=== PATIENT | male | born 1995 | race Caucasian/White ===

== ENCOUNTER 2022-05-05 17:47 | Observation (INO) ==
[2022-05-05] MEDS ORDERED: SODIUM CHLORIDE 0.9% 1000ML 1,000 ML IV ONE (18:04)
[2022-05-05] MEDS ORDERED: ONDANSETRON INJ 2 MG/ML 2 ML VIAL IV STA (18:18)
[2022-05-05 18:51] LABS: Basophils # (auto) 0.03 K/uL (0-0.2); Basophils % (auto) 0.3 %; Eosinophils # (auto) 0.29 K/uL (0-0.5); Eosinophils % (auto) 3.1 %; Hematocrit (blood only) 41.5 % (42-52); Hemoglobin 14.6 g/dL (14.0-18.0); Immature Granulocytes # (auto) 0.01 K/uL (0.00-0.02); Immature Granulocytes % (auto) 0.1 %; Lymphocytes # (auto) 2.54 K/uL (1.2-3.4); Lymphocytes % (auto) 26.8 %; Mean Corpuscular Hemoglobin 31.5 pg (25-34); Mean Corpuscular Hgb Conc 35.2 g/dL (32-36); Mean Corpuscular Volume 89.6 fL (80-100); Mean Platelet Volume 10.2 fL (7.4-10.4); Monocytes # (auto) 1.22 K/uL (0.11-0.59); Monocytes % (auto) 12.9 %; Neutrophils # (auto) 5.37 K/uL (1.4-6.5); Neutrophils % (auto) 56.8 %; Platelet Count 192 K/uL (130-400); RDW Coefficient of Variation 13.1 % (11.5-14.5); Red Blood Count 4.63 M/uL (4.7-6.1); White Blood Count 9.46 K/uL (4.8-10.8)
[2022-05-05 19:15] LABS: Albumin Level 4.1 gm/dl (3.4-5.0); BUN Creatinine Ratio 11.8 (10-20); Bilirubin Direct 0.1 mg/dl (0-0.2); Bilirubin,Total 0.6 mg/dl (0.2-1.0); Calcium 9.2 mg/dl (8.5-10.1); Creatinine Clr Calc Pharmacy 205.6 ml/min; Est GFR (African American) 139.4 ml/min; Est GFR (Non-African American) 120.3 ml/min; Potassium 3.7 mmol/L (3.5-5.1); Total Protein 7.6 gm/dl (6.0-8.3)
--- NOTE | 2022-05-05 19:51 | CT Scan Report ---
CT SCAN OF THE ABDOMEN AND PELVIS WITHOUT IV CONTRAST CLINICAL HISTORY: Right flank pain. COMPARISON STUDY: No priors. TECHNIQUE: CT scan of the abdomen and pelvis is performed from the lung bases to the proximal femora. Images are reviewed in the axial, sagittal, and coronal planes. IV contrast was not administered for this examination. A dose lowering technique was utilized adhering to the principles of ALARA. CT DOSE: 2221.29 mGy.cm FINDINGS: Lung bases: The heart is normal in size and without pericardial effusion. The lung bases are clear. Liver: The unenhanced liver is normal in size, contour, and attenuation. There is no intrahepatic tanika iary ductal dilatation. Gallbladder: Unremarkable. Spleen: Normal in size and attenuation. Pancreas: There is age advanced atrophy of the pancreas. There is inflammatory stranding and fluid id entified around the distal pancreatic body and tail consistent with acute pancreatitis. No organized peripancreatic fluid collection is identified. The splenic vein is patent. The pancreatic duct is nor mal in caliber. There is no clear evidence of pancreatic necrosis. Adrenal glands: Unremarkable. Kidneys: The left kidney is not identified. The unenhanced right kidney is normal in size and without hydronephrosis. There are no right renal calculi identified. There is no evidence of contour deformi ng renal mass lesion. Abdominal vasculature: The abdominal aorta is normal in course and caliber. Bowel: There is moderate colonic fecal retention. No bowel obstruction is seen. The appendix is well -visualized and normal. Peritoneum: There is no intraperitoneal free air or abdominal ascites. There is a small fat-containin g umbilical hernia. Lymphadenopathy: None. Pelvic viscera: The bladder is decompressed and appears circumferentially thick walled. The prostate gland is diminutive. The seminal vesicles are normal as visualized. There is a small fat-containing l eft inguinal hernia. Skeletal structures: No lytic or blastic lesions are seen. IMPRESSION: 1. Age advanced atrophy of the pancreas with evidence of acute pancreatitis. 2. No organized peripancreatic fluid collection is identified and there is no CT evidence of necrosis . 3. Solitary right kidney. 4. The bladder is decompressed and appears thick walled. Correlate with clinical findings and urinaly sis. ACT 112: Negative or not required by law. Electronically signed by: Tony Ramos M.D. 05/05/2022 7:49 PM
[2022-05-05] MEDS ORDERED: LACTATED RINGER'S 1,000 ML IV ONE (20:17)
[2022-05-05 20:36] LABS: Appearance Urine Clear (Clear); Bacteria Urine Automated Negative (Negative); Bilirubin Urine Negative (Negative); Blood Urine 1+ (Negative); Cast Urine Automated 0 /lpf (0-5); Color Urine Yellow; Epithelial Cell Urine Auto 20-30 /lpf (0-5); Glucose Urine UA Negative (Negative); Ketones Urine Negative (Negative); Leukocyte Esterase Urine Negative (Negative); Nitrite Urine Negative (Negative); Protein Urine Trace (Negative); Specific Gravity Urine 1.018 (1.000-1.030); Urobilinogen Urine Negative (Negative)
--- NOTE | 2022-05-05 21:30 | History & Physical Report ---
Date of Service May 05, 2022 Assessment & Plan (1) Abdominal pain: Plan: Multifactorial : Acute pancreatitis, unclear etiology for now Acute cystitis, no sepsis for now seizure disorder, well controlled hx spina bifida/ autism/ solitary kidney GMF Bowel rest, IVF, analgesia GI consult Re: Pancreatitis Urine CS, ceftriaxone DVT prophylaxis with Lovenox subcu Full code Patient mother requesting updates from providers. Ms. Pratima Swan, contact #[phone]. Text document was generated using Pansieve voice recognition software. It may contain grammatical or spelling errors. Kindly contact undersigned for clarification of any documentation item in question. History of Present Illness Chief Complaint: Abdominal pain/flank pain Primary Care Provider: Najma Solis MD History obtained from patient, family, and records. Medical history significant for seizure disorder, spina bifida, autism, solitary kidney. 3 months ago, patient experienced achy epigastric pain going to the back. Some nausea symptoms. Chronic constipation symptoms. Patient seen at PCPs office February 2022. PPI trial recommended. Ultrasound of the abdomen was unremarkable. 3 days ago, patient had recurrence of achy epigastric pain radiating to the chest and back. Some nausea. No emesis. No fever, no chills. Tea colored urine with dysuria symptoms. Appetite not too good. No EtOH intake. Patient seen at PCPs office today and directed to the ER. Medical History as above Surgical History : Dental surgery, eardrum surgery Family History : SLE, DM, autism Personal/Social history : Non-smoker, no EtOH intake, high school graduate Allergies Allergy/AdvReac Type Severity Reaction Status Date / Time Macrolide Antibiotics Allergy Mild Unknown Verified 05/05/22 21:01 Penicillins Allergy Mild Unknown Verified 05/05/22 21:01 Sulfa (Sulfonamide Allergy Mild Unknown Verified 05/05/22 21:01 Antibiotics) Home Medications Medication Instructions Recorded Confirmed Type T-Relief Cbd+13 1 tab SUBLINGUAL DIRECTED 05/05/22 05/05/22 History carbamazepine 200 mg tablet 200 mg PO TID 05/05/22 05/05/22 History (Epitol) diphenhydramine HCl 25 mg tablet 25 mg PO Q6 PRN 05/05/22 05/05/22 History (Benadryl Allergy) docusate sodium 100 mg tablet 200 mg PO HS 05/05/22 05/05/22 History gabapentin 600 mg tablet 600 mg PO BID 05/05/22 05/05/22 History lamotrigine 200 mg tablet 200 mg PO BID 05/05/22 05/05/22 History lorazepam 2 mg/mL injection 0 mg BUCCAL DIRECTED PRN 05/05/22 05/05/22 Hi story solution melatonin 10 mg tablet 20 mg PO HS 05/05/22 05/05/22 History mirtazapine 15 mg tablet 15 mg PO HS 05/05/22 05/05/22 History omeprazole 20 mg capsule,delayed 20 mg PO DAILY PRN 05/05/22 05/05/22 History release sennosides 8.6 mg tablet (senna) 8.6 mg PO BID 05/05/22 05/05/22 History Past Med/Surg History Medical History Absent kidney, congenital Autism No pertinent family history Post-streptococcal glomerulonephritis Seizure disorder Surgical History H/O circumcision Social History Smoking Status: Never smoker Feels Safe at Home: Yes Review of Systems Review of Systems: As per HPI, all other systems reviewed and negative Physical Exam Physical Exam: GENERAL: Comfortable, obese, pleasant, no respiratory distress SKIN: Normal color, warm HEENT: [place] palpebral conjunctivae, no ptosis, dry buccal mucosa NECK : Supple, short neck, no tenderness CHEST : CTA, no tenderness HEART : RRR, no obvious murmurs ABDOMEN: Some distention, epigastric tenderness EXTREMITIES : No LE swelling/tenderness, no other conspicuous deformities noted NEUROLOGIC : Coherent, no facial asymmetry, no other gross focality Results & Data Results & Data ([facility]) Vital Signs (Past 12 Hours) Vital Signs Temp Pulse Resp BP Pulse Ox 05/05/22 18:05 95 05/05/22 17:51 36.6 C 98 H 18 131/83 99 Laboratory Results Laboratory Results WBC 9.46 K/uL (4.8-10.8) 05/05/22 18:25 RBC 4.63 M/uL (4.7-6.1) L 05/05/22 18:25 Hgb 14.6 g/dL (14.0-18.0) 05/05/22 18:25 Hct 41.5 % (42-52) L 05/05/22 18:25 MCV 89.6 fL (80-100) 05/05/22 18:25 MCH 31.5 pg (25-34) 05/05/22 18:25 MCHC 35.2 g/dL (32-36) 05/05/22 18:25 RDW Std Deviation 43.0 fL (36.4-46.3) 05/05/22 18: RDW Coeff of Aman 13.1 % (11.5-14.5) 05/05/22 18: Plt Count 192 K/uL (130-400) 05/05/22 18: MPV 10.2 fL (7.4-10.4) 05/05/22 18:25 Immature Gran % (Auto) 0.1 % 05/05/22 18:25 Neut % (Auto) 56.8 % 05/05/22 18:25 Lymph % (Auto) 26.8 % 05/05/22 18:25 [place] % (Auto) 12.9 % 05/05/22 18:25 Eos % (Auto) 3.1 % 05/05/22 18:25 Baso % (Auto) 0.3 % 05/05/22 18:25 Neut # (Auto) 5.37 K/uL (1.4-6.5) 05/05/22 18:25 Lymph # (Auto) 2.54 K/uL (1.2-3.4) 05/05/22 18:25 [place] # (Auto) 1.22 K/uL (0.11-0.59) H 05/05/22 18:25 Eos # (Auto) 0.29 K/uL (0-0.5) 05/05/22 18:25 Baso # (Auto) 0.03 K/uL (0-0.2) 05/05/22 18: Immature Gran # (Auto) 0.01 K/uL (0.00-0.02) 05/05/22 18:25 Sodium 134 mmol/L (136-145) L 05/05/22 18:25 Potassium 3.7 mmol/L (3.5-5.1) 05/05/22 18:25 Chloride 99 mmol/L (98-107) 05/05/22 18:25 Carbon Dioxide 28 mmol/L (21-32) 05/05/22 18:25 Anion Gap 7 (3-11) 05/05/22 18:25 BUN 10 mg/dl (6-23) 05/05/22 18:25 Creatinine 0.85 mg/dl (0.6-1.4) 05/05/22 18:25 Est Cr Clr Drug Dosing 205.6 ml/min 05/05/22 18:25 Est GFR ( Amer) 139.4 ml/min 05/05/22 18:25 Est GFR (Non-Af Amer) 120.3 ml/min 05/05/22 18:25 BUN/Creatinine Ratio 11.8 (10-20) 05/05/22 18:25 Glucose 93 mg/dl (70-99(Fasting)) 05/05/22 18:25 Calcium 9.2 mg/dl (8.5-10.1) 05/05/22 18:25 Total Bilirubin 0.6 mg/dl (0.2-1.0) 05/05/22 18:25 Direct Bilirubin 0.1 mg/dl (0-0.2) 05/05/22 18:25 AST 19 U/L (13-39) 05/05/22 18:25 ALT 19 U/L (7-52) 05/05/22 18:25 Alkaline Phosphatase 111 U/L (34-104) H 05/05/22 18:25 Total Protein 7.6 gm/dl (6.0-8.3) 05/05/22 18:25 Albumin 4.1 gm/dl (3.4-5.0) 05/05/22 18:25 Lipase 28 U/L (11-82) 05/05/22 18:25 Urine Color Yellow 05/05/22 19:46 Urine Appearance Clear (Clear) 05/05/22 19:46 Urine pH 7.0 (4.5-7.5) 05/05/22 19:46 Ur Specific [place] 1.018 (1.000-1.030) 05/05/22 19:46 Urine Protein Trace (Negative) H 05/05/22 19:46 Urine Glucose (UA) Negative (Negative) 05/05/22 19:46 Urine Ketones Negative (Negative) 05/05/22 19:46 Urine Blood 1+ (Negative) H 05/05/22 19:46 Urine Nitrite Negative (Negative) 05/05/22 19:46 Urine Bilirubin Negative (Negative) 05/05/22 19:46 Urine Urobilinogen Negative (Negative) 05/05/22 19:46 Ur Leukocyte Esterase Negative (Negative) 05/05/22 19:46 Urine WBC (Auto) 1-5 /hpf (0-5) 05/05/22 19:46 Urine RBC (Auto) 10-30 /hpf (0-4) H 05/05/22 19:46 U Hyaline Cast (Auto) 0 /lpf (0-5) 05/05/22 19:46 U Epithel Cells (Auto) 20-30 /lpf (0-5) H 05/05/22 19:46 Urine Bacteria (Auto) Negative (Negative) 05/05/22 19:46 Impressions Abdomen/Pelvis CT 05/05/22 18:18 CT SCAN OF THE ABDOMEN AND PELVIS WITHOUT IV CONTRAST CLINICAL HISTORY: Right flank pain. COMPARISON STUDY: No priors. TECHNIQUE: CT scan of the abdomen and pelvis is performed from the lung bases to the proximal femora. Images are reviewed in the axial, sagittal, and coronal planes. IV contrast was not administered for this examination. A dose lowering technique was utilized adhering to the principles of ALARA. CT DOSE: 2221.29 mGy.cm FINDINGS: Lung bases: The heart is normal in size and without pericardial effusion. The lung bases are clear. Liver: The unenhanced liver is normal in size, contour, and attenuation. There is no intrahepatic biliary ductal dilatation. Gallbladder: Unremarkable. Spleen: Normal in size and attenuation. Pancreas: There is age advanced atrophy of the pancreas. There is inflammatory stranding and fluid identified around the distal pancreatic body and tail consistent with acute pancreatitis. No organized peripancreatic fluid collection is identified. The splenic vein is patent. The pancreatic duct is normal in [place]. There is no clear evidence of pancreatic necrosis. Adrenal glands: Unremarkable. Kidneys: The left kidney is not identified. The unenhanced right kidney is normal in size and without hydronephrosis. There are no right renal calculi identified. There is no evidence of contour deforming renal mass lesion. Abdominal vasculature: The abdominal aorta is normal in course and caliber. Bowel: There is moderate colonic fecal retention. No bowel obstruction is seen. The appendix is well-visualized and normal. Peritoneum: There is no intraperitoneal free air or abdominal ascites. There is a small fat-containing umbilical hernia. Lymphadenopathy: None. Pelvic viscera: The bladder is decompressed and appears circumferentially thick walled. The prostate gland is diminutive. The seminal vesicles are normal as visualized. There is a small fat-containing left inguinal hernia. Skeletal structures: No lytic or blastic lesions are seen. IMPRESSION: 1. Age advanced atrophy of the pancreas with evidence of acute pancreatitis. 2. No organized peripancreatic fluid collection is identified and there is no CT evidence of necrosis. 3. Solitary right kidney. 4. The bladder is decompressed and appears thick walled. Correlate with clinical findings and urinalysis. ACT 112: Negative or not required by law. Electronically signed by: Tony Ramos M.D. 05/05/2022 7:49 PM
[2022-05-05] MEDS ORDERED: cefTRIAXone SODIUM 2,000 MG/70 ML BAG IV STA ×2 (21:35→21:40)
--- NOTE | 2022-05-05 21:49 | Emergency Department Note ---
History of Present Illness General Chief Complaint: Urinary Symptoms Stated Complaint: KIDNEY ISSUES, PAIN WHEN URINATING Time Seen by Provider: 05/05/22 18:04 History of Present Illness Provider Complaint: flank pain (R) Onset (ago): 2 day(s) Pain Consistency: intermittent Location: R flank Radiation: RLQ Severity: severe Maximum Pain Intensity: 9 Current Pain Intensity: 9 Quality: + stabbing and + sharp Relieved By: + nothing Exacerbated By: + nothing Context: no foreign travel, no possible food poisoning, no sick contacts, no re cent antibiotic use, no recent surgery/procedure or no recent injury Associated Symptoms: + nausea, + vomiting, + dysuria and + hematuria; no diarrhea, no fever, no constipation, no hematemesis, no hematochezia, no melena, no anorexia, no syncope, no headache, no neck pain, no chest pain, no breathing difficulty and no numbness Home Medications Medication Instructions Recorded Confirmed Type T-Relief Cbd+13 1 tab SUBLINGUAL DIRECTED 05/05/22 05/05/22 History carbamazepine 200 mg tablet 200 mg PO TID 05/05/22 05/05/22 History (Epitol) diphenhydramine HCl 25 mg tablet 25 mg PO Q6 PRN 05/05/22 05/05/22 History (Benadryl Allergy) docusate sodium 100 mg tablet 200 mg PO HS 05/05/22 05/05/22 History gabapentin 600 mg tablet 600 mg PO BID 05/05/22 05/05/22 History lamotrigine 200 mg tablet 200 mg PO BID 05/05/22 05/05/22 History lorazepam 2 mg/mL injection 0 mg BUCCAL DIRECTED PRN 05/05/22 05/05/22 History solution melatonin 10 mg tablet 20 mg PO HS 05/05/22 05/05/22 History mirtazapine 15 mg tablet 15 mg PO HS 05/05/22 05/05/22 History omeprazole 20 mg capsule,delayed 20 mg PO DAILY PRN 05/05/22 05/05/22 History release sennosides 8.6 mg tablet (senna) 8.6 mg PO BID 05/05/22 05/05/22 History Allergies Allergy/AdvReac Type Severity Reaction Status Date / Time Macrolide Antibiotics Allergy Mild Unknown Verified 05/05/22 21:01 Penicillins Allergy Mild Unknown Verified 05/05/22 21:01 Sulfa (Sulfonamide Allergy Mild Unknown Verified 05/05/22 21:01 Antibiotics) Past Med/Surg History Medical History Absent kidney, congenital Autism No pertinent family history Post-streptococcal glomerulonephritis Seizure disorder Surgical History H/O circumcision Social History Smoking Status: Never smoker Feels Safe at Home: Yes Review of Systems A total of 10 systems reviewed and were otherwise negative Physical Exam Vital Signs: Vital Signs - 24 hr 05/05/22 17:51 05/05/22 18:05 Temperature 36.6 C Temperature Source Temporal Artery Sc an Pulse Rate 98 H Respiratory Rate 18 Respiratory Effort / Characteristics Non-Labored Respiratory Depth Normal Respiratory Patter n Regular Blood Pressure 131/83 Blood Pressure [place] n 99 Blood Pressure Pos ition Sitting Pulse Oximetry 99 95 Oxygen Delivery Me thod Room Air Sepsis Recent Feve r Within 48 Hours No Sepsis New/Unexpla ined Change in Men zina Status No Sepsis Action Take n by Nursing No Action Required Physical Exam: Physical Exam GENERAL: He is oriented to person, place, and time. He appears well-developed and well-nourished. He does not appear distressed. HENT: Exam performed. - Head: Normocephalic and atraumatic. - Right Ear: External ear normal. No mastoid tenderness. - Left Ear: External ear normal. No mastoid tenderness. - Mouth/Throat: The oropharynx is clear and moist. No trismus in the jaw. No dental abscesses or uvula swelling. No oropharyngeal exudate or tonsillar abscesses. EYES: Conjunctivae and EOM are normal. Pupils are equal, round, and reactive to light. Right eye exhibits no discharge. Left eye exhibits no discharge. No scleral icterus. NECK: Normal range of motion. Neck supple. No JVD present. No spinous process tenderness present. No carotid bruit present. No rigidity. No tracheal deviation and normal range of motion present. No Brudzinski's sign and no Kernig's sign noted. CV: Normal rate, regular rhythm, normal heart sounds and intact distal pulses. There is no peripheral edema. Palpable radial pulses bue. PULM/CHEST: Effort normal and breath sounds normal. No respiratory distress. No stridor. He has no wheezes. He has no rales. - Chest Wall: He exhibits no tenderness. ABD: The abdomen is soft. Bowel sounds are normal. He has no distension. No mass is present. There is no tenderness. There is no rebound, no guarding, no Romero's sign and no tenderness at McBurney's point. Rovsig negative. R CVA tenderness. MUSC/SKEL: Normal range of motion. There is no peripheral edema, tenderness or deformity. LYMPH: No cervical adenopathy. NEURO: He is alert and oriented to person, place, and time. He has normal strength. No cranial nerve deficit or sensory deficit. Coordination and gait normal. GCS eye subscore is 4. GCS verbal subscore is 5. GCS motor subscore is 6. Cerebellar tests wnl. SKIN: Skin is warm and dry. He is not diaphoretic. PSYCH: He has a normal mood and affect. Behavior is normal. Judgment and thought content normal. Course Course 180: The patient was evaluated in room C4. A complete history and physical exam was performed Cardiac monitoring: An order was placed for continuous cardiac monitoring. The monitor shows a rate of 90 with sinus rhythm 2045: Vital signs stable. Labs within normal limits with exception of urinalysis which does show some hematuria and red blood cells. CT of the abdomen shows no kidney stones but does show pancreatitis. Lipase within normal limits. [facility] [place] [facility] by GI and urology. Discussed case with Dr. Arias who agrees with the plan. Administered Medications Lactated Ringer's (Lr) 1,000 mls @ 200 mls/hr IV .Q5H ONE Stop: 05/06/22 01:16 Last Admin: 05/05/22 20:29 Dose: 200 mls/hr Documented by: [id number] Discontinued Medications Sodium Chloride (Nss 1000ml) 1,000 mls @ 999 mls/hr IV .Q1H1M ONE Stop: 05/05/22 19:04 Last Infusion: 05/05/22 19:56 Dose: 0 mls/hr Documented by: [id number] Admin: 05/05/22 18:28 Dose: 999 mls/hr Documented by: [id number] Ondansetron HCl (Ondansetron Inj 2 Mg/Ml 2 Ml Vial) 4 mg IV NOW STA Stop: 05/05/22 18:19 Last Admin: 05/05/22 20:06 Dose: Not Given Documented by: [id number] Medical Decision Making Laboratory Data Result diagrams: 05/05/22 18:25 05/05/22 18:25 Lab Results 05/05/22 05/05/22 05/05/22 Range/Units 18:25 18:25 19:46 WBC 9.46 (4.8-10.8) K/uL RBC 4.63 L (4.7-6.1) M/uL Hgb 14.6 (14.0-18.0) g/dL Hct 41.5 L (42-52) % MCV 89.6 (80-100) fL MCH 31.5 (25-34) pg MCHC 35.2 (32-36) g/dL RDW Std Deviation 43.0 (36.4-46.3) fL RDW Coeff of Aman 13.1 (11.5-14.5) % Plt Count 192 (130-400) K/uL MPV 10.2 (7.4-10.4) fL Immature Gran % (Auto) 0.1 % Neut % (Auto) 56.8 % Lymph % (Auto) 26.8 % [place] % (Auto) 12.9 % Eos % (Auto) 3.1 % Baso % (Auto) 0.3 % Neut # (Auto) 5.37 (1.4-6.5) K/uL Lymph # (Auto) 2.54 (1.2-3.4) K/uL [place] # (Auto) 1.22 H (0.11-0.59) K/uL Eos # (Auto) 0.29 (0-0.5) K/uL Baso # (Auto) 0.03 (0-0.2) K/uL Immature Gran # (Auto) 0.01 (0.00-0.02) K/uL Sodium 134 L (136-145) mmol/L Potassium 3.7 (3.5-5.1) mmol/L Chloride 99 (98-107) mmol/L Carbon Dioxide 28 (21-32) mmol/L Anion Gap 7 (3-11) BUN 10 (6-23) mg/dl Creatinine 0.85 (0.6-1.4) mg/dl Est Cr Clr Drug Dosing 205.6 ml/min Est GFR ( Amer) 139.4 ml/min Est GFR (Non-Af Amer) 120.3 ml/min BUN/Creatinine Ratio 11.8 (10-20) Glucose 93 (70-99(Fasting)) mg/dl Calcium 9.2 (8.5-10.1) mg/dl Total Bilirubin 0.6 (0.2-1.0) mg/dl Direct Bilirubin 0.1 (0-0.2) mg/dl AST 19 (13-39) U/L ALT 19 (7-52) U/L Alkaline Phosphatase 111 H (34-104) U/L Total Protein 7.6 (6.0-8.3) gm/dl Albumin 4.1 (3.4-5.0) gm/dl Lipase 28 (11-82) U/L Urine Color Yellow Urine Appearance Clear (Clear) Urine pH 7.0 (4.5-7.5) Ur Specific [place] 1.018 (1.000-1.030) Urine Protein Trace H (Negative) Urine Glucose (UA) Negative (Negative) Urine Ketones Negative (Negative) Urine Blood 1+ H (Negative) Urine Nitrite Negative (Negative) Urine Bilirubin Negative (Negative) Urine Urobilinogen Negative (Negative) Ur Leukocyte Esterase Negative (Negative) Urine WBC (Auto) 1-5 (0-5) /hpf Urine RBC (Auto) 10-30 H (0-4) /hpf U Hyaline Cast (Auto) 0 (0-5) /lpf U Epithel Cells (Auto) 20-30 H (0-5) /lpf Urine Bacteria (Auto) Negative (Negative) Carbamazepine (4-12) mcg/ml SARS-CoV-2, RNA, NAAT (NEGATIVE) 05/05/22 05/05/22 Range/Units 20:30 21:05 WBC (4.8-10.8) K/uL RBC (4.7-6.1) M/uL Hgb (14.0-18.0) g/dL Hct (42-52) % MCV (80-100) fL MCH (25-34) pg MCHC (32-36) g/dL RDW Std Deviation (36.4-46.3) fL RDW Coeff of [place]man (11.5-14.5) % Plt Count (130-400) K/uL MPV (7.4-10.4) fL Immature Gran % (Auto) % Neut % (Auto) % Lymph % (Auto) % [place] % (Auto) % Eos % (Auto) % Baso % (Auto) % Neut # (Auto) (1.4-6.5) K/uL Lymph # (Auto) (1.2-3.4) K/uL [place] # (Auto) (0.11-0.59) K/uL Eos # (Auto) (0-0.5) K/uL Baso # (Auto) (0-0.2) K/uL Immature Gran # (Auto) (0.00-0.02) K/uL Sodium (136-145) mmol/L Potassium (3.5-5.1) mmol/L Chloride (98-107) mmol/L Carbon Dioxide (21-32) mmol/L Anion Gap (3-11) BUN (6-23) mg/dl Creatinine (0.6-1.4) mg/dl Est Cr Clr Drug Dosing ml/min Est GFR ( Amer) ml/min Est GFR (Non-Af Amer) ml/min BUN/Creatinine Ratio (10-20) Glucose (70-99(Fasting)) mg/dl Calcium (8.5-10.1) mg/dl Total Bilirubin (0.2-1.0) mg/dl Direct Bilirubin (0-0.2) mg/dl AST (13-39) U/L ALT (7-52) U/L Alkaline Phosphatase (34-104) U/L Total Protein (6.0-8.3) gm/dl Albumin (3.4-5.0) gm/dl Lipase (11-82) U/L Urine Color Urine Appearance (Clear) Urine pH (4.5-7.5) Ur Specific [place] (1.000-1.030) Urine Protein (Negative) Urine Glucose (UA) (Negative) Urine Ketones (Negative) Urine Blood (Negative) Urine Nitrite (Negative) Urine Bilirubin (Negative) Urine Urobilinogen (Negative) Ur Leukocyte Esterase (Negative) Urine WBC (Auto) (0-5) /hpf Urine RBC (Auto) (0-4) /hpf U Hyaline Cast (Auto) (0-5) /lpf U Epithel Cells (Auto) (0-5) /lpf Urine Bacteria (Auto) (Negative) Carbamazepine 9.7 (4-12) mcg/ml SARS-CoV-2, RNA, NAAT NEGATIVE (NEGATIVE) Imaging Data Radiologist's Impression: Abdomen/Pelvis CT 05/05/22 18:18 CT SCAN OF THE ABDOMEN AND PELVIS WITHOUT IV CONTRAST CLINICAL HISTORY: Right flank pain. COMPARISON STUDY: No priors. TECHNIQUE: CT scan of the abdomen and pelvis is performed from the lung bases to the proximal femora. Images are reviewed in the axial, sagittal, and coronal planes. IV contrast was not administered for this examination. A dose lowering technique was utilized adhering to the principles of ALARA. CT DOSE: 2221.29 mGy.cm FINDINGS: Lung bases: The heart is normal in size and without pericardial effusion. The lung bases are clear. Liver: The unenhanced liver is normal in size, contour, and attenuation. There is no intrahepatic biliary ductal dilatation. Gallbladder: Unremarkable. Spleen: Normal in size and attenuation. Pancreas: There is age advanced atrophy of the pancreas. There is inflammatory stranding and fluid identified around the distal pancreatic body and tail consistent with acute pancreatitis. No organized peripancreatic fluid collection is identified. The splenic vein is patent. The pancreatic duct is normal in caliber. There is no clear evidence of pancreatic necrosis. Adrenal glands: Unremarkable. Kidneys: The left kidney is not identified. The unenhanced right kidney is normal in size and without hydronephrosis. There are no right renal calculi identified. There is no evidence of contour deforming renal mass lesion. Abdominal vasculature: The abdominal aorta is normal in course and caliber. Bowel: There is moderate colonic fecal retention. No bowel obstruction is seen. The appendix is well-visualized and normal. Peritoneum: There is no intraperitoneal free air or abdominal ascites. There is a small fat-containing umbilical hernia. Lymphadenopathy: None. Pelvic viscera: The bladder is decompressed and appears circumferentially thick walled. The prostate gland is diminutive. The seminal vesicles are normal as visualized. There is a small fat-containing left inguinal hernia. Skeletal structures: No lytic or blastic lesions are seen. IMPRESSION: 1. Age advanced atrophy of the pancreas with evidence of acute pancreatitis. 2. No organized peripancreatic fluid collection is identified and there is no CT evidence of necrosis. 3. Solitary right kidney. 4. The bladder is decompressed and appears thick walled. Correlate with clinical findings and urinalysis. ACT 112: Negative or not required by law. Electronically signed by: Tony Ramos M.D. 05/05/2022 7:49 PM MDM Narrative Vital signs stable. Labs within normal limits with exception of urinalysis which does show some hematuria and red blood cells. CT of the abdomen shows no kidney stones but does show pancreatitis. Lipase within normal limits. Patient be admitted to the [facility] hospitalist team for evaluation by GI and urology. Discussed case with Dr. Arias who agrees with the plan. Impression & Plan Pancreatitis Discharge Plan Visit Data Chief Complaint: Urinary Symptoms Stated Complaint: KIDNEY ISSUES, PAIN WHEN URINATING Discharge Problem: Pancreatitis Patient Disposition: Being Evaluated by Hospitalist Forms Stand Alone Forms: [facility] Prescriptions Prescriptions: No Action sennosides [senna] 8.6 mg tablet 8.6 mg PO BID RF: 0 gabapentin 600 mg tablet 600 mg PO BID RF: 0 lamotrigine 200 mg tablet 200 mg PO BID RF: 0 lorazepam 2 mg/mL Solution 0 mg BUCCAL DIRECTED PRN (Reason: Seizure Activity) RF: 0 carbamazepine [Epitol] 200 mg tablet 200 mg PO TID RF: 0 diphenhydramine HCl [Benadryl Allergy] 25 mg Tablet 25 mg PO Q6 PRN (Reason: Itching) RF: 0 omeprazole 20 mg capsule,delayed release(DR/EC) 20 mg PO DAILY PRN (Reason: .HEARTBURN) RF: 0 mirtazapine 15 mg tablet 15 mg PO HS RF: 0 docusate sodium 100 mg Tablet 200 mg PO HS RF: 0 melatonin 10 mg Tablet 20 mg PO HS RF: 0 T-Relief Cbd+13 1 tab sublingual DIRECTED RF: 0 Referrals Referrals: Najma Solis MD [Primary Care Provider] -
[2022-05-05] MEDS ORDERED: MoRPHine SULFATE 4 MG/ML 1 ML CARP\\VIAL IV PRN (22:47)
[2022-05-05] MEDS ORDERED: ACETAMINOPHEN 325 MG TAB PO PRN (22:47)
[2022-05-05] MEDS ORDERED: oxyCODONE HCL IR 5 MG TAB (IMMEDIATE RELEASE) PO PRN (22:47)
[2022-05-05] MEDS ORDERED: PROMETHAZINE HCL 12.5 MG in SODIUM CHLORIDE 0.9% 50 ML IV PRN (22:47)
[2022-05-05] MEDS ORDERED: MELATONIN 3 MG TAB PO PRN (22:51)
[2022-05-05] MEDS ORDERED: PANTOprazole 40 MG TAB PO PRN (22:52)
[2022-05-06] MEDS: LACTATED RINGER'S 1,000 ML IV SCH ×3 (02:08→11:54)
[2022-05-06] MEDS: carBAMazepine 200 MG TABLET PO SCH ×3 (05:01→20:51)
[2022-05-06] MEDS: lamoTRIgine 100 MG TAB PO SCH ×2 (05:02→20:53)
[2022-05-06] MEDS: GABAPENTIN 600 MG TAB PO SCH ×2 (05:02→20:53)
[2022-05-06 06:27] LABS: Basophils # (auto) 0.03 K/uL (0-0.2); Basophils % (auto) 0.4 %; Eosinophils # (auto) 0.27 K/uL (0-0.5); Eosinophils % (auto) 3.4 %; Hematocrit (blood only) 39.1 % (42-52); Hemoglobin 13.2 g/dL (14.0-18.0); Immature Granulocytes # (auto) 0.02 K/uL (0.00-0.02); Immature Granulocytes % (auto) 0.2 %; Lymphocytes # (auto) 2.85 K/uL (1.2-3.4); Lymphocytes % (auto) 35.4 %; Mean Corpuscular Hemoglobin 30.2 pg (25-34); Mean Corpuscular Hgb Conc 33.8 g/dL (32-36); Mean Corpuscular Volume 89.5 fL (80-100); Mean Platelet Volume 9.8 fL (7.4-10.4); Monocytes # (auto) 0.67 K/uL (0.11-0.59); Monocytes % (auto) 8.3 %; Neutrophils # (auto) 4.21 K/uL (1.4-6.5); Neutrophils % (auto) 52.3 %; Platelet Count 199 K/uL (130-400); RDW Coefficient of Variation 12.9 % (11.5-14.5); Red Blood Count 4.37 M/uL (4.7-6.1); White Blood Count 8.05 K/uL (4.8-10.8)
[2022-05-06 06:36] LABS: Albumin Globulin Ratio 1.3 (0.9-2); Albumin Level 3.7 gm/dl (3.4-5.0); BUN Creatinine Ratio 10.4 (10-20); Bilirubin,Total 0.7 mg/dl (0.2-1.0); Calcium 8.7 mg/dl (8.5-10.1); Creatinine Clr Calc Pharmacy 226.8 ml/min; Est GFR (African American) 145.2 ml/min; Est GFR (Non-African American) 125.2 ml/min; Globulin 2.9 gm/dl (2.5-4.0); Total Protein 6.6 gm/dl (6.0-8.3)
[2022-05-06] MEDS: SENNA 8.6 MG TAB PO SCH ×2 (07:55→20:54)
[2022-05-06] MEDS ORDERED: carBAMazepine 200 MG TABLET PO SCH (09:00)
[2022-05-06] MEDS ORDERED: lamoTRIgine 100 MG TAB PO SCH (09:00)
[2022-05-06] MEDS ORDERED: GABAPENTIN 600 MG TAB PO SCH (09:00)
[2022-05-06] MEDS: ENOXAPARIN INJ 40 MG/0.4 ML SYR SQ SCH (09:15)
--- NOTE | 2022-05-06 12:06 | Gastrointestinal Consultation ---
Date of Consultation May 06, 2022 Assessment & Plan (1) Pancreatitis: This is a 27 y/o male with seizures, autism and others admitted w/ abd pain, found to have acute pancreatitis on imaging (normal lipase, LFTs and WBC), and being treated for ? cystitis. Today pain is slightly improved but he states it's still a 7/10; he is nontender; tolerated clears and asking for more food. It seems he's had intermittent upper abd pain x several months without clear etiology, and a few days ago developed this acute epigastric pain. It seems he has a mild pancreatitis, etiology unclear. Discussed diff dx; no ETOH or obvious stone which rules out 90% of pancreatitis. The other 10% can be attributed to medications, genetic cause, autoimmune, anatomic anomaly (pancreas divisum, etc), or idiopathic. His imaging did suggest atrophy of the pancreas of unclear etiology. While his anti-seizure meds have potential for pancreatitis he has been on these for quite some time and is stable on them. - Recommend clear liquids for at least another meal. Discussed w/ mom and pt need to avoid starting back on food too early which can sometimes worsen symptoms - Continue IVF; aim for 2 pt drop in H/H - Analgesia PRN - Ambulate as tolerated - Consider OP EUS once acute symptoms resolve to evaluate for anatomic pathology (PD, retained stone, etc); pt and mom would be ok with that. Thank you for allowing us to participate in the care of this patient. Please call with any acute changes, questions or concerns. Please see addendum below with additional recommendation from my supervising physician. Supervising Physician Co-Signing Physician Notes I performed a history and physical examination of the patient today, including specifically on physical exam - soft abdomen. I have discussed the patient's management with the advanced practitioner. Please refer to the nurse practitioner's note for the documented findings and plan of care. Advance diet as tolerated . EUS as OP. Genetic testing for chronic pancreatitis as OP. Recall GI if needed. History of Present Illness Reason for Consultation: pancreatitis Requesting Physician: Dr. Torres Attending Physician: Bonnie Lazcano DO History of Present Illness This is a 27 y/o male with PMHx seizure disorder, spina bifida, autism, solitary kidney, who presented to the ER w/ 3 days of acute on chronic upper abd pain; wa s radiating to the chest and back. Had some nausea and dysuria. CT w/ acute pancreatitis w/ age advanced atrophy, normal lipase, LFTs, WBC, HGB was 14.6. He was admitted and started on IVF, bowel rest. Has ? cystitis and is on ABX for that. Today pain slightly improved; is a 7/10. He describes it as a stabbing pain; can radiate to the back. His mother is with the pt and helps with the history. Tolerated clear liquids for breakfast. Currently no n/v; he's afebrile w/ VSS. Is on IVF @ 200 mL/hr. He is not getting analgesia. Despite pain he is asking to eat more and mom is asking when he can eat and go home. He's had some upper abd pain off and on for several months; ? 6 months; can be epigastric/RUQ. OP US ABD unremarkable; was put on a PPI; didn't seem to help. He tries to avoid junk food, processed food, has occasionally. Has chronic constipation. Has a hard BM every few days. No melena, hematochezia, hematemesis, diarrhea, change in BMs, jaundice, icterus. Great uncle had pancreatic cancer. Pt denies ETOH, tobacco use, herbal meds or change in rx meds; no new OTC meds. US ABD 04/01/22 by PCP: Evaluation limited by patient body habitus. The liver is normal in echogenicity with no evidence of gross mass. There is no intra or extrahepatic ductal dilatation. The common bile duct measures 3.1 mm, which is within normal limits. The gallbladder is fluid filled without calculi, gallbladder wall thickening, or pericholecystic fluid. The partially visualized pancreas is unremarkable. The right kidney is normal in size and echotexture measuring 13.3 cm. There is no hydronephrosis. IMPRESSION Unremarkable study. Colonoscopy 06/2015 Home [facility] for change in bowel habits: Internal hemorrhoids Allergies Allergy/AdvReac Type Severity Reaction Status Date / Time Macrolide Antibiotics Allergy Mild Unknown Verified 05/05/22 21:01 Penicillins Allergy Mild Unknown Verified 05/05/22 21:01 Sulfa (Sulfonamide Allergy Mild Unknown Verified 05/05/22 21:01 Antibiotics) Home Medications Medication Instructions Recorded Confirmed Type T-Relief Cbd+13 1 tab SUBLINGUAL DIRECTED 05/05/22 05/05/22 History carbamazepine 200 mg tablet 200 mg PO TID 05/05/22 05/05/22 History (Epitol) diphenhydramine HCl 25 mg tablet 25 mg PO Q6 PRN 05/05/22 05/05/22 History (Benadryl Allergy) docusate sodium 100 mg tablet 200 mg PO HS 05/05/22 05/05/22 History gabapentin 600 mg tablet 600 mg PO BID 05/05/22 05/05/22 History lamotrigine 200 mg tablet 200 mg PO BID 05/05/22 05/05/22 History lorazepam 2 mg/mL injection 0 mg BUCCAL DIRECTED PRN 05/05/22 05/05/22 History solution melatonin 10 mg tablet 20 mg PO HS 05/05/22 05/05/22 History mirtazapine 15 mg tablet 15 mg PO HS 05/05/22 05/05/22 History omeprazole 20 mg capsule,delayed 20 mg PO DAILY PRN 05/05/22 05/05/22 History release sennosides 8.6 mg tablet (senna) 8.6 mg PO BID 05/05/22 05/05/22 History Patient History Medical History Absent kidney, congenital Autism No pertinent family history Post-streptococcal glomerulonephritis Seizure disorder Surgical History H/O circumcision Social History Smoking Status: Never smoker Hx Alcohol Use: No Hx Substance Use: No Preferred Language: Somali Communication Ability: Effective Regional Manager Required: No Beliefs That Will Affect Care: None Current Living Situation: Family Feels Safe at Home: Yes Safety Concerns: Feels Safe At This Time Review of Systems Review of Systems: All systems reviewed & are unremarkable except as noted in HPI & below Physical Exam Constitutional: WD/WN, vitals as above Eyes: PERRL, conjunctivae normal, anicteric sclerae Respiratory: normal respiratory effort, lungs clear to auscultation Cardiovascular: RRR, no murmur, no edema Gastrointestinal (Abdomen): Inspection/Auscultation: abdomen normal to inspection and normal bowel sounds; abdomen not distended Per cussion/Palpation: abdomen soft; abdomen nontender, no guarding and abdomen not rigid nondistended Skin: no rashes, warm and dry Psychiatric: A+Ox3, euthymic affect Results & Data ([facility]) Vital Signs (Past 12 Hours) Vital Signs Temp Pulse Resp BP Pulse Ox 05/06/22 07:34 36.7 C 84 16 130/82 99 Laboratory Results 05/06/22 05/06/22 05/06/22 Range/Units 09:08 09:05 05:54 WBC (4.8-10.8) K/uL RBC (4.7-6.1) M/uL Hgb (14.0-18.0) g/dL Hct (42-52) % MCV (80-100) fL MCH (25-34) pg MCHC (32-36) g/dL RDW Std Deviation (36.4-46.3) fL RDW Coeff of Aman (11.5-14.5) % Plt Count (130-400) K/uL MPV (7.4-10.4) fL Immature Gran % (Auto) % Neut % (Auto) % Lymph % (Auto) % [place] % (Auto) % Eos % (Auto) % Baso % (Auto) % Neut # (Auto) (1.4-6.5) K/uL Lymph # (Auto) (1.2-3.4) K/uL [place] # (Auto) (0.11-0.59) K/uL Eos # (Auto) (0-0.5) K/uL Baso # (Auto) (0-0.2) K/uL Immature Gran # (Auto) (0.00-0.02) K/uL Sodium 135 L (136-145) mmol/L Potassium 4.0 (3.5-5.1) mmol/L Chloride 103 (98-107) mmol/L Carbon Dioxide 27 (21-32) mmol/L Anion Gap 5 (3-11) BUN 8 (6-23) mg/dl Creatinine 0.77 (0.6-1.4) mg/dl Est Cr Clr Drug Dosing 226.8 ml/min Est GFR ( Amer) 145.2 ml/min Est GFR (Non-Af Amer) 125.2 ml/min BUN/Creatinine Ratio 10.4 (10-20) Glucose 83 (70-99(Fasting)) mg/dl POC Glucose 70 63 L* (70-99) mg/dl Calcium 8.7 (8.5-10.1) mg/dl Total Bilirubin 0.7 (0.2-1.0) mg/dl Direct Bilirubin (0-0.2) mg/dl AST 16 (13-39) U/L ALT 16 (7-52) U/L Alkaline Phosphatase 102 (34-104) U/L Total Protein 6.6 (6.0-8.3) gm/dl Albumin 3.7 (3.4-5.0) gm/dl Globulin 2.9 (2.5-4.0) gm/dl Albumin/Globulin Ratio 1.3 (0.9-2) Lipase (11-82) U/L Urine Color Urine Appearance (Clear) Urine pH (4.5-7.5) Ur Specific [place] (1.000-1.030) Urine Protein (Negative) Urine Glucose (UA) (Negative) Urine Ketones (Negative) Urine Blood (Negative) Urine Nitrite (Negative) Urine Bilirubin (Negative) Urine Urobilinogen (Negative) Ur Leukocyte Esterase (Negative) Urine WBC (Auto) (0-5) /hpf Urine RBC (Auto) (0-4) /hpf U Hyaline Cast (Auto) (0-5) /lpf U Epithel Cells (Auto) (0-5) /lpf Urine Bacteria (Auto) (Negative) Carbamazepine (4-12) mcg/ml SARS-CoV-2, RNA, NAAT (NEGATIVE) 05/06/22 05/05/22 05/05/22 Range/Units 05:54 21:05 20:30 WBC 8.05 (4.8-10.8) K/uL RBC 4.37 L (4.7-6.1) M/uL Hgb 13.2 L (14.0-18.0) g/dL Hct 39.1 L (42-52) % MCV 89.5 (80-100) fL MCH 30.2 (25-34) pg MCHC 33.8 (32-36) g/dL RDW Std Deviation 43.0 (36.4-46.3) fL RDW Coeff of Aman 12.9 (11.5-14.5) % Plt Count 199 (130-400) K/uL MPV 9.8 (7.4-10.4) fL Immature Gran % (Auto) 0.2 % Neut % (Auto) 52.3 % Lymph % (Auto) 35.4 % [place] % (Auto) 8.3 % Eos % (Auto) 3.4 % Baso % (Auto) 0.4 % Neut # (Auto) 4.21 (1.4-6.5) K/uL Lymph # (Auto) 2.85 (1.2-3.4) K/uL [place] # (Auto) 0.67 H (0.11-0.59) K/uL Eos # (Auto) 0.27 (0-0.5) K/uL Baso # (Auto) 0.03 (0-0.2) K/uL Immature Gran # (Auto) 0.02 (0.00-0.02) K/uL Sodium (136-145) mmol/L Potassium (3.5-5.1) mmol/L Chloride (98-107) mmol/L Carbon Dioxide (21-32) mmol/L Anion Gap (3-11) BUN (6-23) mg/dl Creatinine (0.6-1.4) mg/dl Est Cr Clr Drug Dosing ml/min Est GFR ( Amer) ml/min Est GFR (Non-Af Amer) ml/min BUN/Creatinine Ratio (10-20) Glucose (70-99(Fasting)) mg/dl POC Glucose (70-99) mg/dl Calcium (8.5-10.1) mg/dl Total Bilirubin (0.2-1.0) mg/dl Direct Bilirubin (0-0.2) mg/dl AST (13-39) U/L ALT (7-52) U/L Alkaline Phosphatase (34-104) U/L Total Protein (6.0-8.3) gm/dl Albumin (3.4-5.0) gm/dl Globulin (2.5-4.0) gm/dl Albumin/Globulin Ratio (0.9-2) Lipase (11-82) U/L Urine Color Urine Appearance (Clear) Urine pH (4.5-7.5) Ur Specific [place] (1.000-1.030) Urine Protein (Negative) Urine Glucose (UA) (Negative) Urine Ketones (Negative) Urine Blood (Negative) Urine Nitrite (Negative) Urine Bilirubin (Negative) Urine Urobilinogen (Negative) Ur Leukocyte Esterase (Negative) Urine WBC (Auto) (0-5) /hpf Urine RBC (Auto) (0-4) /hpf U Hyaline Cast (Auto) (0-5) /lpf U Epithel Cells (Auto) (0-5) /lpf Urine Bacteria (Auto) (Negative) Carbamazepine 9.7 (4-12) mcg/ml SARS-CoV-2, RNA, NAAT NEGATIVE (NEGATIVE) 05/05/22 05/05/22 05/05/22 Range/Units 19:46 18:25 18:25 WBC 9.46 (4.8-10.8) K/uL RBC 4.63 L (4.7-6.1) M/uL Hgb 14.6 (14.0-18.0) g/dL Hct 41.5 L (42-52) % MCV 89.6 (80-100) fL MCH 31.5 (25-34) pg MCHC 35.2 (32-36) g/dL RDW Std Deviation 43.0 (36.4-46.3) fL RDW Coeff of Aman 13.1 (11.5-14.5) % Plt Count 192 (130-400) K/uL MPV 10.2 (7.4-10.4) fL Immature Gran % (Auto) 0.1 % Neut % (Auto) 56.8 % Lymph % (Auto) 26.8 % [place] % (Auto) 12.9 % Eos % (Auto) 3.1 % Baso % (Auto) 0.3 % Neut # (Auto) 5.37 (1.4-6.5) K/uL Lymph # (Auto) 2.54 (1.2-3.4) K/uL [place] # (Auto) 1.22 H (0.11-0.59) K/uL Eos # (Auto) 0.29 (0-0.5) K/uL Baso # (Auto) 0.03 (0-0.2) K/uL Immature Gran # (Auto) 0.01 (0.00-0.02) K/uL Sodium 134 L (136-145) mmol/L Potassium 3.7 (3.5-5.1) mmol/L Chloride 99 (98-107) mmol/L Carbon Dioxide 28 (21-32) mmol/L Anion Gap 7 (3-11) BUN 10 (6-23) mg/dl Creatinine 0.85 (0.6-1.4) mg/dl Est Cr Clr Drug Dosing 205.6 ml/min Est GFR ( Amer) 139.4 ml/min Est GFR (Non-Af Amer) 120.3 ml/min BUN/Creatinine Ratio 11.8 (10-20) Glucose 93 (70-99(Fasting)) mg/dl POC Glucose (70-99) mg/dl Calcium 9.2 (8.5-10.1) mg/dl Total Bilirubin 0.6 (0.2-1.0) mg/dl Direct Bilirubin 0.1 (0-0.2) mg/dl AST 19 (13-39) U/L ALT 19 (7-52) U/L Alkaline Phosphatase 111 H (34-104) U/L Total Protein 7.6 (6.0-8.3) gm/dl Albumin 4.1 (3.4-5.0) gm/dl Globulin (2.5-4.0) gm/dl Albumin/Globulin Ratio (0.9-2) Lipase 28 (11-82) U/L Urine Color Yellow Urine Appearance Clear (Clear) Urine pH 7.0 (4.5-7.5) Ur Specific [place] 1.018 (1.000-1.030) Urine Protein Trace H (Negative) Urine Glucose (UA) Negative (Negative) Urine Ketones Negative (Negative) Urine Blood 1+ H (Negative) Urine Nitrite Negative (Negative) Urine Bilirubin Negative (Negative) Urine Urobilinogen Negative (Negative) Ur Leukocyte Esterase Negative (Negative) Urine WBC (Auto) 1-5 (0-5) /hpf Urine RBC (Auto) 10-30 H (0-4) /hpf U Hyaline Cast (Auto) 0 (0-5) /lpf U Epithel Cells (Auto) 20-30 H (0-5) /lpf Urine Bacteria (Auto) Negative (Negative) Carbamazepine (4-12) mcg/ml SARS-CoV-2, RNA, NAAT (NEGATIVE) Diagnostic Findings CTAP Lung bases: The heart is normal in size and without pericardial effusion. The lung bases are clear. Liver: The unenhanced liver is normal in size, contour, and attenuation. There is no intrahepatic biliary ductal dilatation. Gallbladder: Unremarkable. Spleen: Normal in size and attenuation. Pancreas: There is age advanced atrophy of the pancreas. There is inflammatory stranding and fluid identified around the distal pancreatic body and tail consistent with acute pancreatitis. No organized peripancreatic fluid collection is identified. The splenic vein is patent. The pancreatic duct is normal in caliber. There is no clear evidence of pancreatic necrosis. Adrenal glands: Unremarkable. Kidneys: The left kidney is not identified. The unenhanced right kidney is normal in size and without hydronephrosis. There are no right renal calculi identified. There is no evidence of contour deforming renal mass lesion. Abdominal vasculature: The abdominal aorta is normal in course and caliber. Bowel: There is moderate colonic fecal retention. No bowel obstruction is seen. The appendix is well-visualized and normal. Peritoneum: There is no intraperitoneal free air or abdominal ascites. There is a small fat-containing umbilical hernia. Lymphadenopathy: None. Pelvic viscera: The bladder is decompressed and appears circumferentially thick walled. The prostate gland is diminutive. The seminal vesicles are normal as visualized. There is a small fat-containing left inguinal hernia. Skeletal structures: No lytic or blastic lesions are seen. IMPRESSION: 1. Age advanced atrophy of the pancreas with evidence of acute pancreatitis. 2. No organized peripancreatic fluid collection is identified and there is no CT evidence of necrosis. 3. Solitary right kidney. 4. The bladder is decompressed and appears thick walled. Correlate with clinical findings and urinalysis. (1) Pancreatitis Acute pancreatitis complication: unspecified Chronicity: acute Pancreatitis type: unspecified pancreatitis type Qualified Code(s): K85.90 - Acute pancreatitis without necrosis or infection, unspecified
--- NOTE | 2022-05-06 15:17 | Hospitalist Progress Note ---
Date of Service May 06, 2022 Assessment & Plan (1) Pancreatitis: Plan: Abdominal pain likely secondary to pancreatitis which according to history has been occurring inpatient intermittently throughout the years with a recent flareup prior to arrival. Although there was concern for sepsis patient had no leukocytosis and no evidence of infection. We are continuing antibiotics for presumed urinary tract infection with dysuria and hematuria seen on arrival. GI has seen patient and pancreatitis is of unclear etiology. There is no known alcohol use or obvious stone. Differential diagnosis includes but is not limited to medication side effects, genetics, autoimmune origin, anatomic anomaly such as pancreas divisum. We will discharge patient after tolerating food and pain well controlled and perform outpatient endoscopic ultrasound to evaluate it for anatomic pathology such as pancreas divisum or retained stone etc. (2) Acute cystitis: Plan: It is unclear if this was contributing to patient's symptoms prior to arrival, but he is better on antibiotics. Will switch patient to cefdinir as culture results are unrevealing for in vitro bacterial infection. (3) Microscopic hematuria: Plan: Considered secondary to infection, repeat as outpatient to ensure complete resolution. Outpatient urinalysis per PCP. (4) Seizure disorder: Plan: Chronic, stable, continue current therapy. (5) Autism: Plan: Speech intact, very articulate, demonstrates good understanding of medical issues. (6) Absent kidney, congenital: Plan: Noted on imaging, confirmed by mother and patient. (7) DVT prophylaxis: Plan: Lovenox Full code Disposition-to home tomorrow if pain controlled and tolerating solid foods. Bonnie Lazcano DO [facility] and [facility]tic[facility]ated Discharge Date Admission Date: May 05, 2022 Subjective 27-year-old man presents with acute epigastric pain along with flank pain, nausea without vomiting and tea colored urine with painful urination. Some gross hematuria also noted. No evidence of urinary tract infection on culture results however patient feels improved on antibiotic therapy and microscopic h ematuria is present in UA. Discussed with patient and mom the importance of following up a repeat UA after antibiotic therapy to ensure complete resolution of microscopic hematuria. Epigastric pain has improved after fluids and patient is tolerating full liquids. Will advance to a regular diet now He remains afebrile and is seeing gastroenterology. We discussed the plan which is to continue PPI trial daily instead of Protonix as needed, and follow-up for outpatient endoscopic ultrasound. Review of Systems Review of Systems: All systems reviewed negative except as indicated above. Physical Exam Physical Exam: CONSTITUTIONAL: WNWD, vitals as above, generally well- appearing, NAD EYES: normal conjunctivae, no scleral icterus ENT: external ear and nose normal, MMM NECK: trachea midline, RESPIRATORY: clear to auscultation bilaterally, no crackles, rales or wheezes, normal respiratory effort CARDIOVASCULAR: regular rate and rhythm, S1 and 2 heard without murmurs, gallops or rubs, no JVD, no peripheral edema CHEST: inspection of chest was normal GASTROINTESTINAL: soft, nontender, ND, no guarding, no CVA tenderness MUSCULOSKELETAL: strength 5/5 throughout, head is normocephalic and atraumatic SKIN: warm and dry NEUROLOGIC: CN 2-12 grossly intact, no sensory deficit, normal cognition, normal speech, no tremor PSYCHIATRIC: alert cooperative and oriented to person, place and time. Euth ymic mood, makes good eye contact, language grossly intact, recent and remote memory grossly intact. Results & Data Results & Data ([facility]) Vital Signs (Past 12 Hours) Vital Signs Temp Pulse Resp BP Pulse Ox 05/06/22 07:34 36.7 C 84 16 130/82 99 Laboratory Results Short CBC 05/05/22 05/06/22 Range/Units 18:25 05:54 WBC 9.46 8.05 (4.8-10.8) K/uL Hgb 14.6 13.2 L (14.0-18.0) g/dL Hct 41.5 L 39.1 L (42-52) % Plt Count 192 199 (130-400) K/uL BMP 05/05/22 05/06/22 18:25 05:54 Sodium 134 L 135 L Potassium 3.7 4.0 Chloride 99 103 Carbon Dioxide 28 27 BUN 10 8 Creatinine 0.85 0.77 Glucose 93 83 Calcium 9.2 8.7 Liver Function 05/05/22 05/06/22 Range/Units 18:25 05:54 Total Bilirubin 0.6 0.7 (0.2-1.0) mg/dl Direct Bilirubin 0.1 (0-0.2) mg/dl AST 19 16 (13-39) U/L ALT 19 16 (7-52) U/L Alkaline Phosphatase 111 H 102 (34-104) U/L Albumin 4.1 3.7 (3.4-5.0) gm/dl Urine 05/05/22 Range/Units 19:46 Urine Color Yellow Urine Appearance Clear (Clear) Urine pH 7.0 (4.5-7.5) Ur Specific [place] 1.018 (1.000-1.030) Urine Protein Trace H (Negative) Urine Glucose (UA) Negative (Negative) Medications Administered Current Inpatient Medications Acetaminophen (Acetaminophen 325 Mg Tab) 650 mg PO Q4H PRN PRN Reason: pain/fever Stop: 06/04/22 22:46 Last Admin: 05/06/22 02:08 Dose: 650 mg Documented by: Carbamazepine (Carbamazepine 200 Mg Tablet) 200 mg PO TID@0500,1300,2100 [facility] Stop: 06/05/22 04:59 Last Admin: 05/06/22 12:46 Dose: 200 mg Documented by: Docusate Sodium (Docusate Sodium 100 Mg Cap) 200 mg PO HS [facility] Stop: 06/05/22 20:59 Enoxaparin Sodium (Enoxaparin Inj 40 Mg/0.4 Ml Syr) 40 mg SQ QAM [facility] Stop: 06/05/22 08:59 Last Admin: 05/06/22 09:15 Dose: Not Given Documented by: Gabapentin (Gabapentin 600 Mg Tab) 600 mg PO BID@0500,2100 [facility] Stop: 06/05/22 04:59 Last Admin: 05/06/22 05:02 Dose: 600 mg Documented by: Lactated Ringer's (Lr) 1,000 mls @ 200 mls/hr IV .Q5H [facility] Stop: 05/07/22 01:59 Last Admin: 05/06/22 11:54 Dose: 200 mls/hr Documented by: Promethazine HCl 12.5 mg/ (Sodium Chloride) 50.5 mls @ 202 mls/hr IV Q6H PRN PRN Reason: Nausea And Vomiting Stop: 06/04/22 22:46 Ceftriaxone Sodium 2,000 mg/ (Dextrose) 70 mls @ 100 mls/hr IV Q24H [facility]; Protocol Stop: 05/16/22 21:59 Lamotrigine (Lamotrigine 100 Mg Tab) 200 mg PO BID@0500,2100 [facility] Stop: 06/05/22 04:59 Last Admin: 05/06/22 05:02 Dose: 200 mg Documented by: Melatonin (Melatonin 3 Mg Tab) 9 mg PO HSZ PRN PRN Reason: Sleep Stop: 06/04/22 22:50 Mirtazapine (Mirtazapine Tab 15 Mg Tab) 15 mg PO HS SATYA Stop: 06/05/22 20:59 Morphine Sulfate (Morphine Sulfate 4 Mg/Ml 1 Ml Carp\Vial) 4 mg IV Q6H PRN PRN Reason: Pain Stop: 05/19/22 22:46 Oxycodone HCl (Oxycodone Hcl Ir 5 Mg Tab (Immediate Release)) 5 mg PO Q4H PRN PRN Reason: Pain Stop: 05/19/22 22:46 Pantoprazole Sodium (Pantoprazole 40 Mg Tab) 40 mg PO DAILY PRN PRN Reason: .HEARTBURN Stop: 06/04/22 22:51 Sennosides (Senna 8.6 Mg Tab) 8.6 mg PO BID SATYA Stop: 06/05/22 08:59 Last Admin: 05/06/22 07:55 Dose: Not Given Documented by: (1) Pancreatitis Acute pancreatitis complication: unspecified Chronicity: acute Pancreatitis type: unspecified pancreatitis type Qualified Code(s): K85.90 - Acute pancreatitis without necrosis or infection, unspecified
[2022-05-06] MEDS: CEFDINIR 300 MG CAP PO SCH (20:51)
[2022-05-06] MEDS ORDERED: DOCUSATE SODIUM 100 MG CAP PO SCH (21:00)
[2022-05-06] MEDS ORDERED: MIRTAZAPINE TAB 15 MG TAB PO SCH (21:00)
[2022-05-06] MEDS ORDERED: cefTRIAXone SODIUM 2,000 MG in DEXTROSE 5% 50 ML IV SCH (22:00)
[2022-05-07] MEDS: carBAMazepine 200 MG TABLET PO SCH ×2 (04:57→13:11)
[2022-05-07] MEDS: lamoTRIgine 100 MG TAB PO SCH (04:57)
[2022-05-07] MEDS: GABAPENTIN 600 MG TAB PO SCH (04:57)
[2022-05-07 06:23] LABS: Hematocrit (blood only) 40.6 % (42-52); Hemoglobin 13.9 g/dL (14.0-18.0); Mean Corpuscular Hemoglobin 30.2 pg (25-34); Mean Corpuscular Hgb Conc 34.2 g/dL (32-36); Mean Corpuscular Volume 88.1 fL (80-100); Mean Platelet Volume 9.8 fL (7.4-10.4); Platelet Count 209 K/uL (130-400); RDW Standard Deviation 41.9 fL (36.4-46.3); Red Blood Count 4.61 M/uL (4.7-6.1)
[2022-05-07 06:48] LABS: BUN Creatinine Ratio 9.8 (10-20); Calcium 9.6 mg/dl (8.5-10.1); Creatinine Clr Calc Pharmacy 212.9 ml/min; Est GFR (African American) 141.5 ml/min; Magnesium 1.8 mg/dl (1.7-2.4)
[2022-05-07] MEDS ORDERED: ALUMINUM/MAGNESIUM SUSP 30 ML UDC PO STA (07:50)
[2022-05-07] MEDS ORDERED: PANTOprazole 40 MG TAB PO SCH (09:00)
[2022-05-07] MEDS: CEFDINIR 300 MG CAP PO SCH (09:15)
[2022-05-07] MEDS: SENNA 8.6 MG TAB PO SCH (09:16)
[2022-05-07] MEDS: ENOXAPARIN INJ 40 MG/0.4 ML SYR SQ SCH (09:16)
--- NOTE | 2022-05-07 09:20 | Electrocardiogram Report ---
Test Reason : Blood Pressure : / mmHG Vent. Rate : 088 BPM Atrial Rate : 088 BPM P-R Int : 148 ms QRS Dur : 082 ms QT Int : 336 ms P-R-T Axes : 043 017 038 degrees QTc Int : 406 ms Normal sinus rhythm with sinus arrhythmia Normal ECG No previous ECGs available Confirmed by Erik Julian ([id number]) on 05/07/2022 9:19:41 AM Referred By: REFERRED SELF Confirmed By:Erik Julian
[2022-05-07] MEDS ORDERED: FAMOTIDINE 20 MG in SYRINGE 3 ML IV ONE (10:00)
--- NOTE | 2022-05-07 11:21 | Discharge Summary ---
Date of Service May 07, 2022 Admission HPI Per Admitting Provider History obtained from patient, family, and records. Medical history significant for seizure disorder, spina bifida, autism, solitary kidney. 3 months ago, patient experienced achy epigastric pain going to the back. Some nausea symptoms. Chronic constipation symptoms. Patient seen at PCPs office February 2022. PPI trial recommended. Ultrasound of the abdomen was unremarkable. 3 days ago, patient had recurrence of achy epigastric pain radiating to the chest and back. Some nausea. No emesis. No fever, no chills. Tea colored urine with dysuria symptoms. Appetite not too good. No EtOH intake. Patient seen at PCPs office today and directed to the ER. Medical History as above Surgical History : Dental surgery, eardrum surgery Family History : SLE, DM, autism Personal/Social history : Non-smoker, no EtOH intake, high school graduate Principal Diagnosis pancreatitis urinary tract infection microscopic hematuria (blood in urine) Discharge Exam CONSTITUTIONAL: WNWD, vitals as above, generally well-appearing, NAD EYES: normal conjunctivae, no scleral icterus ENT: external ear and nose normal, MMM NECK: trachea midline, RESPIRATORY: clear to auscultation bilaterally, no crackles, rales or wheezes, normal respiratory effort CARDIOVASCULAR: regular rate and rhythm, S1 and 2 heard without murmurs, gallops or rubs, no JVD, no peripheral edema CHEST: inspection of chest was normal GASTROINTESTINAL: soft, nontender, ND, no guarding, no CVA tenderness MUSCULOSKELETAL: strength 5/5 throughout, head is normocephalic and atraumatic SKIN: warm and dry NEUROLOGIC: CN 2-12 grossly intact, no sensory deficit, normal cognition, normal speech, no tremor PSYCHIATRIC: alert cooperative and oriented to person, place and time. Euthymic mood, makes good eye contact, language grossly intact, recent and remote memory grossly intact. Discharge Data Allergies Allergy/AdvReac Type Severity Reaction Status Date / Time Macrolide Antibiotics Allergy Mild Unknown Verified 05/05/22 21:01 Penicillins Allergy Mild Unknown Verified 05/05/22 21:01 Sulfa (Sulfonamide Allergy Mild Unknown Verified 05/05/22 21:01 Antibiotics) Consultations 05/05/22 20:08 ED Decision to Admit Stat 05/05/22 22:47 Consult Gastroenterology Routine Ordered Studies 05/05/22 18:18 CT abd pelvis wo con Stat Hospital Course (1) Pancreatitis: Abdominal pain likely secondary to pancreatitis which according to history has been occurring inpatient intermittently throughout the years with a recent flareup prior to arrival. Although there was concern for sepsis patient had no leukocytosis and no evidence of infection. We are continuing antibiotics for presumed urinary tract infection with dysuria and hematuria seen on arrival. GI has seen patient and pancreatitis is of unclear etiology. There is no known alcohol use or obvious stone. Differential diagnosis includes but is not limited to medication side effects, genetics, autoimmune origin, anatomic anomaly such as pancreas divisum. We will discharge patient after tolerating food and pain well controlled and perform outpatient endoscopic ultrasound to evaluate it for anatomic pathology such as pancreas divisum or retained stone etc. (2) Acute cystitis: It is unclear if this was contributing to patient's symptoms prior to arrival, but he is better on antibiotics. Will switch patient to cefdinir as culture results are unrevealing for in vitro bacterial infection. (3) Microscopic hematuria: Considered secondary to infection, repeat as outpatient to ensure complete resolution. Outpatient urinalysis per PCP. (4) Seizure disorder: Chronic, stable, continue current therapy. (5) Autism: Speech intact, very articulate, demonstrates good understanding of medical issues. (6) Absent kidney, congenital: Noted on imaging, confirmed by mother and patient. (7) DVT prophylaxis: Lovenox Full code Disposition-to home tomorrow if pain controlled and tolerating solid foods. Bonnie Lazcano DO [facility] hospitalist Discharge Plan Discharge Items Patient Disposition: Home - Self-Care Reason For Visit: PANCREATITIS Discharge Diagnosis: pancreatitis urinary tract infection microscopic hematuria (blood in urine) Condition on Discharge: Good Activity: Resume your previous activity Non-emergency contact: Primary Care Provider Call non-emergency contact if: you have any medication questions, your symptoms worsen, your pain is not controlled, your pain is worsening, your pain is unusual for you, your pain is concerning for you and you have a fever Follow-up/Referrals: Najma Solis MD [Primary Care Provider] - (Date & Time 05/12/2022 3:40 PM Provider Najma Hernández MD Department Family Medicine [facility] ) Diet: Regular Addtl Attending Provider Instructions: Please take all medications as instructed on discharge list below. You are being continued on a short course of antibiotics for presumed urinary tract infection. You also were found to have small amounts of microscopic blood in your urine. This blood is likely the result of an infection, however, this should be followed up by your primary care doctor to ensure complete resolution. Please follow-up with [facility] gastroenterology regarding your outpatient endoscopic ultrasound and further work-up for pancreatitis etiology. It is recommended that you follow-up with your primary care doctor within 1 week of discharge from the hospital to ensure any referrals are in place, follow-up your symptoms and ensure you are doing well after returning home, also to order your repeat urinalysis. It was a pleasure taking care of you! Please call if you have any questions or problems. You can reach a [facility] hospitalist on duty at [facility] 24 hours a day by calling [phone]. Take care of yourself. Bonnie Lazcano, DO [facility] Hospitalist Pending Studies at Discharge: No Stand-Alone Forms: My [facility] Medications and DC Order Prescriptions: New cefdinir 300 mg Capsule 300 mg PO BID Qty: 10 RF: 0 Continued sennosides [senna] 8.6 mg tablet 8.6 mg PO BID RF: 0 gabapentin 600 mg tablet 600 mg PO BID RF: 0 lamotrigine 200 mg tablet 200 mg PO BID RF: 0 lorazepam 2 mg/mL Solution 0 mg BUCCAL DIRECTED PRN (Reason: Seizure Activity) RF: 0 carbamazepine [Epitol] 200 mg tablet 200 mg PO TID RF: 0 diphenhydramine HCl [Benadryl Allergy] 25 mg Tablet 25 mg PO Q6 PRN (Reason: Itching) RF: 0 omeprazole 20 mg capsule,delayed release(DR/EC) 20 mg PO DAILY PRN (Reason: .HEARTBURN) RF: 0 mirtazapine 15 mg tablet 15 mg PO HS RF: 0 docusate sodium 100 mg Tablet 200 mg PO HS RF: 0 melatonin 10 mg Tablet 20 mg PO HS RF: 0 T-Relief Cbd+13 1 tab sublingual DIRECTED RF: 0 Admission Data Admit Date/Time: 05/05/22 21:34 Attending Provider: Bonnie Lazcano Admit Provider: Eddy Torres Primary Care Provider: Najma Solis Other Providers: Eddy Torres ; Deric Blanca ; Kalyn Melvin ; Sly Devries ; Yissel Hinojosa ; Misael Gates ; Santiago Farfan ; Lele Cline ; Miguel Madden ; Shadia Styles ; Cheri Swan ; Kianna Browne ; Cristine Jimenez ; Daniel Valente
== END 2022-05-07 15:45 | disposition home or self-care (01) ==
LOC: ED 17:47 → INTOOBSV 21:34 → 3E 21:34

== ENCOUNTER 2023-12-02 14:59 | Inpatient (IN) ==
[2023-12-02 16:17] LABS: Influenza A virus by PCR Negative (Neg); Influenza B virus by PCR Negative (Neg); RSV by PCR Negative (Neg); SARS CoV2 RNA(COVID-19) Ceph NEGATIVE (Negative)
--- NOTE | 2023-12-02 16:25 | XRay Report ---
XR chest 1V not portable CLINICAL HISTORY: chest pain TECHNIQUE: Single frontal radiograph of the chest was obtained. Comparison: Comparison is made to chest radiograph 10/20/2023 FINDINGS: Exam is limited by underpenetration. Cardiomegaly is noted. The lungs are clear. No evidence of pleur al effusion or pneumothorax. IMPRESSION: No acute chest disease. Cardiomegaly is noted. ACT 112: Negative or not required by law. Electronically signed by: Konstantin Zhang M.D. 12/02/2023 4:23 PM
[2023-12-02 17:47] LABS: Basophils # (auto) 0.04 K/uL (0.00-0.20); Basophils % (auto) 0.3 %; Eosinophils % (auto) 1.7 %; Hematocrit (blood only) 44.3 % (42.0-52.0); Hemoglobin 15.4 g/dl (14.0-18.0); Immature Granulocytes # (auto) 0.03 K/uL (0.01-0.20); Immature Granulocytes % (auto) 0.3 %; Lymphocytes # (auto) 1.08 K/uL (1.20-3.40); Lymphocytes % (auto) 9.3 %; Mean Corpuscular Hemoglobin 29.8 pg (25.0-34.0); Mean Corpuscular Hgb Conc 34.8 g/dL (32.0-36.0); Mean Corpuscular Volume 85.9 fL (80.0-100.0); Mean Platelet Volume 9.6 fL (9.4-12.4); Monocytes # (auto) 1.37 K/uL (0.11-0.59); Monocytes % (auto) 11.8 %; Neutrophils # (auto) 8.92 K/uL (1.40-6.50); Neutrophils % (auto) 76.6 %; Platelet Count 211 K/uL (130-400); RDW Coefficient of Variation 12.4 % (11.5-14.5); RDW Standard Deviation 38.7 fL (36.4-46.3); Red Blood Count 5.16 M/uL (4.70-6.10); White Blood Count 11.64 K/ul (4.8-10.8)
[2023-12-02 17:55] LABS: Alanine Aminotransferase 14 U/L (7-52); Albumin Globulin Ratio 1.3 (0.9-2); Albumin Level 4.4 gm/dl (3.4-5.0); Alkaline Phosphatase 135 U/L (34-104); Anion Gap 7 (3-11); Aspartate Aminotransferase 19 U/L (13-39); BUN Creatinine Ratio 7.3 (10-20); Bilirubin,Total 0.7 mg/dl (0.2-1.0); Blood Urea Nitrogen 6 mg/dl (6-23); Calcium 9.1 mg/dl (8.6-10.3); Carbon Dioxide 25 mmol/L (21-32); Chloride 98 mmol/L (98-107); Est GFR (African American) 140.5 ml/min; Est GFR (Non-African American) 121.2 ml/min; Globulin 3.4 gm/dl (2.5-4.0); Glucose 99 mg/dl (70-99(Fasting)); Sodium 130 mmol/L (136-145); Total Protein 7.8 gm/dl (6.0-8.3)
[2023-12-02] MEDS ORDERED: SODIUM CHLORIDE 0.9% 500 ML IV ONE (18:17)
[2023-12-02] MEDS ORDERED: OPTIRAY 320 125ml IV ONE (18:52)
[2023-12-02 19:29] LABS: Appearance Urine Clear (Clear); Bilirubin Urine Negative (Negative); Blood Urine 2+ (Negative); Color Urine Yellow; Glucose Urine UA Negative (Negative); Ketones Urine Negative (Negative); Leukocyte Esterase Urine Negative (Negative); Nitrite Urine Negative (Negative); Protein Urine 1+ (Negative); Specific Gravity Urine 1.021 (1.000-1.030); Urobilinogen Urine Negative (Negative); pH Urine 6.5 (4.5-7.5)
[2023-12-02 19:40] LABS: Lipase 1437 U/L (11-82)
[2023-12-02 19:52] LABS: Bacteria Urine 3+ (Negative)
[2023-12-02 19:53] LABS: Hyaline Casts Urine 0-5 /lpf (0-5); WBC Urine 0-5 /hpf (0-5)
--- NOTE | 2023-12-02 19:57 | CT Scan Report ---
Exam(s): CTA CHEST IV Amt: 117 cc opti 320 EXAM: CT Chest With Intravenous Contrast CLINICAL HISTORY: Reason for exam: ro PE. TECHNIQUE: Axial computed tomographic images of the chest with intravenous contrast. CTDI is 28.14 mGy and DLP is 1000.28 mGy-cm. Automated exposure control was utilized for the study. A dose lowering technique was utilized adhering to the principles of ALARA. COMPARISON: No relevant prior studies available. FINDINGS: Pulmonary arteries: Unremarkable. No pulmonary embolism. Aorta: No acute findings. No thoracic aortic aneurysm. Lungs: Unremarkable. No mass. No consolidation. Pleural space: Unremarkable. No significant effusion. No pneumothorax. Heart: Unremarkable. No cardiomegaly. No significant pericardial effusion. No evidence of RV dysfunction. Bones/joints: No acute fracture. No dislocation. Soft tissues: Unremarkable. Lymph nodes: Unremarkable. No enlarged lymph nodes. IMPRESSION: Normal chest CTA. No pulmonary embolism. Electronically signed by: Reid Lay M.D. 12/02/23 19:56 PM
--- NOTE | 2023-12-02 20:00 | CT Scan Report ---
Exam(s): CT ABDOMEN + PELVIS With Contrast IV Amt: 117 cc otpi 320 EXAM: CT Abdomen and Pelvis With Intravenous Contrast CLINICAL HISTORY: Reason for exam: abd pain. TECHNIQUE: Axial computed tomography images of the abdomen and pelvis with intravenous contrast. CTDI is 27.54 mGy and DLP is 1591.62 mGy-cm. Automated exposure control was utilized for the study. A dose lowering technique was utilized adhering to the principles of ALARA. CONTRAST: Patient received 117 cc otpi 320 of IV contrast COMPARISON: 05/05/2022 FINDINGS: ABDOMEN: Liver: Unremarkable. No mass. Gallbladder and bile ducts: Gallbladder has been removed. No ductal dilation. Pancreas: Inflammation around the pancreas consistent with acute pancreatitis. No ductal dilation. Spleen: Unremarkable. No splenomegaly. Adrenals: Unremarkable. No mass. Kidneys and ureters: Absent left kidney. No hydronephrosis. Stomach and bowel: Unremarkable. No obstruction. No mucosal thickening. PELVIS: Appendix: No findings to suggest acute appendicitis. Bladder: Unremarkable. No mass. Reproductive: Unremarkable as visualized. ABDOMEN and PELVIS: Intraperitoneal space: Minimal free fluid in the pelvis. No free air. Bones/joints: No acute fracture. No dislocation. Soft tissues: Unremarkable. Vasculature: Unremarkable. No abdominal aortic aneurysm. Lymph nodes: Unremarkable. No enlarged lymph nodes. IMPRESSION: Inflammation around the pancreas consistent with acute pancreatitis. Electronically signed by: eRid Lay M.D. 12/02/23 19:59 PM
[2023-12-02] MEDS ORDERED: MoRPHine SULFATE 2 MG/ML CARP IV STA (21:11)
[2023-12-02] MEDS ORDERED: LACTATED RINGER'S 1,000 ML IV ONE (21:14)
[2023-12-02] MEDS ORDERED: MoRPHine SULFATE 4 MG/ML 1 ML CARP\\VIAL IV STA (21:30)
[2023-12-02 21:40] LABS: Magnesium 1.7 mg/dl (1.7-2.4)
[2023-12-02 21:58] LABS: Thyroid Stimulating Hormone 0.652 uIu/ml (0.300-4.500)
--- NOTE | 2023-12-02 22:17 | History & Physical Report ---
Date of Service December 02, 2023 Assessment & Plan (1) Acute pancreatitis: Plan: Recurrent pancreatitis History of cystic fibrosis seizure disorder, uncontrolled since episode of pancreatitis from last year as per mother hx spina bifida/ autism/ solitary kidney chronic hyponatremia, multifactorial as per outpatient nephrology note from carbamazepine, possible SIADH. Medical telemetry given uncontrolled seizures Seizure precautions Ativan as needed for active seizures Continue current AED regimen Neurology consult Re: Uncontrolled seizures Bowel rest, IVF, analgesia GI consult Re: Recurrent pancreatitis DVT prophylaxis with Lovenox subcu Full code Patient mother requesting updates from providers. Ms. Pratima Swan, contact #[phone]. Text document was generated using [employer] voice recognition software. It may contain grammatical or spelling errors. Kindly contact undersigned for clarification of any documentation item in question. History of Present Illness Chief Complaint: Abdominal pain Primary Care Provider: Najma Solis MD History obtained from patient, family, and records. Medical history significant for seizure disorder, CFTR gene variant positivity, chronic hyponatremia, spina bifida, autism, solitary kidney. Last confinement April 2022 for pancreatitis. Outpatient laparoscopic cholecystectomy done for gallstones last year. CFTR variant gene later noted on testing. Patient family told pancreatitis episodes may be related to cystic fibrosis. Patient seizures not well-controlled since pancreatitis attacks from last year as per mother. Seizures ranging from GTC to drop attacks as per mother. Last GTC seizure was last month. Drop attacks occurring 3 times weekly. Patient denies headache symptoms. Compliant with [place] medications[place] [facility] [place] recommending stopping some medications as per mother which she is hesitant to do. 1 week history of worsening achy central abdominal pain symptoms reminiscent of pancreatitis attacks associated with nausea, vomiting constipation symptoms. Patient also complaining of generalized bodyaches, congestion, weakness, shortness of breath. Denies chest pain. Not sure about sick contacts. GI specialist recommended outpatient labs and plain x-ray. Patient brought to ER by mother for evaluation. Medical History as above Surgical History : Dental surgery, eardrum surgery, cholecystectomy Family History : SLE, DM, autism Personal/Social history : Non-smoker, no EtOH intake, high school graduate Allergies Allergy/AdvReac Type Severity Reaction Status Date / Time amoxicillin Allergy Severe Anaphylaxis Verified 07/22/23 01:28 /HIVES clavulanic acid Allergy Severe Anaphylaxis Verified 07/22/23 01:28 [From Augmentin] /HIVES Macrolide Antibiotics Allergy Intermediate Hives Verified 07/22/23 01:29 Penicillins Allergy Intermediate Hives Verified 07/22/23 01:28 polyethylene glycol 3350 Allergy Intermediate ITCHING Verified 07/22/23 01:28 [From Miralax] Sulfa (Sulfonamide Allergy Intermediate Hives Verified 07/22/23 01:28 Antibiotics) Inhaled Anesthetics (Halogen Allergy Possible Verified 12/02/23 21:23 Based) family history malignant hyperthermia succinylcholine Allergy Possible Verified 07/22/23 01:29 family history malignant hyperthermia Home Medications Medication Instructions Recorded Confirmed Type carbamazepine 200 mg tablet 200 mg PO TID 05/05/22 12/02/23 History (Epitol) docusate sodium 100 mg tablet 200 mg PO QAM 05/05/22 12/02/23 History gabapentin 600 mg tablet 600 mg PO BID 05/05/22 12/02/23 History lamotrigine 200 mg tablet 200 mg PO BID 05/05/22 12/02/23 History melatonin 10 mg tablet 20 mg PO HS 05/05/22 12/02/23 History omeprazole 20 mg capsule,delayed 20 mg PO AMHS 03/08/23 12/02/23 History release Cbd Oil 1 dose sublingual DIRECTED PRN 07/22/23 12/02/23 History NEEDED ibuprofen 200 mg tablet 200 mg PO Q4 PRN Fever Or Pain 07/22/23 12/02/23 History calcium carbonate 260 mg calcium 260 mg PO DAILY 12/02/23 12/02/23 History (650 mg) chewable tablet lorazepam 1 mg tablet 1 mg PO ONCE PRN 15 min prior to 12/02/23 12/02/23 History shower lorazepam 2 mg/mL oral concentrate 2 mg buccal UD PRN seizure>5min or 12/02/23 12/02/23 History 3 seizures in24 hour Past Med/Surg History Medical History Cystic fibrosis History of asthma No inhaler Spina bifida Noted in available [facility] records, not reported during PAT RN phone interview Seasonal allergies Hx of pancreatitis EUS 02/05/23 AT [facility] Absent kidney, congenital Seizure disorder 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 Watters Most recent seizure 02/2023- levels being monitored closely by neuro Autism Surgical History History of anesthesia reaction Awareness, "woke up" with recent EUS when tube was being removed Family history of anesthesia complication Patient's brother had foot surgery at [facility], discharged home and developed high fever/stiff joints > sent to ER, given antibiotics, sent home. No admission required. Brother now (unrelated)/unable to obtain further information. Patient's mother denies being told the term malignant hyperthermia and states that further testing/precautions were not recommended after brother's event. 2012 oral surgery [facility] anesthesia records for patient scanned into [employer]- use of desflurane/sux without issue. Hx of colonoscopy History of dental surgery Resin based composite 2 surfaces, posterior (10/21/11): MAC#4[place] [facility] [place] Removal of impacted tooth (09/26/13): MAC#4, [place] 7.0 [place] [facility] [place] [employer] received desflurane/succinylcholine per anesthesia record. "Anesthesia Complications: none" H/O circumcision Family History Brother History of anesthesia reaction Social History Smoking Status: Never smoker Second Hand Exposure: No; Do You Dip or Chew Tobacco: No; Hx Alcohol Use: No Hx Substance Use: No Preferred Language: Swedish Communication Ability: Effective Election Assistant Required: No Beliefs That Will Affect Care: None Current Living Situation: Parent and Family Feels Safe at Home: Yes Safety Concerns: Feels Safe At This Time Assistive Devices: None Review of Systems Review of Systems: As per HPI, all other systems reviewed and negative Physical Exam Physical Exam: GENERAL: Comfortable, obese, pleasant, no respiratory distress SKIN: Normal color, warm HEENT: [place] palpebral conjunctivae, no ptosis, dry buccal mucosa NECK : Supple, short neck, no tenderness CHEST : CTA, no tenderness HEART : Tachycardic, no obvious murmurs ABDOMEN: Some distention, minimal epigastric tenderness EXTREMITIES : Minimal LE swelling, no LE tenderness, no other conspicuous deformities noted NEUROLOGIC : Coherent, no facial asymmetry, no other gross focality Results & Data Results & Data Vital Signs (Past 12 Hours) Vital Signs Temp Pulse Pulse Resp BP BP Pulse Ox 12/02/23 20:55 108 H 20 129/83 97 12/02/23 15:26 37.5 C 110 H 20 121/86 98 O2 Del Method 12/02/23 20:55 Room Air 12/02/23 15:26 Room Air Laboratory Results Laboratory Results WBC 11.64 K/ul (4.8-10.8) H 12/02/23 17:16 RBC 5.16 M/uL (4.70-6.10) 12/02/23 17:16 Hgb 15.4 g/dl (14.0-18.0) 12/02/23 17:16 Hct 44.3 % (42.0-52.0) 12/02/23 17:16 MCV 85.9 fL (80.0-100.0) 12/02/23 17:16 MCH 29.8 pg (25.0-34.0) 12/02/23 17:16 MCHC 34.8 g/dL (32.0-36.0) 12/02/23 17:16 RDW Std Deviation 38.7 fL (36.4-46.3) 12/02/23 17:16 RDW Coeff of Aman 12.4 % (11.5-14.5) 12/02/23 17:16 Plt Count 211 K/uL (130-400) 12/02/23 17:16 MPV 9.6 fL (9.4-12.4) 12/02/23 17:16 Immature Gran % (Auto) 0.3 % 12/02/23 17:16 Neut % (Auto) 76.6 % 12/02/23 17:16 Lymph % (Auto) 9.3 % 12/02/23 17:16 [place] % (Auto) 11.8 % 12/02/23 17:16 Eos % (Auto) 1.7 % 12/02/23 17:16 Baso % (Auto) 0.3 % 12/02/23 17:16 Neut # (Auto) 8.92 K/uL (1.40-6.50) H 12/02/23 17:16 Lymph # (Auto) 1.08 K/uL (1.20-3.40) L 12/02/23 17:16 [place] # (Auto) 1.37 K/uL (0.11-0.59) H 12/02/23 17:16 Eos # (Auto) 0.20 K/uL (0.00-0.50) 12/02/23 17:16 Baso # (Auto) 0.04 K/uL (0.00-0.20) 12/02/23 17:16 Immature Gran # (Auto) 0.03 K/uL (0.01-0.20) 12/02/23 17:16 Sodium 130 mmol/L (136-145) L 12/02/23 17:16 Potassium 4.0 mmol/L (3.5-5.1) 12/02/23 17:16 Chloride 98 mmol/L (98-107) 12/02/23 17:16 Carbon Dioxide 25 mmol/L (21-32) 12/02/23 17:16 Anion Gap 7 (3-11) 12/02/23 17:16 BUN 6 mg/dl (6-23) 12/02/23 17:16 Creatinine 0.82 mg/dl (0.6-1.4) 12/02/23 17:16 Est Cr Clr Drug Dosing Not Reportable 12/02/23 17:16 Est GFR ( Amer) 140.5 ml/min 12/02/23 17:16 Est GFR (Non-Af Amer) 121.2 ml/min 12/02/23 17:16 BUN/Creatinine Ratio 7.3 (10-20) L 12/02/23 17:16 Glucose 99 mg/dl (70-99(Fasting)) 12/02/23 17:16 Calcium 9.1 mg/dl (8.6-10.3) 12/02/23 17:16 Magnesium 1.7 mg/dl (1.7-2.4) 12/02/23 17:16 Total Bilirubin 0.7 mg/dl (0.2-1.0) 12/02/23 17:16 AST 19 U/L (13-39) 12/02/23 17:16 ALT 14 U/L (7-52) 12/02/23 17:16 Alkaline Phosphatase 135 U/L (34-104) H 12/02/23 17:16 Total Protein 7.8 gm/dl (6.0-8.3) 12/02/23 17:16 Albumin 4.4 gm/dl (3.4-5.0) 12/02/23 17:16 Globulin 3.4 gm/dl (2.5-4.0) 12/02/23 17:16 Albumin/Globulin Ratio 1.3 (0.9-2) 12/02/23 17:16 Lipase 1437 U/L (11-82) H 12/02/23 17:16 TSH 0.652 uIu/ml (0.300-4.500) 12/02/23 17:16 Urine Color Yellow 12/02/23 18:07 Urine Appearance Clear (Clear) 12/02/23 18:07 Urine pH 6.5 (4.5-7.5) 12/02/23 18:07 Ur Specific [place] 1.021 (1.000-1.030) 12/02/23 18:07 Urine Protein 1+ (Negative) H 12/02/23 18:07 Urine Glucose (UA) Negative (Negative) 12/02/23 18:07 Urine Ketones Negative (Negative) 12/02/23 18:07 Urine Blood 2+ (Negative) H 12/02/23 18:07 Urine Nitrite Negative (Negative) 12/02/23 18:07 Urine Bilirubin Negative (Negative) 12/02/23 18:07 Urine Urobilinogen Negative (Negative) 12/02/23 18:07 Ur Leukocyte Esterase Negative (Negative) 12/02/23 18:07 Urine RBC 5-10 /hpf (0-4) H 12/02/23 18:07 Urine WBC 0-5 /hpf (0-5) 12/02/23 18:07 Ur Epithelial Cells 5-10 /lpf (0-5) H 12/02/23 18:07 Urine Bacteria 3+ (Negative) H 12/02/23 18:07 Hyaline Casts 0-5 /lpf (0-5) 12/02/23 18:07 SARS-CoV-2 (PCR) NEGATIVE (Negative) 12/02/23 15:29 Monoscreen Negative (Negative) 12/02/23 17:16 Influenza Type A (PCR) Negative (Neg) 12/02/23 15:29 Influenza Type B (PCR) Negative (Neg) 12/02/23 15:29 RSV (RT-PCR) Negative (Neg) 12/02/23 15:29 Impressions Chest X-Ray 12/02/23 15:30 XR chest 1V not portable CLINICAL HISTORY: chest pain TECHNIQUE: Single frontal radiograph of the chest was obtained. Comparison: Comparison is made to chest radiograph 10/20/2023 FINDINGS: Exam is limited by underpenetration. Cardiomegaly is noted. The lungs are clear. No evidence of pleural effusion or pneumothorax. IMPRESSION: No acute chest disease. Cardiomegaly is noted. ACT 112: Negative or not required by law. Electronically signed by: Konstantin Zhang M.D. 12/02/2023 4:23 PM Abdomen/Pelvis CT 12/02/23 18:12 Exam(s): CT ABDOMEN + PELVIS With Contrast IV Amt: 117 cc otpi 320 EXAM: CT Abdomen and Pelvis With Intravenous Contrast CLINICAL HISTORY: Reason for exam: abd pain. TECHNIQUE: Axial computed tomography images of the abdomen and pelvis with intravenous contrast. CTDI is 27.54 mGy and DLP is 1591.62 mGy-cm. Automated exposure control was utilized for the study. A dose lowering technique was utilized adhering to the principles of ALARA. CONTRAST: Patient received 117 cc otpi 320 of IV contrast COMPARISON: 05/05/2022 FINDINGS: ABDOMEN: Liver: Unremarkable. No mass. Gallbladder and bile ducts: Gallbladder has been removed. No ductal dilation. Pancreas: Inflammation around the pancreas consistent with acute pancreatitis. No ductal dilation. Spleen: Unremarkable. No splenomegaly. Adrenals: Unremarkable. No mass. Kidneys and ureters: Absent left kidney. No hydronephrosis. Stomach and bowel: Unremarkable. No obstruction. No mucosal thickening. PELVIS: Appendix: No findings to suggest acute appendicitis. Bladder: Unremarkable. No mass. Reproductive: Unremarkable as visualized. ABDOMEN and PELVIS: Intraperitoneal space: Minimal free fluid in the pelvis. No free air. Bones/joints: No acute fracture. No dislocation. Soft tissues: Unremarkable. Vasculature: Unremarkable. No abdominal aortic aneurysm. Lymph nodes: Unremarkable. No enlarged lymph nodes. IMPRESSION: Inflammation around the pancreas consistent with acute pancreatitis. Electronically signed by: Reid Lay M.D. 12/02/23 19:59 PM Chest CTA 12/02/23 18:12 Exam(s): CTA CHEST IV Amt: 117 cc opti 320 EXAM: CT Chest With Intravenous Contrast CLINICAL HISTORY: Reason for exam: ro PE. TECHNIQUE: Axial computed tomographic images of the chest with intravenous contrast. CTDI is 28.14 mGy and DLP is 1000.28 mGy-cm. Automated exposure control was utilized for the study. A dose lowering technique was utilized adhering to the principles of ALARA. COMPARISON: No relevant prior studies available. FINDINGS: Pulmonary arteries: Unremarkable. No pulmonary embolism. Aorta: No acute findings. No thoracic aortic aneurysm. Lungs: Unremarkable. No mass. No consolidation. Pleural space: Unremarkable. No significant effusion. No pneumothorax. Heart: Unremarkable. No cardiomegaly. No significant pericardial effusion. No evidence of RV dysfunction. Bones/joints: No acute fracture. No dislocation. Soft tissues: Unremarkable. Lymph nodes: Unremarkable. No enlarged lymph nodes. IMPRESSION: Normal chest CTA. No pulmonary embolism. Electronically signed by: Reid Lay M.D. 12/02/23 19:56 PM Diagnostic Findings EKG as per my interpretation :Rate 110, sinus tachycardia, normal axis, no ischemia (1) Acute pancreatitis Acute pancreatitis complication: unspecified Pancreatitis type: unspecified pancreatitis type Qualified Code(s): K85.90 - Acute pancreatitis without necrosis or infection, unspecified
[2023-12-02] MEDS ORDERED: LORazepam 1 MG in SYRINGE 0.5 ML IV PRN (22:21)
[2023-12-02] MEDS ORDERED: PROMETHAZINE HCL 6.25 MG in SODIUM CHLORIDE 0.9% 50 ML IV PRN (22:21)
[2023-12-02] MEDS ORDERED: LORazepam 1 MG TAB PO PRN (22:47)
--- NOTE | 2023-12-02 23:13 | Emergency Department Note ---
History of Present Illness General Chief Complaint: Illness Stated Complaint: GENERALIZED PAIN, NAUSEA Time Seen by Provider: 12/02/23 17:58 History of Present Illness Provider Complaint: + fever, + cough, + rhinorrhea and + nasal congestion Onset (ago): 2 day(s) Duration: + progressively worsening Severity: moderate Maximum Pain Intensity: 8 Current Pain Intensity: 8 Able to tolerate fluids by mouth: Yes Associated symptoms: + fever, + chills, + myalgias, + rhinorrhea, + nasal congestion, + cough, + chest pain, + shortness of breath, + abdominal pain, + nausea, + vomiting and + diarrhea; no stiff neck Home Medications Medication Instructions Recorded Confirmed Type carbamazepine 200 mg tablet 200 mg PO TID 05/05/22 12/02/23 History (Epitol) docusate sodium 100 mg tablet 200 mg PO QAM 05/05/22 12/02/23 History gabapentin 600 mg tablet 600 mg PO BID 05/05/22 12/02/23 History lamotrigine 200 mg tablet 200 mg PO BID 05/05/22 12/02/23 History melatonin 10 mg tablet 20 mg PO HS 05/05/22 12/02/23 History omeprazole 20 mg capsule,delayed 20 mg PO AMHS 03/08/23 12/02/23 History release Cbd Oil 1 dose sublingual DIRECTED PRN 07/22/23 12/02/23 History NEEDED ibuprofen 200 mg tablet 200 mg PO Q4 PRN Fever Or Pain 07/22/23 12/02/23 History calcium carbonate 260 mg calcium 260 mg PO DAILY 12/02/23 12/02/23 History (650 mg) chewable tablet lorazepam 1 mg tablet 1 mg PO ONCE PRN 15 min prior to 12/02/23 12/02/23 History shower lorazepam 2 mg/mL oral concentrate 2 mg buccal UD PRN seizure>5min or 12/02/23 12/02/23 History 3 seizures in24 hour Allergies Allergy/AdvReac Type Severity Reaction Status Date / Time amoxicillin Allergy Severe Anaphylaxis Verified 07/22/23 01:28 /HIVES clavulanic acid Allergy Severe Anaphylaxis Verified 07/22/23 01:28 [From Augmentin] /HIVES Macrolide Antibiotics Allergy Intermediate Hives Verified 07/22/23 01:29 Penicillins Allergy Intermediate Hives Verified 07/22/23 01:28 polyethylene glycol 3350 Allergy Intermediate ITCHING Verified 07/22/23 01:28 [From Miralax] Sulfa (Sulfonamide Allergy Intermediate Hives Verified 07/22/23 01:28 Antibiotics) Inhaled Anesthetics (Halogen Allergy Possible Verified 12/02/23 21:23 Based) family history malignant hyperthermia succinylcholine Allergy Possible Verified 07/22/23 01:29 family history malignant hyperthermia Past Med/Surg History Medical History Cystic fibrosis History of asthma No inhaler Spina bifida Noted in available [facility] records, not reported during PAT RN phone interview Seasonal allergies Hx of pancreatitis EUS 02/05/23 AT [facility] Absent kidney, congenital Seizure disorder Epilepsy/grand mal seizures Follows with [facility] neuro/Dr. Watters Most recent seizure 02/2023- levels being monitored closely by neuro Autism Surgical History History of anesthesia reaction Awareness, "woke up" with recent EUS when tube was being removed Family history of anesthesia complication Patient's brother had foot surgery at [facility], discharged home and developed high fever/stiff joints > sent to ER, given antibiotics, sent home. No admission required. Brother now (unrelated)/unable to obtain further information. Patient's mother denies being told the term malignant hyperthermia and states that further testing/precautions were not recommended after brother's event. 2012 oral surgery [facility] anesthesia records for patient scanned into [employer]- use of desflurane/sux without issue. Hx of colonoscopy History of dental surgery Resin based composite 2 surfaces, posterior (10/21/11): MAC#4, ETT 7.0 at [facility] (limited anesthesia record scanned in) Removal of impacted tooth (09/26/13): MAC#4, ETT 7.0 at [facility] (Anesthesia records scanned into [facility]), received desflurane/succinylcholine per anesthesia record. "Anesthesia Complications: none" H/O circumcision Family History Brother History of anesthesia reaction Social History Smoking Status: Never smoker Second Hand Exposure: No; Do You Dip or Chew Tobacco: No; Hx Alcohol Use: No Hx Substance Use: No Preferred Language: [place] Communication Ability: Effective Chair Car Driver Required: No Beliefs That Will Affect Care: None Current Living Situation: Family Feels Safe at Home: Yes Assistive Devices: Glasses Physical Exam 2 Vital Signs: Vital Signs - 24 hr 12/02/23 15:26 12/02/23 20:55 Temperature 37.5 C Temperature Source Oral Pulse Rate 110 H Pulse Rate [Finger ] 108 H Respiratory Rate 20 20 Blood Pressure 121/86 Blood Pressure [Le ft Arm] 129/83 Blood Pressure [place] n 97 Blood Pressure Od[place] n [Left Arm] 98 Pulse Oximetry 98 97 Oxygen Delivery Me thod Room Air Room Air Sepsis Recent Feve r Within 48 Hours Yes Sepsis New/Unexpla ined Change in Men zina Status N/A Sepsis Action Take n by Nursing No Action Required Physical Exam: Physical Exam GENERAL: He is oriented to person, place, and time. He appears well-developed and well-nourished. He does not appear distressed. HENT: Exam performed. - Head: Normocephalic and atraumatic. - Right Ear: External ear normal. No mastoid erythema - Left Ear: External ear normal. No mastoid erythema EYES: Conjunctivae and EOM are normal. Pupils are equal, round, and reactive to light. Right eye exhibits no discharge. Left eye exhibits no discharge. No scleral icterus. NECK: Normal range of motion. Neck supple. No JVD present. No spinous process tenderness present. No carotid bruit present. No rigidity. No tracheal deviation and normal range of motion present. CV: Normal rate, regular rhythm, normal heart sounds and intact distal pulses. There is no peripheral edema. Palpable radial pulses bue. PULM/CHEST: Effort normal and breath sounds normal. No respiratory distress. No stridor. He has no wheezes. He has no rales. - Chest Wall: He exhibits no tenderness. ABD: The abdomen is soft. He has no distension. No mass is present. There is tenderness to the palpation of the epigastric area. There is no rebound, no guarding, no Romero's sign and no tenderness at McBurney's point. Rovsig negative. MUSC/SKEL: Normal range of motion. There is no peripheral edema, tenderness or deformity. LYMPH: No cervical adenopathy. NEURO: Motor and sensation grossly intact. PSYCH: Bizarre affect. Course Course 1757: The patient was evaluated in room D6. A complete history and physical exam was performed Cardiac monitoring: An order was placed for continuous cardiac monitoring. The monitor shows a rate of 110 with sinus tachycardia rhythm interpreted by md 2044: Vital signs stable. Labs are significant for a lipase of 1437. Imaging is significant for pancreatitis. [facility] Ari[facility] aware. Administered Medications Lactated Ringer's (Lr) 1,000 mls @ 200 mls/hr IV .Q5H ONE Stop: 12/03/23 02:13 Last Admin: 12/02/23 21:46 Dose: 200 mls/hr Documented By: CARMEN Discontinued Medications Sodium Chloride (Nss) 500 mls @ 999 mls/hr IV .Q31M ONE Stop: 12/02/23 18:47 Last Infusion: 12/02/23 22:43 Dose: Infused Documented By: Admin: 12/02/23 18:40 Dose: 999 mls/hr Documented By: ALEX Ioversol (Optiray 320 125ml) 117 ml IV ONCE ONE Stop: 12/02/23 18:53 Last Admin: 12/02/23 18:52 Dose: 117 ml Documented By: BOBY Morphine Sulfate (Morphine Sulfate 4 Mg/Ml 1 Ml Carp\\Vial) 4 mg IV NOW STA Stop: 12/02/23 21:31 Last Admin: 12/02/23 21:45 Dose: 4 mg Documented By: CARMEN Medical Decision Making Laboratory Data Attestation: I reviewed the patient's lab results. 12/02/23 17:16 12/02/23 17:16 Lab Results 12/02/23 12/02/23 12/02/23 Range/Units 15:29 17:16 18:07 WBC 11.64 H (4.8-10.8) K/ul RBC 5.16 (4.70-6.10) M/uL Hgb 15.4 (14.0-18.0) g/dl Hct 44.3 (42.0-52.0) % MCV 85.9 (80.0-100.0) fL MCH 29.8 (25.0-34.0) pg MCHC 34.8 (32.0-36.0) g/dL RDW Std Deviation 38.7 (36.4-46.3) fL RDW Coeff of Aman 12.4 (11.5-14.5) % Plt Count 211 (130-400) K/uL MPV 9.6 (9.4-12.4) fL Immature Gran % (Auto) 0.3 % Neut % (Auto) 76.6 % Lymph % (Auto) 9.3 % [place] % (Auto) 11.8 % Eos % (Auto) 1.7 % Baso % (Auto) 0.3 % Neut # (Auto) 8.92 H (1.40-6.50) K/uL Lymph # (Auto) 1.08 L (1.20-3.40) K/uL [place] # (Auto) 1.37 H (0.11-0.59) K/uL Eos # (Auto) 0.20 (0.00-0.50) K/uL Baso # (Auto) 0.04 (0.00-0.20) K/uL Immature Gran # (Auto) 0.03 (0.01-0.20) K/uL Sodium 130 L (136-145) mmol/L Potassium 4.0 (3.5-5.1) mmol/L Chloride 98 (98-107) mmol/L Carbon Dioxide 25 (21-32) mmol/L Anion Gap 7 (3-11) BUN 6 (6-23) mg/dl Creatinine 0.82 (0.6-1.4) mg/dl Est Cr Clr Drug Dosing Not Reportable Est GFR ( Amer) 140.5 ml/min Est GFR (Non-Af Amer) 121.2 ml/min BUN/Creatinine Ratio 7.3 L (10-20) Glucose 99 (70-99(Fasting)) mg/dl Calcium 9.1 (8.6-10.3) mg/dl Magnesium 1.7 (1.7-2.4) mg/dl Total Bilirubin 0.7 (0.2-1.0) mg/dl AST 19 (13-39) U/L ALT 14 (7-52) U/L Alkaline Phosphatase 135 H (34-104) U/L Total Protein 7.8 (6.0-8.3) gm/dl Albumin 4.4 (3.4-5.0) gm/dl Globulin 3.4 (2.5-4.0) gm/dl Albumin/Globulin Ratio 1.3 (0.9-2) Lipase 1437 H (11-82) U/L TSH 0.652 (0.300-4.500) uIu/ml Urine Color Yellow Urine Appearance Clear (Clear) Urine pH 6.5 (4.5-7.5) Ur Specific [place] 1.021 (1.000-1.030) Urine Protein 1+ H (Negative) Urine Glucose (UA) Negative (Negative) Urine Ketones Negative (Negative) Urine Blood 2+ H (Negative) Urine Nitrite Negative (Negative) Urine Bilirubin Negative (Negative) Urine Urobilinogen Negative (Negative) Ur Leukocyte Esterase Negative (Negative) Urine RBC 5-10 H (0-4) /hpf Urine WBC 0-5 (0-5) /hpf Ur Epithelial Cells 5-10 H (0-5) /lpf Urine Bacteria 3+ H (Negative) Hyaline Casts 0-5 (0-5) /lpf SARS-CoV-2 (PCR) NEGATIVE (Negative) Monoscreen Negative (Negative) Influenza Type A (PCR) Negative (Neg) Influenza Type B (PCR) Negative (Neg) RSV (RT-PCR) Negative (Neg) Imaging Data Attestation: I personally reviewed and interpreted this imaging study as follows: My Impression: Chest x-ray negative. Airway clear. No pneumothorax. No consolidation. No cardiomegaly or cephalization.. No free air under the diaphragm. No fractures of the skeletal structures. Radiologist's Impression: Chest X-Ray 12/02/23 15:30 XR chest 1V not portable CLINICAL HISTORY: chest pain TECHNIQUE: Single frontal radiograph of the chest was obtained. Comparison: Comparison is made to chest radiograph 10/20/2023 FINDINGS: Exam is limited by underpenetration. Cardiomegaly is noted. The lungs are clear. No evidence of pleural effusion or pneumothorax. IMPRESSION: No acute chest disease. Cardiomegaly is noted. ACT 112: Negative or not required by law. Electronically signed by: Konstantin Zhang M.D. 12/02/2023 4:23 PM Abdomen/Pelvis CT 12/02/23 18:12 Exam(s): CT ABDOMEN + PELVIS With Contrast IV Amt: 117 cc otpi 320 EXAM: CT Abdomen and Pelvis With Intravenous Contrast CLINICAL HISTORY: Reason for exam: abd pain. TECHNIQUE: Axial computed tomography images of the abdomen and pelvis with intravenous contrast. CTDI is 27.54 mGy and DLP is 1591.62 mGy-cm. Automated exposure control was utilized for the study. A dose lowering technique was utilized adhering to the principles of ALARA. CONTRAST: Patient received 117 cc otpi 320 of IV contrast COMPARISON: 05/05/2022 FINDINGS: ABDOMEN: Liver: Unremarkable. No mass. Gallbladder and bile ducts: Gallbladder has been removed. No ductal dilation. Pancreas: Inflammation around the pancreas consistent with acute pancreatitis. No ductal dilation. Spleen: Unremarkable. No splenomegaly. Adrenals: Unremarkable. No mass. Kidneys and ureters: Absent left kidney. No hydronephrosis. Stomach and bowel: Unremarkable. No obstruction. No mucosal thickening. PELVIS: Appendix: No findings to suggest acute appendicitis. Bladder: Unremarkable. No mass. Reproductive: Unremarkable as visualized. ABDOMEN and PELVIS: Intraperitoneal space: Minimal free fluid in the pelvis. No free air. Bones/joints: No acute fracture. No dislocation. Soft tissues: Unremarkable. Vasculature: Unremarkable. No abdominal aortic aneurysm. Lymph nodes: Unremarkable. No enlarged lymph nodes. IMPRESSION: Inflammation around the pancreas consistent with acute pancreatitis. Electronically signed by: Reid Lay M.D. 12/02/23 19:59 PM Chest CTA 12/02/23 18:12 Exam(s): CTA CHEST IV Amt: 117 cc opti 320 EXAM: CT Chest With Intravenous Contrast CLINICAL HISTORY: Reason for exam: ro PE. TECHNIQUE: Axial computed tomographic images of the chest with intravenous contrast. CTDI is 28.14 mGy and DLP is 1000.28 mGy-cm. Automated exposure control was utilized for the study. A dose lowering technique was utilized adhering to the principles of ALARA. COMPARISON: No relevant prior studies available. FINDINGS: Pulmonary arteries: Unremarkable. No pulmonary embolism. Aorta: No acute findings. No thoracic aortic aneurysm. Lungs: Unremarkable. No mass. No consolidation. Pleural space: Unremarkable. No significant effusion. No pneumothorax. Heart: Unremarkable. No cardiomegaly. No significant pericardial effusion. No evidence of RV dysfunction. Bones/joints: No acute fracture. No dislocation. Soft tissues: Unremarkable. Lymph nodes: Unremarkable. No enlarged lymph nodes. IMPRESSION: Normal chest CTA. No pulmonary embolism. Electronically signed by: Reid Lay M.D. 12/02/23 19:56 PM ECG Data Attestation: I personally reviewed and interpreted this ECG as follows: Indication: abdominal pain Rate (beats per minute): 107 Rhythm: sinus tachycardia Findings: no ST depression, no ST elevation or no prolonged QT [facility] Narrative 1758: The patient was evaluated in room D6. A complete history and physical exam was performed Cardiac monitoring: An order was placed for continuous cardiac monitoring. The monitor shows a rate of 110 with sinus tachycardia rhythm interpreted by me 2045: Vital signs stable. Labs are significant for a lipase of 1437. Imaging is significant for pancreatitis. [facility] Arias aware. Impression & Plan Acute pancreatitis, Cystic fibrosis Discharge Plan Visit Data Chief Complaint: Illness Stated Complaint: GENERALIZED PAIN, NAUSEA ED Provider: Prince Christian Discharge Problem: Acute pancreatitis, Cystic fibrosis Patient Disposition: Admitted As Inpatient Discharge Instructions Interventions: ED Discharge Assessment Last Done: 12/02/23 22:48 Discharge Problem: Acute pancreatitis Qualifiers: Pancreatitis type: unspecified pancreatitis type Acute pancreatitis complication: unspecified Qualified Code(s): K85.90 - Acute pancreatitis without necrosis or infection, unspecified
[2023-12-02] MEDS: MoRPHine SULFATE 4 MG/ML 1 ML CARP\\VIAL IV PRN (23:36)
[2023-12-03] MEDS: oxyCODONE HCL IR 5 MG TAB (IMMEDIATE RELEASE) PO PRN ×2 (02:18→20:32)
[2023-12-03] MEDS ORDERED: LACTATED RINGER'S 1,000 ML IV ONE (02:30)
[2023-12-03] MEDS: Patient's HEIGHT &/or WEIGHT Needed SCH ×2 (03:10→07:35)
[2023-12-03] MEDS: MAGNESIUM SULFATE / D5W 1 GM/100 ML BAG IV SCH ×2 (03:10→05:54)
[2023-12-03] MEDS: MoRPHine SULFATE 4 MG/ML 1 ML CARP\\VIAL IV PRN ×5 (03:40→22:11)
[2023-12-03 04:29] LABS: Albumin Globulin Ratio 1.3 (0.9-2); Albumin Level 3.9 gm/dl (3.4-5.0); BUN Creatinine Ratio 8.6 (10-20); Bilirubin,Total 0.8 mg/dl (0.2-1.0); Calcium 8.5 mg/dl (8.6-10.3); Creatinine Clr Calc Pharmacy 250.8 ml/min; Est GFR (African American) 149.9 ml/min; Est GFR (Non-African American) 129.3 ml/min; Potassium 3.7 mmol/L (3.5-5.1); Total Protein 6.9 gm/dl (6.0-8.3)
[2023-12-03 04:31] LABS: Basophils # (auto) 0.03 K/uL (0.00-0.20); Basophils % (auto) 0.2 %; Eosinophils # (auto) 0.04 K/uL (0.00-0.50); Eosinophils % (auto) 0.3 %; Hematocrit (blood only) 41.2 % (42.0-52.0); Hemoglobin 14.4 g/dl (14.0-18.0); Immature Granulocytes # (auto) 0.04 K/uL (0.01-0.20); Immature Granulocytes % (auto) 0.3 %; Lymphocytes # (auto) 0.98 K/uL (1.20-3.40); Lymphocytes % (auto) 6.5 %; Mean Corpuscular Hemoglobin 29.8 pg (25.0-34.0); Mean Corpuscular Volume 85.3 fL (80.0-100.0); Mean Platelet Volume 9.8 fL (9.4-12.4); Monocytes # (auto) 1.73 K/uL (0.11-0.59); Monocytes % (auto) 11.5 %; Neutrophils # (auto) 12.19 K/uL (1.40-6.50); Neutrophils % (auto) 81.2 %; Platelet Count 218 K/uL (130-400); RDW Coefficient of Variation 12.6 % (11.5-14.5); RDW Standard Deviation 38.9 fL (36.4-46.3); Red Blood Count 4.83 M/uL (4.70-6.10); White Blood Count 15.01 K/ul (4.8-10.8)
[2023-12-03] MEDS: carBAMazepine 200 MG TABLET PO SCH ×3 (05:55→22:04)
[2023-12-03] MEDS: lamoTRIgine 100 MG TAB PO SCH ×2 (05:56→22:04)
[2023-12-03] MEDS: GABAPENTIN 600 MG TAB PO SCH ×2 (05:56→22:04)
[2023-12-03] MEDS ORDERED: MAGNESIUM HYDROXIDE SUSP 30 ML UDC PO PRN (07:51)
[2023-12-03] MEDS: ENOXAPARIN INJ 40 MG/0.4 ML SYR SQ SCH (08:14)
[2023-12-03] MEDS: PANTOprazole 40 MG TAB PO SCH ×2 (08:15→22:04)
[2023-12-03] MEDS: ACETAMINOPHEN 1,000 MG/100 ML VIAL IV PRN ×2 (08:18→19:49)
[2023-12-03] MEDS: LACTATED RINGER'S 1,000 ML IV SCH ×3 (08:21→20:34)
--- NOTE | 2023-12-03 09:24 | Gastrointestinal Consultation ---
Date of Consultation December 03, 2023 Assessment & Plan (1) Acute pancreatitis: (2) Cystic fibrosis: Pt is a 28 yo male w cystic fibrosis, spina bifida admitted w pancreatitis. - LR @ 150ml/hr - CL diet; advance slowly to low fat - Symptomatic management w analgesics and antiemetics prn; avoid narcotics if possible to avoid ileus - Daily bowel regimen given chronic constipation. He has itching w Miralax and previously did not want to try Linzess when prescribed by one of our providers (AMEENA Eric). Will try Colace 200mg BID + Bisacodyl 10mg qhs - Interestingly pt's family reports they will be switching to a different GI provider other than [facility] in the future. Supervising Physician Co-Signing Physician Notes I saw and evaluated the patient. The patient is family are somewhat upset. He has seen in the past by partners in our service as an outpatient. They have been seen with diapers in the past for similar patient discomfort and irregular bowel habits. Patient's history is notable for cystic fibrosis and a prior history of pancreatitis as in the spring. During that time he underwent endoscopic ultrasound was found to have stones within the gallbladder. Subsequently he underwent cholecystectomy and was doing fairly well until recently. The family notes that he has difficulty with having bowel movements and is unable to take MiraLAX as he develops hives with this particular medic ation. Review of imaging shows no biliary dilation or elevation of liver associated enzymes. Impression: 28-year-old male with a history of cystic fibrosis presenting for evaluation of pancreatitis and constipation. Sometimes the cause of the patient's presentation with pancreatitis remains elusive, it is quite possible this could be related to medication such as gabapentin or perhaps Lamictal. The patient also has other symptoms which include constipation and he is intolerant of MiraLAX as an outpatient. I would recommend IV hydration as you are doing in addition and the use of Linzess for his constipation. The patient should follow-up with his psychiatry provider to discuss discontinuation of the above- mentioned medications. If the patient develops present repeat endoscopic ultras ound or MRCP could certainly be contemplated. Please call with any additional questions or concerns, the patient and family are planning to seek care with another GI group upon discharge. History of Present Illness Reason for Consultation: Pancreatitis Requesting Physician: Dr. Hamzah Chaudhry Attending Physician: Dr. Santiago Farfan History of Present Illness Pt is a 28 yo male w cystic fibrosis, spina bifida, autism, s/p cholecystectomy who presented w c/o upper abd pain, n/v x days. Mom reported fever, no chills. Denies CP, SOB. He has chronic constipation. Upon eval, he is febrile and tachycardic, labs showed leukocytosis wo anemia. Na 129, Ca 8.5. Renal function normal. LFTs normal except mild alk phos elevation 128, Lipase 1437. COVID, Monoscreen, Flu, RSV negative. CT abd/pelvis w IV contrast: Inflammation around the pancreas consistent with acute pancreatitis. Denies ETOH, tobacco. Uses cannabis oil. No new supplements/meds EGD 2022: normal. EUS 2022: - There was no sign of significant pathology in the ampulla. - There was no sign of significant pathology in the common bile duct. - Many stones were visualized endosonographically in the gallbladder. - There was no evidence of significant pathology in the visualized portion of the liver. - Fatty pancreas. - Endosonographic images of the left adrenal gland were unremarkable. - The celiac trunk was endosonographically normal. Allergies Allergy/AdvReac Type Severity Reaction Status Date / Time amoxicillin Allergy Severe Anaphylaxis Verified 07/22/23 01:28 /HIVES clavulanic acid Allergy Severe Anaphylaxis Verified 07/22/23 01:28 [From Augmentin] /HIVES Macrolide Antibiotics Allergy Intermediate Hives Verified 07/22/23 01:29 Penicillins Allergy Intermediate Hives Verified 07/22/23 01:28 polyethylene glycol 3350 Allergy Intermediate ITCHING Verified 07/22/23 01:28 [From Miralax] Sulfa (Sulfonamide Allergy Intermediate Hives Verified 07/22/23 01:28 Antibiotics) Inhaled Anesthetics (Halogen Allergy Possible Verified 12/02/23 21:23 Based) family history malignant hyperthermia succinylcholine Allergy Possible Verified 07/22/23 01:29 family history malignant hyperthermia Home Medications Medication Instructions Recorded Confirmed Type carbamazepine 200 mg tablet 200 mg PO TID 05/05/22 12/02/23 History (Epitol) docusate sodium 100 mg tablet 200 mg PO QAM 05/05/22 12/02/23 History gabapentin 600 mg tablet 600 mg PO BID 05/05/22 12/02/23 History lamotrigine 200 mg tablet 200 mg PO BID 05/05/22 12/02/23 History melatonin 10 mg tablet 20 mg PO HS 05/05/22 12/02/23 History omeprazole 20 mg capsule,delayed 20 mg PO AMHS 03/08/23 12/02/23 History release Cbd Oil 1 dose sublingual DIRECTED PRN 07/22/23 12/02/23 History NEEDED ibuprofen 200 mg tablet 200 mg PO Q4 PRN Fever Or Pain 07/22/23 12/02/23 History calcium carbonate 260 mg calcium 260 mg PO DAILY 12/02/23 12/02/23 History (650 mg) chewable tablet lorazepam 1 mg tablet 1 mg PO ONCE PRN 15 min prior to 12/02/23 12/02/23 History shower lorazepam 2 mg/mL oral concentrate 2 mg buccal UD PRN seizure>5min or 12/02/23 12/02/23 History 3 seizures in24 hour Patient History Medical History Cystic fibrosis History of asthma No inhaler Spina bifida Noted in available [facility] records, not reported during PAT RN phone interview Seasonal allergies Hx of pancreatitis EUS 02/05/23 AT [facility] Absent kidney, congenital Seizure disorder 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 Watters Most recent seizure 02/2023- levels being monitored closely by neuro Autism Surgical History History of anesthesia reaction Awareness, "woke up" with recent EUS when tube was being removed Family history of anesthesia complication Patient's brother had foot surgery at [facility], discharged home and developed high fever/stiff joints > sent to ER, given antibiotics, sent home. No admission required. Brother now (unrelated)/unable to obtain further information. Patient's mother denies being told the term malignant hyperthermia and states that further testing/precautions were not recommended after brother's event. 2012 oral surgery [facility] anesthesia records for patient scanned into [facility]- use of desflurane/sux without issue. Hx of colonoscopy History of dental surgery Resin based composite 2 surfaces, posterior (10/21/11): [place] [facility] [place] Removal of impacted tooth (09/26/13): MAC#4, [place] [facility] [place] scanned into [employer]), received desflurane/succinylcholine per anesthesia record. "Anesthesia Complications: none" H/O circumcision Family History Brother History of anesthesia reaction Social History Smoking Status: Never smoker Second Hand Exposure: No; Do You Dip or Chew Tobacco: No; Hx Alcohol Use: No Hx Substance Use: No Preferred Language: Luxembourger Communication Ability: Effective Flame Annealing Machine Setter Required: No Beliefs That Will Affect Care: None Current Living Situation: Parent and Family Feels Safe at Home: Yes Safety Concerns: Feels Safe At This Time Assistive Devices: None Review of Systems Review of Systems: All systems reviewed & are unremarkable except as noted in HPI & below Physical Exam Constitutional: WD/WN, vitals as above well groomed, cooperative and comfortable Eyes: PERRL, conjunctivae normal, anicteric sclerae ENMT: external ear and nose normal, oropharynx normal Respiratory: normal respiratory effort, lungs clear to auscultation Cardiovascular: RRR, no murmur, no edema Gastrointestinal (Abdomen): TTP epigastric, soft, hypoactive BS Skin: no rashes, warm and dry no jaundice Neurologic: Motor/Sensory: no asterixis Psychiatric: A+Ox3, euthymic affect Lymphatic: no lymphedema Results & Data Vital Signs (Past 12 Hours) Vital Signs Temp Pulse Pulse Resp BP BP Pulse Ox 12/03/23 08:08 122 H 24 136/91 95 12/03/23 07:36 124 H 12/03/23 07:16 39.0 C H 124 H 23 133/85 92 12/03/23 07:16 12/03/23 04:16 37.5 C 113 H 20 133/83 95 12/03/23 02:18 132/78 12/03/23 02:18 121 H 26 H 92 12/03/23 02:00 119 H 29 H 92 12/03/23 01:00 115 H 30 H 93 12/03/23 00:47 115 H 29 H 93 12/03/23 00:47 113 H Pulse Ox O2 Del Method O2 Del Method 12/03/23 08:08 Room Air 12/03/23 07:36 12/03/23 07:16 Room Air 12/03/23 07:16 92 Room Air 12/03/23 04:16 Room Air 12/03/23 02:18 12/03/23 02:18 12/03/23 02:00 12/03/23 01:00 12/03/23 00:47 12/03/23 00:47 (1) Acute pancreatitis Acute pancreatitis complication: unspecified Pancreatitis type: unspecified pancreatitis type Qualified Code(s): K85.90 - Acute pancreatitis without necrosis or infection, unspecified
[2023-12-03] MEDS ORDERED: POLYETHYLENE (MIRALAX) 17 GM PACK PO SCH (09:45)
[2023-12-03] MEDS: AZTREONAM 2,000 MG in DEXTROSE 5% MINI-B 100 ML IV SCH ×2 (10:13→19:42)
[2023-12-03] MEDS: metroNIDAZOLE 500 MG/100 ML BAG IV SCH ×2 (11:15→18:07)
[2023-12-03] MEDS: DOCUSATE SODIUM 100 MG CAP PO SCH (11:25)
[2023-12-03] MEDS ORDERED: PROMETHAZINE HCL 12.5 MG in SODIUM CHLORIDE 0.9% 50 ML IV STA (16:28)
--- NOTE | 2023-12-03 17:14 | Hospitalist Progress Note ---
Date of Service December 03, 2023 Assessment & Plan (1) Acute pancreatitis: Plan: Recurrent pancreatitis History of cystic fibrosis NPO IV LR pain control GI consulted ff liver panel, lipase Fever, possible sepsis blood culture urine culture CT chest: no pneumonia COVID, Flu, RSV: negative Aztreonam + Flagyl IV seizure disorder, uncontrolled since episode of pancreatitis from last year as per mother neurologist consulted hx spina bifida/ autism/ solitary kidney chronic hyponatremia, multifactorial as per outpatient nephrology note from carbamazepine, possible SIADH. Medical telemetry given uncontrolled seizures Seizure precautions Ativan as needed for active seizures Continue current AED regimen Neurology consult Re: Uncontrolled seizures Bowel rest, IVF, analgesia GI consult Re: Recurrent pancreatitis DVT prophylaxis with Lovenox subcu Full code plan of care discussed with patient and his parent at bedside in detail and at length all questions answered she is understanding, agreeable, comfortable with the plan of care Admission and Anticipated Discharge Date Admission Date: December 02, 2023 Subjective ff up for acute pancreatitis, etc seen resting in bed, nauseated just received IV morphine still has epigastric pain febrile this morning no headache, dizziness no chest pain, dyspnea, palpitations no problems with urination, diarrhea no other symptoms Review of Systems Review of Systems: all noted and negative except for above Physical Exam Physical Exam: General- oriented x 3, not in distress, speaks in sentences with no effort or accessory muscle use Eyes- anicteric Neck- no JVD Lungs- clear breath sounds bilaterally, no rales/wheezes Heart- normal rate, regular rhythm; no murmurs Abdomen- normal bowel sounds, nondistended, soft, mild tenderness - epigastric Extremities- no pretibial edema, no calf tenderness Neuro- alert, oriented x 3; no gross focal neurologic deficits Skin- warm & dry Results & Data Results & Data Vital Signs (Past 12 Hours) Vital Signs Temp Pulse Pulse Resp BP BP Pulse Ox 12/03/23 16:10 37.7 C H 113 H 18 137/89 97 12/03/23 12:00 36.9 C 105 H 18 135/96 94 12/03/23 10:23 36.9 C 12/03/23 08:08 122 H 24 136/91 95 12/03/23 07:36 124 H 12/03/23 07:16 39.0 C H 124 H 23 133/85 92 12/03/23 07:16 Pulse Ox O2 Del Method O2 Del Method 12/03/23 16:10 Room Air 12/03/23 12:00 Room Air 12/03/23 10:23 12/03/23 08:08 Room Air 12/03/23 07:36 12/03/23 07:16 Room Air 12/03/23 07:16 92 Room Air all noted and reviewed including below (1) Acute pancreatitis Acute pancreatitis complication: unspecified Pancreatitis type: unspecified pancreatitis type Qualified Code(s): K85.90 - Acute pancreatitis without necrosis or infection, unspecified
--- NOTE | 2023-12-03 17:22 | Electrocardiogram Report ---
Test Reason : Blood Pressure : / mmHG Vent. Rate : 107 BPM Atrial Rate : 107 BPM P-R Int : 150 ms QRS Dur : 080 ms QT Int : 314 ms P-R-T Axes : 041 008 065 degrees QTc Int : 419 ms Sinus tachycardia Abnormal ECG When compared with ECG of 20-OCT-2023 18:55, Vent. rate has increased BY 38 BPM Confirmed by Ed Pfeiffer ([id number]) on 12/03/2023 5:22:29 PM Referred By: REFERRED SELF Confirmed By:Rudy Pfeiffer
[2023-12-03] MEDS ORDERED: LACTULOSE SYRUP 20 GM/30 ML UDC PO ONE (18:00)
--- NOTE | 2023-12-03 20:09 | Neurology Consultation ---
Date of Consultation December 03, 2023 Assessment & Plan (1) Epilepsy: Plan 28 y/o male with history of CFTR gene variant positivity, spina bifida, autism, solitary kidney, and seizure disorder that seizure disorder that presented with acute pancreatitis. Neurology has been consulted due to increased seizure frequency. In discussion with the patient's father, seizure frequency began increasing one year ago and then had some improvement a few months ago with dietary change. Although it is somewhat unclear, his recent seizure frequency may have been increased in the setting of recent COVID infection and pancreatitis. We discussed the planned EMU admission in December but his father is not sure that he wants to proceed with this, and we have discussed an outpatient follow-up visit with neurology after discharge. We discussed GI's concern that pancreatitis could be related to medication. His father is not interested in any modification of anti seizure medications at this time. 1. Continue tegretol 200 mg TID, lamictal 200 mg bid, and gabapentin 600 mg bid 2. Seizure precautions 3. Neurology outpatient follow-up Telehealth Consultation Telehealth Information Telehealth Information: I performed this visit using a real-time telehealth connection between my location and the patients location ([facility]). After connecting through interactive tele-video, patient was identified by name and date of and/or wristband check.Patient (or authorized healthcare utility sales representative) was informed that this was a telemedicine visit and it was being conducted confidentially over secure lines. My office door was closed and no one else was present in the room with me.Patient (or authorized healthcare utility sales representative) provided consent to proceed with the visit, expressed an understanding of privacy and security of the telemedicine visit, and gave permission to have a hospital utility sales representative in the room in order to assist with the visit and to conduct portions of the visit, as needed. I informed the patient (or authorized healthcare utility sales representative) that I reviewed their record and presented the opportunity for them to ask any questions regarding the visit today. The patient agreed to participate. History of Present Illness Reason for Consultation: uncontrolled seizure Requesting Physician: Dr. Eddy Torres Attending Physician: Hamzah Chaudhry MD History of Present Illness He and his family state that he was having abdominal pain for two days prior to presentation, which worsened over the day prior to his presentation. Over the last year, he has had an increase in seizure frequency since his first episode of pancreatitis. Prior to that, he had been grand mal seizure free for four years but then began having multiple per month. Then they seemed to decrease after a dietary change was made at home. He has three types of seizures, described as family as drop attacks, grand mal, and behavioral arrest. They state that his last seizure was three days ago with a drop attack, and his last grand mal seizure was October 12. He used to have the behavioral arrest episodes several times per week but his father reports these only occur a few times per month. He takes lamotrigine 200 mg bid, tegretol 200 mg TID, and gabapentin 600 mg bid. He tried Keppra in the past but this was ineffective. He also was not able to tolerate onfi due to itching. He has been following with epilepsy and an EMU admission is planned for December. His father states that he is unsure about whether he agrees with doing the EMU admission. He understands that the hyponatremia could be related to tegretol but he does not want to pursue changing the tegretol as it has worked well for him. Lamotrigine had been attempted to be increased but he did not tolerate it. Allergies Allergy/AdvReac Type Severity Reaction Status Date / Time amoxicillin Allergy Severe Anaphylaxis Verified 07/22/23 01:28 /HIVES clavulanic acid Allergy Severe Anaphylaxis Verified 07/22/23 01:28 [From Augmentin] /HIVES Macrolide Antibiotics Allergy Intermediate Hives Verified 07/22/23 01:29 Penicillins Allergy Intermediate Hives Verified 07/22/23 01:28 polyethylene glycol 3350 Allergy Intermediate ITCHING Verified 07/22/23 01:28 [From Miralax] Sulfa (Sulfonamide Allergy Intermediate Hives Verified 07/22/23 01:28 Antibiotics) Inhaled Anesthetics (Halogen Allergy Possible Verified 12/02/23 21:23 Based) family history malignant hyperthermia succinylcholine Allergy Possible Verified 07/22/23 01:29 family history malignant hyperthermia Home Medications Medication Instructions Recorded Confirmed Type carbamazepine 200 mg tablet 200 mg PO TID 05/05/22 12/02/23 History (Epitol) docusate sodium 100 mg tablet 200 mg PO QAM 05/05/22 12/02/23 History gabapentin 600 mg tablet 600 mg PO BID 05/05/22 12/02/23 History lamotrigine 200 mg tablet 200 mg PO BID 05/05/22 12/02/23 History melatonin 10 mg tablet 20 mg PO HS 05/05/22 12/02/23 History omeprazole 20 mg capsule,delayed 20 mg PO AMHS 03/08/23 12/02/23 History release Cbd Oil 1 dose sublingual DIRECTED PRN 07/22/23 12/02/23 History NEEDED ibuprofen 200 mg tablet 200 mg PO Q4 PRN Fever Or Pain 07/22/23 12/02/23 History calcium carbonate 260 mg calcium 260 mg PO DAILY 12/02/23 12/02/23 History (650 mg) chewable tablet lorazepam 1 mg tablet 1 mg PO ONCE PRN 15 min prior to 12/02/23 12/02/23 History shower lorazepam 2 mg/mL oral concentrate 2 mg buccal UD PRN seizure>5min or 12/02/23 12/02/23 History 3 seizures in24 hour Patient History Medical History Cystic fibrosis History of asthma No inhaler Spina bifida Noted in available [facility] records, not reported during PAT RN phone interview Seasonal allergies Hx of pancreatitis EUS 02/05/23 AT [facility] Absent kidney, congenital Seizure disorder Epilepsy/grand mal seizures Follows with [facility] neuro/Dr. Watters Most recent seizure 02/2023- levels being monitored closely by neuro Autism Surgical History History of anesthesia reaction Awareness, "woke up" with recent EUS when tube was being removed Family history of anesthesia complication Patient's brother had foot surgery at [facility], discharged home and developed high fever/stiff joints > sent to ER, given antibiotics, sent home. No admission required. Brother now (unrelated)/unable to obtain further information. Patient's mother denies being told the term malignant hyperthermia and states that further testing/precautions were not recommended after brother's event. 2012 oral surgery [facility] anesthesia records for patient [facility]- use of desflurane/sux without issue. Hx of colonoscopy History of dental surgery Resin based composite 2 surfaces, posterior (10/21/11): MAC#4, ETT 7.0 at [facility] [place] (limited anesthesia record scanned in) Removal of impacted tooth (09/26/13): MAC#4, ETT 7.0 at [facility] [place] (Anesthesia records scanned into [employer]), received desflurane/succinylcholine per anesthesia record. "Anesthesia Complications: none" H/O circumcision Family History Brother History of anesthesia reaction Social History Smoking Status: Never smoker Second Hand Exposure: No; Do You Dip or Chew Tobacco: No; Hx Alcohol Use: No Hx Substance Use: No Preferred Language: Tamazight Communication Ability: Effective Family Dinner Service Specialist Required: No Beliefs That Will Affect Care: None Current Living Situation: Parent and Family Feels Safe at Home: Yes Safety Concerns: Feels Safe At This Time Assistive Devices: None Physical Exam Awake, alert, and oriented to self, person, and location VFF grossly intact EOMI, no nysgamus Facial sensations intact No facial asymmetry Tongue protrudes midline Motor: Moves all four extremities antigravity, no drift Sensation: Intact to light touch throughout Cerebellar: FTN intact Results & Data Vital Signs (Past 12 Hours) Vital Signs Temp Pulse Resp BP BP Pulse Ox O2 Del Method 12/03/23 16:10 37.7 C H 113 H 18 137/89 97 Room Air 12/03/23 12:00 36.9 C 105 H 18 135/96 94 Room Air 12/03/23 10:23 36.9 C 12/03/23 08:08 122 H 24 136/91 95 Room Air Laboratory Results WBC 15.01, HGB 14.4, HCT 41.2, Plts 218, NA 129, Potassium 3.7, Chloride 98, Carbon Dioxide 23, BUN 6, Creatinine 0.7, Glucose 100, AST 16, ALT 13, Alkaline phosphatase 128, total protein 6.9, albumin 3.9 Diagnostic Findings CTA chest: Normal chest CTA. No pulmonary embolism. CT adbomen/pelvis: Inflammation around the pancreas consistent with acute pancreatitis. CXR: No acute chest disease. Cardiomegaly is noted.
[2023-12-03] MEDS ORDERED: bisacodyL 5 MG TABEC PO SCH (21:00)
[2023-12-03] MEDS: MELATONIN 3 MG TAB PO SCH (22:03)
[2023-12-04] MEDS: metroNIDAZOLE 500 MG/100 ML BAG IV SCH ×3 (00:50→16:25)
[2023-12-04] MEDS: AZTREONAM 2,000 MG in DEXTROSE 5% MINI-B 100 ML IV SCH ×3 (02:05→17:26)
[2023-12-04] MEDS ORDERED: POTASSIUM CHLORIDE CRTAB 20 MEQ TABCR PO STA (03:34)
[2023-12-04] MEDS ORDERED: ACETAMINOPHEN 1,000 MG/100 ML VIAL IV STA (03:34)
[2023-12-04] MEDS: MoRPHine SULFATE 4 MG/ML 1 ML CARP\\VIAL IV PRN ×2 (03:42→10:46)
[2023-12-04] MEDS: LACTATED RINGER'S 1,000 ML IV SCH (03:56)
[2023-12-04 04:38] LABS: Basophils # (auto) 0.03 K/uL (0.00-0.20); Basophils % (auto) 0.2 %; Eosinophils # (auto) 0.16 K/uL (0.00-0.50); Eosinophils % (auto) 0.9 %; Hematocrit (blood only) 37.8 % (42.0-52.0); Hemoglobin 12.8 g/dl (14.0-18.0); Immature Granulocytes # (auto) 0.07 K/uL (0.01-0.20); Immature Granulocytes % (auto) 0.4 %; Lymphocytes # (auto) 1.19 K/uL (1.20-3.40); Lymphocytes % (auto) 6.8 %; Mean Corpuscular Hgb Conc 33.9 g/dL (32.0-36.0); Mean Corpuscular Volume 85.7 fL (80.0-100.0); Mean Platelet Volume 9.6 fL (9.4-12.4); Monocytes % (auto) 9.7 %; Neutrophils # (auto) 14.31 K/uL (1.40-6.50); Platelet Count 166 K/uL (130-400); RDW Coefficient of Variation 12.8 % (11.5-14.5); RDW Standard Deviation 39.8 fL (36.4-46.3); Red Blood Count 4.41 M/uL (4.70-6.10); White Blood Count 17.46 K/ul (4.8-10.8)
[2023-12-04 04:43] LABS: Albumin Globulin Ratio 1.1 (0.9-2); Albumin Level 3.4 gm/dl (3.4-5.0); Bilirubin,Total 0.9 mg/dl (0.2-1.0); Calcium 8.2 mg/dl (8.6-10.3); Creatinine Clr Calc Pharmacy 234.4 ml/min; Est GFR (African American) 145.7 ml/min; Est GFR (Non-African American) 125.7 ml/min; Potassium 4.1 mmol/L (3.5-5.1); Total Protein 6.4 gm/dl (6.0-8.3)
[2023-12-04] MEDS: DAPTOmycin 675 MG in SYRINGE 0 ML IV SCH (05:57)
[2023-12-04] MEDS: GABAPENTIN 600 MG TAB PO SCH ×2 (05:58→20:12)
[2023-12-04] MEDS: carBAMazepine 200 MG TABLET PO SCH ×3 (05:58→20:12)
[2023-12-04] MEDS: lamoTRIgine 100 MG TAB PO SCH ×2 (05:58→20:11)
--- NOTE | 2023-12-04 06:55 | Communication Note ---
Date of Service: December 04, 2023 Patient with recurrent fever as per RN. No cough, no diarrhea symptoms. Patient constipated, abdominal pain not worse on admission. Abnormal procalcitonin AP Sepsis Unknown source for now Persistent fever despite Azactam and Flagyl Rx. Follow CS Add Daptomycin to regimen for now for gram-positive/MRSA coverage. Will relay to AM provider.
[2023-12-04] MEDS: DOCUSATE SODIUM 100 MG CAP PO SCH ×2 (08:27→20:13)
[2023-12-04] MEDS: DOCUSATE SODIUM/SENNA 50/8.6MG TAB PO SCH ×2 (08:27→20:13)
[2023-12-04] MEDS: Patient's HEIGHT &/or WEIGHT Needed SCH ×3 (09:22→10:41)
[2023-12-04 09:31] LABS: Magnesium 1.8 mg/dl (1.7-2.4)
[2023-12-04 10:51] LABS: BUN Creatinine Ratio 10.7 (10-20); Calcium 8.8 mg/dl (8.6-10.3); Creatinine Clr Calc Pharmacy 234.4 ml/min; Est GFR (African American) 145.7 ml/min; Est GFR (Non-African American) 125.7 ml/min; Potassium 4.1 mmol/L (3.5-5.1)
--- NOTE | 2023-12-04 11:10 | Nephrology Consultation ---
Date of Consultation December 04, 2023 Assessment & Plan (1) Hyponatremia: Sodium of 129 this morning. Etiology is likely stable with appropriate ADH. Serum osmolality of 271. Urine osmolality is pending. Patient will need a fluid limit of 1.2 L daily. -Will start urea 15 g twice daily. -Okay to monitor sodium daily. (2) Epilepsy: Patient with epilepsy admitted with status epilepticus. Seizure activity decreased. Patient is being followed by neurology and is currently on Lamictal, Neurontin and Tegretol. Some of these antiseizure medications can also cause SIADH but no need to adjust his medications since we might be able to control his sodium with urea. History of Present Illness Reason for Consultation: Hyponatremia Requesting Physician: Hamzah Chaudhry MD Attending Physician: Hamzah Chaudhry MD History of Present Illness This is a 8-year-old male with history of CFTR gene, chronic seizure disorder, pancreatitis, autism, solitary kidney and chronic hyponatremia with baseline sodium in the low 130s who was admitted with status epilepticus. Home regimen include Tegretol, Lamictal and Neurontin. Patient has been seen by neurology. Patient was seen with the father at the bedside. They report improvement in seizure activity since admission. His sodium is however downtrending to 124 today. Admission sodium was 129. Serum osmolality was 271. Urine osmolality is pending. No dizziness or lightheadedness. No nausea or vomiting. He used to drink a lot of coffee and water but has been cutting back lately. Allergies Allergy/AdvReac Type Severity Reaction Status Date / Time amoxicillin Allergy Severe Anaphylaxis Verified 07/22/23 01:28 /HIVES clavulanic acid Allergy Severe Anaphylaxis Verified 07/22/23 01:28 [From Augmentin] /HIVES Macrolide Antibiotics Allergy Intermediate Hives Verified 07/22/23 01:29 Penicillins Allergy Intermediate Hives Verified 07/22/23 01:28 polyethylene glycol 3350 Allergy Intermediate ITCHING Verified 07/22/23 01:28 [From Miralax] Sulfa (Sulfonamide Allergy Intermediate Hives Verified 07/22/23 01:28 Antibiotics) Inhaled Anesthetics (Halogen Allergy Possible Verified 12/02/23 21:23 Based) family history malignant hyperthermia succinylcholine Allergy Possible Verified 07/22/23 01:29 family history malignant hyperthermia Home Medications Medication Instructions Recorded Confirmed Type carbamazepine 200 mg tablet 200 mg PO TID 05/05/22 12/02/23 History (Epitol) docusate sodium 100 mg tablet 200 mg PO QAM 05/05/22 12/02/23 History gabapentin 600 mg tablet 600 mg PO BID 05/05/22 12/02/23 History lamotrigine 200 mg tablet 200 mg PO BID 05/05/22 12/02/23 History melatonin 10 mg tablet 20 mg PO HS 05/05/22 12/02/23 History omeprazole 20 mg capsule,delayed 20 mg PO AMHS 03/08/23 12/02/23 History release Cbd Oil 1 dose sublingual DIRECTED PRN 07/22/23 12/02/23 History NEEDED ibuprofen 200 mg tablet 200 mg PO Q4 PRN Fever Or Pain 07/22/23 12/02/23 History calcium carbonate 260 mg calcium 260 mg PO DAILY 12/02/23 12/02/23 History (650 mg) chewable tablet lorazepam 1 mg tablet 1 mg PO ONCE PRN 15 min prior to 12/02/23 12/02/23 History shower lorazepam 2 mg/mL oral concentrate 2 mg buccal UD PRN seizure>5min or 12/02/23 12/02/23 History 3 seizures in24 hour Patient History Medical History Cystic fibrosis History of asthma No inhaler Spina bifida Noted in available [facility] records, not reported during PAT RN phone interview Seasonal allergies Hx of pancreatitis EUS 02/05/[address] [facility] Absent kidney, congenital Seizure disorder Epilepsy/grand mal seizures Follows with [facility] neuro/Dr. Watters Most recent seizure 02/2023- levels being monitored closely by neuro Autism Surgical History History of anesthesia reaction Awareness, "woke up" with recent EUS when tube was being removed Family history of anesthesia complication Patient's brother had foot surgery at [facility], discharged home and developed high fever/stiff joints > sent to ER, given antibiotics, sent home. No admission required. Brother now (unrelated)/unable to obtain further information. Patient's mother denies being told the term malignant hyperthermia and states that further testing/precautions were not recommended after brother's event. 2013 oral surgery [facility] anesthesia records for patient scanned into [employer]- use of desflurane/sux without issue. Hx of colonoscopy History of dental surgery Resin based composite 2 surfaces, posterior (10/21/11): MAC#4, ETT 7.0 at [facility] [place] (limited anesthesia record scanned in) Removal of impacted tooth (09/26/13): MAC#4, ETT 7.0 at [facility] [place] (Anesthesia records scanned into [facility]), received desflurane/succinylcholine per anesthesia record. "Anesthesia Complications: none" H/O circumcision Family History Brother History of anesthesia reaction Social History Smoking Status: Never smoker Second Hand Exposure: No; Do You Dip or Chew Tobacco: No; Hx Alcohol Use: No Hx Substance Use: No Preferred Language: Icelandic Communication Ability: Effective Payroll Lead Required: No Beliefs That Will Affect Care: None Current Living Situation: Parent and Family Feels Safe at Home: Yes Safety Concerns: Feels Safe At This Time Assistive Devices: None Review of Systems 2 Review of Systems: All other systems were reviewed and negative except as noted in HPI Physical Exam 2 Physical Exam: General exam: Appears comfortable, no acute distress HEENT: Pupils are equal and reactive to light Neck: No JVD, neck is supple trachea is midline Respiratory system: Clear breath sounds bilaterally. Gastrointestinal: Abdomen is soft, non distended, non tender, bowel sounds are present CVS: Regular rate and rhythm. No murmurs, rubs or gallops Musculoskeletal: No joint or muscle tenderness Extremities: Non tender, no edema, peripheral pulses are present Neuro: Oriented, no tremors, no focal neurological deficits Skin: No rashes Results & Data Vital Signs (Past 12 Hours) Vital Signs Temp Pulse Pulse Resp BP BP Pulse Ox 12/04/23 08:00 37.3 C 103 H 16 123/81 99 12/04/23 03:00 38.8 C H 117 H 20 124/82 95 12/04/23 01:33 108 H O2 Del Method 12/04/23 08:00 Room Air 12/04/23 03:00 Room Air 12/04/23 01:33 Laboratory Results 12/04/23 10:23 12/04/23 04:12 WBC 17.46 H RBC 4.41 L MCV 85.7 MCH 29.0 MCHC 33.9 RDW Std Deviation 39.8 RDW Coeff of Aman 12.8 Plt Count 166 MPV 9.6 Albumin 3.4
[2023-12-04] MEDS: ENOXAPARIN INJ 40 MG/0.4 ML SYR SQ SCH (12:18)
[2023-12-04] MEDS: PANTOprazole 40 MG TAB PO SCH ×2 (12:20→20:14)
[2023-12-04] MEDS: UREA (UREA-NA) 15 GM PACK PO SCH ×2 (12:20→20:11)
--- NOTE | 2023-12-04 18:04 | Hospitalist Progress Note ---
Date of Service December 04, 2023 Assessment & Plan (1) Acute pancreatitis: Plan: Recurrent pancreatitis History of cystic fibrosis NPO IV LR pain control GI consulted ff liver panel, lipase 12/04 clinically improving Lipase down to 100s LR held in light of hyponatremia continue NPO status Fever, possible sepsis blood culture: pending urine culture: no growth so far CT chest: no pneumonia COVID, Flu, RSV: negative Aztreonam + Flagyl + Daptomycin IV Hyponatremia from SIADH? Na improved to 129 hold LR Urea 15mg BID appreciate Nephro consult seizure disorder, uncontrolled since episode of pancreatitis from last year as per mother neurologist consulted no changes with meds for now monitor hx spina bifida/ autism/ solitary kidney chronic hyponatremia, multifactorial as per outpatient nephrology note from carbamazepine, possible SIADH. Medical telemetry given uncontrolled seizures Seizure precautions Ativan as needed for active seizures Continue current AED regimen DVT prophylaxis with Lovenox subcu Full code plan of care discussed with patient and his father at bedside in detail and at length all questions answered they are understanding, agreeable, comfortable with the plan of care Admission and Anticipated Discharge Date Admission Date: December 02, 2023 Subjective ff up for acute pancreatitis, etc seen resting in bed, sitting up father at bedside visiting states he feels improved today compared to yesterday Abdominal pain feels improved today No nausea +2-3 loose bowel movements this morning no headache, dizziness, sore throat, cough, shortness of breath Review of Systems Review of Systems: all noted and negative except for above Physical Exam Physical Exam: General- oriented x 3, not in distress, speaks in sentences with no effort or accessory muscle use Eyes- anicteric Neck- no JVD Lungs- clear breath sounds bilaterally, no rales/wheezes Heart- normal rate, regular rhythm; no murmurs Abdomen- normal bowel sounds, nondistended, soft, nontender Extremities- no pretibial edema, no calf tenderness Neuro- alert, oriented x 3; no gross focal neurologic deficits Skin- warm & dry Results & Data Results & Data Vital Signs (Past 12 Hours) Vital Signs Temp Pulse Pulse Resp BP Pulse Ox O2 Del Method 12/04/23 15:09 100 H 12/04/23 09:04 107 H 12/04/23 08:00 37.3 C 103 H 16 123/81 99 Room Air all noted and reviewed including below (1) Acute pancreatitis Acute pancreatitis complication: unspecified Pancreatitis type: unspecified pancreatitis type Qualified Code(s): K85.90 - Acute pancreatitis without necrosis or infection, unspecified
[2023-12-04 18:47] LABS: Adenovirus F 40/41 PCR Not Detected (NotDetected); Astrovirus PCR Not Detected (NotDetected); Campylobacter PCR Not Detected (NotDetected); Cryptosporidium PCR Not Detected (NotDetected); Cyclospora cayetanensis PCR Not Detected (NotDetected); Entamoeba histolytica PCR Not Detected (NotDetected); Enteroaggregative E.coli(EAEC) Not Detected (NotDetected); Enteropathogenic E.coli (EPEC) Not Detected (NotDetected); Enterotoxigenic E.coli (ETEC) Not Detected (NotDetected); Giardia lamblia PCR Not Detected (NotDetected); Norovirus GI/GII PCR Not Detected (NotDetected); Plesiomonas shigelloides PCR Not Detected (NotDetected); Rotavirus A PCR Not Detected (NotDetected); Salmonella PCR Not Detected (NotDetected); Sapovirus PCR Not Detected (NotDetected); Shiga-like Toxin E.coli (STEC) Not Detected (NotDetected); Shigella/Enteroinvasive E.coli Not Detected (NotDetected); Vibrio cholerae PCR Not Detected (NotDetected); Vibrio species PCR Not Detected (NotDetected); Yersinia enterocolitica PCR Not Detected (NotDetected)
[2023-12-04] MEDS: ACETAMINOPHEN 1,000 MG/100 ML VIAL IV PRN (20:27)
[2023-12-04] MEDS: MELATONIN 3 MG TAB PO SCH (22:53)
[2023-12-05] MEDS: metroNIDAZOLE 500 MG/100 ML BAG IV SCH ×3 (00:52→16:13)
[2023-12-05] MEDS: AZTREONAM 2,000 MG in DEXTROSE 5% MINI-B 100 ML IV SCH ×3 (01:57→17:19)
[2023-12-05] MEDS: carBAMazepine 200 MG TABLET PO SCH ×3 (05:40→20:25)
[2023-12-05] MEDS: GABAPENTIN 600 MG TAB PO SCH ×2 (05:40→20:25)
[2023-12-05] MEDS: lamoTRIgine 100 MG TAB PO SCH ×2 (05:40→20:25)
[2023-12-05] MEDS: DAPTOmycin 675 MG in SYRINGE 0 ML IV SCH (05:40)
[2023-12-05 06:10] LABS: BUN Creatinine Ratio 21.6 (10-20); Calcium 8.7 mg/dl (8.6-10.3); Creatinine Clr Calc Pharmacy 237.5 ml/min; Est GFR (African American) 146.5 ml/min; Est GFR (Non-African American) 126.4 ml/min; Potassium 4.2 mmol/L (3.5-5.1)
[2023-12-05] MEDS: DOCUSATE SODIUM/SENNA 50/8.6MG TAB PO SCH ×2 (08:08→20:25)
[2023-12-05] MEDS: DOCUSATE SODIUM 100 MG CAP PO SCH ×2 (08:08→20:26)
[2023-12-05] MEDS: ENOXAPARIN INJ 40 MG/0.4 ML SYR SQ SCH (08:09)
[2023-12-05] MEDS: UREA (UREA-NA) 15 GM PACK PO SCH ×2 (08:10→20:26)
[2023-12-05] MEDS: PANTOprazole 40 MG TAB PO SCH ×2 (08:10→20:25)
[2023-12-05] MEDS ORDERED: ACETAMINOPHEN 325 MG TAB PO PRN (09:27)
--- NOTE | 2023-12-05 13:59 | Hospitalist Progress Note ---
Date of Service December 05, 2023 Assessment & Plan (1) Acute pancreatitis: Plan: Recurrent pancreatitis History of cystic fibrosis NPO IV LR pain control GI consulted ff liver panel, lipase 12/04 clinically improving Lipase down to 100s LR held in light of hyponatremia continue NPO status 12/05 Continues to improve clinically Lipase 99 Clear liquid diet today Fever, possible sepsis blood culture: pending urine culture: no growth so far CT chest: no pneumonia COVID, Flu, RSV: negative Aztreonam + Flagyl + Daptomycin IV Hyponatremia from SIADH? Na improved to 129 hold LR Urea 15mg BID appreciate Nephro consult seizure disorder, uncontrolled since episode of pancreatitis from last year as per mother neurologist consulted no changes with meds for now monitor hx spina bifida/ autism/ solitary kidney chronic hyponatremia, multifactorial as per outpatient nephrology note from carbamazepine, possible SIADH. Medical telemetry given uncontrolled seizures Seizure precautions Ativan as needed for active seizures Continue current AED regimen DVT prophylaxis with Lovenox subcu Full code plan of care discussed with patient and his father at bedside in detail and at length all questions answered they are understanding, agreeable, comfortable with the plan of care Admission and Anticipated Discharge Date Admission Date: December 02, 2023 Subjective Follow-up for acute pancreatitis, fever, etc. Seen resting in bed, comfortable, sitting up Patient is in good spirits States he feels improved today compared to yesterday Abdominal pain mostly resolved No nausea or vomiting No BMP today Denies headache, dizziness, sore throat, cough, sputum production, problems with urination No other new symptoms Review of Systems Review of Systems: all noted and negative except for above Physical Exam Physical Exam: General- oriented x 3, not in distress, speaks in sentences with no effort or accessory muscle use Eyes- anicteric Neck- no JVD Lungs- clear breath sounds bilaterally, no rales/wheezes Heart- normal rate, regular rhythm; no murmurs Abdomen- normal bowel sounds, nondistended, soft, nontender Extremities- no pretibial edema, no calf tenderness Neuro- alert, oriented x 3; no gross focal neurologic deficits Skin- warm & dry Results & Data Results & Data Vital Signs (Past 12 Hours) Vital Signs Temp Pulse Pulse Resp BP BP Pulse Ox 12/05/23 12:50 36.5 C 89 16 124/80 94 12/05/23 11:00 93 H 12/05/23 07:52 37.5 C 98 H 16 118/83 97 12/05/23 03:00 37.1 C 99 H 20 113/74 95 O2 Del Method 12/05/23 12:50 Room Air 12/05/23 11:00 12/05/23 07:52 Room Air 12/05/23 03:00 Room Air all noted and reviewed including below (1) Acute pancreatitis Acute pancreatitis complication: unspecified Pancreatitis type: unspecified pancreatitis type Qualified Code(s): K85.90 - Acute pancreatitis without necrosis or infection, unspecified
--- NOTE | 2023-12-05 15:40 | Nephrology Progress Note ---
Date of Service December 05, 2023 Assessment & Plan (1) Hyponatremia: Plan: Sodium of 129 this morning. Etiology is likely stable with appropriate ADH. Serum osmolality of 271. Urine osmolality is pending. Patient will need a fluid limit of 1.2 L daily. -Will continue urea 15 g twice daily. On discharge, patient can be discharged on urea 15 g daily. Patient will be able to source urea online as it is sold as a food supplement. I discussed this with the patient. on discharge, patient will need a BMP in 1-2 weeks and renal follow-up in 2 weeks this can be a video visit -Okay to monitor sodium daily while in-house. (2) Epilepsy: Plan: Patient with epilepsy admitted with status epilepticus. Seizure activity decreased. Patient is being followed by neurology and is currently on Lamictal, Neurontin and Tegretol. Some of these antiseizure medications can also cause SIADH but no need to adjust his medications since we might be able to control his sodium with urea. Admission and Anticipated Discharge Date Admission Date: December 02, 2023 Subjective Seen for hyponatremia. He feels better today. No seizures. Sodium up trending 133. Review of Systems Review of Systems: All other systems were reviewed and negative except as noted in HPI Physical Exam Physical Exam: General exam: Appears comfortable, no acute distress HEENT: Pupils are equal and reactive to light Neck: No JVD, neck is supple trachea is midline Respiratory system: Clear breath sounds bilaterally. Gastrointestinal: Abdomen is soft, non distended, non tender, bowel sounds are present CVS: Regular rate and rhythm. No murmurs, rubs or gallops Musculoskeletal: No joint or muscle tenderness Extremities: Non tender, no edema, peripheral pulses are present Neuro: Oriented, no tremors, no focal neurological deficits Skin: No rashes Results & Data Vital Signs (Past 12 Hours) Vital Signs Temp Pulse Pulse Resp BP Pulse Ox O2 Del Method 12/05/23 12:50 36.5 C 89 16 124/80 94 Room Air 12/05/23 11:00 93 H 12/05/23 07:52 37.5 C 98 H 16 118/83 97 Room Air
[2023-12-06] MEDS: MELATONIN 3 MG TAB PO SCH ×2 (00:53→23:14)
[2023-12-06] MEDS: metroNIDAZOLE 500 MG/100 ML BAG IV SCH ×3 (00:54→16:16)
[2023-12-06] MEDS: AZTREONAM 2,000 MG in DEXTROSE 5% MINI-B 100 ML IV SCH ×3 (02:01→17:20)
[2023-12-06] MEDS: GABAPENTIN 600 MG TAB PO SCH ×2 (05:40→21:08)
[2023-12-06] MEDS: lamoTRIgine 100 MG TAB PO SCH ×2 (05:40→21:07)
[2023-12-06] MEDS: carBAMazepine 200 MG TABLET PO SCH ×3 (05:40→21:08)
[2023-12-06 06:22] LABS: Anion Gap 7 (3-11); BUN Creatinine Ratio 25.8 (10-20); Blood Urea Nitrogen 16 mg/dl (6-23); Calcium 8.5 mg/dl (8.6-10.3); Carbon Dioxide 25 mmol/L (21-32); Chloride 101 mmol/L (98-107); Creatinine Clr Calc Pharmacy 280.7 ml/min; Est GFR (African American) > 150.0 ml/min; Glucose 94 mg/dl (70-99(Fasting)); Lipase 62 U/L (11-82); Potassium 3.5 mmol/L (3.5-5.1); Sodium 133 mmol/L (136-145)
[2023-12-06] MEDS: DOCUSATE SODIUM/SENNA 50/8.6MG TAB PO SCH ×2 (09:15→20:31)
[2023-12-06] MEDS: DOCUSATE SODIUM 100 MG CAP PO SCH ×2 (09:15→20:31)
[2023-12-06] MEDS: PANTOprazole 40 MG TAB PO SCH ×2 (09:16→22:53)
[2023-12-06] MEDS: ENOXAPARIN INJ 40 MG/0.4 ML SYR SQ SCH (09:18)
[2023-12-06] MEDS: UREA (UREA-NA) 15 GM PACK PO SCH ×2 (09:20→20:34)
--- NOTE | 2023-12-06 11:52 | Nephrology Progress Note ---
Date of Service December 06, 2023 Assessment & Plan (1) Hyponatremia: Plan: Sodium of 133 this morning. Etiology is likely sIADH. Serum osmolality of 271. Urine osmolality is pending. Patient will need a fluid limit of 1.2 L daily. -Will continue urea 15 g twice daily. Will sign off NEPHRO D/C recs -urea 15 g daily. Patient has sourced urea online as it is sold as a food supplement. this was d/w pt and family 12/05 and confirmed 12/06 -bmp at PCP f/u visit -hospital d/c appt with Dr Newman / santos sandoval in 2 wks w/ BMP, urine osms, serum osms, rd urine sodium to be ordered by renal nurse -pt and family requested mobile lab if possible . (2) Epilepsy: Plan: Patient with epilepsy admitted with status epilepticus. Seizure activity decreased. Patient is being followed by neurology and is currently on Lamictal, Neurontin and Tegretol. Some of these antiseizure medications can also cause SIADH but no need to adjust his medications since we might be able to control his sodium with urea. Admission and Anticipated Discharge Date Admission Date: December 02, 2023 Subjective no acute interval events clinically. older male family member at bedsidel pt not sob, confused. hungry/eating heartily Review of Systems 2 Review of Systems: All systems reviewed & are unremarkable except as noted in Subjective Physical Exam 2 Constitutional: well developed and well nourished Eyes: EOM intact bilaterally ENMT: Ears: no external ear abnormality Nose: no external nose abnormality Mouth: + dry oral mucous membranes Neck: no nuchal rigidity Respiratory: normal respiratory effort Auscultation: + diminished lung sounds Cardiovascular: RRR, no murmur, no edema Gastrointestinal (Abdomen): Inspection/Auscultation: normal bowel sounds P ercussion/Palpation: abdomen soft; abdomen nontender Musculoskeletal: Extremities: strength 5/5 throughout Skin: no rashes, warm and dry Neurologic: hollis, fluent speech, no tremor Results & Data Vital Signs (Past 12 Hours) Vital Signs Temp Pulse Pulse Resp BP BP Pulse Ox 12/06/23 11:37 36.8 C 83 18 105/66 94 12/06/23 10:36 84 12/06/23 07:41 36.9 C 78 18 124/80 94 12/06/23 04:10 36.7 C 79 18 104/67 96 12/06/23 00:33 88 O2 Del Method 12/06/23 11:37 Room Air 12/06/23 10:36 12/06/23 07:41 Room Air 12/06/23 04:10 Room Air 12/06/23 00:33 Laboratory Results 12/04/23 04:12 12/06/23 05:32
--- NOTE | 2023-12-06 15:39 | Hospitalist Progress Note ---
Date of Service December 06, 2023 Assessment & Plan (1) Acute pancreatitis: Plan: Recurrent pancreatitis History of cystic fibrosis NPO IV LR pain control GI consulted ff liver panel, lipase 12/04 clinically improving Lipase down to 100s LR held in light of hyponatremia continue NPO status 12/05 Continues to improve clinically Lipase 99 Clear liquid diet today 12/06 improving steadily soft diet today monitor Fever, possible sepsis blood culture: negative x 48 hrs urine culture: no growth CT chest: no pneumonia COVID, Flu, RSV: negative Aztreonam + Flagyl if afebrile tomorrow, transition to Augmentin Probiotics daily Hyponatremia from SIADH? chronic hyponatremia, multifactorial as per outpatient nephrology note from carbamazepine, possible SIADH. Na improved to 133 Urea 15mg BID appreciate Nephro consult seizure disorder, uncontrolled since episode of pancreatitis from last year as per mother neurologist consulted no changes with meds for now monitor hx spina bifida/ autism/ solitary kidney DVT prophylaxis with Lovenox subcu Full code plan of care discussed with patient and his father at bedside in detail and at length all questions answered they are understanding, agreeable, comfortable with the plan of care Admission and Anticipated Discharge Date Admission Date: December 02, 2023 Subjective ff up for acute pancreatitis, etc seen resting in chair, comfortable states he feels ok overall no abdominal pain, nausea no chills no chest pain, dyspnea, palpitations, dizziness (+) BMs no other new symptoms Review of Systems Review of Systems: all noted and negative except for above Physical Exam Physical Exam: General- oriented x 3, not in distress, speaks in sentences with no effort or accessory muscle use Eyes- anicteric Neck- no JVD Lungs- clear breath sounds bilaterally, no rales/wheezes Heart- normal rate, regular rhythm; no murmurs Abdomen- normal bowel sounds, nondistended, soft, nontender Extremities- no pretibial edema, no calf tenderness Neuro- alert, oriented x 3; no gross focal neurologic deficits Skin- warm & dry Results & Data Results & Data Vital Signs (Past 12 Hours) Vital Signs Temp Pulse Pulse Resp BP BP Pulse Ox 12/06/23 11:37 36.8 C 83 18 105/66 94 12/06/23 10:36 84 12/06/23 07:41 36.9 C 78 18 124/80 94 12/06/23 04:10 36.7 C 79 18 104/67 96 O2 Del Method 12/06/23 11:37 Room Air 12/06/23 10:36 12/06/23 07:41 Room Air 12/06/23 04:10 Room Air all noted and reviewed including below (1) Acute pancreatitis Acute pancreatitis complication: unspecified Pancreatitis type: unspecified pancreatitis type Qualified Code(s): K85.90 - Acute pancreatitis without necrosis or infection, unspecified
[2023-12-06] MEDS: ADVANCED PROBIOTIC 1250 MG CAPSULE PO SCH (18:15)
[2023-12-07] MEDS: metroNIDAZOLE 500 MG/100 ML BAG IV SCH ×2 (00:43→07:53)
[2023-12-07] MEDS: AZTREONAM 2,000 MG in DEXTROSE 5% MINI-B 100 ML IV SCH ×2 (01:45→09:02)
[2023-12-07] MEDS: lamoTRIgine 100 MG TAB PO SCH (05:01)
[2023-12-07] MEDS: carBAMazepine 200 MG TABLET PO SCH ×2 (05:01→12:30)
[2023-12-07] MEDS: GABAPENTIN 600 MG TAB PO SCH (05:01)
[2023-12-07 05:16] LABS: Anion Gap 6 (3-11); BUN Creatinine Ratio 25.4 (10-20); Blood Urea Nitrogen 17 mg/dl (6-23); Calcium 8.6 mg/dl (8.6-10.3); Carbon Dioxide 26 mmol/L (21-32); Chloride 102 mmol/L (98-107); Creatinine Clr Calc Pharmacy 259.7 ml/min; Est GFR (African American) > 150.0 ml/min; Est GFR (Non-African American) 131.7 ml/min; Glucose 122 mg/dl (70-99(Fasting)); Lipase 66 U/L (11-82); Potassium 3.7 mmol/L (3.5-5.1); Sodium 134 mmol/L (136-145)
[2023-12-07] MEDS: ADVANCED PROBIOTIC 1250 MG CAPSULE PO SCH (07:56)
[2023-12-07] MEDS: PANTOprazole 40 MG TAB PO SCH (07:56)
[2023-12-07] MEDS: ENOXAPARIN INJ 40 MG/0.4 ML SYR SQ SCH (07:56)
[2023-12-07] MEDS: UREA (UREA-NA) 15 GM PACK PO SCH (07:56)
[2023-12-07] MEDS: DOCUSATE SODIUM/SENNA 50/8.6MG TAB PO SCH (07:57)
[2023-12-07] MEDS: DOCUSATE SODIUM 100 MG CAP PO SCH (08:01)
--- NOTE | 2023-12-07 11:50 | Hospitalist Progress Note ---
Date of Service December 07, 2023 Assessment & Plan (1) Acute pancreatitis: Plan: Recurrent pancreatitis History of cystic fibrosis CT abdomen and pelvis: Inflammation around the pancreas consistent with acute pancreatitis. MRCP: 1. Status post cholecystectomy. 2. The pancreatic duct is diminutive, and pancreas divisum is suspected. 3. There is evidence of distal pancreatitis. No fluid collection is seen 4. Trace of pleural effusion. Placed on aggressive IV LR, bowel rest, pain control GI consulted-no further procedures recommended Patient gradually improved day by day Diet advanced gradually, tolerated well Recurrent acute pancreatitis possibly related to underlying cystic fibrosis Fever, possible sepsis Unclear etiology, from acute pancreatitis with bacterial infection? blood culture: negative x 48 hrs urine culture: no growth CT chest: no pneumonia COVID, Flu, RSV: negative Aztreonam + Flagyl IV given while admitted, total of 5 days Patient's fever resolved No other focus of infection identified apart from possible bacterial infection with acute pancreatitis MRCP not showing any signs of abscess or fluid collection Transition to cefdinir plus Flagyl x 5 more days to complete 10-day course to cover any possible intra-abdominal infection Probiotics times at least 2 weeks recommend Hyponatremia from SIADH? chronic hyponatremia, multifactorial as per outpatient nephrology note from carbamazepine, possible SIADH. Nephrology service consulted Recommended urea 15 mg twice daily Na improved from 124 to 133 Continue urea 15 mg twice daily Repeat BMP in 1 week upon follow-up with primary care physician, please discuss results with [facility] nephrology service Also follow-up with nephrology service in 2 weeks Seizure disorder uncontrolled since episode of pancreatitis from last year as per mother neurologist consulted no changes with meds for now No seizure recurrence while admitted hx spina bifida/ autism/ solitary kidney DVT prophylaxis Lovenox subcu Full code plan of care discussed with patient and his parents at bedside in detail and at length all questions answered they are understanding, agreeable, comfortable with the plan of care Admission and Anticipated Discharge Date Admission Date: December 02, 2023 Subjective ff up for acute pancreatitis, etc Seen resting in bed, comfortable states he feels better overall No abdominal pain, tolerating diet well Positive bowel movement No other new symptoms States he is ready for discharge today Review of Systems Review of Systems: all noted and negative except for above Physical Exam Physical Exam: General- oriented x 3, not in distress, speaks in sentences with no effort or accessory muscle use Eyes- anicteric Neck- no JVD Lungs- clear breath sounds bilaterally, no rales/wheezes Heart- normal rate, regular rhythm; no murmurs Abdomen- normal bowel sounds, nondistended, soft, nontender Extremities- no pretibial edema, no calf tenderness Neuro- alert, oriented x 3; no gross focal neurologic deficits Skin- warm & dry Results & Data Results & Data Vital Signs (Past 12 Hours) Vital Signs Temp Pulse Pulse Resp BP BP Pulse Ox 12/07/23 08:07 12/07/23 08:06 36.6 C 75 18 123/79 97 12/07/23 07:00 78 12/07/23 02:57 36.7 C 90 18 120/57 L 97 12/07/23 01:09 78 O2 Del Method 12/07/23 08:07 Room Air 12/07/23 08:06 Room Air 12/07/23 07:00 12/07/23 02:57 Room Air 12/07/23 01:09 all noted and reviewed including below (1) Acute pancreatitis Acute pancreatitis complication: unspecified Pancreatitis type: unspecified pancreatitis type Qualified Code(s): K85.90 - Acute pancreatitis without necro sis or infection, unspecified
[2023-12-07] MEDS ORDERED: LORazepam 0.5 MG TAB PO STA (12:40)
--- NOTE | 2023-12-07 14:56 | Magnetic Resonance Report ---
MRCP CLINICAL HISTORY: Pancreatitis. COMPARISON STUDY: Abdominal CT dated 12/02/2023. TECHNIQUE: Abdominal MRCP is performed utilizing various T2-weighted sequences in the axial and coron al planes. IV contrast was not administered for this examination. 3-D reformats are created and asses sed. Diffusion-weighted imaging was utilized. FINDINGS: The gallbladder is surgically absent. There is no intrahepatic biliary ductal dilatation. The common bile duct measures up to 3 mm in diameter. There are no intraluminal filling defects to suggest olimpia docholithiasis. The pancreatic duct is diminutive and pancreas divisum is suspected. The unenhanced liver, spleen, adrenal glands, and right kidney are grossly unremarkable. The left kid nya is not identified and presumed congenitally versus surgically absent. The pancreatic head is atro phic. There is inflammation involving the distal pancreas with trace fluid, likely corresponding to t he history of acute pancreatitis. No organized peripancreatic fluid collection is identified. There i s no abdominal ascites. The abdominal aorta is normal in course and caliber. No bowel obstruction is seen. There is a trace left pleural effusion. IMPRESSION: 1. Status post cholecystectomy. 2. The pancreatic duct is diminutive, and pancreas divisum is suspected. 3. There is evidence of distal pancreatitis. No fluid collection is seen 4. Trace of pleural effusion. Dictated: 12/07/2023 1:40 PM Transcribed: 12/07/2023 1:52 PM Davion [id number] [email or web address] [id number] Electronically signed by: Tony Ramos M.D. 12/07/2023 2:54 PM
--- NOTE | 2023-12-07 16:34 | Discharge Summary ---
Discharge Summary Date of Service December 07, 2023 Notes For Next Care Provider Medication Changes From Visit Urea 15mg BID Cefdinir 300mg BID, Flagyl 500mg TID x 5 days Senokot S daily PRN Admission HPI Per Admitting Provider History obtained from patient, family, and records. Medical history significant for seizure disorder, CFTR gene variant positivity, chronic hyponatremia, spina bifida, autism, solitary kidney. Last confinement April 2022 for pancreatitis. Outpatient laparoscopic cholecystectomy done for gallstones last year. CFTR variant gene later noted on testing. Patient family told pancreatitis episodes may be related to cystic fibrosis. Patient seizures not well-controlled since pancreatitis attacks from last year as per mother. Seizures ranging from GTC to drop attacks as per mother. Last GTC seizure was last month. Drop attacks occurring 3 times weekly. Patient denies headache symptoms. Compliant with home medications[place] [facility] [place] stopping some medications as per mother which she is hesitant to do. 1 week history of worsening achy central abdominal pain symptoms reminiscent of pancreatitis attacks associated with nausea, vomiting constipation symptoms. Patient also complaining of generalized bodyaches, congestion, weakness, shortness of breath. Denies chest pain. Not sure about sick contacts. GI specialist recommended outpatient labs and plain x-ray. Patient brought to ER by mother for evaluation. Medical History as above Surgical History : Dental surgery, eardrum surgery, cholecystectomy Family History : SLE, DM, autism Personal/Social history : Non-smoker, no EtOH intake, high school graduate Admission Exam Per Admitting Provider GENERAL: Comfortable, obese, pleasant, no respiratory distress SKIN: Normal color, warm HEENT: [place] palpebral conjunctivae, no ptosis, dry buccal mucosa NECK : Supple, short neck, no tenderness CHEST : CTA, no tenderness HEART : Tachycardic, no obvious murmurs ABDOMEN: Some distention, minimal epigastric tenderness EXTREMITIES : Minimal LE swelling, no LE tenderness, no other conspicuous deformities noted NEUROLOGIC : Coherent, no facial asymmetry, no other gross focality Principal Dx & Hospital Course #1 = Principal Diagnosis (1) Acute pancreatitis: Recurrent pancreatitis History of cystic fibrosis CT abdomen and pelvis: Inflammation around the pancreas consistent with acute pancreatitis. MRCP: 1. Status post cholecystectomy. 2. The pancreatic duct is diminutive, and pancreas divisum is suspected. 3. There is evidence of distal pancreatitis. No fluid collection is seen 4. Trace of pleural effusion. Placed on aggressive IV LR, bowel rest, pain control GI consulted-no further procedures recommended Patient gradually improved day by day Diet advanced gradually, tolerated well Recurrent acute pancreatitis possibly related to underlying cystic fibrosis Fever, possible sepsis Unclear etiology, from acute pancreatitis with bacterial infection? blood culture: negative x 48 hrs urine culture: no growth CT chest: no pneumonia COVID, Flu, RSV: negative Aztreonam + Flagyl IV given while admitted, total of 5 days Patient's fever resolved No other focus of infection identified apart from possible bacterial infection with acute pancreatitis MRCP not showing any signs of abscess or fluid collection Transition to cefdinir plus Flagyl x 5 more days to complete 10-day course to cover any possible intra-abdominal infection Probiotics times at least 2 weeks recommend Hyponatremia from SIADH? chronic hyponatremia, multifactorial as per outpatient nephrology note from carbamazepine, possible SIADH. Nephrology service consulted Recommended urea 15 mg twice daily Na improved from 124 to 133 Continue urea 15 mg twice daily Repeat BMP in 1 week upon follow-up with primary care physician, please discuss results with [facility] nephrology service Also follow-up with nephrology service in 2 weeks Seizure disorder uncontrolled since episode of pancreatitis from last year as per mother neurologist consulted no changes with meds for now No seizure recurrence while admitted Hx spina bifida/ autism/ solitary kidney DVT prophylaxis Lovenox subcu Full code plan of care discussed with patient and his parents at bedside in detail and at length all questions answered they are understanding, agreeable, comfortable with the plan of care Discharge Exam General- oriented x 3, not in distress, speaks in sentences with no effort or accessory muscle use Eyes- anicteric Neck- no JVD Lungs- clear breath sounds bilaterally, no rales/wheezes Heart- normal rate, regular rhythm; no murmurs Abdomen- normal bowel sounds, nondistended, soft, nontender Extremities- no pretibial edema, no calf tenderness Neuro- alert, oriented x 3; no gross focal neurologic deficits Skin- warm & dry Updated Medication List Medication Instructions Recorded Confirmed Type carbamazepine 200 mg tablet 200 mg PO TID 05/05/22 12/02/23 History (Epitol) gabapentin 600 mg tablet 600 mg PO BID 05/05/22 12/02/23 History lamotrigine 200 mg tablet 200 mg PO BID 05/05/22 12/02/23 History melatonin 10 mg tablet 20 mg PO HS 05/05/22 12/02/23 History omeprazole 20 mg capsule,delayed 20 mg PO AMHS 03/08/23 12/02/23 History release Cbd Oil 1 dose sublingual DIRECTED PRN 07/22/23 12/02/23 History NEEDED ibuprofen 200 mg tablet 200 mg PO Q4 PRN Fever Or Pain 07/22/23 12/02/23 History calcium carbonate 260 mg calcium 260 mg PO DAILY 12/02/23 12/02/23 History (650 mg) chewable tablet lorazepam 1 mg tablet 1 mg PO ONCE PRN 15 min prior to 12/02/23 12/02/23 History shower lorazepam 2 mg/mL oral concentrate 2 mg buccal UD PRN seizure>5min or 12/02/23 12/02/23 History 3 seizures in24 hour cefdinir 300 mg capsule 300 mg PO BID 5 days #10 caps 12/07/23 Rx metronidazole 500 mg tablet 500 mg PO TID 5 days #15 tabs 12/07/23 Rx sennosides 8.6 mg-docusate sodium 2 tab PO BID PRN CONSTIPATION #30 12/07/23 Rx 50 mg tablet (Senokot-S) tabs urea 15 gram oral powder packet 15 g PO BID 30 days #8 ea 12/07/23 Rx (Ure-Na) Hospital Stay Data Consultations 12/02/23 20:33 ED Decision to Admit Stat 12/02/23 22:47 Consult Gastroenterology Routine Consult Neurology Routine 12/04/23 08:43 Consult Nephrology Routine Diagnostic Imagining Performed Laboratory Results WBC 17.46 K/ul (4.8-10.8) H 12/04/23 04:12 RBC 4.41 M/uL (4.70-6.10) L 12/04/23 04:12 Hgb 12.8 g/dl (14.0-18.0) L 12/04/23 04:12 Hct 37.8 % (42.0-52.0) L 12/04/23 04:12 MCV 85.7 fL (80.0-100.0) 12/04/23 04:12 MCH 29.0 pg (25.0-34.0) 12/04/23 04:12 MCHC 33.9 g/dL (32.0-36.0) 12/04/23 04:12 RDW Std Deviation 39.8 fL (36.4-46.3) 12/04/23 04:12 RDW Coeff of Aman 12.8 % (11.5-14.5) 12/04/23 04:12 Plt Count 166 K/uL (130-400) 12/04/23 04:12 MPV 9.6 fL (9.4-12.4) 12/04/23 04:12 Immature Gran % (Auto) 0.4 % 12/04/23 04:12 Neut % (Auto) 82.0 % 12/04/23 04:12 Lymph % (Auto) 6.8 % 12/04/23 04:12 [place] % (Auto) 9.7 % 12/04/23 04:12 Eos % (Auto) 0.9 % 12/04/23 04:12 Baso % (Auto) 0.2 % 12/04/23 04:12 Neut # (Auto) 14.31 K/uL (1.40-6.50) H 12/04/23 04:12 Lymph # (Auto) 1.19 K/uL (1.20-3.40) L 12/04/23 04:12 [place] # (Auto) 1.70 K/uL (0.11-0.59) H 12/04/23 04:12 Eos # (Auto) 0.16 K/uL (0.00-0.50) 12/04/23 04:12 Baso # (Auto) 0.03 K/uL (0.00-0.20) 12/04/23 04:12 Immature Gran # (Auto) 0.07 K/uL (0.01-0.20) 12/04/23 04:12 Sodium 134 mmol/L (136-145) L 12/07/23 04:44 Potassium 3.7 mmol/L (3.5-5.1) 12/07/23 04:44 Chloride 102 mmol/L (98-107) 12/07/23 04:44 Carbon Dioxide 26 mmol/L (21-32) 12/07/23 04:44 Anion Gap 6 (3-11) 12/07/23 04:44 BUN 17 mg/dl (6-23) 12/07/23 04:44 Creatinine 0.67 mg/dl (0.6-1.4) 12/07/23 04:44 Est Cr Clr Drug Dosing 259.7 ml/min 12/07/23 04:44 Est GFR ( Amer) > 150.0 ml/min 12/07/23 04:44 Est GFR (Non-Af Amer) 131.7 ml/min 12/07/23 04:44 BUN/Creatinine Ratio 25.4 (10-20) H 12/07/23 04:44 Glucose 122 mg/dl (70-99(Fasting)) H 12/07/23 04:44 Osmolality 265 mOsm/kg (280-300) L 12/04/23 04:12 Calcium 8.6 mg/dl (8.6-10.3) 12/07/23 04:44 Magnesium 1.8 mg/dl (1.7-2.4) 12/04/23 04:12 Total Bilirubin 0.9 mg/dl (0.2-1.0) 12/04/23 04:12 AST 13 U/L (13-39) 12/04/23 04:12 ALT 10 U/L (7-52) 12/04/23 04:12 Alkaline Phosphatase 115 U/L (34-104) H 12/04/23 04:12 Total Protein 6.4 gm/dl (6.0-8.3) 12/04/23 04:12 Albumin 3.4 gm/dl (3.4-5.0) 12/04/23 04:12 Globulin 3.0 gm/dl (2.5-4.0) 12/04/23 04:12 Albumin/Globulin Ratio 1.1 (0.9-2) 12/04/23 04:12 Triglycerides 58 mg/dl (0-150) 12/04/23 04:12 Lipase 66 U/L (11-82) 12/07/23 04:44 Procalcitonin 0.75 ng/ml (0-0.5) H 12/04/23 04:12 TSH 0.652 uIu/ml (0.300-4.500) 12/02/23 17:16 Urine Color Yellow 12/02/23 18:07 Urine Appearance Clear (Clear) 12/02/23 18:07 Urine pH 6.5 (4.5-7.5) 12/02/23 18:07 Ur Specific [place] 1.021 (1.000-1.030) 12/02/23 18:07 Urine Protein 1+ (Negative) H 12/02/23 18:07 Urine Glucose (UA) Negative (Negative) 12/02/23 18:07 Urine Ketones Negative (Negative) 12/02/23 18:07 Urine Blood 2+ (Negative) H 12/02/23 18:07 Urine Nitrite Negative (Negative) 12/02/23 18:07 Urine Bilirubin Negative (Negative) 12/02/23 18:07 Urine Urobilinogen Negative (Negative) 12/02/23 18:07 Ur Leukocyte Esterase Negative (Negative) 12/02/23 18:07 Urine RBC 5-10 /hpf (0-4) H 12/02/23 18:07 Urine WBC 0-5 /hpf (0-5) 12/02/23 18:07 Ur Epithelial Cells 5-10 /lpf (0-5) H 12/02/23 18:07 Urine Bacteria 3+ (Negative) H 12/02/23 18:07 Hyaline Casts 0-5 /lpf (0-5) 12/02/23 18:07 Urine Osmolality 367 mOsm/kg (500-800) L 12/04/23 17:00 Ur Random Sodium 11 mmol/L 12/04/23 17:00 Nasal Screen MRSA (PCR) Negative (Negative) 12/04/23 17:20 Stl C. cayetanensis PCR Cancelled 12/04/23 Unknown Stl C. cayetanensis PCR Not Detected (NotDetected) 12/04/23 Unknown Stool Rotavirus A PCR Cancelled 12/04/23 Unknown Stool Rotavirus A PCR Not Detected (NotDetected) 12/04/23 Unknown Stl Adenov F 40/41 PCR Cancelled 12/04/23 Unknown Stl Adenov F 40/41 PCR Not Detected (NotDetected) 12/04/23 Unknown Stool Astrovirus (PCR) Cancelled 12/04/23 Unknown Stool Astrovirus (PCR) Not Detected (NotDetected) 12/04/23 Unknown Stool Campylobacter PCR Cancelled 12/04/23 Unknown Stool Campylobacter PCR Not Detected (NotDetected) 12/04/23 Unknown Stl C. diff Tox B Gene Negative Cdiff Gene (Neg) 12/04/23 Unknown Stool Cryptosporidium PCR Cancelled 12/04/23 Unknown Stool Cryptosporidium PCR Not Detected (NotDetected) 12/04/23 Unknown Stl E.coli Shiga Tox PCR Cancelled 12/04/23 Unknown Stl E.coli Shiga Tox PCR Not Detected (NotDetected) 12/04/23 Unknown Stool E coli O157 PCR Cancelled 12/04/23 Unknown Stl Enterotoxigenic E PCR Cancelled 12/04/23 Unknown Stl Enterotoxigenic E PCR Not Detected (NotDetected) 12/04/23 Unknown Stool EPEC (PCR) Cancelled 12/04/23 Unknown Stool EPEC (PCR) Not Detected (NotDetected) 12/04/23 Unknown Stool EAEC (PCR) Cancelled 12/04/23 Unknown Stool EAEC (PCR) Not Detected (NotDetected) 12/04/23 Unknown Stl E. histolytica PCR Cancelled 12/04/23 Unknown Stl E. histolytica PCR Not Detected (NotDetected) 12/04/23 Unknown Stool Giardia Lamblia PCR Cancelled 12/04/23 Unknown Stool Giardia Lamblia PCR Not Detected (NotDetected) 12/04/23 Unknown Stool Salmonella PCR Cancelled 12/04/23 Unknown Stool Salmonella PCR Not Detected (NotDetected) 12/04/23 Unknown Stool Sapovirus (PCR) Cancelled 12/04/23 Unknown Stool Sapovirus (PCR) Not Detected (NotDetected) 12/04/23 Unknown Stl P. shigelloides PCR Cancelled 12/04/23 Unknown Stl P. shigelloides PCR Not Detected (NotDetected) 12/04/23 Unknown Stl Shigella/EIEC PCR Cancelled 12/04/23 Unknown Stl Shigella/EIEC PCR Not Detected (NotDetected) 12/04/[address] Y.enterocolitica PCR Cancelled 12/04/[address] Y[address]enterocolitica PCR Not Detected (NotDetected) 12/04/23 Unknown Stool Vibrio (PCR) Cancelled 12/04/23 Unknown Stool Vibrio (PCR) Not Detected (NotDetected) 12/04/23 Unknown Stl Vibrio cholerae PCR Cancelled 12/04/23 Unknown Stl Vibrio cholerae PCR Not Detected (NotDetected) 12/04/23 Unknown Stl Norovirus GI/GII PCR Cancelled 12/04/23 Unknown Stl Norovirus GI/GII PCR Not Detected (NotDetected) 12/04/23 Unknown Carbamazepine 7.9 mcg/ml (4-12) 12/02/23 23:24 SARS-CoV-2 (PCR) NEGATIVE (Negative) 12/02/23 15:29 Monoscreen Negative (Negative) 12/02/23 17:16 Influenza Type A (PCR) Negative (Neg) 12/02/23 15:29 Influenza Type B (PCR) Negative (Neg) 12/02/23 15:29 RSV (RT-PCR) Negative (Neg) 12/02/23 15:29 Impressions Chest X-Ray 12/02/23 15:30 XR chest 1V not portable CLINICAL HISTORY: chest pain TECHNIQUE: Single frontal radiograph of the chest was obtained. Comparison: Comparison is made to chest radiograph 10/20/2023 FINDINGS: Exam is limited by underpenetration. Cardiomegaly is noted. The lungs are clear. No evidence of pleural effusion or pneumothorax. IMPRESSION: No acute chest disease. Cardiomegaly is noted. ACT 112: Negative or not required by law. Electronically signed by: Konstantin Zhang M.D. 12/02/2023 4:23 PM Abdomen/Pelvis CT 12/02/23 18:12 Exam(s): CT ABDOMEN + PELVIS With Contrast IV Amt: 117 cc otpi 320 EXAM: CT Abdomen and Pelvis With Intravenous Contrast CLINICAL HISTORY: Reason for exam: abd pain. TECHNIQUE: Axial computed tomography images of the abdomen and pelvis with intravenous contrast. CTDI is 27.54 mGy and DLP is 1591.62 mGy-cm. Automated exposure control was utilized for the study. A dose lowering technique was utilized adhering to the principles of ALARA. CONTRAST: Patient received 117 cc otpi 320 of IV contrast COMPARISON: 05/05/2022 FINDINGS: ABDOMEN: Liver: Unremarkable. No mass. Gallbladder and bile ducts: Gallbladder has been removed. No ductal dilation. Pancreas: Inflammation around the pancreas consistent with acute pancreatitis. No ductal dilation. Spleen: Unremarkable. No splenomegaly. Adrenals: Unremarkable. No mass. Kidneys and ureters: Absent left kidney. No hydronephrosis. Stomach and bowel: Unremarkable. No obstruction. No mucosal thickening. PELVIS: Appendix: No findings to suggest acute appendicitis. Bladder: Unremarkable. No mass. Reproductive: Unremarkable as visualized. ABDOMEN and PELVIS: Intraperitoneal space: Minimal free fluid in the pelvis. No free air. Bones/joints: No acute fracture. No dislocation. Soft tissues: Unremarkable. Vasculature: Unremarkable. No abdominal aortic aneurysm. Lymph nodes: Unremarkable. No enlarged lymph nodes. IMPRESSION: Inflammation around the pancreas consistent with acute pancreatitis. Electronically signed by: Reid Lay M.D. 12/02/23 19:59 PM Chest CTA 12/02/23 18:12 Exam(s): CTA CHEST IV Amt: 117 cc opti 320 EXAM: CT Chest With Intravenous Contrast CLINICAL HISTORY: Reason for exam: ro PE. TECHNIQUE: Axial computed tomographic images of the chest with intravenous contrast. CTDI is 28.14 mGy and DLP is 1000.28 mGy-cm. Automated exposure control was utilized for the study. A dose lowering technique was utilized adhering to the principles of ALARA. COMPARISON: No relevant prior studies available. FINDINGS: Pulmonary arteries: Unremarkable. No pulmonary embolism. Aorta: No acute findings. No thoracic aortic aneurysm. Lungs: Unremarkable. No mass. No consolidation. Pleural space: Unremarkable. No significant effusion. No pneumothorax. Heart: Unremarkable. No cardiomegaly. No significant pericardial effusion. No evidence of RV dysfunction. Bones/joints: No acute fracture. No dislocation. Soft tissues: Unremarkable. Lymph nodes: Unremarkable. No enlarged lymph nodes. IMPRESSION: Normal chest CTA. No pulmonary embolism. Electronically signed by: Reid Lay M.D. 12/02/23 19:56 PM Cholangiopancreatography MRI 12/07/23 09:44 MRCP CLINICAL HISTORY: Pancreatitis. COMPARISON STUDY: Abdominal CT dated 12/02/2023. TECHNIQUE: Abdominal MRCP is performed utilizing various T2-weighted sequences in the axial and coronal planes. IV contrast was not administered for this examination. 3-D reformats are created and assessed. Diffusion-weighted imaging was utilized. FINDINGS: The gallbladder is surgically absent. There is no intrahepatic biliary ductal dilatation. The common bile duct measures up to 3 mm in diameter. There are no intraluminal filling defects to suggest choledocholithiasis. The pancreatic duct is diminutive and pancreas divisum is suspected. The unenhanced liver, spleen, adrenal glands, and right kidney are grossly unremarkable. The left kidney is not identified and presumed congenitally versus surgically absent. The pancreatic head is atrophic. There is inflammation involving the distal pancreas with trace fluid, likely corresponding to the history of acute pancreatitis. No organized peripancreatic fluid collection is identified. There is no abdominal ascites. The abdominal aorta is normal in course and caliber. No bowel obstruction is seen. There is a trace left pleural effusion. IMPRESSION: 1. Status post cholecystectomy. 2. The pancreatic duct is diminutive, and pancreas divisum is suspected. 3. There is evidence of distal pancreatitis. No fluid collection is seen 4. Trace of pleural effusion. Dictated: 12/07/2023 1:40 PM Transcribed: 12/07/2023 1:52 PM Davion [id number] [email or web address] [id number] Electronically signed by: Tony Ramos M.D. 12/07/2023 2:54 PM Pending Results Patient Have Any Pending Studies at Discharge: No Discharge Instructions Given to Patient (Per Discharging Provider) PLEASE REFER TO YOUR NEW MEDICATION LIST AND FOLLOW INSTRUCTIONS CAREFULLY. YOUR NEW MEDICATIONS INCLUDE: Urea- to maintain normal sodium level Cefdinir, Flagyl- antibiotic for possible infection related to pancreatitis Senokot S- laxative Please take a probiotic daily for at least 2 weeks. [employer] brand recommended for its multiple strains. PLEASE CALL YOUR PRIMARY CARE PHYSICIAN OR RETURN TO THE ER IF WITH WORSENING OF SYMPTOMS, INCLUDING abdominal pain, nausea/vomiting, fever/chills, constipation, diarrhea, cough, shortness of breath, headache, problems with urination, etc. FOLLOW UP WITH PRIMARY CARE PHYSICIAN, and ROAD PACKER OPERATOR OUTLINED ABOVE. Total Time Total Time Spent Total Time Spent (In Minutes): >30 minutes
== END 2023-12-07 16:25 | disposition home or self-care (01) | DRG 438 ==
LOC: ED 14:59 → EDINP 22:19 → 2W 22:48
DX: E84.9 Cystic fibrosis, unspecified; Z88.0 Allergy status to penicillin; K59.00 Constipation, unspecified; Q60.0 Renal agenesis, unilateral; A41.9 Sepsis, unspecified organism; Z81.8 Family history of other mental and behavioral disorders; F84.0 Autistic disorder; Z88.2 Allergy status to sulfonamides; E22.2 Syndrome of inappropriate secretion of antidiuretic hormone; Q05.9 Spina bifida, unspecified; G40.901 Epilepsy, unspecified, not intractable, with status epilepticus; K85.80 Other acute pancreatitis without necrosis or infection

== ENCOUNTER 2023-12-10 01:29 | Inpatient (IN) ==
[2023-12-10 02:12] LABS: Basophils # (auto) 0.05 K/uL (0.00-0.20); Basophils % (auto) 0.7 %; Eosinophils % (auto) 7.4 %; Hematocrit (blood only) 37.5 % (42.0-52.0); Hemoglobin 12.5 g/dl (14.0-18.0); Immature Granulocytes # (auto) 0.04 K/uL (0.01-0.20); Immature Granulocytes % (auto) 0.6 %; Lymphocytes # (auto) 1.91 K/uL (1.20-3.40); Lymphocytes % (auto) 28.3 %; Mean Corpuscular Hemoglobin 29.1 pg (25.0-34.0); Mean Corpuscular Hgb Conc 33.3 g/dL (32.0-36.0); Mean Corpuscular Volume 87.4 fL (80.0-100.0); Mean Platelet Volume 9.4 fL (9.4-12.4); Monocytes # (auto) 0.82 K/uL (0.11-0.59); Monocytes % (auto) 12.1 %; Neutrophils # (auto) 3.43 K/uL (1.40-6.50); Neutrophils % (auto) 50.9 %; Platelet Count 275 K/uL (130-400); RDW Coefficient of Variation 13.2 % (11.5-14.5); RDW Standard Deviation 42.1 fL (36.4-46.3); Red Blood Count 4.29 M/uL (4.70-6.10); White Blood Count 6.75 K/ul (4.8-10.8)
[2023-12-10 02:25] LABS: Albumin Globulin Ratio 1.3 (0.9-2); Albumin Level 3.5 gm/dl (3.4-5.0); BUN Creatinine Ratio 19.3 (10-20); Bilirubin,Total 0.3 mg/dl (0.2-1.0); Calcium 8.6 mg/dl (8.6-10.3); Creatinine Clr Calc Pharmacy 205.6 ml/min; Est GFR (African American) 139.8 ml/min; Est GFR (Non-African American) 120.6 ml/min; Globulin 2.8 gm/dl (2.5-4.0); Potassium 3.7 mmol/L (3.5-5.1); Total Protein 6.3 gm/dl (6.0-8.3)
[2023-12-10 02:32] LABS: Troponin I High Sensitivity 2.8 pg/ml (0-20)
[2023-12-10 02:41] LABS: Thyroid Stimulating Hormone 2.393 uIu/ml (0.300-4.500)
[2023-12-10 04:25] LABS: Appearance Urine Clear (Clear); Bilirubin Urine Negative (Negative); Blood Urine Negative (Negative); Color Urine Yellow; Glucose Urine UA Negative (Negative); Ketones Urine Negative (Negative); Leukocyte Esterase Urine Negative (Negative); Nitrite Urine Negative (Negative); Protein Urine Negative (Negative); Specific Gravity Urine 1.014 (1.000-1.030); Urobilinogen Urine Negative (Negative)
--- NOTE | 2023-12-10 04:37 | Emergency Department Note ---
History of Present Illness General Chief complaint: Seizure Stated complaint: SEIZURE Time Seen by Provider: 12/10/23 01:31 History of Present Illness This is a 28-year-old male presenting to the emergency department via EMS for evaluation of seizures this evening. Patient has a history of seizures and is on Lamictal and Tegretol. He reportedly has been taking his medications as normal. Patient history is provided primarily by EMS services as well as patient's family. Evidently family was getting ready for bed and patient was moving from his desk to the bed when he had an absent seizure-like episode. Family was concerned as this can sometimes be a precursor to a grand mal seizure. They hurried him into the bed, where he did progress to a grand mal seizure. Family was able to provide Ativan x 2 doses which did not break symptoms, as well as a dose of intranasal Versed, which seemed to help the most. Patient was not able to stand after the episode and was very fatigued according to family. EMS did require fire services to help remove the patient from the home, as he was in an upstairs bedroom. The patient did not require additional medication while in the ambulance, however he was placed on oxygen as his O2 saturation was in the low 90s. The patient was recently admitted and discharged to this facility for pancreatitis. On arrival to the ER he is able to answer most questions appropriately. He has not had any recent fevers or chills. No other injuries are reported. Home Medications Medication Instructions Recorded Confirmed Type carbamazepine 200 mg tablet 200 mg PO TID 05/05/22 12/10/23 History (Epitol) gabapentin 600 mg tablet 600 mg PO BID 05/05/22 12/10/23 History lamotrigine 200 mg tablet 200 mg PO BID 05/05/22 12/10/23 History melatonin 10 mg tablet 20 mg PO HS 05/05/22 12/10/23 History omeprazole 20 mg capsule,delayed 20 mg PO AMHS 03/08/23 12/10/23 History release Cbd Oil 1 dose sublingual DIRECTED PRN 07/22/23 12/10/23 History NEEDED ibuprofen 200 mg tablet 200 mg PO Q4 PRN Fever Or Pain 07/22/23 12/10/23 History calcium carbonate 260 mg calcium 260 mg PO DAILY 12/02/23 12/10/23 History (650 mg) chewable tablet lorazepam 1 mg tablet 1 mg PO ONCE PRN 15 min prior to 12/02/23 12/10/23 History shower lorazepam 2 mg/mL oral concentrate 2 mg buccal UD PRN seizure>5min or 12/02/23 12/10/23 History 3 seizures in24 hour cefdinir 300 mg capsule 300 mg PO BID 5 days #10 caps 12/07/23 12/10/23 Rx metronidazole 500 mg tablet 500 mg PO TID 5 days #15 tabs 12/07/23 12/10/23 Rx sennosides 8.6 mg-docusate sodium 2 tab PO BID PRN CONSTIPATION #30 12/07/23 12/10/23 Rx 50 mg tablet (Senokot-S) tabs urea 15 gram oral powder packet 15 g PO BID 30 days #8 ea 12/07/23 12/10/23 Rx (Ure-Na) Allergies Allergy/AdvReac Type Severity Reaction Status Date / Time amoxicillin Allergy Severe Anaphylaxis Verified 12/10/23 02:25 /HIVES clavulanic acid Allergy Severe Anaphylaxis Verified 12/10/23 02:25 [From Augmentin] /HIVES Macrolide Antibiotics Allergy Intermediate Hives Verified 12/10/23 02:25 Penicillins Allergy Intermediate Hives Verified 12/10/23 02:25 polyethylene glycol 3350 Allergy Intermediate ITCHING Verified 12/10/23 02:25 [From Miralax] Sulfa (Sulfonamide Allergy Intermediate Hives Verified 12/10/23 02:25 Antibiotics) Inhaled Anesthetics (Halogen Allergy Possible Verified 12/10/23 02:25 Based) family history malignant hyperthermia succinylcholine Allergy Possible Verified 12/10/23 02:25 family history malignant hyperthermia Past Med/Surg History Medical History Cystic fibrosis History of asthma No inhaler Spina bifida Noted in available [facility] records, not reported during PAT RN phone interview Seasonal allergies Hx of pancreatitis EUS 02/05/23 AT [facility] Absent kidney, congenital Seizure disorder Epilepsy/grand mal seizures Follows with [facility] neuro/Dr. Watters Most recent seizure 02/2023- levels being monitored closely by neuro Autism Surgical History History of anesthesia reaction Awareness, "woke up" with recent EUS when tube was being removed Family history of anesthesia complication Patient's brother had foot surgery at [facility], discharged home and developed high fever/stiff joints > sent to ER, given antibiotics, sent home. No admission required. Brother now (unrelated)/unable to obtain further information. Patient's mother denies being told the term malignant hyperthermia and states that further testing/precautions were not recommended after brother's event. 2013 oral surgery [facility] anesthesia records for patient scanned into [employer]- use of desflurane/sux without issue. Hx of colonoscopy History of dental surgery Resin based composite 2 surfaces, posterior (10/21/11): MAC#4, ETT 7.0 [place] [facility] [place] in) Removal of impacted tooth (09/26/13): MAC#4, ETT 7.0 at [facility] [place] records scanned into [employer]), received desflurane/succinylcholine per anesthesia record. "Anesthesia Complications: none" H/O circumcision Family History Brother History of anesthesia reaction Social History Smoking Status: Never smoker Second Hand Exposure: No; Do You Dip or Chew Tobacco: No; Hx Alcohol Use: No Hx Substance Use: No Preferred Language: Occitan Communication Ability: Effective Ski Top Trimmer Required: No Beliefs That Will Affect Care: None Current Living Situation: Parent and Family Feels Safe at Home: Yes Assistive Devices: None Review of Systems A total of 10 systems reviewed and were otherwise negative Physical Exam Vital Signs Vital Signs - 24 hr 12/10/23 01:35 12/10/23 01:35 12/10/23 01:36 Temperature 36.6 C Temperature Source Oral Pulse Rate 89 93 H Pulse Rate [Apical] Pulse Rhythm [Apical] Pulse Strength [Apical] Respiratory Rate 18 Respiratory Effort / Characteristics Non-Labored Respiratory Depth Normal Blood Pressure 109/74 Blood Pressure [Right Arm] Blood Pressure Mean 85 Blood Pressure Mean [Right Arm] Pulse Oximetry 96 Oxygen Delivery Method Room Air Room Air Oxygen Flow Rate Sepsis Recent Fever Within 48 Hours No Sepsis New/Unexplained Change in Mental Status No Sepsis Action Taken by Nursing No Action Required 12/10/23 01:40 12/10/23 02:14 12/10/23 03:30 Temperature 36.6 C Temperature Source Oral Pulse Rate Pulse Rate [Apical] 87 78 72 Pulse Rhythm [Apical] Regular Pulse Strength [Apical] Normal Respiratory Rate 18 18 16 Respiratory Effort / Characteristics Non-Labored Non-Labored Respiratory Depth Normal Normal Blood Pressure Blood Pressure [Right Arm] 109/74 93/63 L 106/67 Blood Pressure Mean Blood Pressure Mean [Right Arm] 85 73 80 Pulse Oximetry 98 97 94 Oxygen Delivery Method Room Air Nasal Cannula Room Air Oxygen Flow Rate 2 Sepsis Recent Fever Within 48 Hours Sepsis New/Unexplained Change in Mental Status Sepsis Action Taken by Nursing VITALS: Vitals are noted on the nurse's note and reviewed by myself. Vital signs stable. GENERAL: Well-developed, well-nourished, white male, who is somewhat sedated appearing, but able to answer most questions appropriately. HEAD: Normocephalic atraumatic. MOUTH: Mucous membranes moist. Tonsils are not enlarged. Pharynx without erythema, blood, or exudate. Uvula midline. Airway patent. NECK: Supple without nuchal rigidity. No lymphadenopathy. No thyromegaly. Cervical spine is nontender. HEART: Regular rate and rhythm without murmurs gallops or rubs. LUNGS: Clear to auscultation bilaterally without wheezes, rales or rhonchi. No retractions or accessory muscle use. ABDOMEN: Positive normal bowel sounds x 4. Soft, nontender, without masses or organomegaly. No guarding or rebound tenderness. MUSCULOSKELETAL: No muscle atrophy, erythema, or edema noted. Full range of motion in all extremities. NEURO: Patient was alert and oriented to person place and time. CN II through XII grossly intact. Medical Decision Making Differential Diagnosis Differential diagnosis: Etiologies such as vasovagal event, infection, anemia, hypoglycemia, hypovolemia, electrolyte abnormalities, dysrhythmias, cardiac ischemia, cardiac tamponade, valvular heart disease, structural heart disease, seizure, vascular stenosis/dissection, pulmonary embolism, intracerebral event, toxicological process, neurologic event, as well as others were entertained. Laboratory Data 12/10/23 01:52 12/10/23 01:52 Lab Results 12/10/23 12/10/23 12/10/23 Range/Units 01:46 01:52 04:15 WBC 6.75 (4.8-10.8) K/ul RBC 4.29 L (4.70-6.10) M/uL Hgb 12.5 L (14.0-18.0) g/dl Hct 37.5 L (42.0-52.0) % MCV 87.4 (80.0-100.0) fL MCH 29.1 (25.0-34.0) pg MCHC 33.3 (32.0-36.0) g/dL RDW Std Deviation 42.1 (36.4-46.3) fL RDW Coeff of Aman 13.2 (11.5-14.5) % Plt Count 275 (130-400) K/uL MPV 9.4 (9.4-12.4) fL Immature Gran % (Auto) 0.6 % Neut % (Auto) 50.9 % Lymph % (Auto) 28.3 % [place] % (Auto) 12.1 % Eos % (Auto) 7.4 % Baso % (Auto) 0.7 % Neut # (Auto) 3.43 (1.40-6.50) K/uL Lymph # (Auto) 1.91 (1.20-3.40) K/uL [place] # (Auto) 0.82 H (0.11-0.59) K/uL Eos # (Auto) 0.50 (0.00-0.50) K/uL Baso # (Auto) 0.05 (0.00-0.20) K/uL Immature Gran # (Auto) 0.04 (0.01-0.20) K/uL Sodium 133 L (136-145) mmol/L Potassium 3.7 (3.5-5.1) mmol/L Chloride 101 (98-107) mmol/L Carbon Dioxide 25 (21-32) mmol/L Anion Gap 7 (3-11) BUN 16 (6-23) mg/dl Creatinine 0.83 (0.6-1.4) mg/dl Est Cr Clr Drug Dosing 205.6 ml/min Est GFR ( Amer) 139.8 ml/min Est GFR (Non-Af Amer) 120.6 ml/min BUN/Creatinine Ratio 19.3 (10-20) Glucose 118 H (70-99(Fasting)) mg/dl POC Glucose 134 H (70-99) mg/dl Calcium 8.6 (8.6-10.3) mg/dl Magnesium 2.0 (1.7-2.4) mg/dl Total Bilirubin 0.3 (0.2-1.0) mg/dl AST 38 (13-39) U/L ALT 41 (7-52) U/L Alkaline Phosphatase 103 (34-104) U/L Troponin I High Sens 2.8 (0-20) pg/ml Total Protein 6.3 (6.0-8.3) gm/dl Albumin 3.5 (3.4-5.0) gm/dl Globulin 2.8 (2.5-4.0) gm/dl Albumin/Globulin Ratio 1.3 (0.9-2) Lipase 133 H (11-82) U/L TSH 2.393 (0.300-4.500) uIu/ml Urine Color Yellow Urine Appearance Clear (Clear) Urine pH 6.0 (4.5-7.5) Ur Specific [place] 1.014 (1.000-1.030) Urine Protein Negative (Negative) Urine Glucose (UA) Negative (Negative) Urine Ketones Negative (Negative) Urine Blood Negative (Negative) Urine Nitrite Negative (Negative) Urine Bilirubin Negative (Negative) Urine Urobilinogen Negative (Negative) Ur Leukocyte Esterase Negative (Negative) Carbamazepine 5.8 (4-12) mcg/ml MDM Narrative Physical exam and history were performed. Nursing notes, EMR, and Medication List were personally reviewed. No social concerns were identified as barriers to patients care. Patient appears to have had seizure episode this evening. Per history this seems atypical for the patient, as he typically resolves with a single dose of benzodiazepines. On arrival the patient is with a slightly low blood pressure and is on nasal cannula oxygen to keep above 90%. IV access was established and labs were obtained. Patient was cared for under aspiration and seizure precautions. Patient's blood work is as above and was reviewed. He does not have a significantly elevated white blood cell count, gross anemia, bandemia, or significant electrolyte imbalance. Transaminases are nondiagnostic. Lipase is slightly elevated, however much better when compared to his admission. Patient was monitored for several hours here in the ER. While he does not appear completely obtunded, he does not seem to be at his baseline per family. He seems to be very slow to improve, and family is concerned as this remains not typical for him. I did discuss options of care with family, and they are not comfortable taking him home. Case was discussed with the on-call hospitalist team who agreed to evaluate the patient here in the ER. Please see their dictation for further patient course, plan, disposition. The chart was completed utilizing [employer] Speech Voice Recognition Software. Grammatical errors, random word insertions, pronoun errors, and incomplete sentences are an occasional consequence of this system due to software limitations, ambient noise, and hardware issues. Any formal questions or concerns about the content, text, or information contained within the body of this dictation should be directly addressed to the provider for clarification. . Impression & Plan Generalized seizure Discharge Plan Visit Data Chief Complaint: Seizure Stated Complaint: SEIZURE ED Provider: Divina Hummel ED Midlevel Provider: Sukhwinder Cat Discharge Problem: Generalized seizure Forms Stand Alone Forms: My [facility] Prescriptions Prescriptions: No Action gabapentin 600 mg tablet 600 mg PO BID Rx Instructions: takes 0500 & 2100 lamotrigine 200 mg tablet 200 mg PO BID Rx Instructions: takes 0500 & 2100 carbamazepine [Epitol] 200 mg tablet 200 mg PO TID Rx Instructions: Takes 0500, 1300 & 2100 melatonin 10 mg Tablet 20 mg PO HS Rx Instructions: 2 tablet dose ibuprofen 200 mg Tablet 200 mg PO Q4 PRN (Reason: Fever Or Pain) Cbd Oil 1 dose sublingual DIRECTED PRN (Reason: NEEDED) omeprazole 20 mg capsule,delayed release(DR/EC) 20 mg PO AMHS lorazepam 1 mg tablet 1 mg PO ONCE PRN (Reason: 15 min prior to shower) calcium carbonate 260 mg calcium (650 mg) Tablet,Chewable 260 mg PO DAILY lorazepam 2 mg/mL concentrate 2 mg buccal UD PRN (Reason: seizure>5min or 3 seizures in24 hour) Ure-Na 15 gram Powder In Packet 15 g PO BID 30 Days Qty: 8 1RF sennosides-docusate sodium [Senokot-S] 8.6-50 mg Tablet 2 tab PO BID PRN (Reason: CONSTIPATION) Qty: 30 1RF cefdinir 300 mg capsule 300 mg PO BID 5 Days Qty: 10 0RF metronidazole 500 mg tablet 500 mg PO TID 5 Days Qty: 15 0RF Referrals Referrals: Najma Solis MD [Primary Care Provider] -
--- NOTE | 2023-12-10 05:25 | History & Physical Report ---
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 Flagyl for another 5 days, he was also found to hyponatremia from possible SIADH seen by nephrology and was prescribed urea and also seen by neurology for seizure which seems uncontrolled since after pancreatitis from last year and as he had no seizure recurrence during the admission the medications were not changed and got discharged on December 08 comes back because of seizures.Seems had seizures 4 times within the period of 4-1/2 minutes tonight. Parents are in the room. As per father when patient had seizures tonight Ativan buccal given seemed to help but again he had another seizure and nasal Ativan given seemed to help but again he had another seizure episode and another buccal Ativan given and after that seizure lasted for another 40 seconds and resolved. During episodes he seemed to stop breathing. Currently patient is drowsy. But able to tell his name. Knows he is in the hospital. Could tell current year but states he does not know the month . Denies any headache. No chest pain. No nausea. No abdominal pain. No fevers. Normal bowel movements as per father. He was tolerating diet okay since he got discharged. Parents are concerned that the antibiotics might have lowered seizure threshold. Hemodynamics are okay currently. Seizures History of seizures On carbamazepine, Lamictal and gabapentin Carbamazepine levels are okay. Lamictal levels are pending Had 4 consequent seizures today at home . Resolved after home Ativan Will continue with home medications IV Ativan 1.5 mg every 2 hours as needed for breakthrough seizures Will get EEG Gentle fluids Seizure precautions Consult neurology for further recommendations History of recurrent pancreatitis Currently asymptomatic Tolerating diet at home as per the family Will place on clear liquid diet for now Will hold antibiotics cefdinir and Flagyl for now and monitor .antibiotics was started during last admission for fevers. Cultures no growth. Had total 6 days of antibiotics for now. Hyponatremia SIADH? 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 Flagyl for another 5 days, he was also found to hyponatremia from possible SIADH seen by nephrology and was prescribed urea and also seen by neurology for seizure which seems uncontrolled since after pancreatitis from last year and as he had no seizure recurrence during the admission the medications were not changed and got discharged on December 08 comes back because of seizures.Seems had seizures 4 times within the period of 4-1/2 minutes tonight. Parents are in the room. As per father when patient had seizures tonight Ativan buccal given seemed to help but again he had another seizure and nasal Ativan given seemed to help but again he had another seizure episode and another buccal Ativan given and after that seizure lasted for another 40 seconds and resolved. During episodes he seemed to stop breathing. Currently patient is drowsy. But able to tell his name. Knows he is in the hospital. Could tell current year but states he does not know the month . Denies any headache. No chest pain. No nausea. No abdominal pain. No fevers. Normal bowel movements as per father. He was tolerating diet okay since he got discharged. Parents are concerned that the antibiotics might have lowered seizure threshold. Hemodynamics are okay currently. Past medical history. As mentioned above Past surgical history. EGD. EGD with endoscopic ultrasound. Removal of impacted tooth. Incision of eardrum. Laparoscopic cholecystectomy. Social history. No smoking. No alcohol use. No drug use. Family history. Brother has ADHD. Sister has a ADHD. His brother has Asperger's syndrome. Father has gastric ulcers and IBS hypothyroidism. Kidney stones. Mother has lupus. Allergies Allergy/AdvReac Type Severity Reaction Status Date / Time amoxicillin Allergy Severe Anaphylaxis Verified 12/10/23 02:25 /HIVES clavulanic acid Allergy Severe Anaphylaxis Verified 12/10/23 02:25 [From Augmentin] /HIVES Macrolide Antibiotics Allergy Intermediate Hives Verified 12/10/23 02:25 Penicillins Allergy Intermediate Hives Verified 12/10/23 02:25 polyethylene glycol 3350 Allergy Intermediate ITCHING Verified 12/10/23 02:25 [From Miralax] Sulfa (Sulfonamide Allergy Intermediate Hives Verified 12/10/23 02:25 Antibiotics) Inhaled Anesthetics (Halogen Allergy Possible Verified 12/10/23 02:25 Based) family history malignant hyperthermia succinylcholine Allergy Possible Verified 12/10/23 02:25 family history malignant hyperthermia Home Medications Medication Instructions Recorded Confirmed Type carbamazepine 200 mg tablet 200 mg PO TID 05/05/22 12/10/23 History (Epitol) gabapentin 600 mg tablet 600 mg PO BID 05/05/22 12/10/23 History lamotrigine 200 mg tablet 200 mg PO BID 05/05/22 12/10/23 History melatonin 10 mg tablet 20 mg PO HS 05/05/22 12/10/23 History omeprazole 20 mg capsule,delayed 20 mg PO AMHS 03/08/23 12/10/23 History release Cbd Oil 1 dose sublingual DIRECTED PRN 07/22/23 12/10/23 History NEEDED ibuprofen 200 mg tablet 200 mg PO Q4 PRN Fever Or Pain 07/22/23 12/10/23 History calcium carbonate 260 mg calcium 260 mg PO DAILY 12/02/23 12/10/23 History (650 mg) chewable tablet lorazepam 1 mg tablet 1 mg PO ONCE PRN 15 min prior to 12/02/23 12/10/23 History shower lorazepam 2 mg/mL oral concentrate 2 mg buccal UD PRN seizure>5min or 12/02/23 12/10/23 History 3 seizures in24 hour cefdinir 300 mg capsule 300 mg PO BID 5 days #10 caps 12/07/23 12/10/23 Rx metronidazole 500 mg tablet 500 mg PO TID 5 days #15 tabs 12/07/23 12/10/23 Rx sennosides 8.6 mg-docusate sodium 2 tab PO BID PRN CONSTIPATION #30 12/07/23 12/10/23 Rx 50 mg tablet (Senokot-S) tabs urea 15 gram oral powder packet 15 g PO BID 30 days #8 ea 12/07/23 12/10/23 Rx (Ure-Na) Past Med/Surg History Medical History Cystic fibrosis History of asthma No inhaler Spina bifida Noted in available [facility] records, not reported during PAT RN phone interview Seasonal allergies Hx of pancreatitis EUS 02/05/23 AT [facility] Absent kidney, congenital Seizure disorder Epilepsy/grand mal seizures Follows with [facility] neuro/Dr. Watters Most recent seizure 02/2023- levels being monitored closely by neuro Autism Surgical History History of anesthesia reaction Awareness, "woke up" with recent EUS when tube was being removed Family history of anesthesia complication Patient's brother had foot surgery at [facility], discharged home and developed high fever/stiff joints > sent to ER, given antibiotics, sent home. No admission required. Brother now (unrelated)/unable to obtain further information. Patient's mother denies being told the term malignant hyperthermia and states that further testing/precautions were not recommended after brother's event. 2012 oral surgery [facility] anesthesia records for patient scanned into [employer]- use of desflurane/sux without issue. Hx of colonoscopy History of dental surgery Resin based composite 2 surfaces, posterior (10/21/11): MAC#4, ETT 7.0 at [facility] (limited anesthesia record scanned in) Removal of impacted tooth (09/26/13): MAC#4, ETT 7.0 at [facility] (Anesthesia records scanned into [employer]), received desflurane/succinylcholine per anesthesia record. "Anesthesia Complications: none" H/O circumcision Family History Brother History of anesthesia reaction Social History Smoking Status: Never smoker Second Hand Exposure: No; Do You Dip or Chew Tobacco: No; Hx Alcohol Use: No Hx Substance Use: No Preferred Language: Croatian Communication Ability: Effective Rn Occupational Health Required: No Beliefs That Will Affect Care: None Current Living Situation: Parent Current Living Situation Comment: With parents and siblings x2 Feels Safe at Home: Yes Safety Concerns: Feels Safe At This Time Assistive Devices: Glasses Review of Systems Review of Systems: Other could not get complete ROS as patient is drowsy Physical Exam Physical Exam: General- Drowsy. Not in acute distress Head- atraumatic Eyes- PERRL. ENT- oropharynx clear Neck- supple, no JVD. Lungs- clear to auscultation no wheezing or crackles. Heart- regular rhythm; no murmur, no gallop. Abdomen- normal bowel sounds, soft, nontender, no distension Extremities- no pretibial edema, no erythema seen. Neuro- Drowsy, oriented ; PERRL, no facial palsy; no dysarthria; obeys commands, moves extremities. Skin- warm & dry Results & Data Results & Data Vital Signs (Past 12 Hours) Vital Signs Temp Pulse Pulse Resp BP BP Pulse Ox 12/10/23 03:30 72 16 106/67 94 12/10/23 02:14 78 18 93/63 L 97 12/10/23 01:40 36.6 C 87 18 109/74 98 12/10/23 01:36 93 H 12/10/23 01:35 12/10/23 01:35 36.6 C 89 18 109/74 96 O2 Del Method O2 Flow Rate 12/10/23 03:30 Room Air 12/10/23 02:14 Nasal Cannula 2 12/10/23 01:40 Room Air 12/10/23 01:36 12/10/23 01:35 Room Air 12/10/23 01:35 Room Air Diagnostic Findings Laboratory Results WBC 6.75 K/ul (4.8-10.8) 12/10/23 01:52 RBC 4.29 M/uL (4.70-6.10) L 12/10/23 01:52 Hgb 12.5 g/dl (14.0-18.0) L 12/10/23 01:52 Hct 37.5 % (42.0-52.0) L 12/10/23 01:52 MCV 87.4 fL (80.0-100.0) 12/10/23 01:52 MCH 29.1 pg (25.0-34.0) 12/10/23 01:52 MCHC 33.3 g/dL (32.0-36.0) 12/10/23 01:52 RDW Std Deviation 42.1 fL (36.4-46.3) 12/10/23 01:52 RDW Coeff of Aman 13.2 % (11.5-14.5) 12/10/23 01:52 Plt Count 275 K/uL (130-400) 12/10/23 01:52 MPV 9.4 fL (9.4-12.4) 12/10/23 01:52 Immature Gran % (Auto) 0.6 % 12/10/23 01:52 Neut % (Auto) 50.9 % 12/10/23 01:52 Lymph % (Auto) 28.3 % 12/10/23 01:52 [place] % (Auto) 12.1 % 12/10/23 01:52 Eos % (Auto) 7.4 % 12/10/23 01:52 Baso % (Auto) 0.7 % 12/10/23 01:52 Neut # (Auto) 3.43 K/uL (1.40-6.50) 12/10/23 01:52 Lymph # (Auto) 1.91 K/uL (1.20-3.40) 12/10/23 01:52 [place] # (Auto) 0.82 K/uL (0.11-0.59) H 12/10/23 01:52 Eos # (Auto) 0.50 K/uL (0.00-0.50) 12/10/23 01:52 Baso # (Auto) 0.05 K/uL (0.00-0.20) 12/10/23 01:52 Immature Gran # (Auto) 0.04 K/uL (0.01-0.20) 12/10/23 01:52 Sodium 133 mmol/L (136-145) L 12/10/23 01:52 Potassium 3.7 mmol/L (3.5-5.1) 12/10/23 01:52 Chloride 101 mmol/L (98-107) 12/10/23 01:52 Carbon Dioxide 25 mmol/L (21-32) 12/10/23 01:52 Anion Gap 7 (3-11) 12/10/23 01:52 BUN 16 mg/dl (6-23) 12/10/23 01:52 Creatinine 0.83 mg/dl (0.6-1.4) 12/10/23 01:52 Est Cr Clr Drug Dosing 205.6 ml/min 12/10/23 01:52 Est GFR ( Amer) 139.8 ml/min 12/10/23 01:52 Est GFR (Non-Af Amer) 120.6 ml/min 12/10/23 01:52 BUN/Creatinine Ratio 19.3 (10-20) 12/10/23 01:52 Glucose 118 mg/dl (70-99(Fasting)) H 12/10/23 01:52 POC Glucose 134 mg/dl (70-99) H 12/10/23 01:46 Calcium 8.6 mg/dl (8.6-10.3) 12/10/23 01:52 Magnesium 2.0 mg/dl (1.7-2.4) 12/10/23 01:52 Total Bilirubin 0.3 mg/dl (0.2-1.0) 12/10/23 01:52 AST 38 U/L (13-39) 12/10/23 01:52 ALT 41 U/L (7-52) 12/10/23 01:52 Alkaline Phosphatase 103 U/L (34-104) 12/10/23 01:52 Troponin I High Sens 2.8 pg/ml (0-20) 12/10/23 01:52 Total Protein 6.3 gm/dl (6.0-8.3) 12/10/23 01:52 Albumin 3.5 gm/dl (3.4-5.0) 12/10/23 01:52 Globulin 2.8 gm/dl (2.5-4.0) 12/10/23 01:52 Albumin/Globulin Ratio 1.3 (0.9-2) 12/10/23 01:52 Lipase 133 U/L (11-82) H 12/10/23 01:52 TSH 2.393 uIu/ml (0.300-4.500) 12/10/23 01:52 Urine Color Yellow 12/10/23 04:15 Urine Appearance Clear (Clear) 12/10/23 04:15 Urine pH 6.0 (4.5-7.5) 12/10/23 04:15 Ur Specific [place] 1.014 (1.000-1.030) 12/10/23 04:15 Urine Protein Negative (Negative) 12/10/23 04:15 Urine Glucose (UA) Negative (Negative) 12/10/23 04:15 Urine Ketones Negative (Negative) 12/10/23 04:15 Urine Blood Negative (Negative) 12/10/23 04:15 Urine Nitrite Negative (Negative) 12/10/23 04:15 Urine Bilirubin Negative (Negative) 12/10/23 04:15 Urine Urobilinogen Negative (Negative) 12/10/23 04:15 Ur Leukocyte Esterase Negative (Negative) 12/10/23 04:15 Carbamazepine 5.8 mcg/ml (4-12) 12/10/23 01:52 ECG Additional Comments: ECG. Normal sinus rhythm with rate of 92. No significant change was found. Code Status & VTE Plan VTE Prophylaxis Plan VTE Prophylaxis will be ordered: Yes
[2023-12-10] MEDS: lamoTRIgine 100 MG TAB PO STA (05:27)
[2023-12-10] MEDS: carBAMazepine 200 MG TABLET PO ONE (05:27)
[2023-12-10] MEDS: GABAPENTIN 600 MG TAB PO STA (05:27)
[2023-12-10] MEDS ORDERED: LORazepam 1.5 MG in SYRINGE 0.75 ML IV PRN (06:00)
[2023-12-10] MEDS ORDERED: ACETAMINOPHEN 325 MG TAB PO PRN (06:00)
[2023-12-10] MEDS ORDERED: LORazepam 1 MG TAB PO PRN (06:00)
[2023-12-10] MEDS ORDERED: NITROGLYCERIN SL 0.4 MG/TAB TAB SL PRN (06:00)
[2023-12-10] MEDS ORDERED: DOCUSATE SODIUM/SENNA 50/8.6MG TAB PO PRN (06:00)
[2023-12-10] MEDS: SODIUM CHLORIDE 0.9% 1,000 ML IV SCH (06:24)
[2023-12-10] MEDS: UREA (UREA-NA) 15 GM PACK PO SCH (08:56)
[2023-12-10] MEDS: ENOXAPARIN INJ 40 MG/0.4 ML SYR SQ SCH (08:57)
[2023-12-10] MEDS: CALCIUM CARBONATE 500 MG CHEWABLE TAB PO SCH (08:57)
[2023-12-10] MEDS: PANTOprazole 40 MG TAB PO SCH (08:58)
[2023-12-10] MEDS ORDERED: Nursing to Pharmacy Communication SCH (09:00)
[2023-12-10] MEDS: carBAMazepine 200 MG TABLET PO SCH (13:05)
--- NOTE | 2023-12-10 13:52 | Neurology Consultation ---
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 Recommend continue AEDs as currently tolerated Continue to monitor electrolytes and correct as needed Recommend MRI brain with and without contrast Await serum lamotrigine level Await EEG performed today Continue current seizure precautions Utilize benzodiazepines emergently for any breakthrough clinical seizure like activity Continue to monitor for s/s of infection Continue to monitor renal and hepatic function closely Recommend PT/OT evaluation and treat Ok from neurology perspective for VTE prophylaxis during hospitalization Continue outpatient follow up with Neurology Telehealth Consultation Telehealth Information Telehealth Information: I performed this visit using a real-time telehealth connection between my location and the patients location ([facility]). After connecting through interactive tele-video, patient was identified by name and date of and/or wristband check.Patient (or authorized healthcare human resources hr representative) was informed that this was a telemedicine visit and it was being conducted confidentially over secure lines. My office door was closed and no one else was present in the room with me.Patient (or authorized healthcare human resources hr representative) provided consent to proceed with the visit, expressed an understanding of privacy and security of the telemedicine visit, and gave permission to have a hospital human resources hr representative in the room in order to assist with the visit and to conduct portions of the visit, as needed. I informed the patient (or authorized healthcare human resources hr representative) that I reviewed their record and presented the opportunity for them to ask any questions regarding the visit today. The patient agreed to participate. History of Present Illness Reason for Consultation: Seizure Requesting Physician: Dr. Hernandez Attending Physician: Shaan Wise MD History of Present Illness 28yo male with hx autism spina bifida, solitary kidney, epilepsy, CFTR gene variant positive presented after reported suffering seizure at home. Was notably recently admitted for sepsis and pancreatitis at which time hyponatremia was apparent. He was seen by Neurology at that time. Electrolytes were adjusted and, per documentation review, family elected to continue carbamazepine although suspected to be etiology of hyponatremia. There appears to be planned EMU admission planned for this month December, however per documentation review it is unclear if family will elect to proceed with EMU admission. Antiepileptic medications were unchanged and he was subsequently discharged. Apparently last evening suffered significant episode of generalized seizure requiring administration of emergency benzodiazepines at home. parents reported in ER concern of patient becoming apneic at time of seizure. At this time carbamazepine level appears within therapeutic range and lamotrigine level remains pending. He has undergone EEG pending final results. Performed televideo consultation. Patient awake able to answer questions and follow commands without difficulty. Father at bedside helpful as historian. Reports events leading up to hospitalization. Reports no changes in activity or environment since discharge. Able to report and describe patient demonstrating more of a flat affect since recently discharged from hospital Wednesday. Reports no confirmed plans for EMU admission. States he is reluctant to undergo changes in medications since he had been on the same meds for so long. I have described my recommendation to continue current therapies. Continue same antiepileptic medications and undergo MRI brain. Recommend an EMU admission and continued monitoring/medication titrations on outpatient basis once beyond acute/subacute setting of recent infection/pancreatitis/hospitalization. He reports continuing urea as prescribed per nephrology. Allergies Allergy/AdvReac Type Severity Reaction Status Date / Time amoxicillin Allergy Severe Anaphylaxis Verified 12/10/23 02:25 /HIVES clavulanic acid Allergy Severe Anaphylaxis Verified 12/10/23 02:25 [From Augmentin] /HIVES Macrolide Antibiotics Allergy Intermediate Hives Verified 12/10/23 02:25 Penicillins Allergy Intermediate Hives Verified 12/10/23 02:25 polyethylene glycol 3350 Allergy Intermediate ITCHING Verified 12/10/23 02:25 [From Miralax] Sulfa (Sulfonamide Allergy Intermediate Hives Verified 12/10/23 02:25 Antibiotics) Inhaled Anesthetics (Halogen Allergy Possible Verified 12/10/23 02:25 Based) family history malignant hyperthermia succinylcholine Allergy Possible Verified 12/10/23 02:25 family history malignant hyperthermia Home Medications Medication Instructions Recorded Confirmed Type carbamazepine 200 mg tablet 200 mg PO TID 05/05/22 12/10/23 History (Epitol) gabapentin 600 mg tablet 600 mg PO BID 05/05/22 12/10/23 History lamotrigine 200 mg tablet 200 mg PO BID 05/05/22 12/10/23 History melatonin 10 mg tablet 20 mg PO HS 05/05/22 12/10/23 History omeprazole 20 mg capsule,delayed 20 mg PO AMHS 03/08/23 12/10/23 History release Cbd Oil 1 dose sublingual DIRECTED PRN 07/22/23 12/10/23 History NEEDED ibuprofen 200 mg tablet 200 mg PO Q4 PRN Fever Or Pain 07/22/23 12/10/23 History calcium carbonate 260 mg calcium 260 mg PO DAILY 12/02/23 12/10/23 History (650 mg) chewable tablet lorazepam 1 mg tablet 1 mg PO ONCE PRN 15 min prior to 12/02/23 12/10/23 History shower lorazepam 2 mg/mL oral concentrate 2 mg buccal UD PRN seizure>5min or 12/02/23 12/10/23 History 3 seizures in24 hour cefdinir 300 mg capsule 300 mg PO BID 5 days #10 caps 12/07/23 12/10/23 Rx metronidazole 500 mg tablet 500 mg PO TID 5 days #15 tabs 12/07/23 12/10/23 Rx sennosides 8.6 mg-docusate sodium 2 tab PO BID PRN CONSTIPATION #30 12/07/23 12/10/23 Rx 50 mg tablet (Senokot-S) tabs urea 15 gram oral powder packet 15 g PO BID 30 days #8 ea 12/07/23 12/10/23 Rx (Ure-Na) Patient History Medical History Cystic fibrosis History of asthma No inhaler Spina bifida Noted in available [facility] records, not reported during PAT RN phone interview Seasonal allergies Hx of pancreatitis EUS 02/05/23 AT [facility] Absent kidney, congenital Seizure disorder Epilepsy/grand mal seizures Follows with [facility] neuro/Dr. Watters Most recent seizure 02/2023- levels being monitored closely by neuro Autism Surgical History History of anesthesia reaction Awareness, "woke up" with recent EUS when tube was being removed Family history of anesthesia complication Patient's brother had foot surgery at [facility], discharged home and developed high fever/stiff joints > sent to ER, given antibiotics, sent home. No admission required. Brother now (unrelated)/unable to obtain further information. Patient's mother denies being told the term malignant hyperthermia and states that further testing/precautions were not recommended after brother's event. 2012 oral surgery [facility] anesthesia records for patient scanned into [facility]- use of desflurane/sux without issue. Hx of colonoscopy History of dental surgery Resin based composite 2 surfaces, posterior (10/21/11): MAC#4, ETT 7.0 at [facility] (limited anesthesia record scanned in) Removal of impacted tooth (09/26/13): MAC#4, ETT 7.0 at [facility] (Anesthesia records scanned into [facility]), received desflurane/succinylcholine per anesthesia record. "Anesthesia Complications: none" H/O circumcision Family History Brother History of anesthesia reaction Social History Smoking Status: Never smoker Second Hand Exposure: No; Do You Dip or Chew Tobacco: No; Hx Alcohol Use: No Hx Substance Use: No Preferred Language: Irish Communication Ability: Effective Commissioned Security Officer Required: No Beliefs That Will Affect Care: None Current Living Situation: Parent Current Living Situation Comment: With parents and siblings x2 Feels Safe at Home: Yes Safety Concerns: Feels Safe At This Time Assistive Devices: None Physical Exam Neurological Examination: Mental Status: Awake and able to answer most questions appropriately. Fluency naming repetition and comprehension appear grossly intact. Affect remains appropriate. CN testing: I: Denies changes II:Reports no changes in visual acuity III/IV/: No evidence of gaze preference, hippus, nystagmus or roving eye movements V: Facial sensation is difficult to reliably assess VII: Facial movements appear without evidence of asymmetry VIII: Hearing appears grossly intact to loud voice bilaterally IX/X: Palate is difficult to reliably visualize XI: Shoulder shrug appears symmetric/ grossly intact bilaterally XII: Tongue protrudes midline without evidence of biting Motor exam: Strength appears grossly intact/symmetric in all extremities Sensory: Sensation is difficult to reliably assess Coordination: Deferred Reflexes: Deferred Gait: Deferred Results & Data Vital Signs (Past 12 Hours) Vital Signs Temp Pulse Pulse Resp BP Pulse Ox O2 Del Method 12/10/23 12:00 37.0 C 77 20 112/65 96 Room Air 12/10/23 08:00 36.4 C L 82 20 114/65 96 Room Air 12/10/23 08:00 65 12/10/23 06:30 Room Air 12/10/23 06:22 65 12/10/23 06:00 36.4 C 65 16 127/63 97 Room Air 12/10/23 05:30 68 16 105/58 L 94 Room Air 12/10/23 05:26 73 12/10/23 03:30 72 16 106/67 94 Room Air 12/10/23 02:14 78 18 93/63 L 97 Nasal Cannula O2 Flow Rate 12/10/23 12:00 12/10/23 08:00 12/10/23 08:00 12/10/23 06:30 12/10/23 06:22 12/10/23 06:00 12/10/23 05:30 12/10/23 05:26 12/10/23 03:30 12/10/23 02:14 2 Laboratory Results Abnormal lab results 12/10/23 12/10/23 Range/Units 01:46 01:52 RBC 4.29 L (4.70-6.10) M/uL Hgb 12.5 L (14.0-18.0) g/dl Hct 37.5 L (42.0-52.0) % [place] # (Auto) 0.82 H (0.11-0.59) K/uL Sodium 133 L (136-145) mmol/L Glucose 118 H (70-99(Fasting)) mg/dl POC Glucose 134 H (70-99) mg/dl Lipase 133 H (11-82) U/L Medications Administered Home Medications Medication Instructions Recorded Confirmed Last Taken carbamazepine 200 mg tablet 200 mg PO TID 05/05/22 12/10/23 12/02/23 21:00 (Epitol) needs again 0500 gabapentin 600 mg tablet 600 mg PO BID 05/05/22 12/10/23 12/02/23 21:00 lamotrigine 200 mg tablet 200 mg PO BID 05/05/22 12/10/23 12/02/23 21:00 melatonin 10 mg tablet 20 mg PO HS 05/05/22 12/10/23 12/01/23 will need tonight omeprazole 20 mg capsule,delayed 20 mg PO AMHS 03/08/23 12/10/23 12/02/23 05:00 release needs hs dose Cbd Oil 1 dose sublingual DIRECTED PRN 07/22/23 12/10/23 Unknown NEEDED ibuprofen 200 mg tablet 200 mg PO Q4 PRN Fever Or Pain 07/22/23 12/10/23 07/21/23 calcium carbonate 260 mg calcium 260 mg PO DAILY 12/02/23 12/10/23 12/02/23 (650 mg) chewable tablet lorazepam 1 mg tablet 1 mg PO ONCE PRN 15 min prior to 12/02/23 12/10/23 Unknown shower lorazepam 2 mg/mL oral concentrate 2 mg buccal UD PRN seizure>5min or 12/02/23 12/10/23 Unknown 3 seizures in24 hour cefdinir 300 mg capsule 300 mg PO BID 5 days #10 caps 12/07/23 12/10/23 Unknown metronidazole 500 mg tablet 500 mg PO TID 5 days #15 tabs 12/07/23 12/10/23 Unknown sennosides 8.6 mg-docusate sodium 2 tab PO BID PRN CONSTIPATION #30 12/07/23 12/10/23 Unknown 50 mg tablet (Senokot-S) tabs urea 15 gram oral powder packet 15 g PO BID 30 days #8 ea 12/07/23 12/10/23 Unknown (Ure-Na) Active Medications Generic Name Dose Route Start Last Admin Trade Name Freq PRN Reason Stop Dose Admin Calcium Carbonate 250 mg 12/10/23 09:00 12/10/23 08:57 Calcium Carbonate 500 Mg Chewable Tab PO 01/09/24 08:59 250 mg DAILY SATYA Administration Carbamazepine 200 mg 12/10/23 13:00 12/10/23 13:05 Carbamazepine 200 Mg Tablet PO 01/09/24 12:59 200 mg TID@0500,1300,2100 SATYA Administration Enoxaparin Sodium 40 mg 12/10/23 06:00 12/10/23 08:57 Enoxaparin Inj 40 Mg/0.4 Ml Syr SQ 01/09/24 05:59 40 mg Q24H SATYA Administration Sodium Chloride 1,000 mls @ 80 mls/hr 12/10/23 06:00 12/10/23 06:24 Nss IV 12/10/23 18:29 80 mls/hr .[id number] SATYA Administration Pantoprazole Sodium 40 mg 12/10/23 09:00 12/10/23 08:58 Pantoprazole 40 Mg Tab PO 01/09/24 08:59 40 mg BID SATYA Administration Urea 15 gm 12/10/23 09:00 12/10/23 08:56 Urea (Urea-Na) 15 Gm Pack PO 01/09/24 08:59 15 gm BID SATYA Administration
--- NOTE | 2023-12-10 16:35 | Electroencephalogram ---
EEG Procedure Note Date of Service December 10, 2023 Start / End Times Start Time: 07:42 End Time: 08:02 Referring Physician Edmundo Doyle History A 28 year old male admitted to ICU in status epilepticus. EEG performed for evaluation of epileptiform activity. Home Medication List Medication Instructions Recorded Confirmed Type carbamazepine 200 mg tablet 200 mg PO TID 05/05/22 12/10/23 History (Epitol) gabapentin 600 mg tablet 600 mg PO BID 05/05/22 12/10/23 History lamotrigine 200 mg tablet 200 mg PO BID 05/05/22 12/10/23 History melatonin 10 mg tablet 20 mg PO HS 05/05/22 12/10/23 History omeprazole 20 mg capsule,delayed 20 mg PO AMHS 03/08/23 12/10/23 History release Cbd Oil 1 dose sublingual DIRECTED PRN 07/22/23 12/10/23 History NEEDED ibuprofen 200 mg tablet 200 mg PO Q4 PRN Fever Or Pain 07/22/23 12/10/23 History calcium carbonate 260 mg calcium 260 mg PO DAILY 12/02/23 12/10/23 History (650 mg) chewable tablet lorazepam 1 mg tablet 1 mg PO ONCE PRN 15 min prior to 12/02/23 12/10/23 History shower lorazepam 2 mg/mL oral concentrate 2 mg buccal UD PRN seizure>5min or 12/02/23 12/10/23 History 3 seizures in24 hour cefdinir 300 mg capsule 300 mg PO BID 5 days #10 caps 12/07/23 12/10/23 Rx metronidazole 500 mg tablet 500 mg PO TID 5 days #15 tabs 12/07/23 12/10/23 Rx sennosides 8.6 mg-docusate sodium 2 tab PO BID PRN CONSTIPATION #30 12/07/23 12/10/23 Rx 50 mg tablet (Senokot-S) tabs urea 15 gram oral powder packet 15 g PO BID 30 days #8 ea 12/07/23 12/10/23 Rx (Ure-Na) Inpatient Medication List Calcium Carbonate (Calcium Carbonate 500 Mg Chewable Tab) 250 mg PO DAILY SATYA Stop: 01/09/24 08:59 Last Admin: 12/10/23 08:57 Dose: 250 mg Documented By: UBALDO Carbamazepine (Carbamazepine 200 Mg Tablet) 200 mg PO TID@0500,1300,2100 SATYA Stop: 01/09/24 12:59 Last Admin: 12/10/23 13:05 Dose: 200 mg Documented By: GPF Enoxaparin Sodium (Enoxaparin Inj 40 Mg/0.4 Ml Syr) 40 mg SQ Q24H SATYA Stop: 01/09/24 05:59 Last Admin: 12/10/23 08:57 Dose: 40 mg Documented By: GPF Sodium Chloride (Nss) 1,000 mls @ 80 mls/hr IV .[id number] SATYA Stop: 12/10/23 18:29 Last Admin: 12/10/23 06:24 Dose: 80 mls/hr Documented By: VK Pantoprazole Sodium (Pantoprazole 40 Mg Tab) 40 mg PO BID [facility] Stop: 01/09/24 08:59 Last Admin: 12/10/23 08:58 Dose: 40 mg Documented By: GPF Urea (Urea (Urea-Na) 15 Gm Pack) 15 gm PO BID SATYA Stop: 01/09/24 08:59 Last Admin: 12/10/23 08:56 Dose: 15 gm Documented By: GPF Discontinued Medications Carbamazepine (Carbamazepine 200 Mg Tablet) 200 mg PO NOW ONE Stop: 12/10/23 04:49 Last Admin: 12/10/23 05:27 Dose: 200 mg Documented By: HB Gabapentin (Gabapentin 600 Mg Tab) 600 mg PO NOW STA Stop: 12/10/23 04:55 Last Admin: 12/10/23 05:27 Dose: 600 mg Documented By: HB Lamotrigine (Lamotrigine 100 Mg Tab) 200 mg PO NOW STA; Protocol Stop: 12/10/23 04:55 Last Admin: 12/10/23 05:27 Dose: 200 mg Documented By: HB Description This is a 21 electrode EEG with a single channel dedicated to limited EKG. The electrodes were placed in accordance with the International 10-20 system. REPORT: At the onset of the EEG the patient is in an altered mental state. The EEG is disorganized but continuous. There is generalized theta/delta slowing with superimposed beta activity. There is intermixed generalized polymorphic delta slowing with intermittent generalized spike and polyspike and slow wave discharges. Interpretation IMPRESSION: This is an abnormal routine EEG due 1. Intermittent / frequent generalized spike and polyspike and slow wave discharges at times on review of the video is associated with a myoclonic jerk. This is suggestive of myoclonic status epilepticus Vs suggestive of primary generalized epilepsy. Continuous vEEG recommended. 2. Generalized slowing suggestive of non specific encephalopathy. 3. Excessive beta activity which is a normal variant and likely medication induce (benzodiazepines).
[2023-12-10] MEDS: LORazepam 0.5 MG TAB ONE (20:02)
[2023-12-10] MEDS: LORazepam 0.5 MG TAB PO ONE (20:02)
[2023-12-10] MEDS: GADOBUTROL 65ML VIAL IV ONE (20:53)
[2023-12-10] MEDS: DOCUSATE SODIUM 100 MG CAP PO SCH (21:11)
[2023-12-10] MEDS: MELATONIN 3 MG TAB PO SCH (21:13)
[2023-12-10] MEDS: GABAPENTIN 600 MG TAB PO SCH (21:15)
[2023-12-10] MEDS: lamoTRIgine 100 MG TAB PO SCH (21:16)
--- NOTE | 2023-12-10 21:36 | Magnetic Resonance Report ---
MRI OF THE BRAIN COMBO CLINICAL HISTORY: Seizure. COMPARISON STUDY: CT of the brain dated 10/20/2023. TECHNIQUE: MRI of the brain was performed utilizing various T1 and T2-weighted sequences in the axial , sagittal, and coronal planes. Contrast-enhanced sequences were acquired following the administratio n of 14.2 cc of Gadavist. The examination was performed using the seizure protocol. FINDINGS: Brain parenchyma: The brain parenchyma is normal in appearance. There is no hemorrhage or mass effect . There is no restricted diffusion to suggest acute ischemia. No enhancing mass lesion is identified on the postcontrast images. Sosa-white matter differentiation is preserved. No extra-axial fluid alyx ection is seen. The cerebellar tonsils are normal in configuration. The hippocampi are normal and sym metric. Ventricles, sulci, and cisterns: Normal in configuration. Pituitary and sella: Unremarkable. Intracranial vasculature: Normal flow voids are maintained at the skull base. Orbits: The bony orbits are grossly intact. Orbital contents are normal in appearance. Sinuses and mastoids: Clear. Calvarium: Unremarkable. Cervical cord: Partially visualized cervical spinal cord is normal in morphology and signal intensity . IMPRESSION: No acute intracranial abnormality. ACT 112: Negative or not required by law. Electronically signed by: Tony Ramos M.D. 12/10/2023 9:34 PM
[2023-12-11 04:50] LABS: Basophils # (auto) 0.06 K/uL (0.00-0.20); Basophils % (auto) 1.1 %; Eosinophils # (auto) 0.51 K/uL (0.00-0.50); Eosinophils % (auto) 9.1 %; Hematocrit (blood only) 38.9 % (42.0-52.0); Hemoglobin 12.9 g/dl (14.0-18.0); Immature Granulocytes # (auto) 0.02 K/uL (0.01-0.20); Immature Granulocytes % (auto) 0.4 %; Lymphocytes # (auto) 2.31 K/uL (1.20-3.40); Lymphocytes % (auto) 41.3 %; Mean Corpuscular Hemoglobin 28.9 pg (25.0-34.0); Mean Corpuscular Hgb Conc 33.2 g/dL (32.0-36.0); Mean Corpuscular Volume 87.2 fL (80.0-100.0); Mean Platelet Volume 9.5 fL (9.4-12.4); Monocytes # (auto) 0.64 K/uL (0.11-0.59); Monocytes % (auto) 11.4 %; Neutrophils # (auto) 2.06 K/uL (1.40-6.50); Neutrophils % (auto) 36.7 %; Platelet Count 310 K/uL (130-400); RDW Coefficient of Variation 13.4 % (11.5-14.5); RDW Standard Deviation 42.9 fL (36.4-46.3); Red Blood Count 4.46 M/uL (4.70-6.10)
[2023-12-11 05:04] LABS: BUN Creatinine Ratio 19.2 (10-20); Calcium 8.8 mg/dl (8.6-10.3); Creatinine Clr Calc Pharmacy 234.6 ml/min; Est GFR (African American) 147.3 ml/min; Est GFR (Non-African American) 127.1 ml/min; Magnesium 2.1 mg/dl (1.7-2.4); Phosphorus 3.3 mg/dl (2.5-4.9); Potassium 3.9 mmol/L (3.5-5.1)
--- NOTE | 2023-12-11 06:40 | Electrocardiogram Report ---
Test Reason : Blood Pressure : / mmHG Vent. Rate : 092 BPM Atrial Rate : 092 BPM P-R Int : 154 ms QRS Dur : 092 ms QT Int : 348 ms P-R-T Axes : 034 034 063 degrees QTc Int : 430 ms Poor data quality, interpretation may be adversely affected Normal sinus rhythm Normal ECG When compared with ECG of 02-DEC-2023 17:15, No significant change was found Confirmed by Dariel Simpson ([id number]) on 12/11/2023 6:40:02 AM Referred By: REFERRED SELF Confirmed By:Dariel Simpson
--- NOTE | 2023-12-11 07:16 | XRay Report ---
XR chest 1V portable HISTORY: 28 years-old Male aspiration? seizures with acute shortness of breath COMPARISON: 12/02/2023 TECHNIQUE: AP view of the chest FINDINGS: The cardiomediastinal and hilar silhouettes are within normal limits. No pneumothorax, pleural effusi on, airspace consolidation or pulmonary edema. Bones of the chest appear normal. IMPRESSION: No acute process. ACT 112: Negative or not required by law. The above report was generated using voice recognition software. It may contain grammatical, syntax o r spelling errors. Electronically signed by: Abilio Leyva M.D. 12/11/2023 7:15 AM
--- NOTE | 2023-12-11 19:00 | Communication Note ---
Discussed with patients father via telephone the results of EEG and MRI. Discussed his concerns for not having adequate medication to abort seizures when at home. Recommended patient to undergo jacket changer EEG monitoring and hopefully undergo medications adjustments for improvement in seizure control. He is agreeable to transfer for continued EEG evaluation and potential medication adjustments. Discussed directly with Dr. Wise primary/hospitalist team who will begin to initiate transfer to [facility]. Date of Service: December 11, 2023
--- NOTE | 2023-12-11 19:11 | Hospitalist Progress Note ---
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 Flagyl for another 5 days, he was also found to hyponatremia from possible SIADH seen by nephrology and was prescribed urea and also seen by neurology for seizure which seems uncontrolled since after pancreatitis from last year and as he had no seizure recurrence during the admission the medications were not changed and got discharged on December 08 comes back because of seizures.Seems had seizures 4 times within the period of 4-1/2 minutes tonight. Parents are in the room. As per father when patient had seizures tonight Ativan buccal given seemed to help but again he had another seizure and nasal Ativan given seemed to help but again he had another seizure episode and another buccal Ativan given and after that seizure lasted for another 40 seconds and resolved. During episodes he seemed to stop breathing. Currently patient is drowsy. But able to tell his name. Knows he is in the hospital. Could tell current year but states he does not know the month . Denies any headache. No chest pain. No nausea. No abdominal pain. No fevers. Normal bowel movements as per father. He was tolerating diet okay since he got discharged. Parents are concerned that the antibiotics might have lowered seizure threshold. Hemodynamics are okay currently. Seizures History of seizures On carbamazepine, Lamictal and gabapentin Carbamazepine levels are okay. Lamictal levels are pending Had 4 consequent seizures at home Resolved after home Ativan Continue with home medications IV Ativan 1.5 mg every 2 hours as needed for breakthrough seizures EEG - IMPRESSION: This is an abnormal routine EEG due 1. Intermittent / frequent generalized spike and polyspike and slow wave discharges at times on review of the video is associated with a myoclonic jerk. This is suggestive of myoclonic status epilepticus Vs suggestive of primary generalized epilepsy. Continuous vEEG recommended. 2. Generalized slowing suggestive of non specific encephalopathy. 3. Excessive beta activity which is a normal variant and likely medication induce (benzodiazepines). Brain MRI - IMPRESSION: No acute intracranial abnormality. Gentle fluids Seizure precautions Neurology consulted and discussed w/ in detail - Discussed with patients father via telephone the results of EEG and MRI. Discussed his concerns for not having adequate medication to abort seizures when at home. Recommended patient to undergo [facility] EEG monitoring and hopefully undergo medications adjustments for improvement in seizure control. He is agreeable to transfer for continued EEG evaluation and potential medication adjustments. History of recurrent pancreatitis Currently asymptomatic Tolerating diet at home as per the family Will hold antibiotics cefdinir and Flagyl for now and monitor .antibiotics was started during last admission for fevers. Cultures no growth. Had total 6 days of antibiotics for now. Hyponatremia SIADH? On carbamazepine Started on urea last admission Sodium 133 on admission -> 137 today Will follow labs Follow-up with nephrology Spina bifida CFTR variant gene Autism Congenital single kidney DVT prophylaxis Lovenox Disposition Telemetry Plan to transfer to [facility] when bed available Full code Admission and Anticipated Discharge Date Admission Date: December 10, 2023 Subjective Pt seen in follow up of seizures Currently sitting up in chair in NAD, eating Overall pt is feeling well and denies having any complaints Had brain MRI and EEG done Discussed in detail w/ neurology - plan to transfer to [facility] Review of Systems Review of Systems: All systems reviewed & are unremarkable except as noted in Subjective Physical Exam Physical Exam: General- young M, obese, in NAD Head- atraumatic Eyes- PERRL. ENT- oropharynx clear Neck- supple, no JVD. Lungs- clear to auscultation no wheezing or crackles. Heart- regular rhythm; no murmur, no gallop. Abdomen- normal bowel sounds, soft, nontender, no distension Extremities- no pretibial edema, no erythema seen. Neuro- awake, alert, speech fluent, PERRL, no facial palsy, moves extremities. Skin- warm & dry Results & Data Results & Data Vital Signs (Past 12 Hours) Vital Signs Temp Pulse Pulse Resp BP Pulse Ox O2 Del Method 12/11/23 17:41 72 12/11/23 16:42 84 12 106/75 98 Room Air 12/11/23 11:29 36.7 C 82 14 99/76 L 97 Room Air 12/11/23 09:39 36.6 C 64 16 103/56 L 94 Room Air 12/11/23 08:00 72 Laboratory Results 12/11/23 Range/Units 04:15 WBC 5.60 (4.8-10.8) K/ul RBC 4.46 L (4.70-6.10) M/uL Hgb 12.9 L (14.0-18.0) g/dl Hct 38.9 L (42.0-52.0) % MCV 87.2 (80.0-100.0) fL MCH 28.9 (25.0-34.0) pg MCHC 33.2 (32.0-36.0) g/dL RDW Std Deviation 42.9 (36.4-46.3) fL RDW Coeff of Aman 13.4 (11.5-14.5) % Plt Count 310 (130-400) K/uL MPV 9.5 (9.4-12.4) fL Immature Gran % (Auto) 0.4 % Neut % (Auto) 36.7 % Lymph % (Auto) 41.3 % Pitkin % (Auto) 11.4 % Eos % (Auto) 9.1 % Baso % (Auto) 1.1 % Neut # (Auto) 2.06 (1.40-6.50) K/uL Lymph # (Auto) 2.31 (1.20-3.40) K/uL Pitkin # (Auto) 0.64 H (0.11-0.59) K/uL Eos # (Auto) 0.51 H (0.00-0.50) K/uL Baso # (Auto) 0.06 (0.00-0.20) K/uL Immature Gran # (Auto) 0.02 (0.01-0.20) K/uL Sodium 137 (136-145) mmol/L Potassium 3.9 (3.5-5.1) mmol/L Chloride 105 (98-107) mmol/L Carbon Dioxide 27 (21-32) mmol/L Anion Gap 5 (3-11) BUN 14 (6-23) mg/dl Creatinine 0.73 (0.6-1.4) mg/dl Est Cr Clr Drug Dosing 234.6 ml/min Est GFR ( Amer) 147.3 ml/min Est GFR (Non-Af Amer) 127.1 ml/min BUN/Creatinine Ratio 19.2 (10-20) Glucose 110 H (70-99(Fasting)) mg/dl Calcium 8.8 (8.6-10.3) mg/dl Phosphorus 3.3 (2.5-4.9) mg/dl Magnesium 2.1 (1.7-2.4) mg/dl Medications Administered Current Inpatient Medications Acetaminophen (Acetaminophen 325 Mg Tab) 650 mg PO Q4H PRN PRN Reason: Pain or Fever Stop: 01/09/24 05:59 Calcium Carbonate (Calcium Carbonate 500 Mg Chewable Tab) 250 mg PO DAILY [facility] Stop: 01/09/24 08:59 Last Admin: 12/11/23 09:21 Dose: 250 mg Carbamazepine (Carbamazepine 200 Mg Tablet) 200 mg PO TID@0500,1300,2100 [facility] Stop: 01/09/24 12:59 Last Admin: 12/11/23 12:52 Dose: 200 mg Docusate Sodium (Docusate Sodium 100 Mg Cap) 100 mg PO BID [facility] Stop: 01/09/24 20:59 Last Admin: 12/11/23 09:21 Dose: 100 mg Enoxaparin Sodium (Enoxaparin Inj 40 Mg/0.4 Ml Syr) 40 mg SQ Q24H [facility] Stop: 01/09/24 05:59 Last Admin: 12/11/23 09:24 Dose: 40 mg Gabapentin (Gabapentin 600 Mg Tab) 600 mg PO BID@0500,2100 [facility] Stop: 01/09/24 20:59 Last Admin: 12/11/23 05:05 Dose: 600 mg Lorazepam 1.5 mg/ Syringe 1.5 mls @ 2 mls/min IV Q2H PRN PRN Reason: Breakthrough Seizures Stop: 01/09/24 05:59 Lamotrigine (Lamotrigine 100 Mg Tab) 200 mg PO BID@0500,2100 [facility]; Protocol Stop: 01/09/24 20:59 Last Admin: 12/11/23 05:05 Dose: 200 mg Melatonin (Melatonin 3 Mg Tab) 9 mg PO HS [facility] Stop: 01/09/24 20:59 Last Admin: 12/10/23 21:13 Dose: 9 mg Nitroglycerin (Nitroglycerin Sl 0.4 Mg/Tab Tab) 0.4 mg SL Q5M PRN PRN Reason: Chest Pain Stop: 01/09/24 05:59 Pantoprazole Sodium (Pantoprazole 40 Mg Tab) 40 mg PO BID [facility] Stop: 01/09/24 08:59 Last Admin: 12/11/23 09:21 Dose: 40 mg Senna/Docusate Sodium (Docusate Sodium/Senna 50/8.6mg Tab) 2 tab PO BID PRN PRN Reason: CONSTIPATION Stop: 01/09/24 05:59 Urea (Urea (Urea-Na) 15 Gm Pack) 15 gm PO BID [facility] Stop: 01/09/24 08:59 Last Admin: 12/11/23 09:21 Dose: 15 gm
[2023-12-12] MEDS: diphenhydrAMINE Capsule 25 MG CAP PO ONE (02:19)
[2023-12-12 04:52] LABS: Hematocrit (blood only) 39.6 % (42.0-52.0); Hemoglobin 13.5 g/dl (14.0-18.0); Mean Corpuscular Hemoglobin 29.6 pg (25.0-34.0); Mean Corpuscular Hgb Conc 34.1 g/dL (32.0-36.0); Mean Corpuscular Volume 86.8 fL (80.0-100.0); Mean Platelet Volume 9.6 fL (9.4-12.4); Platelet Count 327 K/uL (130-400); RDW Coefficient of Variation 13.3 % (11.5-14.5); RDW Standard Deviation 41.9 fL (36.4-46.3); Red Blood Count 4.56 M/uL (4.70-6.10); White Blood Count 6.87 K/ul (4.8-10.8)
[2023-12-12 05:08] LABS: Calcium 8.9 mg/dl (8.6-10.3); Creatinine Clr Calc Pharmacy 239.3 ml/min; Est GFR (African American) 148.2 ml/min; Est GFR (Non-African American) 127.8 ml/min; Magnesium 1.9 mg/dl (1.7-2.4); Potassium 3.6 mmol/L (3.5-5.1)
--- NOTE | 2023-12-12 10:30 | Discharge Summary ---
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 Flagyl for another 5 days, he was also found to hyponatremia from possible SIADH seen by nephrology and was prescribed urea and also seen by neurology for seizure which seems uncontrolled since after pancreatitis from last year and as he had no seizure recurrence during the admission the medications were not changed and got discharged on December 08 comes back because of seizures.Seems had seizures 4 times within the period of 4-1/2 minutes tonight. Parents are in the room. As per father when patient had seizures tonight Ativan buccal given seemed to help but again he had another seizure and nasal Ativan given seemed to help but again he had another seizure episode and another buccal Ativan given and after that seizure lasted for another 40 seconds and resolved. During episodes he seemed to stop breathing. Currently patient is drowsy. But able to tell his name. Knows he is in the hospital. Could tell current year but states he does not know the month . Denies any headache. No chest pain. No nausea. No abdominal pain. No fevers. Normal bowel movements as per father. He was tolerating diet okay since he got discharged. Parents are concerned that the antibiotics might have lowered seizure threshold. Hemodynamics are okay currently. Past medical history. As mentioned above Past surgical history. EGD. EGD with endoscopic ultrasound. Removal of impacted tooth. Incision of eardrum. Laparoscopic cholecystectomy. Social history. No smoking. No alcohol use. No drug use. Family history. Brother has ADHD. Sister has a ADHD. His brother has Asperger's syndrome. Father has gastric ulcers and IBS hypothyroidism. Kidney stones. Mother has lupus. Admission Exam Per Admitting Provider General- Drowsy. Not in acute distress Head- atraumatic Eyes- PERRL. ENT- oropharynx clear Neck- supple, no JVD. Lungs- clear to auscultation no wheezing or crackles. Heart- regular rhythm; no murmur, no gallop. Abdomen- normal bowel sounds, soft, nontender, no distension Extremities- no pretibial edema, no erythema seen. Neuro- Drowsy, oriented ; PERRL, no facial palsy; no dysarthria; obeys commands, moves extremities. Skin- warm & dry Principal Diagnosis Seizures Discharge Exam General- young M, obese, in NAD Head- atraumatic Eyes- PERRL. ENT- oropharynx clear Neck- supple, no JVD. Lungs- clear to auscultation no wheezing or crackles. Heart- regular rhythm; no murmur, no gallop. Abdomen- normal bowel sounds, soft, nontender, no distension Extremities- no pretibial edema, no erythema seen. Neuro- awake, alert, speech fluent, PERRL, no facial palsy, moves extremities. Skin- warm & dry Discharge Data Allergies Allergy/AdvReac Type Severity Reaction Status Date / Time amoxicillin Allergy Severe Anaphylaxis Verified 12/10/23 02:25 /HIVES clavulanic acid Allergy Severe Anaphylaxis Verified 12/10/23 02:25 [From Augmentin] /HIVES Macrolide Antibiotics Allergy Intermediate Hives Verified 12/10/23 02:25 Penicillins Allergy Intermediate Hives Verified 12/10/23 02:25 polyethylene glycol 3350 Allergy Intermediate ITCHING Verified 12/10/23 02:25 [From Miralax] Sulfa (Sulfonamide Allergy Intermediate Hives Verified 12/10/23 02:25 Antibiotics) Inhaled Anesthetics (Halogen Allergy Possible Verified 12/10/23 02:25 Based) family history malignant hyperthermia succinylcholine Allergy Possible Verified 12/10/23 02:25 family history malignant hyperthermia Consultations 12/10/23 04:12 ED Decision to Admit Stat 12/10/23 08:00 Consult Neurology Routine 12/12/23 09:52 Burn CD for patient Stat Ordered Studies 12/10/23 15:03 MR brain wo/w con Urgent FINDINGS: Brain parenchyma: The brain parenchyma is normal in appearance. There is no hemorrhage or mass effect. There is no restricted diffusion to suggest acute ischemia. No enhancing mass lesion is identified on the postcontrast images. Sosa-white matter differentiation is preserved. No extra-axial fluid collection is seen. The cerebellar tonsils are normal in configuration. The hippocampi are normal and symmetric. Ventricles, sulci, and cisterns: Normal in configuration. Pituitary and sella: Unremarkable. Intracranial vasculature: Normal flow voids are maintained at the skull base. Orbits: The bony orbits are grossly intact. Orbital contents are normal in appearance. Sinuses and mastoids: Clear. Calvarium: Unremarkable. Cervical cord: Partially visualized cervical spinal cord is normal in morphology and signal intensity. IMPRESSION: No acute intracranial abnormality. 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 Flagyl for another 5 days, he was also found to hyponatremia from possible SIADH seen by nephrology and was prescribed urea and also seen by neurology for seizure which seems uncontrolled since after pancreatitis from last year and as he had no seizure recurrence during the admission the medications were not changed and got discharged on December 08 comes back because of seizures.Seems had seizures 4 times within the period of 4-1/2 minutes tonight. Parents are in the room. As per father when patient had seizures tonight Ativan buccal given seemed to help but again he had another seizure and nasal Ativan given seemed to help but again he had another seizure episode and another buccal Ativan given and after that seizure lasted for another 40 seconds and resolved. During episodes he seemed to stop breathing. Currently patient is drowsy. But able to tell his name. Knows he is in the hospital. Could tell current year but states he does not know the month . Denies any headache. No chest pain. No nausea. No abdominal pain. No fevers. Normal bowel movements as per father. He was tolerating diet okay since he got discharged. Parents are concerned that the antibiotics might have lowered seizure threshold. Hemodynamics are okay currently. Seizures History of seizures On carbamazepine, Lamictal and gabapentin Carbamazepine levels are okay. Lamictal levels are pending Had 4 consequent seizures at home Resolved after home Ativan Continue with home medications IV Ativan 1.5 mg every 2 hours as needed for breakthrough seizures EEG - IMPRESSION: This is an abnormal routine EEG due 1. Intermittent / frequent generalized spike and polyspike and slow wave discharges at times on review of the video is associated with a myoclonic jerk. This is suggestive of myoclonic status epilepticus Vs suggestive of primary generalized epilepsy. Continuous vEEG recommended. 2. Generalized slowing suggestive of non specific encephalopathy. 3. Excessive beta activity which is a normal variant and likely medication induce (benzodiazepines). Brain MRI - IMPRESSION: No acute intracranial abnormality. Gentle fluids Seizure precautions Neurology consulted and discussed w/ in detail - Discussed with patients father via telephone the results of EEG and MRI. Discussed his concerns for not having adequate medication to abort seizures when at home. Recommended patient to undergo [facility] EEG monitoring and hopefully undergo medications adjustments for improvement in seizure control. He is agreeable to transfer for continued EEG evaluation and potential medication adjustments. History of recurrent pancreatitis Currently asymptomatic Tolerating diet at home as per the family Will hold antibiotics cefdinir and Flagyl for now and monitor .antibiotics was started during last admission for fevers. Cultures no growth. Had total 6 days of antibiotics for now. Hyponatremia SIADH? On carbamazepine Started on urea last admission Sodium 133 on admission -> 135 today Will follow labs Follow-up with nephrology Spina bifida CFTR variant gene Autism Congenital single kidney Disposition Telemetry Plan to transfer to [facility] when bed available Full code Total Time Total Time Spent Total Time Spent (In Minutes): 40 Discharge Plan Discharge Items Patient Disposition: Transfer Acute Care Hospital Reason For Visit: SEIZURES Discharge Diagnosis: Seizures Activity: Per Instructions section Non-emergency contact: Neurologist Call non-emergency contact if: you have any medication questions Follow-up/Referrals: Najma Solis MD [Primary Care Provider] - Diet: Regular Addtl Attending Provider Instructions: Patient to be transferred to [facility] neurology, accepting physician Dr. Rapp, for continuous EEG monitoring and medication adjustment. Please, have IV ativan prn on route in case of a seizure. Pending Studies at Discharge: No Stand-Alone Forms: My [facility] Skilled Items Patient informed of condition?: Yes DNR: No Discharge Level of Care: Other Communicable Disease: No Discharge Prognosis: Other Lines: Peripheral IV Urinary Catheter: No Medications and DC Order Prescriptions: Continued gabapentin 600 mg tablet 600 mg PO BID Rx Instructions: takes 0500 & 2100 lamotrigine 200 mg tablet 200 mg PO BID Rx Instructions: takes 0500 & 2100 carbamazepine [Epitol] 200 mg tablet 200 mg PO TID Rx Instructions: Takes 0500, 1300 & 2100 melatonin 10 mg Tablet 20 mg PO HS Rx Instructions: 2 tablet dose ibuprofen 200 mg Tablet 200 mg PO Q4 PRN (Reason: Fever Or Pain) Cbd Oil 1 dose sublingual DIRECTED PRN (Reason: NEEDED) omeprazole 20 mg capsule,delayed release(DR/EC) 20 mg PO [facility] lorazepam 1 mg tablet 1 mg PO ONCE PRN (Reason: 15 min prior to shower) calcium carbonate 260 mg calcium (650 mg) Tablet,Chewable 260 mg PO DAILY lorazepam 2 mg/mL concentrate 2 mg buccal UD PRN (Reason: seizure>5min or 3 seizures in24 hour) Ure-Na 15 gram Powder In Packet 15 g PO BID 30 Days Qty: 8 1RF sennosides-docusate sodium [Senokot-S] 8.6-50 mg Tablet 2 tab PO BID PRN (Reason: CONSTIPATION) Qty: 30 1RF Discontinued cefdinir 300 mg capsule 300 mg PO BID 5 Days Qty: 10 0RF metronidazole 500 mg tablet 500 mg PO TID 5 Days Qty: 15 0RF Discharge Orders: Discharge Order (Routine); Ordered 12/12/23 Ordered By: Shaan Wise Admission Data Admit Date/Time: 12/10/23 04:54 Attending Provider: Shaan Wise Admit Provider: Edmundo Hernandez Primary Care Provider: Najma Solis Other Providers: Edmundo Hernandez; Esperanza Khan; Delfino Watters; Esperanza Meza; Easton Rapp; David Ruiz; Shamar Encinas; Erik Draper; Kacey Joy; Eloy Malloy; Bob Lewis; Blanca Mattson; Ike Jin; Samantha Linares; Jeny Rosado; Erik Fuentes
== END 2023-12-12 12:07 | disposition short-term general hospital (02) | DRG 101 ==
LOC: ED 01:29 → 1E 04:54

== ENCOUNTER 2024-04-24 08:02 | Inpatient (IN) ==
--- NOTE | 2024-04-24 08:21 | Emergency Department Note ---
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 Pt presents to the ER for epigastric abdominal pain rating to the right going through to the back. Associated with nausea but no vomiting. He notes this feels like his previous bouts of pancreatitis. ADDITIONAL HISTORY OBTAINED: Per HPI Chronic Medical/Social Conditions Affecting Care: Per HPI PAST MEDICAL HISTORY:See Below PAST SURGICAL HISTORY:See Below FAMILY HISTORY:See Below SOCIAL HISTORY:See Below HOME MEDICATIONS:See Below ALLERGIES:See Below VITALS:See Below PHYSICAL EXAMINATION: GENERAL: Sitting up in bed, alert, well appearing, well nourished, no distress, non-toxic EYE EXAM: normal conjunctiva. PERRL and EOM's grossly intact. OROPHARYNX: no exudate, no erythema, lips, buccal mucosa, and tongue normal and mucous membranes are moist NECK: supple, no nuchal rigidity, no adenopathy, non-tender LUNGS: Clear to auscultation. Normal chest wall mechanics HEART: no murmurs, S1 normal and S2 normal ABDOMEN: abdomen soft, non-tender, normo-active bowel sounds, no masses, no rebound or guarding. BACK: Back is symmetrical on inspection and there is no deformity, no midline tenderness, no CVA tenderness. SKIN: no rashes and no bruising UPPER EXTREMITIES: upper extremities are grossly normal. LOWER EXTREMITIES: No pitting edema. NEURO EXAM: Normal sensorium, cranial nerves II-XII grossly intact, normal speech, no gross weakness of arms, no gross weakness of legs. MEDICAL DECISION MAKING: Patient is a 29-year-old male who presents ER for above-stated complaint. IV was established blood work was obtained. Labs show no significant leukocytosis or anemia. BMP with slightly elevated glucose at 106. LFTs bilirubin was unremarkable. Lipase was normal. UA was clean. CT abdomen pelvis consistent with pancreatitis. He was given IV fluids and pain medications. Updated bedside and discussed with the hospitalist for further evaluation management treatment. Consults/Care Managements Discussions: Per MDM Triage Nursing notes reviewed. Limited review of prior medical records performed Vital Signs: reviewed and remarkable for no significant abnormalities Differential diagnosis: Differential diagnoses includes but is not limited to gastritis, peptic ulcer disease, GERD, gallbladder disease, pancreatitis, small bowel obstruction, appendicitis, diverticulitis, hernia, urinary tract infection, torsion, perforation, trauma, infectious. ER treatment provided: See below Diagnostics interpreted by me include EKG and cardiac monitoring as listed below: -Cardiac Monitoring: An order was placed for continuous cardiac monitoring. The monitor shows a rate of 80 with sinus rhythm. -ECG: none -Laboratory studies:Interpreted by me as stated above in MDM and shown below. Imaging studies: Xrays: As interpreted by me:none CTs show: CT abdomen pelvis per my pulmonary interpretation shows inflammation around the pancreas CT of the pelvis per radiology as described above Procedures:none Critical Care: None Past Med/Surg History Problem List (Updated 04/24/24 @ 13:27 by Armen Tinoco DO) Nausea (Acute) Abdominal pain (Acute) Acute pancreatitis (Acute) Autism Absent kidney, congenital Generalized seizure (Acute) Hyponatremia Epilepsy Acute pancreatitis (Acute) Cystic fibrosis (Acute) Post-streptococcal glomerulonephritis No pertinent family history Encounter for pre-operative examination Medical History History of asthma No inhaler Spina bifida Noted in available [facility] records, not reported during PAT RN phone interview Seasonal allergies Hx of pancreatitis EUS 02/05/23 AT [facility] Absent kidney, congenital Seizure disorder 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 Watters Most recent seizure 02/2023- levels being monitored closely by neuro Autism Surgical History History of anesthesia reaction Awareness, "woke up" with recent EUS when tube was being removed Family history of anesthesia complication Patient's brother had foot surgery at [facility], discharged home and developed high fever/stiff joints > sent to ER, given antibiotics, sent home. No admission required. Brother now (unrelated)/unable to obtain further information. Patient's mother denies being told the term malignant hyperthermia and states that further testing/precautions were not recommended after brother's event. 2013 oral surgery [facility] anesthesia records for [facility]- use of desflurane/sux without issue. Hx of colonoscopy History of dental surgery Resin based composite 2 surfaces, posterior (10/21/11): MAC#4, [place] [facility] [place]) Removal of impacted tooth (09/26/13): MAC#4, E[place] 7.0 [place] [facility] [place] [facility]), received desflurane/succinylcholine per anesthesia record. "Anesthesia Complications: none" H/O circumcision Family History Brother History of anesthesia reaction Social History Smoking Status: Never smoker Second Hand Exposure: No; Do You Dip or Chew Tobacco: No; Hx Alcohol Use: No Hx Substance Use: No Preferred Language: Albanian Communication Ability: Effective Sponge Fisherman Required: No Beliefs That Will Affect Care: None Current Living Situation: Parent Current Living Situation Comment: With parents and siblings x2 Feels Safe at Home: Yes Assistive Devices: None Allergies Allergies Allergy/AdvReac Type Severity Reaction Status Date / Time amoxicillin Allergy Severe Anaphylaxis Verified 04/24/24 11:41 /HIVES clavulanic acid Allergy Severe Anaphylaxis Verified 04/24/24 11:41 [From Augmentin] /HIVES gluten Allergy Severe Gastrointestinal Unverified 04/24/24 11:41 Upset Milk Containing Products Allergy Severe Gastrointestinal Unverified 04/24/24 11:41 (Dairy) Upset Penicillins Allergy Severe Anaphylaxis Verified 04/24/24 11:42 Macrolide Antibiotics Allergy Intermediate Hives Verified 04/24/24 11:41 polyethylene glycol 3350 Allergy Intermediate ITCHING Verified 04/24/24 11:41 [From Miralax] Sulfa (Sulfonamide Allergy Intermediate Hives Verified 04/24/24 11:41 Antibiotics) Inhaled Anesthetics (Halogen Allergy Possible Verified 04/24/24 11:41 Based) family history malignant hyperthermia succinylcholine Allergy Possible Verified 04/24/24 11:41 family history malignant hyperthermia Home Meds Home Medications Medication Instructions Recorded Confirmed gabapentin 600 mg tablet 600 mg PO BID 05/05/22 04/24/24 lamotrigine 200 mg tablet 200 mg PO BID 05/05/22 04/24/24 melatonin 10 mg tablet 20 mg PO HS 05/05/22 04/24/24 omeprazole 20 mg capsule,delayed 20 mg PO HS 03/08/23 04/24/24 release ibuprofen 200 mg tablet 200 mg PO Q4 PRN Fever Or Pain 07/22/23 04/24/24 lorazepam 2 mg/mL oral concentrate 2 mg buccal UD PRN seizure>5min or 12/02/23 04/24/24 3 seizures in24 hour Acid Relief Chew 0 mg PO DAILY 04/24/24 04/24/24 diazepam 20 mg/2 spray (10 mg/0.1 10 mg intranasal DAILY PRN 04/24/24 04/24/24 mL x 2) nasal spray (Valtoco) seizures lasting 3 minutes or more eslicarbazepine 800 mg tablet 800 mg PO QAM 04/24/24 04/24/24 (Aptiom) folic acid 400 mcg tablet 400 mcg PO QAM 04/24/24 04/24/24 lacosamide 100 mg tablet 200 mg PO BID 04/24/24 04/24/24 sennosides 8.6 mg-docusate sodium 2 tab PO BID CONSTIPATION 04/24/24 04/24/24 50 mg tablet (Senokot-S) Previous Rx's Medication Instructions Recorded urea 15 gram oral powder packet 15 g PO BID 30 days #8 ea 12/07/23 (Ure-Na) Results & Data (ED) Vital Signs Vital Signs - 24 hr 04/24/24 08:09 04/24/24 08:26 04/24/24 08:32 Temperature 36.5 C Temperature Source Oral Pulse Rate 84 76 Pulse Rate [Apical] Pulse Rate from SpO2 Sensor Respiratory Rate 16 Respiratory Effort / Characteristics Non-Labored Spontaneous Respiratory Depth Normal Respiratory Pattern Blood Pressure 136/83 Blood Pressure [Right Arm] Blood Pressure Mean 100 Blood Pressure Mean [Right Arm] Pulse Oximetry 100 96 Oxygen Delivery Method Room Air Room Air Sepsis Recent Fever Within 48 Hours No Sepsis New/Unexplained Change in Mental Status No Sepsis Action Taken by Nursing No Action Required 04/24/24 08:36 04/24/24 09:00 04/24/24 09:15 Temperature Temperature Source Pulse Rate 81 83 81 Pulse Rate [Apical] Pulse Rate from SpO2 Sensor 81 83 80 Respiratory Rate 20 19 16 Respiratory Effort / Characteristics Respiratory Depth Respiratory Pattern Blood Pressure Blood Pressure [Right Arm] Blood Pressure Mean Blood Pressure Mean [Right Arm] Pulse Oximetry 98 98 98 Oxygen Delivery Method Sepsis Recent Fever Within 48 Hours Sepsis New/Unexplained Change in Mental Status Sepsis Action Taken by Nursing 04/24/24 09:33 04/24/24 09:57 04/24/24 10:03 Temperature Temperature Source Pulse Rate 84 72 Pulse Rate [Apical] Pulse Rate from SpO2 Sensor 79 72 Respiratory Rate Respiratory Effort / Characteristics Respiratory Depth Respiratory Pattern Blood Pressure 126/74 Blood Pressure [Right Arm] Blood Pressure Mean 95 Blood Pressure Mean [Right Arm] Pulse Oximetry 96 99 Oxygen Delivery Method Sepsis Recent Fever Within 48 Hours Sepsis New/Unexplained Change in Mental Status Sepsis Action Taken by Nursing 04/24/24 10:42 04/24/24 11:06 04/24/24 11:06 Temperature Temperature Source Pulse Rate 85 Pulse Rate [Apical] 79 Pulse Rate from SpO2 Sensor 85 Respiratory Rate 18 18 Respiratory Effort / Characteristics Non-Labored Spontaneous Respiratory Depth Normal Respiratory Pattern Regular Blood Pressure Blood Pressure [Right Arm] 131/77 Blood Pressure Mean Blood Pressure Mean [Right Arm] 95 Pulse Oximetry 97 96 96 Oxygen Delivery Method Room Air Room Air Sepsis Recent Fever Within 48 Hours Sepsis New/Unexplained Change in Mental Status Sepsis Action Taken by Nursing 04/24/24 12:33 04/24/24 12:40 Temperature Temperature Source Pulse Rate 73 Pulse Rate [Apical] 77 Pulse Rate from SpO2 Sensor Respiratory Rate 18 Respiratory Effort / Characteristics Non-Labored Spontaneous Respiratory Depth Normal Respiratory Pattern Regular Blood Pressure Blood Pressure [Right Arm] 111/78 Blood Pressure Mean Blood Pressure Mean [Right Arm] 89 Pulse Oximetry 99 Oxygen Delivery Method Room Air Sepsis Recent Fever Within 48 Hours Sepsis New/Unexplained Change in Mental Status Sepsis Action Taken by Nursing Laboratory Data 04/24/24 08:16 04/24/24 08:16 Lab Results 04/24/24 04/24/24 Range/Units 08:15 08:16 WBC 10.12 (4.8-10.8) K/ul RBC 5.37 (4.70-6.10) M/uL Hgb 15.9 (14.0-18.0) g/dl Hct 45.8 (42.0-52.0) % MCV 85.3 (80.0-100.0) fL MCH 29.6 (25.0-34.0) pg MCHC 34.7 (32.0-36.0) g/dL RDW Std Deviation 37.9 (36.4-46.3) fL RDW Coeff of Aman 12.3 (11.5-14.5) % Plt Count 238 (130-400) K/uL MPV 9.9 (9.4-12.4) fL Immature Gran % (Auto) 0.2 % Neut % (Auto) 63.7 % Lymph % (Auto) 23.1 % [place] % (Auto) 7.4 % Eos % (Auto) 5.0 % Baso % (Auto) 0.6 % Neut # (Auto) 6.44 (1.40-6.50) K/uL Lymph # (Auto) 2.34 (1.20-3.40) K/uL Sterling # (Auto) 0.75 H (0.11-0.59) K/uL Eos # (Auto) 0.51 H (0.00-0.50) K/uL Baso # (Auto) 0.06 (0.00-0.20) K/uL Immature Gran # (Auto) 0.02 (0.01-0.20) K/uL Sodium 136 (136-145) mmol/L Potassium 4.0 (3.5-5.1) mmol/L Chloride 101 (98-107) mmol/L Carbon Dioxide 27 (21-32) mmol/L Anion Gap 8 (3-11) BUN 19 (6-23) mg/dl Creatinine 0.83 (0.6-1.4) mg/dl Est Cr Clr Drug Dosing 201.6 ml/min Est GFR ( Amer) 138.8 ml/min Est GFR (Non-Af Amer) 119.7 ml/min BUN/Creatinine Ratio 22.9 H (10-20) Glucose 106 H (70-99(Fasting)) mg/dl Calcium 10.3 (8.6-10.3) mg/dl Total Bilirubin 0.7 (0.2-1.0) mg/dl AST 20 (13-39) U/L ALT 29 (7-52) U/L Alkaline Phosphatase 152 H (34-104) U/L Total Protein 8.3 (6.0-8.3) gm/dl Albumin 4.6 (3.4-5.0) gm/dl Globulin 3.7 (2.5-4.0) gm/dl Albumin/Globulin Ratio 1.2 (0.9-2) Lipase 60 (11-82) U/L Urine Color Yellow Urine Appearance Clear (Clear) Urine pH 8.5 H (4.5-7.5) Ur Specific [place] 1.007 (1.000-1.030) Urine Protein Negative (Negative) Urine Glucose (UA) Negative (Negative) Urine Ketones Negative (Negative) Urine Blood Trace H (Negative) Urine Nitrite Negative (Negative) Urine Bilirubin Negative (Negative) Urine Urobilinogen Negative (Negative) Ur Leukocyte Esterase Negative (Negative) Urine WBC (Auto) 0-5 (0-5) /hpf Urine RBC (Auto) 0-2 (0-2) /hpf U Hyaline Cast (Auto) 0-2 (0-2) /lpf U Epithel Cells (Auto) 0-2 (0-2) /hpf Urine Bacteria (Auto) None Seen (None Seen) Administered Medications Sodium Chloride (Nss) 1,000 mls @ 125 mls/hr IV .Q8H SATYA Stop: 04/25/24 03:19 Last Admin: 04/24/24 12:47 Dose: 125 mls/hr Documented By: LEOLA Discontinued Medications Sodium Chloride (Nss) 1,000 mls @ 999 mls/hr IV .Q1H1M ONE Stop: 04/24/24 09:09 Last Infusion: 04/24/24 09:43 Dose: Infused Documented By: Admin: 04/24/24 08:25 Dose: 999 mls/hr Documented By: JULISA Sodium Chloride (Nss) 1,000 mls @ 999 mls/hr IV .Q1H1M ONE Stop: 04/24/24 11:52 Last Infusion: 04/24/24 12:49 Dose: Infused Documented By: Admin: 04/24/24 11:08 Dose: 999 mls/hr Documented By: LEOLA Ioversol (Optiray 320 125ml) 120 ml IV ONCE ONE Stop: 04/24/24 09:30 Last Admin: 04/24/24 09:29 Dose: 120 ml Documented By: TIERRA Morphine Sulfate (Morphine Sulfate 4 Mg/Ml 1 Ml Carp\\Vial) 4 mg IV NOW STA Stop: 04/24/24 10:38 Last Admin: 04/24/24 10:43 Dose: 4 mg Documented By: JULISA Ondansetron HCl (Ondansetron Inj 2 Mg/Ml 2 Ml Vial) 4 mg IV NOW STA Stop: 04/24/24 08:10 Last Admin: 04/24/24 08:25 Dose: 4 mg Documented By: JULISA Imaging Data Radiologist's Impression: Abdomen/Pelvis CT 04/24/24 08:[address] WITH IV CONTRAST CT DOSE: 1535.53 mGy.cm HISTORY: Acute epigastric abdominal pain epigastric abd pain TECHNIQUE: Multiaxial CT images of the abdomen and pelvis were performed following the IV administration of 120 cc of Optiray, A dose lowering technique was utilized adhering to the principles of ALARA. COMPARISON STUDY: 12/02/2023, 05/05/2022 FINDINGS: Clear lung bases. No free air. Unremarkable spleen, adrenal glands and liver. Cholecystectomy hepatic steatosis. Patency of the hepatic and portal veins. Splenic vein also appears patent. Absent left kidney. Unremarkable right kidney without hydronephrosis. The urinary bladder is within normal limits. Age advanced pancreatic atrophy redemonstrated. There is an ill-defined 2.2 cm hypodense focus in the abdominal left upper quadrant involving versus abutting the pancreatic tail. There is mild interstitial and peripancreatic inflammatory stranding, pronounced involving the pancreatic head and uncinate process/pancreaticoduodenal groove. No drainable fluid collections or pancreatic ductal dilation. Aorta and IVC are unremarkable. No lymphadenopathy. Wall thickening with hyperemia of the second and third portions duodenum. Stool filled distended terminal ileum. Normal appendix. IMPRESSION: 1. Findings suggestive of mild interstitial edematous pancreatitis. 2. There is a 2.2 cm hypodense focus abutting or involving the pancreatic tail. Differential considerations include an acute peripancreatic fluid collection, pseudocyst or cystic pancreatic lesion. Two-month follow-up CT of the abdomen with pancreatic protocol recommended. 3. No drainable fluid collections. 4. Mild wall thickening of the duodenum is likely reactive. Primary duodenitis considered less likely. 5. Cholecystectomy. ACT 112: Negative or not required by law. The above report was generated using voice recognition software. It may contain grammatical, syntax or spelling errors. Electronically signed by: Abilio Leyva M.D. 04/24/2024 10:22 AM Discharge Plan Visit Data Chief Complaint: Abdominal Pain Stated Complaint: AB PAIN ED Provider: Armen Tinoco Discharge Problem: Acute pancreatitis, Abdominal pain, Nausea Patient Disposition: Admitted As Inpatient Discharge Instructions Interventions: ED Discharge Assessment Last Done: 04/24/24 12:41 Forms Stand Alone Forms: My [facility] [employer] Prescriptions Prescriptions: No Action gabapentin 600 mg tablet 600 mg PO BID Rx Instructions: takes 0500 & 2100 lamotrigine 200 mg tablet 200 mg PO BID melatonin 10 mg Tablet 20 mg PO HS Rx Instructions: 2 tablet dose ibuprofen 200 mg Tablet 200 mg PO Q4 PRN (Reason: Fever Or Pain) omeprazole 20 mg capsule,delayed release(DR/EC) 20 mg PO HS lorazepam 2 mg/mL concentrate 2 mg buccal UD PRN (Reason: seizure>5min or 3 seizures in24 hour) Ure-Na 15 gram Powder In Packet 15 g PO BID 30 Days Qty: 8 1RF Acid Relief Chew 0 mg PO DAILY Rx Instructions: Parent unsure of strength, this is an OTC acid relief chew folic acid 400 mcg tablet 400 mcg PO QAM lacosamide 100 mg tablet 200 mg PO BID Aptiom 800 mg tablet 800 mg PO QAM Valtoco 20 mg/2 spray (10mg/0.1mL x2) spray,non-aerosol 10 mg INTRANASAL DAILY PRN (Reason: seizures lasting 3 minutes or more) sennosides-docusate sodium [Senokot-S] 8.6-50 mg tablet 2 tab PO BID Referrals Referrals: Najma Solis MD [Primary Care Provider] - Discharge Problem: Acute pancreatitis Qualifiers: Pancreatitis type: unspecified pancreatitis type Acute pancreatitis complication: unspecified Qualified Code(s): K85.90 - Acute pancreatitis without necrosis or infection, unspecified Abdominal pain Qualifiers: Abdominal location: unspecified location Qualified Code(s): R10.9 - Unspecified abdominal pain
[2024-04-24] MEDS: ONDANSETRON INJ 2 MG/ML 2 ML VIAL IV STA (08:25)
[2024-04-24] MEDS: SODIUM CHLORIDE 0.9% 1,000 ML IV ONE ×2 (08:25→11:08)
[2024-04-24 08:41] LABS: Basophils # (auto) 0.06 K/uL (0.00-0.20); Basophils % (auto) 0.6 %; Eosinophils # (auto) 0.51 K/uL (0.00-0.50); Hematocrit (blood only) 45.8 % (42.0-52.0); Hemoglobin 15.9 g/dl (14.0-18.0); Immature Granulocytes # (auto) 0.02 K/uL (0.01-0.20); Immature Granulocytes % (auto) 0.2 %; Lymphocytes # (auto) 2.34 K/uL (1.20-3.40); Lymphocytes % (auto) 23.1 %; Mean Corpuscular Hemoglobin 29.6 pg (25.0-34.0); Mean Corpuscular Hgb Conc 34.7 g/dL (32.0-36.0); Mean Corpuscular Volume 85.3 fL (80.0-100.0); Mean Platelet Volume 9.9 fL (9.4-12.4); Monocytes # (auto) 0.75 K/uL (0.11-0.59); Monocytes % (auto) 7.4 %; Neutrophils # (auto) 6.44 K/uL (1.40-6.50); Neutrophils % (auto) 63.7 %; Platelet Count 238 K/uL (130-400); RDW Coefficient of Variation 12.3 % (11.5-14.5); RDW Standard Deviation 37.9 fL (36.4-46.3); Red Blood Count 5.37 M/uL (4.70-6.10); White Blood Count 10.12 K/ul (4.8-10.8)
[2024-04-24 08:45] LABS: Appearance Urine Clear (Clear); Bacteria Urine Automated None Seen (None Seen); Bilirubin Urine Negative (Negative); Blood Urine Trace (Negative); Cast Urine Automated 0-2 /lpf (0-2); Color Urine Yellow; Epithelial Cell Urine Auto 0-2 /hpf (0-2); Glucose Urine UA Negative (Negative); Ketones Urine Negative (Negative); Leukocyte Esterase Urine Negative (Negative); Nitrite Urine Negative (Negative); Protein Urine Negative (Negative); RBC Urine Automated 0-2 /hpf (0-2); Specific Gravity Urine 1.007 (1.000-1.030); Urobilinogen Urine Negative (Negative); WBC Urine Automated 0-5 /hpf (0-5); pH Urine 8.5 (4.5-7.5)
[2024-04-24 08:57] LABS: Albumin Globulin Ratio 1.2 (0.9-2); Albumin Level 4.6 gm/dl (3.4-5.0); BUN Creatinine Ratio 22.9 (10-20); Bilirubin,Total 0.7 mg/dl (0.2-1.0); Calcium 10.3 mg/dl (8.6-10.3); Creatinine Clr Calc Pharmacy 201.6 ml/min; Est GFR (African American) 138.8 ml/min; Est GFR (Non-African American) 119.7 ml/min; Globulin 3.7 gm/dl (2.5-4.0); Total Protein 8.3 gm/dl (6.0-8.3)
[2024-04-24] MEDS: OPTIRAY 320 125ml IV ONE (09:29)
--- NOTE | 2024-04-24 10:23 | CT Scan Report ---
ABDOMEN AND PELVIS CT WITH IV CONTRAST CT DOSE: 1535.53 mGy.cm HISTORY: Acute epigastric abdominal pain epigastric abd pain TECHNIQUE: Multiaxial CT images of the abdomen and pelvis were performed following the IV administrat ion of 120 cc of Optiray, A dose lowering technique was utilized adhering to the principles of ALARA . COMPARISON STUDY: 12/02/2023, 05/05/2022 FINDINGS: Clear lung bases. No free air. Unremarkable spleen, adrenal glands and liver. Cholecystecto my hepatic steatosis. Patency of the hepatic and portal veins. Splenic vein also appears patent. Abse nt left kidney. Unremarkable right kidney without hydronephrosis. The urinary bladder is within julia l limits. Age advanced pancreatic atrophy redemonstrated. There is an ill-defined 2.2 cm hypodense focus in the abdominal left upper quadrant involving versus abutting the pancreatic tail. There is mild interstit ial and peripancreatic inflammatory stranding, pronounced involving the pancreatic head and uncinate process/pancreaticoduodenal groove. No drainable fluid collections or pancreatic ductal dilation. Aorta and IVC are unremarkable. No lymphadenopathy. Wall thickening with hyperemia of the second and third portions duodenum. Stool filled distended terminal ileum. Normal appendix. IMPRESSION: 1. Findings suggestive of mild interstitial edematous pancreatitis. 2. There is a 2.2 cm hypodense focus abutting or involving the pancreatic tail. Differential consider ations include an acute peripancreatic fluid collection, pseudocyst or cystic pancreatic lesion. Two- month follow-up CT of the abdomen with pancreatic protocol recommended. 3. No drainable fluid collections. 4. Mild wall thickening of the duodenum is likely reactive. Primary duodenitis considered less likely . 5. Cholecystectomy. ACT 112: Negative or not required by law. The above report was generated using voice recognition software. It may contain grammatical, syntax o r spelling errors. Electronically signed by: Abilio Leyva M.D. 04/24/2024 10:22 AM
[2024-04-24] MEDS: MoRPHine SULFATE 4 MG/ML 1 ML CARP\\VIAL IV STA (10:43)
[2024-04-24] MEDS ORDERED: MAGNESIUM HYDROXIDE SUSP 30 ML UDC PO PRN (10:57)
[2024-04-24] MEDS ORDERED: ONDANSETRON INJ 2 MG/ML 2 ML VIAL IV PRN (10:57)
[2024-04-24] MEDS ORDERED: POLYETHYLENE (MIRALAX) 17 GM PACK PO PRN (10:57)
[2024-04-24] MEDS ORDERED: ALUMINUM/MAGNESIUM SUSP 30 ML UDC PO PRN (10:57)
--- NOTE | 2024-04-24 11:19 | History & Physical Report ---
Date of Service April 24, 2024 Assessment & Plan (1) Acute pancreatitis: (2) Cystic fibrosis: (3) Epilepsy: (4) Absent kidney, congenital: (5) Autism: Plan Mr. Swan is a 29 year old male that presents to the ED today with complaints of abdominal pain that started as epigastric pain and radiated to his right upper quadrant into the back. He was admitted back in November 2023 with sepsis of the pancreas. And was recently worked up for CFTR in his causing fluid in his pancreatic ducts/narrowing. Additional past medical history includes seizures,, chronic idiopathic constipation, spine bifida, Klinefelter syndrome, abnormality of chromosome 5, high functioning autism and chronic pancreatitis. Patient follows with GI Dr. Cline for his more recent diagnosis of CFTR. No additional plan has been set in place with regards to surgical intervention at this time. Patient recently completed clindamycin as an outpatient 3 weeks ago for treatment of dental abscess of the top left tooth. Abdominal pelvis CT revealed mild interstitial edematous pancreatitis with a 2.2 mm lesion of fluid collection indicating cystic pancreatic lesion. No drainable fluid collections. Mild wall thickening of the duodenum is likely reactive. Primary duodenitis considered less likely.. Two-month follow-up CT of the abdomen with pancreatic protocol recommended. mild leukocytosis WBC 10.12, lipase normal at 60, alk phos 152, otherwise labs unremarkable. Patient will be admitted for further evaluation and management of pancreatitis. Will keep n.p.o. for now, liquid Tylenol for pain, stool culture and C. difficile due to recent diarrhea and completion of p.o. ABX, respiratory bio fire ordered due to cough and will add on lipid panel to evaluate triglyceride level. Acute pancreatitis: Acute WBC 10.12 Lipase 60 Received 1 LNSB in ED; continue NS @ 125ml/hour x2 bags Keep NPO for now AP CT: Interstitial edematous pancreatitis with a 2.2 mm lesion of fluid collection indicating cystic pancreatic lesion. No drainable fluid collections. Mild wall thickening of the duodenum is likely reactive. Primary duodenitis considered less likely.. Two-month follow-up CT of the abdomen with pancreatic protocol recommended. Lipid panel ordered for AM to rule out hypertriglyceridemia Liquid Tylenol PRN for pain (pt prefers liquid) CFTR gene: Chronic Recently discovered Likely cause of digestive issues with pancreatic duct narrowing Has followed with GI in the past Diarrhea: Acute Typically soft stool Past three days more liquid with mucus No additional malodor CD and stool culture ordered H/O Eliepsy: Chronic Has partial seizures often On seizure precautions Takes appetite, lacosamide, Lamictal; continue Absent kidney, congenital: Chronic Takes Ure-Na;continue Autism: Chronic Highly functioning Disposition: Dr. Solis Code Status: Full Code VTE Prophylaxis: Teds and SCDs for now I spent a total of 86 minutes coordinating, documenting, and providing care for this patient excluding time spent in the performance of separately billed services. All of the aforementioned completed while collaborating with the assigned attending physician for a full treatment plan. Please see their addendum for further details. History of Present Illness Chief Complaint: Abdominal pain Primary Care Provider: Najma Solis MD Mr. Swan is a 29 year old male that presents to the ED today with complaints of abdominal pain that started as epigastric pain and radiated to his right upper quadrant into the back. He was admitted back in November 2023 with sepsis of the pancreas. And was recently worked up for CFTR in his causing fluid in his pancreatic ducts/narrowing. Additional past medical history includes seizures,, chronic idiopathic constipation, spine bifida, Klinefelter syndrome, abnormality of chromosome 5, high functioning autism and chronic pancreatitis. Patient follows with GI Dr. Cline for his more recent diagnosis of CFTR. No additional plan has been set in place with regards to surgical intervention at this time. Patient recently completed clindamycin as an outpatient 3 weeks ago for treatment of dental abscess of the top left tooth. Abdominal pelvis CT revealed mild interstitial edematous pancreatitis with a 2.2 mm lesion of fluid collection indicating cystic pancreatic lesion. No drainable fluid collections. Mild wall thickening of the duodenum is likely reactive. Primary duodenitis considered less likely.. Two-month follow-up CT of the abdomen with pancreatic protocol recommended. In the ED mild leukocytosis WBC 10.12, lipase normal at 60, alk phos 152, otherwise labs unremarkable. Received 1 LNS be in ED and morphine for pain control. Reports polyuria and burning with urination. Patient will be admitted for further evaluation and management of pancreatitis. Will keep n.p.o. for now, liquid Tylenol for pain, stool culture and C. difficile due to recent diarrhea and completion of p.o. ABX, respiratory bio fire ordered due to cough and will add on lipid panel to evaluate triglyceride level. Allergies Allergy/AdvReac Type Severity Reaction Status Date / Time amoxicillin Allergy Severe Anaphylaxis Verified 04/24/24 11:41 /HIVES clavulanic acid Allergy Severe Anaphylaxis Verified 04/24/24 11:41 [From Augmentin] /HIVES gluten Allergy Severe Gastrointestinal Unverified 04/24/24 11:41 Upset Milk Containing Products Allergy Severe Gastrointestinal Unverified 04/24/24 11:41 (Dairy) Upset Penicillins Allergy Severe Anaphylaxis Verified 04/24/24 11:42 Macrolide Antibiotics Allergy Intermediate Hives Verified 04/24/24 11:41 polyethylene glycol 3350 Allergy Intermediate ITCHING Verified 04/24/24 11:41 [From Miralax] Sulfa (Sulfonamide Allergy Intermediate Hives Verified 04/24/24 11:41 Antibiotics) Inhaled Anesthetics (Halogen Allergy Possible Verified 04/24/24 11:41 Based) family history malignant hyperthermia succinylcholine Allergy Possible Verified 04/24/24 11:41 family history malignant hyperthermia Home Medications Medication Instructions Recorded Confirmed Type gabapentin 600 mg tablet 600 mg PO BID 05/05/22 04/24/24 History lamotrigine 200 mg tablet 200 mg PO BID 05/05/22 04/24/24 History melatonin 10 mg tablet 20 mg PO HS 05/05/22 04/24/24 History omeprazole 20 mg capsule,delayed 20 mg PO HS 03/08/23 04/24/24 History release ibuprofen 200 mg tablet 200 mg PO Q4 PRN Fever Or Pain 07/22/23 04/24/24 History lorazepam 2 mg/mL oral concentrate 2 mg buccal UD PRN seizure>5min or 12/02/23 04/24/24 History 3 seizures in24 hour urea 15 gram oral powder packet 15 g PO BID 30 days #8 ea 12/07/23 04/24/24 Rx (Ure-Na) Acid Relief Chew 0 mg PO DAILY 04/24/24 04/24/24 History diazepam 20 mg/2 spray (10 mg/0.1 10 mg intranasal DAILY PRN 04/24/24 04/24/24 History mL x 2) nasal spray (Valtoco) seizures lasting 3 minutes or more eslicarbazepine 800 mg tablet 800 mg PO QAM 04/24/24 04/24/24 History (Aptiom) folic acid 400 mcg tablet 400 mcg PO QAM 04/24/24 04/24/24 History lacosamide 100 mg tablet 200 mg PO BID 04/24/24 04/24/24 History sennosides 8.6 mg-docusate sodium 2 tab PO BID CONSTIPATION 04/24/24 04/24/24 Hi story 50 mg tablet (Senokot-S) Past Med/Surg History Problem List Nausea (Acute) Abdominal pain (Acute) Acute pancreatitis (Acute) Autism Absent kidney, congenital Generalized seizure (Acute) Hyponatremia Epilepsy Acute pancreatitis (Acute) Cystic fibrosis (Acute) Post-streptococcal glomerulonephritis No pertinent family history Encounter for pre-operative examination Medical History History of asthma No inhaler Spina bifida Noted in available [facility] records, not reported during PAT RN phone interview Seasonal allergies Hx of pancreatitis EUS 02/05/23 AT [facility] Seizure disorder Epilepsy/grand mal seizures Follows with [facility] neuro/Dr. Watters Most recent seizure 02/2023- levels being monitored closely by neuro Surgical History History of anesthesia reaction Awareness, "woke up" with recent EUS when tube was being removed Family history of anesthesia complication Patient's brother had foot surgery at [facility], discharged home and developed high fever/stiff joints > sent to ER, given antibiotics, sent home. No admission required. Brother now (unrelated)/unable to obtain further information. Patient's mother denies being told the term malignant hyperthermia and states that further testing/precautions were not recommended after brother's event. 2012 oral surgery [facility] anesthesia records for patient scanned into [employer]- use of desflurane/sux without issue. Hx of colonoscopy History of dental surgery Resin based composite 2 surfaces, posterior (10/21/11): MAC#4, ETT 7.0 at [facility] [place] (limited anesthesia record scanned in) Removal of impacted tooth (09/26/13): MAC#4, ETT 7.0 at [facility] [place] (Anesthesia records scanned into [employer]), received desflurane/succinylcholine per anesthesia record. "Anesthesia Complications: none" H/O circumcision Family History Brother History of anesthesia reaction Social History Smoking Status: Never smoker Second Hand Exposure: No; Do You Dip or Chew Tobacco: No; Hx Alcohol Use: No Hx Substance Use: No Preferred Language: Lao Communication Ability: Effective Executive Asst Required: No Beliefs That Will Affect Care: None Current Living Situation: Family Current Living Situation Comment: With parents and siblings x2 Feels Safe at Home: Yes Assistive Devices: Wheelchair Review of Systems Review of Systems: Neuro: (-) Falls, trauma, slurred speech HEENT: (-) CASTRO, dizziness, dysphagia, visual or auditory changes CV: (-) CP, palpitations, swelling Resp: (-) SOB GI: (-) appetite changes, N/V/D, bowel changes : (-) urinary changes Skin: (-) rashes Psych: (-) anxiety, depression Physical Exam Physical Exam: Neuro: AAOx4, PERRLA, no aphagia, memory changes, CNII-XII grossly intact HEENT: head normocephalic, moist mucus membranes CV: S1/S2, (-) M/G/R, (-) edema, cap refill < 3 seconds Resp: Lungs CTA in all gordon. On RA GI: Abdomen large, tender RUQ, no radiation. (-) CVA tenderness Musculoskeletal: 5/5 B/L UE strength, 5/5 B/L LE strength. No gait disturbance Skin: (-) rashes , (-) erythema. Psych: euthymic mood Results & Data Results & Data Vital Signs (Past 12 Hours) Vital Signs Temp Pulse Pulse Resp BP BP Pulse Ox 04/24/24 11:06 96 04/24/24 11:06 79 18 131/77 96 04/24/24 10:42 85 18 97 04/24/24 10:03 72 99 04/24/24 09:57 84 96 04/24/24 09:33 126/74 04/24/24 09:15 81 16 98 04/24/24 09:00 83 19 98 04/24/24 08:36 81 20 98 04/24/24 08:32 76 06/17/24 08:26 96 04/24/24 08:09 36.5 C 84 16 136/83 100 O2 Del Method 04/24/24 11:06 Room Air 04/24/24 11:06 Room Air 04/24/24 10:42 04/24/24 10:03 04/24/24 09:57 04/24/24 09:33 04/24/24 09:15 04/24/24 09:00 04/24/24 08:36 04/24/24 08:32 04/24/24 08:26 Room Air 04/24/24 08:09 Room Air Laboratory Results Short CBC 04/24/24 Range/Units 08:16 WBC 10.12 (4.8-10.8) K/ul Hgb 15.9 (14.0-18.0) g/dl Hct 45.8 (42.0-52.0) % Plt Count 238 (130-400) K/uL BMP 04/24/24 08:16 Sodium 136 Potassium 4.0 Chloride 101 Carbon Dioxide 27 BUN 19 Creatinine 0.83 Glucose 106 H Calcium 10.3 Liver Function 04/24/24 Range/Units 08:16 Total Bilirubin 0.7 (0.2-1.0) mg/dl AST 20 (13-39) U/L ALT 29 (7-52) U/L Alkaline Phosphatase 152 H (34-104) U/L Albumin 4.6 (3.4-5.0) gm/dl Urine 04/24/24 Range/Units 08:15 Urine Color Yellow Urine Appearance Clear (Clear) Urine pH 8.5 H (4.5-7.5) Ur Specific [place] 1.007 (1.000-1.030) Urine Protein Negative (Negative) Urine Glucose (UA) Negative (Negative) Diagnostic Findings Abdomen/Pelvis CT 04/24/24 08:[address] WITH IV CONTRAST CT DOSE: 1535.53 mGy.cm HISTORY: Acute epigastric abdominal pain epigastric abd pain TECHNIQUE: Multiaxial CT images of the abdomen and pelvis were performed following the IV administration of 120 cc of Optiray, A dose lowering technique was utilized adhering to the principles of ALARA. COMPARISON STUDY: 12/02/2023, 05/05/2022 FINDINGS: Clear lung bases. No free air. Unremarkable spleen, adrenal glands and liver. Cholecystectomy hepatic steatosis. Patency of the hepatic and portal veins. Splenic vein also appears patent. Absent left kidney. Unremarkable right kidney without hydronephrosis. The urinary bladder is within normal limits. Age advanced pancreatic atrophy redemonstrated. There is an ill-defined 2.2 cm hypodense focus in the abdominal left upper quadrant involving versus abutting the pancreatic tail. There is mild interstitial and peripancreatic inflammatory stranding, pronounced involving the pancreatic head and uncinate process/pancreaticoduodenal groove. No drainable fluid collections or pancreatic ductal dilation. Aorta and IVC are unremarkable. No lymphadenopathy. Wall thickening with hyperemia of the second and third portions duodenum. Stool filled distended terminal ileum. Normal appendix. IMPRESSION: 1. Findings suggestive of mild interstitial edematous pancreatitis. 2. There is a 2.2 cm hypodense focus abutting or involving the pancreatic tail. Differential considerations include an acute peripancreatic fluid collection, pseudocyst or cystic pancreatic lesion. Two-month follow-up CT of the abdomen with pancreatic protocol recommended. 3. No drainable fluid collections. 4. Mild wall thickening of the duodenum is likely reactive. Primary duodenitis considered less likely. 5. Cholecystectomy. ACT 112: Negative or not required by law. The above report was generated using voice recognition software. It may contain grammatical, syntax or spelling errors. Electronically signed by: Abilio Leyva M.D. 04/24/2024 10:22 AM Code Status & VTE Plan Code Status Full Code in the event of cardiac or respirattory arrest VTE Prophylaxis Plan VTE Prophylaxis will be ordered: Yes Supervising Physician Co-Signing Physician Notes 29-year-old male with PMH of CFTR gene positive, recurrent pancreatitis presented to the ED with 1 day complaint of upper abdominal pain, radiating to back, associated with nausea, no vomiting, some sore throat few days ago, loose stool x 1 yesterday. Patient would like Tylenol over opiates for pain management. NPO. IV fluid. Likely clear liquid diet in a.m. pending clinical assessment/abdominal pain resolution. If with further loose stool, send stool PCR. On examination: GENERAL: Alert and oriented x3. NAD, on RA. HEENT: No pallor, no icterus. Pupils equal, round and reactive to light. Oral mucosa moist. NECK: No JVD, no neck masses. HEART: S1 and S2 heard. Regular rate and rhythm. No murmur, no gallop. RESPIRATORY SYSTEM: Normal AP diameter. No accessory muscle use. No wheezing, no crackles. ABDOMEN: Soft, bowel sounds present, epigastric tender x mild, no distention. CENTRAL NERVOUS SYSTEM: No facial droop. Speech is clear. Obeys simple commands. Moves extremities. EXTREMITIES: No edema, no erythema seen. I have seen and examined the patient and have discussed the case with the provider above. I agree with the assessment and plan as stated. (1) Acute pancreatitis Acute pancreatitis complication: unspecified Pancreatitis type: unspecified pancreatitis type Qualified Code(s): K85.90 - Acute pancreatitis without necrosis or infection, unspecified
[2024-04-24] MEDS: SODIUM CHLORIDE 0.9% 1,000 ML IV SCH (12:47)
[2024-04-24 14:06] LABS: Adenovirus PCR Not Detected (NotDetected); Bordetella parapertussis PCR Not Detected (NotDetected); Bordetella pertussis PCR Not Detected (NotDetected); Chlamydia pneumoniae PCR Not Detected (NotDetected); Coronavirus 229E PCR Not Detected (NotDetected); Coronavirus CoV-2 (COVID19)PCR Not Detected (NotDetected); Coronavirus HKU1 PCR Not Detected (NotDetected); Coronavirus NL63 PCR Not Detected (NotDetected); Coronavirus OC43PCR Not Detected (NotDetected); Human Metapneumovirus PCR Not Detected (NotDetected); Influenza A PCR Not Detected (NotDetected); Influenza B PCR Not Detected (NotDetected); Mycoplasma pneumoniae PCR Not Detected (NotDetected); Parainfluenza Virus 1 PCR Not Detected (NotDetected); Parainfluenza Virus 2 PCR Not Detected (NotDetected); Parainfluenza Virus 3 PCR Not Detected (NotDetected); Parainfluenza Virus 4 PCR Not Detected (NotDetected); Respiratory Syncytial VirusPCR Not Detected (NotDetected); Rhinovirus/Enterovirus PCR Not Detected (NotDetected)
[2024-04-24] MEDS: ACETAMINOPHEN 325 MG TAB PO PRN (18:07)
[2024-04-24] MEDS: lamoTRIgine 100 MG TAB PO SCH (20:01)
[2024-04-24] MEDS: MELATONIN 3 MG TAB PO SCH (20:02)
[2024-04-24] MEDS: UREA (UREA-NA) 15 GM PACK PO SCH (20:05)
[2024-04-24] MEDS: LACOSAMIDE 50 MG TABLET PO SCH (21:06)
[2024-04-24] MEDS: GABAPENTIN 600 MG TAB PO SCH (21:06)
[2024-04-24] MEDS: DOCUSATE SODIUM/SENNA 50/8.6MG TAB PO SCH (21:06)
[2024-04-24] MEDS: PANTOprazole 40 MG TAB PO SCH (21:38)
[2024-04-25 07:38] LABS: Hematocrit (blood only) 40.3 % (42.0-52.0); Hemoglobin 13.7 g/dl (14.0-18.0); Mean Corpuscular Hemoglobin 29.3 pg (25.0-34.0); Mean Corpuscular Volume 86.1 fL (80.0-100.0); Mean Platelet Volume 10.1 fL (9.4-12.4); Platelet Count 187 K/uL (130-400); RDW Coefficient of Variation 12.6 % (11.5-14.5); RDW Standard Deviation 39.8 fL (36.4-46.3); Red Blood Count 4.68 M/uL (4.70-6.10); White Blood Count 6.44 K/ul (4.8-10.8)
[2024-04-25 07:52] LABS: BUN Creatinine Ratio 21.7 (10-20); Calcium 9.5 mg/dl (8.6-10.3); Chol HDL Ratio 3.6 (0-5); Creatinine Clr Calc Pharmacy 241.9 ml/min; Est GFR (African American) 149.7 ml/min; Est GFR (Non-African American) 129.2 ml/min; Magnesium 1.8 mg/dl (1.7-2.4); Phosphorus 3.1 mg/dl (2.5-4.9); Potassium 4.1 mmol/L (3.5-5.1)
[2024-04-25] MEDS: ESLICARBAZEPINE 800 MG PO SCH (09:17)
[2024-04-25] MEDS: FOLIC ACID 400 MCG TAB PO SCH (09:18)
[2024-04-25] MEDS: SODIUM CHLORIDE 0.9% 1,000 ML IV SCH (09:26)
--- NOTE | 2024-04-25 12:40 | Electrocardiogram Report ---
Test Reason : Blood Pressure : / mmHG Vent. Rate : 078 BPM Atrial Rate : 078 BPM P-R Int : 144 ms QRS Dur : 080 ms QT Int : 344 ms P-R-T Axes : 043 022 048 degrees QTc Int : 392 ms Normal sinus rhythm Normal ECG When compared with ECG of 15-MAR-2024 16:26, No significant change was found Confirmed by Coy Grace ([id number]) on 04/25/2024 12:39:43 PM Referred By: REFERRED SELF Confirmed By:Coy Grace
[2024-04-25] MEDS: PANTOprazole 40 MG TAB PO SCH (13:00)
--- NOTE | 2024-04-25 14:30 | Hospitalist Progress Note ---
Date of Service April 25, 2024 Assessment & Plan (1) Acute pancreatitis: (2) Cystic fibrosis: (3) Epilepsy: (4) Absent kidney, congenital: (5) Autism: Plan Mr. Swan is a 29 year old male that presents to the ED today with complaints of abdominal pain that started as epigastric pain and radiated to his right upper quadrant into the back. He was admitted back in November 2023 with sepsis of the pancreas. And was recently worked up for CFTR in his causing fluid in his pancreatic ducts/narrowing. Additional past medical history includes seizures,, chronic idiopathic constipation, spine bifida, Klinefelter syndrome, abnormality of chromosome 5, high functioning autism and chronic pancreatitis. Patient follows with GI Dr. Cline for his more recent diagnosis of CFTR. No additional plan has been set in place with regards to surgical intervention at this time. Patient recently completed clindamycin as an outpatient 3 weeks ago for treatment of dental abscess of the top left tooth. Abdominal pelvis CT revealed mild interstitial edematous pancreatitis with a 2.2 mm lesion of fluid collection indicating cystic pancreatic lesion. No drainable fluid collections. Mild wall thickening of the duodenum is likely reactive. Primary duodenitis considered less likely.. Two-month follow-up CT of the abdomen with pancreatic protocol recommended. mild leukocytosis WBC 10.12, lipase normal at 60, alk phos 152, otherwise labs unremarkable. Patient will be admitted for further evaluation and management of pancreatitis. Will keep n.p.o. for now, liquid Tylenol for pain, stool culture and C. difficile due to recent diarrhea and completion of p.o. ABX, respiratory bio fire ordered due to cough and will add on lipid panel to evaluate triglyceride level. Acute pancreatitis H/O pancreatitis Hypodense lesion of pancreatic tail --CT ABD:Findings suggestive of mild interstitial edematous pancreatitis. There is a 2.2 cm hypodense focus abutting or involving the pancreatic tail. Differential considerations include an acute peripancreatic fluid collection, pseudocyst or cystic pancreatic lesion. Two-month follow-up CT of the abdomen with pancreatic protocol recommended. No drainable fluid collections. Mild wall thickening of the duodenum is likely reactive. Primary duodenitis considered less likely. Cholecystectomy. -- Lipid panel within normal limits --Denies alcohol use --Continue IV fluids --Advance diet as tolerated --Will need follow-up with gastroenterology for possible endoscopic ultrasound Clinically improving Will need repeat CT in 2 months on discharge CFTR gene: Chronic Recently discovered Follows with Dr. Cline as outpatient Diarrhea: Recent history of clindamycin use for dental abscess Check stool studies to rule out C. difficile Monitor volume status H/O Epilepsy: Reports frequent partial seizures On seizure precautions Continue lacosamide, Lamictal, gabapentin Absent kidney, congenital: Chronic Takes Ure-Na;continue Autism: Chronic Highly functioning Other chronic conditions: Chronic idiopathic constipation spine bifida Klinefelter syndrome abnormality of chromosome 5 DVT Px: SCDs Encouraged to ambulate Code Status: Full Code Admission and Anticipated Discharge Date Admission Date: April 24, 2024 Subjective Patient is seen and examined at bedside Abdominal pain improving Denies diarrhea this morning Offers no other complaints Discussed with patient's family at bedside Review of Systems Review of Systems: All systems reviewed & are unremarkable except as noted in Subjective Physical Exam Physical Exam: Physical Exam: Vitals signs as noted above General Appearance:Obese, no apparent distress Head: normocephalic, Atraumatic Eyes: normal inspection, EOMI Neck: supple, Trachea midline Respiratory/Chest: Normal breath sounds, CTA, No accessory muscle use Cardiovascular: S1, S2, No murmur Abdomen/GI:Soft, Non tender, protuberant, Bowel sounds present Extremities/Musculoskeletal:normal inspection, no edema Neurologic/Psych:AAOX3, grossly no focal neurological deficits Skin: normal color, warm Results & Data Results & Data Vital Signs (Past 12 Hours) Vital Signs Temp Pulse Pulse Resp BP BP Pulse Ox 04/25/24 11:15 36.7 C 78 16 113/75 97 04/25/24 10:19 04/25/24 07:12 36.5 C 75 18 103/67 96 04/25/24 07:00 77 04/25/24 03:44 36.3 C L 76 18 112/66 96 O2 Del Method 04/25/24 11:15 Room Air 04/25/24 10:19 Room Air 04/25/24 07:12 Room Air 04/25/24 07:00 04/25/24 03:44 Room Air Laboratory Results Short CBC 04/25/24 Range/Units 06:45 WBC 6.44 (4.8-10.8) K/ul Hgb 13.7 L (14.0-18.0) g/dl Hct 40.3 L (42.0-52.0) % Plt Count 187 (130-400) K/uL BMP 04/25/24 06:45 Sodium 138 Potassium 4.1 Chloride 105 Carbon Dioxide 27 BUN 15 Creatinine 0.69 Glucose 81 Calcium 9.5 (1) Acute pancreatitis Acute pancreatitis complication: unspecified Pancreatitis type: unspecified pancreatitis type Qualified Code(s): K85.90 - Acute pancreatitis without necrosis or infection, unspecified
[2024-04-25] MEDS: LORazepam 1 MG in SYRINGE 0.5 ML IV PRN (16:43)
[2024-04-25] MEDS: MAGNESIUM SULFATE / D5W 1 GM/100 ML BAG IV ONE (16:46)
[2024-04-26 00:09] LABS: Adenovirus F 40/41 PCR Not Detected (NotDetected); Astrovirus PCR Not Detected (NotDetected); Campylobacter PCR Not Detected (NotDetected); Cryptosporidium PCR Not Detected (NotDetected); Cyclospora cayetanensis PCR Not Detected (NotDetected); Entamoeba histolytica PCR Not Detected (NotDetected); Enteroaggregative E.coli(EAEC) Not Detected (NotDetected); Enteropathogenic E.coli (EPEC) Not Detected (NotDetected); Enterotoxigenic E.coli (ETEC) Not Detected (NotDetected); Giardia lamblia PCR Not Detected (NotDetected); Norovirus GI/GII PCR Not Detected (NotDetected); Plesiomonas shigelloides PCR Not Detected (NotDetected); Rotavirus A PCR Not Detected (NotDetected); Salmonella PCR Not Detected (NotDetected); Sapovirus PCR Not Detected (NotDetected); Shiga-like Toxin E.coli (STEC) Not Detected (NotDetected); Shigella/Enteroinvasive E.coli Not Detected (NotDetected); Vibrio cholerae PCR Not Detected (NotDetected); Vibrio species PCR Not Detected (NotDetected); Yersinia enterocolitica PCR Not Detected (NotDetected)
[2024-04-26 07:22] LABS: Mean Corpuscular Hemoglobin 29.1 pg (25.0-34.0); Mean Corpuscular Hgb Conc 34.2 g/dL (32.0-36.0); Mean Platelet Volume 10.3 fL (9.4-12.4); Platelet Count 204 K/uL (130-400); RDW Coefficient of Variation 12.1 % (11.5-14.5); RDW Standard Deviation 37.4 fL (36.4-46.3); Red Blood Count 4.47 M/uL (4.70-6.10); White Blood Count 6.12 K/ul (4.8-10.8)
[2024-04-26 07:50] LABS: Anion Gap 6 (3-11); BUN Creatinine Ratio 20.3 (10-20); Blood Urea Nitrogen 13 mg/dl (6-23); Calcium 9.1 mg/dl (8.6-10.3); Carbon Dioxide 26 mmol/L (21-32); Chloride 102 mmol/L (98-107); Creatinine Clr Calc Pharmacy 261.2 ml/min; Est GFR (African American) > 150.0 ml/min; Est GFR (Non-African American) 133.2 ml/min; Glucose 99 mg/dl (70-99(Fasting)); Magnesium 1.7 mg/dl (1.7-2.4); Potassium 3.8 mmol/L (3.5-5.1); Sodium 134 mmol/L (136-145)
--- NOTE | 2024-04-26 10:37 | Discharge Summary ---
Discharge Summary Date of Service April 26, 2024 Principal Dx & Hospital Course #1 = Principal Diagnosis (1) Acute pancreatitis: (2) Cystic fibrosis: (3) Epilepsy: (4) Absent kidney, congenital: (5) Autism: Plan Mr. Swan is a 29 year old male with Klinefelter syndrome, abnormality of chromosome 5, high functioning autism, epilepsy, absent congenital kidney, SIADH who is admitted for RUQ pain and noted to have acute pancreatitis. 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 Additional past medical history includes seizures,, chronic idiopathic constipation, spine bifida, and chronic pancreatitis. Patient follows with GI Dr. Cline for his more recent diagnosis of CFTR. Abdominal pelvis CT revealed mild interstitial edematous pancreatitis with a 2 .2 mm lesion of fluid collection indicating cystic pancreatic lesion. No drainable fluid collections. Mild wall thickening of the duodenum is likely reactive. Patient noted to improve with IVF and transitioned to liquid diet 04/25. On day of discharge, labs were stable, patient denied any pain and reports feeling well over all. Patient also reports drinking multiple prune juices. He denies any cramping, he states that had diarrhea yesterday, which has improved. Stool pcr negative. #Acute on chronic pancreatitis #Hypodense lesion of pancreatic tail --CT ABD:Findings suggestive of mild interstitial edematous pancreatitis. There is a 2.2 cm hypodense focus abutting or involving the pancreatic tail. Differential considerations include an acute peripancreatic fluid collection, p seudocyst or cystic pancreatic lesion. Two-month follow-up CT of the abdomen with pancreatic protocol recommended. No drainable fluid collections. Mild wall thickening of the duodenum is likely reactive. Primary duodenitis considered less likely. Cholecystectomy. -- Lipid panel within normal limits --Denies alcohol use --Discontinue IV fluids, advanced to low fat diet --Will need follow-up with gastroenterology for possible endoscopic ultrasound Clinically improving Will need repeat CT in 2 months on discharge #CFTR gene: Chronic Recently discovered Follows with Dr. Cline as outpatient #Diarrhea: Recent history of clindamycin use for dental abscess stool studies negative, reports drinking multiple prune juices Monitor volume status #H/O Epilepsy: Reports frequent partial seizures Continue lacosamide, Lamictal, gabapentin #Absent kidney, congenital: #SIADH Chronic Takes Ure-Na;continue #Autism: Chronic Highly functioning Other chronic conditions: Chronic idiopathic constipation spine bifida Klinefelter syndrome abnormality of chromosome 5 Notes For Next Care Provider CT revealed mild interstitial edematous pancreatitis with a 2.2 mm lesion of fluid collection indicating cystic pancreatic lesion. No drainable fluid collections. Mild wall thickening of the duodenum is likely reactive. Primary duodenitis considered less likely.. Two-month follow-up CT of the abdomen with pancreatic protocol recommended Medication Changes From Visit None Admission HPI Per Admitting Provider Mr. Swan is a 29 year old male that presents to the ED today with complaints of abdominal pain that started as epigastric pain and radiated to his right upper quadrant into the back. He was admitted back in November 2023 with sepsis of the pancreas. And was recently worked up for CFTR in his causing fluid in his pancreatic ducts/narrowing. Additional past medical history includes seizures,, chronic idiopathic constipation, spine bifida, Klinefelter syndrome, abnormality of chromosome 5, high functioning autism and chronic pancreatitis. Patient follows with GI Dr. Cline for his more recent diagnosis of CFTR. No additional plan has been set in place with regards to surgical intervention at this time. Patient recently completed clindamycin as an outpatient 3 weeks ago for treatment of dental abscess of the top left tooth. Abdominal pelvis CT revealed mild interstitial edematous pancreatitis with a 2.2 mm lesion of fluid collection indicating cystic pancreatic lesion. No drainable fluid collections. Mild wall thickening of the duodenum is likely reactive. Primary duodenitis considered less likely.. Two-month follow-up CT of the abdomen with pancreatic protocol recommended. In the ED mild leukocytosis WBC 10.12, lipase normal at 60, alk phos 152, ot herwise labs unremarkable. Received 1 LNS be in ED and morphine for pain control. Reports polyuria and burning with urination. Patient will be admitted for further evaluation and management of pancreatitis. Will keep n.p.o. for now, liquid Tylenol for pain, stool culture and C. difficile due to recent diarrhea and completion of p.o. ABX, respiratory bio fire ordered due to cough and will add on lipid panel to evaluate triglyceride level. Admission Exam Per Admitting Provider GENERAL: Alert and oriented x3. NAD, on RA. HEENT: No pallor, no icterus. Pupils equal, round and reactive to light. Oral mucosa moist. NECK: No JVD, no neck masses. HEART: S1 and S2 heard. Regular rate and rhythm. No murmur, no gallop. RESPIRATORY SYSTEM: Normal AP diameter. No accessory muscle use. No wheezing, no crackles. ABDOMEN: Soft, bowel sounds present, epigastric tender x mild, no distention. CENTRAL NERVOUS SYSTEM: No facial droop. Speech is clear. Obeys simple commands. Moves extremities. EXTREMITIES: No edema, no erythema seen. Discharge Exam Constitutional WD/WN, vitals as above Respiratory normal respiratory effort, lungs clear to auscultation Cardiovascular RRR, no murmur, no edema Gastrointestinal (Abdomen) normal bowel sounds, soft, nontender, no hepatosplenomegaly Updated Medication List Medication Instructions Recorded Confirmed Type gabapentin 600 mg tablet 600 mg PO BID 05/05/22 04/24/24 History lamotrigine 200 mg tablet 200 mg PO BID 05/05/22 04/24/24 History melatonin 10 mg tablet 20 mg PO HS 05/05/22 04/24/24 History omeprazole 20 mg capsule,delayed 20 mg PO HS 03/08/23 04/24/24 History release ibuprofen 200 mg tablet 200 mg PO Q4 PRN Fever Or Pain 07/22/23 04/24/24 History lorazepam 2 mg/mL oral concentrate 2 mg buccal UD PRN seizure>5min or 12/02/23 04/24/24 History 3 seizures in24 hour urea 15 gram oral powder packet 15 g PO BID 30 days #8 ea 12/07/23 04/24/24 Rx (Ure-Na) Acid Relief Chew 0 mg PO DAILY 04/24/24 04/24/24 History diazepam 20 mg/2 spray (10 mg/0.1 10 mg intranasal DAILY PRN 04/24/24 04/24/24 History mL x 2) nasal spray (Valtoco) seizures lasting 3 minutes or more eslicarbazepine 800 mg tablet 800 mg PO QAM 04/24/24 04/24/24 History (Aptiom) folic acid 400 mcg tablet 400 mcg PO QAM 04/24/24 04/24/24 History lacosamide 100 mg tablet 200 mg PO BID 04/24/24 04/24/24 History sennosides 8.6 mg-docusate sodium 2 tab PO BID CONSTIPATION 04/24/24 04/24/24 History 50 mg tablet (Senokot-S) Hospital Stay Data Consultations 04/24/24 10:52 ED Decision to Admit Stat Diagnostic Imagining Performed 04/24/24 08:09 CT Abd and Pelvis [CT abd pelvis IV con only] Stat Discharge Instructions Given to Patient (Per Discharging Provider) You were admitted with abdominal pain suggestive of acute pancreatitis. You were treated with IV fluids and your symptoms improved. The following was noted on your imaging: . "There is a 2.2 cm hypodense focus abutting or involving the pancreatic tail. Differential considerations include an acute peripancreatic fluid collection, pseudocyst or cystic pancreatic lesion. Two-month follow-up CT of the abdomen with pancreatic protocol recommended." Please follow up with your alumni relations officer to ensure close monitoring of re ported lesion. There were no changes to your home regimen. Total Time Total Time Spent Total Time Spent (In Minutes): 45
[2024-04-26] MEDS: LORazepam 1 MG TAB PO PRN (14:38)
== END 2024-04-26 16:06 | disposition home or self-care (01) | DRG 640 ==
LOC: ED 08:02 → SUATTDRO 10:57 → EDINP 10:57 → 2N 17:54

== ENCOUNTER 2024-05-04 11:20 | Inpatient (IN) ==
[2024-05-04 12:14] LABS: Basophils # (auto) 0.07 K/uL (0.00-0.20); Basophils % (auto) 1.2 %; Eosinophils # (auto) 0.51 K/uL (0.00-0.50); Eosinophils % (auto) 8.7 %; Hematocrit (blood only) 47.1 % (42.0-52.0); Immature Granulocytes # (auto) 0.01 K/uL (0.01-0.20); Immature Granulocytes % (auto) 0.2 %; Lymphocytes # (auto) 2.09 K/uL (1.20-3.40); Lymphocytes % (auto) 35.8 %; Mean Corpuscular Volume 85.3 fL (80.0-100.0); Mean Platelet Volume 9.9 fL (9.4-12.4); Monocytes # (auto) 0.36 K/uL (0.11-0.59); Monocytes % (auto) 6.2 %; Neutrophils % (auto) 47.9 %; Platelet Count 233 K/uL (130-400); RDW Coefficient of Variation 12.4 % (11.5-14.5); RDW Standard Deviation 38.5 fL (36.4-46.3); Red Blood Count 5.52 M/uL (4.70-6.10); White Blood Count 5.84 K/ul (4.8-10.8)
--- NOTE | 2024-05-04 12:21 | Emergency Department Note ---
Impression & Plan Acute pancreatitis, Cystic fibrosis, Elevated BUN ED Provider Note NAME: WING NEGRON Jr AGE: 29 SEX: M : 1995 ARRIVES VIA: Ambulance INFORMANT: Patient ED PROVIDER(S): Armen Tinoco DO CHIEF COMPLAINT: Abdominal pain HPI: Patient is a 29-year-old male with a past medical history of epilepsy, pancreatitis, autism and cystic fibrosis who presents to the ER for epigastric abdominal pain radiating to the back. It is worse with eating and drinking. Associated with nausea but no vomiting. Normal bowel movements. Denies any headache or change in vision. No chest pain or shortness of breath. No dysuria, urgency, or frequency. No other exacerbating or remitting factors. ADDITIONAL HISTORY OBTAINED: Additional history obtained from family who is present at bedside he notes that this pain is consistent with his previous bouts of pancreatitis. Chronic Medical/Social Conditions Affecting Care: Per HPI PAST MEDICAL HISTORY:See Below PAST SURGICAL HISTORY:See Below FAMILY HISTORY:See Below SOCIAL HISTORY:See Below HOME MEDICATIONS:See Below ALLERGIES:See Below VITALS:See Below PHYSICAL EXAMINATION: GENERAL: Sitting up in bed, alert, well appearing, well nourished, no distress, non-toxic EYE EXAM: normal conjunctiva. OROPHARYNX: no exudate, no erythema, lips, buccal mucosa, and tongue normal and mucous membranes are moist NECK: supple, no nuchal rigidity, no adenopathy, non-tender LUNGS: Clear to auscultation. Normal chest wall mechanics HEART: no murmurs, S1 normal and S2 normal ABDOMEN: abdomen soft, non-tender, normo-active bowel sounds, no masses, no rebound or guarding. BACK: Back is symmetrical on inspection and there is no deformity, no midline tenderness, no CVA tenderness. UPPER EXTREMITIES: upper extremities are grossly normal. LOWER EXTREMITIES: No pitting edema. NEURO EXAM: Normal sensorium, cranial nerves II-XII grossly intact, normal speech, no gross weakness of arms, no gross weakness of legs. MEDICAL DECISION MAKING: Patient is a 29-year-old male who presents ER for abdominal pain with a past medical history of CF and pancreatitis notes that this feels same. IV was established blood work was obtained. Labs show no significant leukocytosis or anemia. BMP with mild hyponatremia 134. LFTs bilirubin is unremarkable. Troponin negative. Lipase faintly elevated at 86. UA was negative. With the multiple recent CTs ultrasound was obtained and fairly unremarkable. He was given IV fluids, Zofran and Toradol. Patient was updated bedside discussed case with the hospitalist for further evaluation management treatment. Consults/Care Managements Discussions: Per [facility] Triage Nursing notes reviewed. Limited review of prior medical records performed Vital Signs: reviewed and remarkable for no significant abnormalities Differential diagnosis: Differential diagnoses includes but is not limited to gastritis, peptic ulcer disease, GERD, gallbladder disease, pancreatitis, small bowel obstruction, appendicitis, diverticulitis, hernia, urinary tract infection, torsion, perforation, trauma, infectious. ER treatment provided: See below Diagnostics interpreted by me include EKG and cardiac monitoring as listed below: -Cardiac Monitoring: An order was placed for continuous cardiac monitoring. The monitor shows a rate of 80 with sinus rhythm. -ECG: Sinus rhythm rate of 79 Normal axis No PVCs QTc 392 -Laboratory studies:Interpreted by me as stated above in MDM and shown below. Imaging studies: Xrays: As interpreted by me: None CTs show: None Ultrasound of the pancreas was unremarkable per radiology Past Med/Surg History Problem List (Updated 05/04/24 @ 17:38 by Armen Tinoco DO) Elevated BUN (Acute) Epigastric abdominal pain Nausea (Acute) Abdominal pain (Acute) Acute pancreatitis (Acute) Autism Absent kidney, congenital Generalized seizure (Acute) Hyponatremia Epilepsy Acute pancreatitis (Acute) Cystic fibrosis (Acute) Post-streptococcal glomerulonephritis No pertinent family history Encounter for pre-operative examination Medical History History of asthma No inhaler Spina bifida Noted in available [facility] records, not reported during PAT RN phone interview Seasonal allergies Hx of pancreatitis EUS 02/05/23 AT [facility] Seizure disorder Epilepsy/grand mal seizures Follows with [facility] neuro/Dr. Watters Most recent seizure 02/2023- levels being monitored closely by neuro Surgical History History of anesthesia reaction Awareness, "woke up" with recent EUS when tube was being removed Family history of anesthesia complication Patient's brother had foot surgery at [facility], discharged home and developed high fever/stiff joints > sent to ER, given antibiotics, sent home. No admission required. Brother now (unrelated)/unable to obtain further information. Patient's mother denies being told the term malignant hyperthermia and states that further testing/precautions were not recommended after brother's event. 2012 oral surgery [facility] anesthesia records for patient scanned into [facility]- use of desflurane/sux without issue. Hx of colonoscopy History of dental surgery Resin based composite 2 surfaces, posterior (10/21/11): MAC#4, ETT 7.0 at [facility] (limited anesthesia record scanned in) Removal of impacted tooth (09/26/13): MAC#4, ETT 7.0 at [facility] (Anesthesia records scanned into [facility]), received desflurane/succinylcholine per anesthesia record. "Anesthesia Complications: none" H/O circumcision Family History Brother History of anesthesia reaction Social History Smoking Status: Never smoker Second Hand Exposure: No; Do You Dip or Chew Tobacco: No; Hx Alcohol Use: No Hx Substance Use: No Preferred Language: Greenlandic Communication Ability: Effective Count Room Clerk Required: No Beliefs That Will Affect Care: None Current Living Situation: Family Current Living Situation Comment: With parents and siblings x2 Feels Safe at Home: Yes Assistive Devices: Glasses Allergies Allergies Allergy/AdvReac Type Severity Reaction Status Date / Time amoxicillin Allergy Severe Anaphylaxis Verified 04/24/24 11:41 /HIVES clavulanic acid Allergy Severe Anaphylaxis Verified 04/24/24 11:41 [From Augmentin] /HIVES gluten Allergy Severe Gastrointestinal Unverified 04/24/24 11:41 Upset Inhaled Anesthetics (Halogen Allergy Severe Possible Verified 05/04/24 12:20 Based) family history malignant hyperthermia Milk Containing Products Allergy Severe Gastrointestinal Unverified 04/24/24 11:41 (Dairy) Upset Penicillins Allergy Severe Anaphylaxis Verified 04/24/24 11:42 succinylcholine Allergy Severe Possible Verified 05/04/24 12:20 family history malignant hyperthermia Macrolide Antibiotics Allergy Intermediate Hives Verified 04/24/24 11:41 polyethylene glycol 3350 Allergy Intermediate ITCHING Verified 04/24/24 11:41 [From Miralax] Sulfa (Sulfonamide Allergy Intermediate Hives Verified 04/24/24 11:41 Antibiotics) Home Meds Home Medications Medication Instructions Recorded Confirmed gabapentin 600 mg tablet 600 mg PO BID 05/05/22 05/04/24 lamotrigine 200 mg tablet 200 mg PO BID 05/05/22 05/04/24 melatonin 10 mg tablet 20 mg PO HS 05/05/22 05/04/24 omeprazole 20 mg capsule,delayed 20 mg PO HS 03/08/23 05/04/24 release ibuprofen 200 mg tablet 200 mg PO Q4 PRN Fever Or Pain 07/22/23 05/04/24 lorazepam 2 mg/mL oral concentrate 2 mg buccal UD PRN seizure>5min or 12/02/23 05/04/24 3 seizures in24 hour Acid Relief Chew 0 mg PO DAILY 04/24/24 05/04/24 diazepam 20 mg/2 spray (10 mg/0.1 10 mg intranasal DAILY PRN 04/24/24 05/04/24 mL x 2) nasal spray (Valtoco) seizures lasting 3 minutes or more eslicarbazepine 800 mg tablet 800 mg PO QAM 04/24/24 05/04/24 (Aptiom) folic acid 400 mcg tablet 400 mcg PO QAM 04/24/24 05/04/24 lacosamide 100 mg tablet 200 mg PO BID 04/24/24 05/04/24 sennosides 8.6 mg-docusate sodium 2 tab PO BID CONSTIPATION 04/24/24 05/04/24 50 mg tablet (Senokot-S) Previous Rx's Medication Instructions Recorded urea 15 gram oral powder packet 15 g PO BID 30 days #8 ea 12/07/23 (Ure-Na) Results & Data (ED) Vital Signs Vital Signs - 24 hr 05/04/24 11:33 05/04/24 14:33 05/04/24 14:35 Temperature 36.6 C Temperature Source Oral Pulse Rate 80 Pulse Rate [Apical] 60 Pulse Rate from SpO2 Sensor Respiratory Rate 16 18 Respiratory Effort / Characteristics Non-Labored Spontaneous Respiratory Depth Normal Blood Pressure 128/94 104/70 Blood Pressure [Right Arm] 104/70 Blood Pressure Mean 105 86 Blood Pressure Mean [Right Arm] 81 Pulse Oximetry 96 100 Oxygen Delivery Method Room Air Sepsis Recent Fever Within 48 Hours No Sepsis New/Unexplained Change in Mental Status No Sepsis Action Taken by Nursing No Action Required 05/04/24 14:35 05/04/24 14:39 05/04/24 14:40 Temperature Temperature Source Pulse Rate 64 68 Pulse Rate [Apical] Pulse Rate from SpO2 Sensor Respiratory Rate 14 Respiratory Effort / Characteristics Respiratory Depth Blood Pressure Blood Pressure [Right Arm] Blood Pressure Mean Blood Pressure Mean [Right Arm] Pulse Oximetry 100 95 Oxygen Delivery Method Room Air Sepsis Recent Fever Within 48 Hours Sepsis New/Unexplained Change in Mental Status Sepsis Action Taken by Nursing 05/04/24 15:18 05/04/24 15:30 05/04/24 16:15 Temperature Temperature Source Pulse Rate 73 56 L 64 Pulse Rate [Apical] Pulse Rate from SpO2 Sensor 72 56 L 63 Respiratory Rate 20 13 16 Respiratory Effort / Characteristics Respiratory Depth Blood Pressure Blood Pressure [Right Arm] Blood Pressure Mean Blood Pressure Mean [Right Arm] Pulse Oximetry 98 97 100 Oxygen Delivery Method Sepsis Recent Fever Within 48 Hours Sepsis New/Unexplained Change in Mental Status Sepsis Action Taken by Nursing Laboratory Data 05/04/24 11:53 05/04/24 11:53 Lab Results 05/04/24 05/04/24 Range/Units 11:53 11:56 WBC 5.84 (4.8-10.8) K/ul RBC 5.52 (4.70-6.10) M/uL Hgb 16.0 (14.0-18.0) g/dl Hct 47.1 (42.0-52.0) % MCV 85.3 (80.0-100.0) fL MCH 29.0 (25.0-34.0) pg MCHC 34.0 (32.0-36.0) g/dL RDW Std Deviation 38.5 (36.4-46.3) fL RDW Coeff of Aman 12.4 (11.5-14.5) % Plt Count 233 (130-400) K/uL MPV 9.9 (9.4-12.4) fL Immature Gran % (Auto) 0.2 % Neut % (Auto) 47.9 % Lymph % (Auto) 35.8 % [place] % (Auto) 6.2 % Eos % (Auto) 8.7 % Baso % (Auto) 1.2 % Neut # (Auto) 2.80 (1.40-6.50) K/uL Lymph # (Auto) 2.09 (1.20-3.40) K/uL [place] # (Auto) 0.36 (0.11-0.59) K/uL Eos # (Auto) 0.51 H (0.00-0.50) K/uL Baso # (Auto) 0.07 (0.00-0.20) K/uL Immature Gran # (Auto) 0.01 (0.01-0.20) K/uL Sodium 134 L (136-145) mmol/L Potassium 3.9 (3.5-5.1) mmol/L Chloride 99 (98-107) mmol/L Carbon Dioxide 28 (21-32) mmol/L Anion Gap 7 (3-11) BUN 25 H (6-23) mg/dl Creatinine 0.81 (0.6-1.4) mg/dl Est Cr Clr Drug Dosing Not Reportable Est GFR ( Amer) 140.2 ml/min Est GFR (Non-Af Amer) 120.9 ml/min BUN/Creatinine Ratio 30.9 H (10-20) Glucose 98 (70-99(Fasting)) mg/dl Calcium 10.0 (8.6-10.3) mg/dl Total Bilirubin 0.6 (0.2-1.0) mg/dl AST 24 (13-39) U/L ALT 33 (7-52) U/L Alkaline Phosphatase 168 H (34-104) U/L Troponin I High Sens 3.0 (0-20) pg/ml Total Protein 8.2 (6.0-8.3) gm/dl Albumin 4.6 (3.4-5.0) gm/dl Globulin 3.6 (2.5-4.0) gm/dl Albumin/Globulin Ratio 1.3 (0.9-2) Lipase 86 H (11-82) U/L Urine Color Yellow Urine Appearance Clear (Clear) Urine pH >= 9.0 H (4.5-7.5) Ur Specific [place] 1.017 (1.000-1.030) Urine Protein Negative (Negative) Urine Glucose (UA) Negative (Negative) Urine Ketones Negative (Negative) Urine Blood Negative (Negative) Urine Nitrite Negative (Negative) Urine Bilirubin Negative (Negative) Urine Urobilinogen Negative (Negative) Ur Leukocyte Esterase Negative (Negative) Administered Medications Discontinued Medications Sodium Chloride (Nss) 1,000 mls @ 999 mls/hr IV .Q1H1M ONE Stop: 05/04/24 13:17 Last Infusion: 05/04/24 15:38 Dose: Infused Documented By: Admin: 05/04/24 12:24 Dose: 999 mls/hr Documented By: JULISA Ketorolac Tromethamine (Ketorolac Tromethamine 15 Mg/Ml Vial) 10 mg IV NOW ONE Stop: 05/04/24 12:18 Last Admin: 05/04/24 12:25 Dose: 10 mg Documented By: JULISA Ondansetron HCl (Ondansetron Inj 2 Mg/Ml 2 Ml Vial) 4 mg IV NOW STA Stop: 05/04/24 12:18 Last Admin: 05/04/24 12:25 Dose: 4 mg Documented By: JULISA Ondansetron HCl (Ondansetron Inj 2 Mg/Ml 2 Ml Vial) 4 mg IV NOW STA Stop: 05/04/24 17:07 Last Admin: 05/04/24 17:13 Dose: 4 mg Documented By: ANDREAS Imaging Data Radiologist's Impression: Pancreas Ultrasound 05/04/24 12:17 US pancreas CLINICAL HISTORY: abd pain feels like previous pancreatitis TECHNIQUE: Multiple real-time sonographic images of the right upper quadrant were obtained. Comparison: Comparison is made to CT abdomen pelvis 04/24/2024 FINDINGS: The liver is diffusely homogenous with normal contour and echogenicity. No focal mass lesions are seen. No intrahepatic ductal dilatation is seen. Patient is status post cholecystectomy. The common duct measures 0.4 cm in diameter at the level of the hepatic artery. Visualized portion of the pancreas appears echogenic. No peripancreatic stranding is seen. The right kidney shows normal echogenicity, cortical thickness and renal contour. The right kidney shows no evidence of hydronephrosis or mass. No ascites or free fluid is seen in Jenkins's pouch. IMPRESSION: Limited evaluation of the pancreas without definite peripancreatic stranding. If clinical concern remains, repeat CT can be performed. ACT 112: Negative or not required by law. Electronically signed by: Konstantin Zhang M.D. 05/04/2024 1:19 PM Discharge Plan Visit Data Chief Complaint: Abdominal Pain Stated Complaint: AB PAIN ED Provider: Armen Tinoco Discharge Problem: Acute pancreatitis, Cystic fibrosis, Elevated BUN Discharge Instructions Interventions: ED Discharge Assessment Last Done: 05/04/24 17:32 Forms Stand Alone Forms: [facility] Prescriptions Prescriptions: No Action gabapentin 600 mg tablet 600 mg PO BID Rx Instructions: takes 0500 & 2100 lamotrigine 200 mg tablet 200 mg PO BID melatonin 10 mg Tablet 20 mg PO HS Rx Instructions: 2 tablet dose ibuprofen 200 mg Tablet 200 mg PO Q4 PRN (Reason: Fever Or Pain) omeprazole 20 mg capsule,delayed release(DR/EC) 20 mg PO HS lorazepam 2 mg/mL concentrate 2 mg buccal UD PRN (Reason: seizure>5min or 3 seizures in24 hour) Ure-Na 15 gram Powder In Packet 15 g PO BID 30 Days Qty: 8 1RF Acid Relief Chew 0 mg PO DAILY Rx Instructions: Parent unsure of strength, this is an OTC acid relief chew folic acid 400 mcg tablet 400 mcg PO QAM lacosamide 100 mg tablet 200 mg PO BID Aptiom 800 mg tablet 800 mg PO QAM Valtoco 20 mg/2 spray (10mg/0.1mL x2) spray,non-aerosol 10 mg INTRANASAL DAILY PRN (Reason: seizures lasting 3 minutes or more) sennosides-docusate sodium [Senokot-S] 8.6-50 mg tablet 2 tab PO BID Referrals Referrals: Najma Solis MD [Primary Care Provider] - Discharge Problem: Acute pancreatitis Qualifiers: Pancreatitis type: unspecified pancreatitis type Acute pancreatitis complication: unspecified Qualified Code(s): K85.90 - Acute pancreatitis without necrosis or infection, unspecified
[2024-05-04] MEDS: SODIUM CHLORIDE 0.9% 1,000 ML IV ONE (12:24)
[2024-05-04] MEDS: ONDANSETRON INJ 2 MG/ML 2 ML VIAL IV STA ×2 (12:25→17:13)
[2024-05-04] MEDS: KETOROLAC TROMETHAMINE 15 MG/ML VIAL IV ONE ×2 (12:25→17:36)
[2024-05-04 12:36] LABS: Alanine Aminotransferase 33 U/L (7-52); Albumin Globulin Ratio 1.3 (0.9-2); Albumin Level 4.6 gm/dl (3.4-5.0); Alkaline Phosphatase 168 U/L (34-104); Anion Gap 7 (3-11); Aspartate Aminotransferase 24 U/L (13-39); BUN Creatinine Ratio 30.9 (10-20); Bilirubin,Total 0.6 mg/dl (0.2-1.0); Blood Urea Nitrogen 25 mg/dl (6-23); Carbon Dioxide 28 mmol/L (21-32); Chloride 99 mmol/L (98-107); Est GFR (African American) 140.2 ml/min; Est GFR (Non-African American) 120.9 ml/min; Globulin 3.6 gm/dl (2.5-4.0); Glucose 98 mg/dl (70-99(Fasting)); Lipase 86 U/L (11-82); Potassium 3.9 mmol/L (3.5-5.1); Sodium 134 mmol/L (136-145); Total Protein 8.2 gm/dl (6.0-8.3)
--- NOTE | 2024-05-04 13:22 | Ultrasound Report ---
US pancreas CLINICAL HISTORY: abd pain feels like previous pancreatitis TECHNIQUE: Multiple real-time sonographic images of the right upper quadrant were obtained. Comparison: Comparison is made to CT abdomen pelvis 04/24/2024 FINDINGS: The liver is diffusely homogenous with normal contour and echogenicity. No focal mass lesions are see n. No intrahepatic ductal dilatation is seen. Patient is status post cholecystectomy. The common duct measures 0.4 cm in diameter at the level of the hepatic artery. Visualized portion of the pancre as appears echogenic. No peripancreatic stranding is seen. The right kidney shows normal echogenicity, cortical thickness and renal contour. The right kidney sh ows no evidence of hydronephrosis or mass. No ascites or free fluid is seen in Jenkins's pouch. IMPRESSION: Limited evaluation of the pancreas without definite peripancreatic stranding. If clinical concern rem ains, repeat CT can be performed. ACT 112: Negative or not required by law. Electronically signed by: Konstantin Zhang M.D. 05/04/2024 1:19 PM
--- NOTE | 2024-05-04 15:14 | History & Physical Report ---
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 Of note, patient was recently admitted 04/24-04/26 for acute pancreatitis; this is his third episode of acute pancreatitis and fourth overall admission this year - he was previously admitted back in November 2023 here at [facility] with sepsis of the pancreas and was recently worked up for CFTR 2/2 finding of fluid in his pancreatic ducts/duct narrowing. [facility], Dr. Cline. Patient was scheduled to see Dr. Cline tomorrow (05/05) according to chart review, but his pain ultimately worsened and the decision was made to come to the ED. Recurrent Acute Pancreatitis Admitting Imaging: * Ultrasound of Pancreas --> "The liver is diffusely homogenous with normal contour and echogenicity. No focal mass lesions are seen. No intrahepatic ductal dilatation is seen. Patient is status post cholecystectomy. The common duct measures 0.4 cm in diameter at the level of the hepatic artery. Visualized portion of the pancreas appears echogenic. No peripancreatic stranding is seen." Patient recently had a CTAP performed 04/24 that revealed the following: "There is mild interstitial and peripancreatic inflammatory stranding, pronounced involving the pancreatic head and uncinate process/pancreaticoduodenal groove. No drainable fluid collections or pancreatic ductal dilation. Findings suggestive of mild interstitial edematous pancreatitis." Plan to NOT repeat CTAP at this time 2/2 recent CTAP on 04/24 and hx of congenital single kidney + potential risk of CARLTON; could repeat CTAP if symptoms worsen or fail to improve. Admitting Labs: * No evidence of leukocytosis, alk phos mildly elevated at 168. UA negative. Lipase slightly bumped at 86. -Pain control, pt prefers liquid Tylenol (PRN for mild pain) -PRN IV Toradol for moderate-severe pain -Received 1L NSS in the ED -Continue IVF w/ LR 200cc/hr, stop after 2 bags -Routine GI consult placed -Bowel rest, NPO for now. Analgesics and antiemetics prn -Fall precautions 2/2 lightheadedness -Lipid panel 04/25 w/in normal limits Epilepsy -Hx of intermittent partial seizures per chart review -Follows w/ [facility] Neurology, no recent medication changes -Will place on seizure precautions and have iv ativan prn if breakthrough seizures -Lamotrigine level 5.6 on 05/01/24 per chart review -Continue [employer] lacosamide, Lamictal, gabapentin Cystic Fibrosis with CFTR Gene Mutation - ? Likely cause of digestive issues with pancreatic duct narrowing, recurrent pancreatitis ? -Follows w/ Dr. Cline ([facility] GI) -Was supposed to see him tomorrow as outpatient -Hx of recurrent pneumonia as a young child per his mother -Does not currently follow w/ respiratory specialist Absent L Kidney - Congenital H/O SIADH -Chronic, takes Ure-Na; will continue -Na level 134 on admission -Avoid nephrotoxic medications when able H/O Autism -Chronic, high-functioning status DVT Prophylaxis: sc lovenox Code Status: FULL CODE PCP: Najma Solis MD Dispo: Admit to Med/Surg Patient seen in collaboration with Dr. Rivera. Please see addendum. I spent a total of 75 minutes coordinating, documenting, and providing care for this patient excluding time spent in the performance of separately billed services. This included personally reviewing all current laboratories and imaging studies, medical reconciliation, outpatient chart review and discussion with specialists. This chart was completed in part utilizing Speech Voice Recognition Software. Grammatical errors, random word insertions, pronoun errors, and incomplete sentences are an occasional consequence of this system due to software limitations, ambient noise, and hardware issues. Any formal questions or concerns about the content, text, or information contained within the body of this dictation should be directly addressed to the provider for clarification. 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 History obtained from patient, mother at bedside and associated chart review. Of note, patient was recently admitted 04/24-04/26 for acute pancreatitis; this is his third episode of acute pancreatitis and fourth overall admission this year. He was admitted back in November 2023 here at [facility] with sepsis of the pancreas and was recently worked up for CFTR 2/2 finding of fluid in his pancreatic ducts/duct narrowing. Patient follows with [facility], Dr. Cline, given more recent diagnosis of CFTR gene mutation. Patient seen at bedside with Dr. Rivera. Patient states the pain in his epigastric abdominal region started on Wednesday and has gotten progressively worse; currently reporting 7/10 pain. The pain radiates around his R upper abdominal region and to the middle of his back, which occurred during his last episode of acute pancreatitis as well. He had an episode of dizziness, blurry vision earlier today. He is still complaining of some mild lightheadedness, denies any headaches. No recent falls or seizure activity. Denies any SOB, chest pain or urinary/bowel habit changes. He has been nauseous off/on, but denies any episodes of vomiting. No recent issues with hydration. Notes abdominal pain is worse with eating. No recent fevers, chills. Allergies Allergy/AdvReac Type Severity Reaction Status Date / Time amoxicillin Allergy Severe Anaphylaxis Verified 04/24/24 11:41 /HIVES clavulanic acid Allergy Severe Anaphylaxis Verified 04/24/24 11:41 [From Augmentin] /HIVES gluten Allergy Severe Gastrointestinal Unverified 04/24/24 11:41 Upset Inhaled Anesthetics (Halogen Allergy Severe Possible Verified 05/04/24 12:20 Based) family history malignant hyperthermia Milk Containing Products Allergy Severe Gastrointestinal Unverified 04/24/24 11:41 (Dairy) Upset Penicillins Allergy Severe Anaphylaxis Verified 04/24/24 11:42 succinylcholine Allergy Severe Possible Verified 05/04/24 12:20 family history malignant hyperthermia Macrolide Antibiotics Allergy Intermediate Hives Verified 04/24/24 11:41 polyethylene glycol 3350 Allergy Intermediate ITCHING Verified 04/24/24 11:41 [From Miralax] Sulfa (Sulfonamide Allergy Intermediate Hives Verified 04/24/24 11:41 Antibiotics) Home Medications Medication Instructions Recorded Confirmed Type gabapentin 600 mg tablet 600 mg PO BID 05/05/22 05/04/24 History lamotrigine 200 mg tablet 200 mg PO BID 05/05/22 05/04/24 History melatonin 10 mg tablet 20 mg PO HS 05/05/22 05/04/24 History omeprazole 20 mg capsule,delayed 20 mg PO HS 03/08/23 05/04/24 History release ibuprofen 200 mg tablet 200 mg PO Q4 PRN Fever Or Pain 07/22/23 05/04/24 History lorazepam 2 mg/mL oral concentrate 2 mg buccal UD PRN seizure>5min or 12/02/23 05/04/24 History 3 seizures in24 hour urea 15 gram oral powder packet 15 g PO BID 30 days #8 ea 12/07/23 05/04/24 Rx (Ure-Na) Acid Relief Chew 0 mg PO DAILY 04/24/24 05/04/24 History diazepam 20 mg/2 spray (10 mg/0.1 10 mg intranasal DAILY PRN 04/24/24 05/04/24 History mL x 2) nasal spray (Valtoco) seizures lasting 3 minutes or more eslicarbazepine 800 mg tablet 800 mg PO QAM 04/24/24 05/04/24 History (Aptiom) folic acid 400 mcg tablet 400 mcg PO QAM 04/24/24 05/04/24 History lacosamide 100 mg tablet 200 mg PO BID 04/24/24 05/04/24 History sennosides 8.6 mg-docusate sodium 2 tab PO BID CONSTIPATION 04/24/24 05/04/24 History 50 mg tablet (Senokot-S) Past Med/Surg History Problem List Epigastric abdominal pain Nausea (Acute) Abdominal pain (Acute) Acute pancreatitis (Acute) Autism Absent kidney, congenital Generalized seizure (Acute) Hyponatremia Epilepsy Acute pancreatitis (Acute) Cystic fibrosis (Acute) Post-streptococcal glomerulonephritis No pertinent family history Encounter for pre-operative examination Medical History History of asthma No inhaler Spina bifida Noted in available [facility] records, not reported during PAT RN phone interview Seasonal allergies Hx of pancreatitis EUS 02/05/23 AT [facility] Seizure disorder 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 Watters Most recent seizure 02/2023- levels being monitored closely by neuro Surgical History History of anesthesia reaction Awareness, "woke up" with recent EUS when tube was being removed Family history of anesthesia complication Patient's brother had foot surgery at [facility], discharged home and developed high fever/stiff joints > sent to ER, given antibiotics, sent home. No admission required. Brother now (unrelated)/unable to obtain further information. Patient's mother denies being told the term malignant hyperthermia and states that further testing/precautions were not recommended after brother's event. 2012 oral surgery [facility] anesthesia records for patient scanned into [employer]- use of desflurane/sux without issue. Hx of colonoscopy History of dental surgery Resin based composite 2 surfaces, posterior (10/21/11): MAC#4, ETT 7.0 at [facility] (limited anesthesia record scanned in) Removal of impacted tooth (09/26/13): MAC#4, ETT 7.0 at [facility] (Anesthesia records scanned into [employer]), received desflurane/succinylcholine per anesthesia record. "Anesthesia Complications: none" H/O circumcision Family History Brother History of anesthesia reaction Social History Smoking Status: Never smoker Second Hand Exposure: No; Do You Dip or Chew Tobacco: No; Hx Alcohol Use: No Hx Substance Use: No Preferred Language: Wolof Communication Ability: Effective Drying And Winding Supervisor Required: No Beliefs That Will Affect Care: None Current Living Situation: Family Current Living Situation Comment: With parents and siblings x2 Feels Safe at Home: Yes Assistive Devices: Glasses Review of Systems Review of Systems: At least ten systems reviewed and negative, except as noted in the HPI. Physical Exam Physical Exam: Please refer to Dr. Rivera's addendum for physical examination findings. Results & Data Results & Data Vital Signs (Past 12 Hours) Vital Signs Temp Pulse Pulse Resp BP BP Pulse Ox 05/04/24 14:40 68 05/04/24 14:35 100 05/04/24 14:35 60 18 104/70 100 05/04/24 11:33 36.6 C 80 16 128/94 96 O2 Del Method 05/04/24 14:40 05/04/24 14:35 Room Air 05/04/24 14:35 05/04/24 11:33 Room Air Laboratory Results Short CBC 05/04/24 Range/Units 11:53 WBC 5.84 (4.8-10.8) K/ul Hgb 16.0 (14.0-18.0) g/dl Hct 47.1 (42.0-52.0) % Plt Count 233 (130-400) K/uL BMP 05/04/24 11:53 Sodium 134 L Potassium 3.9 Chloride 99 Carbon Dioxide 28 BUN 25 H Creatinine 0.81 Glucose 98 Calcium 10.0 Liver Function 05/04/24 Range/Units 11:53 Total Bilirubin 0.6 (0.2-1.0) mg/dl AST 24 (13-39) U/L ALT 33 (7-52) U/L Alkaline Phosphatase 168 H (34-104) U/L Albumin 4.6 (3.4-5.0) gm/dl Urine 05/04/24 Range/Units 11:56 Urine Color Yellow Urine Appearance Clear (Clear) Urine pH >= 9.0 H (4.5-7.5) Ur Specific [place] 1.017 (1.000-1.030) Urine Protein Negative (Negative) Urine Glucose (UA) Negative (Negative) Diagnostic Findings Pancreas Ultrasound 05/04/24 12:17 US pancreas CLINICAL HISTORY: abd pain feels like previous pancreatitis TECHNIQUE: Multiple real-time sonographic images of the right upper quadrant were obtained. Comparison: Comparison is made to CT abdomen pelvis 04/24/2024 FINDINGS: The liver is diffusely homogenous with normal contour and echogenicity. No focal mass lesions are seen. No intrahepatic ductal dilatation is seen. Patient is status post cholecystectomy. The common duct measures 0.4 cm in diameter at the level of the hepatic artery. Visualized portion of the pancreas appears echogenic. No peripancreatic stranding is seen. The right kidney shows normal echogenicity, cortical thickness and renal contour. The right kidney shows no evidence of hydronephrosis or mass. No ascites or free fluid is seen in Jenkins's pouch. IMPRESSION: Limited evaluation of the pancreas without definite peripancreatic stranding. If clinical concern remains, repeat CT can be performed. ACT 112: Negative or not required by law. Electronically signed by: Konstantin Zhang M.D. 05/04/2024 1:19 PM Medications Administered Discontinued Medications Sodium Chloride (Nss) 1,000 mls @ 999 mls/hr IV .Q1H1M ONE Stop: 05/04/24 13:17 Last Admin: 05/04/24 12:24 Dose: 999 mls/hr Documented By: JULISA Ketorolac Tromethamine (Ketorolac Tromethamine 15 Mg/Ml Vial) 10 mg IV NOW ONE Stop: 05/04/24 12:18 Last Admin: 05/04/24 12:25 Dose: 10 mg Documented By: JULISA Ondansetron HCl (Ondansetron Inj 2 Mg/Ml 2 Ml Vial) 4 mg IV NOW STA Stop: 05/04/24 12:18 Last Admin: 05/04/24 12:25 Dose: 4 mg Documented By: JULISA Code Status & VTE Plan Code Status FULL CODE VTE Prophylaxis Plan VTE Prophylaxis will be ordered: Yes Supervising Physician Co-Signing Physician Notes Patient was seen and examined with Tracy WALTON at bedside. Chart reviewed. Case discussed with Tracy WALTON and agree with the documentation above. In summary, this is a 29 year old male with cystic fibrosis with multiple episodes of pancreatitis and childhood pneumonias, epilepsy, autism etc with recent admission last week for acute pancreatitis presented to the ED with recurrent acute pancreatitis symptoms. He is status post cholecystectomy. Lipase 86, US abd noted. Given similar clinical presentations and high concern for recurrent acute pancreatitis, will forego CT A/P for now en with his solitary kidney. If fails to improve, will need CT A/P to look for complications. BISAP score is 0. Likely etiology for his recurrent pancreatitis is cystic fibrosis. Will manage with bowel rest, ivf, pain management, antiemetics prn, GI eval. Rest as per the note above On exam- General: Sitting comfortably in bed, not in distress, on room air HEENT: EOMI, SAHARA, MMM Chest: Clear breath sounds bilaterally, no wheezes or crackles CVS: Regular rate and rhythm, normal heart sounds, no murmur Abdomen: Soft, RUQ and epigastric tenderness, not distended, normal bowel sounds Neuro: Awake, alert, oriented, conversing well, non focal Extremities: No edema
[2024-05-04 15:19] LABS: Appearance Urine Clear (Clear); Bilirubin Urine Negative (Negative); Blood Urine Negative (Negative); Color Urine Yellow; Glucose Urine UA Negative (Negative); Ketones Urine Negative (Negative); Leukocyte Esterase Urine Negative (Negative); Nitrite Urine Negative (Negative); Protein Urine Negative (Negative); Specific Gravity Urine 1.017 (1.000-1.030); Urobilinogen Urine Negative (Negative); pH Urine >= 9.0 (4.5-7.5)
[2024-05-04] MEDS ORDERED: MAGNESIUM HYDROXIDE SUSP 30 ML UDC PO PRN (17:39)
[2024-05-04] MEDS ORDERED: ALUMINUM/MAGNESIUM SUSP 30 ML UDC PO PRN (17:39)
[2024-05-04] MEDS ORDERED: ONDANSETRON INJ 2 MG/ML 2 ML VIAL IV PRN ×2 (17:39)
[2024-05-04] MEDS ORDERED: LORazepam 2 MG in SYRINGE 0.5 ML IV PRN (17:39)
[2024-05-04] MEDS: LACTATED RINGER'S 1,000 ML IV SCH (17:45)
[2024-05-04] MEDS: GABAPENTIN 600 MG TAB PO SCH (21:04)
[2024-05-04] MEDS: UREA (UREA-NA) 15 GM PACK PO SCH (21:04)
[2024-05-04] MEDS: DOCUSATE SODIUM/SENNA 50/8.6MG TAB PO SCH (21:04)
[2024-05-04] MEDS: LACOSAMIDE 50 MG TABLET PO SCH (21:15)
[2024-05-04] MEDS: lamoTRIgine 100 MG TAB PO SCH (21:57)
[2024-05-04] MEDS: MELATONIN 3 MG TAB PO SCH (21:58)
[2024-05-04] MEDS: ACETAMINOPHEN SUSP 325 MG/10.15 ML UDC PO PRN (22:07)
[2024-05-04] MEDS: PANTOprazole 40 MG TAB PO SCH (22:56)
[2024-05-05] MEDS ORDERED: Nursing to Pharmacy Communication SCH (01:30)
[2024-05-05] MEDS: KETOROLAC TROMETHAMINE 15 MG/ML VIAL IV PRN (01:53)
[2024-05-05] MEDS: ACETAMINOPHEN 1,000 MG/100 ML VIAL IV PRN (02:27)
[2024-05-05] MEDS: APTIOM PO SCH (07:46)
[2024-05-05 08:06] LABS: Basophils # (auto) 0.04 K/uL (0.00-0.20); Basophils % (auto) 0.7 %; Eosinophils # (auto) 0.35 K/uL (0.00-0.50); Eosinophils % (auto) 5.9 %; Hematocrit (blood only) 38.8 % (42.0-52.0); Hemoglobin 13.4 g/dl (14.0-18.0); Immature Granulocytes # (auto) 0.02 K/uL (0.01-0.20); Immature Granulocytes % (auto) 0.3 %; Lymphocytes # (auto) 2.51 K/uL (1.20-3.40); Lymphocytes % (auto) 42.3 %; Mean Corpuscular Hemoglobin 29.3 pg (25.0-34.0); Mean Corpuscular Hgb Conc 34.5 g/dL (32.0-36.0); Mean Corpuscular Volume 84.9 fL (80.0-100.0); Mean Platelet Volume 10.1 fL (9.4-12.4); Monocytes # (auto) 0.42 K/uL (0.11-0.59); Monocytes % (auto) 7.1 %; Neutrophils % (auto) 43.7 %; Platelet Count 192 K/uL (130-400); RDW Coefficient of Variation 12.3 % (11.5-14.5); RDW Standard Deviation 37.9 fL (36.4-46.3); Red Blood Count 4.57 M/uL (4.70-6.10); White Blood Count 5.94 K/ul (4.8-10.8)
[2024-05-05] MEDS: ENOXAPARIN INJ 40 MG/0.4 ML SYR SQ SCH (08:20)
[2024-05-05 08:40] LABS: Albumin Globulin Ratio 1.4 (0.9-2); Albumin Level 3.6 gm/dl (3.4-5.0); BUN Creatinine Ratio 25.6 (10-20); Bilirubin,Total 0.7 mg/dl (0.2-1.0); C Reactive Protein 0.87 mg/dl (0-0.5); Calcium 8.8 mg/dl (8.6-10.3); Creatinine Clr Calc Pharmacy 212.6 ml/min; Est GFR (African American) 142.4 ml/min; Est GFR (Non-African American) 122.8 ml/min; Globulin 2.6 gm/dl (2.5-4.0); Potassium 4.1 mmol/L (3.5-5.1); Total Protein 6.2 gm/dl (6.0-8.3)
[2024-05-05] MEDS: lamoTRIgine 100 MG TAB PO SCH (08:59)
[2024-05-05] MEDS: FOLIC ACID 400 MCG TAB PO SCH (09:00)
--- NOTE | 2024-05-05 10:09 | Gastrointestinal Consultation ---
Date of Consultation May 05, 2024 Assessment & Plan (1) Acute pancreatitis: 29 year old male with history of SIADH, CFTR gene mutation, Klinefelter syndrome, recurrent pancreatitis, spina bifida, autism, s/p cholecystectomy who admitted with pain in the setting of recent pancreatitis 04/24 imaging at that time showing mild interstitial edematous pancreatitis w/ a 2.2 cm hypodense focus abutting or involving the pancreatic tail. He is afebrile without leukocytosis requesting to trial liquid diet Clear liquid diet May advance to low fat if tolerating Anti-emetics PRN Analgesia PRN LR 200 mL/hr He will need a repeat CT scan in about 1-2 months to follow up for the 2.2 cm hypodensity. If he develops WBC elevation or fever, consider repeat CT scan sooner. Defer use of creon etc to his regular GI providers at [facility] Thank you for allowing us to participate in the care of this patient. Please call with any acute changes, questions or concerns. Please see addendum below with additional recommendation from my supervising physician. I spent a total of 60 minutes on the date of service in review of patient's record, and previously obtained information in person and appropriate medical visit, discussion and education of plan, with patient and/or caregiver, placing orders for tests/referral/procedures as medically necessary and documentation of pertinent clinical information in patient's medical records for their visit today. Supervising Physician Co-Signing Physician Notes I examined the patient and reviewed patient's chart , laboratory data and imaging studies. I agree with with assessment and plan of care as suggested by advanced practice provider. Mild acute pancreatitis. The patient denies pain. Would recommend to advance diet. There is a 2.2 cm pancreatic fluid collection. The patient will follow-up with his welding machine operator in few weeks. He will have a follow-up imaging study. History of Present Illness Reason for Consultation: pancreatitis Requesting Physician: Richa Attending Physician: Hamzah Chaudhry MD History of Present Illness 29 year old male with history of SIADH, CFTR gene mutation, Klinefelter syndrome, recurrent pancreatitis, spina bifida, autism, s/p cholecystectomy who presented w c/o upper abd pain, n/v x days - GI asked to evaluate. Pt was seen and evaluated, chart reviewed. Father at bedside who aids in history. Suggests that over the last year he has suffered with recurrent pancreatitis. This is thought related to pancreas ductal abnormality and CFTR gene mutation. He has been followed by [facility]. Suggests his symptoms started around 04/23/24. Notes he was admitted at that time as imaging showed pancreatitis w/ fluid collection. Suggests he was beginning to improve so discharged home. He notes he returned to the ED last evening and pain had returned, persisted. He is afebrile without leukocytosis. Repeat CT was not obtained. ALK 124 otherwise LFTs WNL, lipase 47. CTAP 2023: . Findings suggestive of mild interstitial edematous pancreatitis. There is a 2.2 cm hypodense focus abutting or involving the pancreatic tail. Differential considerations include an acute peripancreatic fluid collection, pseudocyst or cystic pancreatic lesion. Two-month follow-up CT of the abdomen with pancreatic protocol recommended.No drainable fluid collections.Mild wall thickening of the duodenum is likely reactive. Primary duodenitis considered less likely. Cholecystectomy. MRI Pancreas 2023: . Status post cholecystectomy.The pancreatic duct is diminutive, and pancreas divisum is suspected. There is evidence of distal pancreatitis. No fluid collection is seen EUS 2022: There was no sign of significant endosonographic abnormality in the ampulla. No masses were identified. There was no sign of significant endosonographic abnormality in the common bile duct. The maximum diameter of the duct was 3 mm. No stones and no biliary sludge were identified. Many stones were visualized endosonographically in the gallbladder. The stones were round. They were hyperechoic and characterized by shadowing. There was no sign of significant endosonographic abnormality in the visualized portion of the liver. Homogeneous parenchyma was identified. Pancreatic parenchymal abnormalities were noted in the entire pancreas. These consisted of diffuse echogenicity. PD measured 2 mm in diameter. There was no sign of significant endosonographic abnormality in the visualized portion of the left adrenal gland. There was no sign of significant endosonographic abnormality involving the celiac trunk. Allergies Allergy/AdvReac Type Severity Reaction Status Date / Time amoxicillin Allergy Severe Anaphylaxis Verified 04/24/24 11:41 /HIVES clavulanic acid Allergy Severe Anaphylaxis Verified 04/24/24 11:41 [From Augmentin] /HIVES gluten Allergy Severe Gastrointestinal Unverified 04/24/24 11:41 Upset Inhaled Anesthetics (Halogen Allergy Severe Possible Verified 05/04/24 12:20 Based) family history malignant hyperthermia Milk Containing Products Allergy Severe Gastrointestinal Unverified 04/24/24 11:41 (Dairy) Upset Penicillins Allergy Severe Anaphylaxis Verified 04/24/24 11:42 succinylcholine Allergy Severe Possible Verified 05/04/24 12:20 family history malignant hyperthermia Macrolide Antibiotics Allergy Intermediate Hives Verified 04/24/24 11:41 polyethylene glycol 3350 Allergy Intermediate ITCHING Verified 04/24/24 11:41 [From Miralax] Sulfa (Sulfonamide Allergy Intermediate Hives Verified 04/24/24 11:41 Antibiotics) Home Medications Medication Instructions Recorded Confirmed Type gabapentin 600 mg tablet 600 mg PO BID 05/05/22 05/04/24 History lamotrigine 200 mg tablet 200 mg PO BID 05/05/22 05/04/24 History melatonin 10 mg tablet 20 mg PO HS 05/05/22 05/04/24 History omeprazole 20 mg capsule,delayed 20 mg PO HS 03/08/23 05/04/24 History release ibuprofen 200 mg tablet 200 mg PO Q4 PRN Fever Or Pain 07/22/23 05/04/24 History lorazepam 2 mg/mL oral concentrate 2 mg buccal UD PRN seizure>5min or 12/02/23 05/04/24 History 3 seizures in24 hour urea 15 gram oral powder packet 15 g PO BID 30 days #8 ea 12/07/23 05/04/24 Rx (Ure-Na) Acid Relief Chew 0 mg PO DAILY 04/24/24 05/04/24 History diazepam 20 mg/2 spray (10 mg/0.1 10 mg intranasal DAILY PRN 04/24/24 05/04/24 History mL x 2) nasal spray (Valtoco) seizures lasting 3 minutes or more eslicarbazepine 800 mg tablet 800 mg PO QAM 04/24/24 05/04/24 History (Aptiom) folic acid 400 mcg tablet 400 mcg PO QAM 04/24/24 05/04/24 History lacosamide 100 mg tablet 200 mg PO BID 04/24/24 05/04/24 History sennosides 8.6 mg-docusate sodium 2 tab PO BID CONSTIPATION 04/24/24 05/04/24 History 50 mg tablet (Senokot-S) Patient History Medical History History of asthma No inhaler Spina bifida Noted in available [facility] records, not reported during PAT RN phone interview Seasonal allergies Hx of pancreatitis EUS 02/05/23 AT [facility] Seizure disorder 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 Watters Most recent seizure 02/2023- levels being monitored closely by neuro Surgical History History of anesthesia reaction Awareness, "woke up" with recent EUS when tube was being removed Family history of anesthesia complication Patient's brother had foot surgery at [facility], discharged home and developed high fever/stiff joints > sent to ER, given antibiotics, sent home. No admission required. Brother now (unrelated)/unable to obtain further information. Patient's mother denies being told the term malignant hyperthermia and states that further testing/precautions were not recommended after brother's event. 2012 oral surgery [facility] anesthesia records for patient scanned into [employer]- use of desflurane/sux without issue. Hx of colonoscopy History of dental surgery Resin based composite 2 surfaces, posterior (10/21/11): [place] [facility] [place] Removal of impacted tooth (09/26/13): MAC#4[place] [facility] [place] [employer] received desflurane/succinylcholine per anesthesia record. "Anesthesia Complications: none" H/O circumcision Family History Brother History of anesthesia reaction Social History Smoking Status: Never smoker Second Hand Exposure: No; Do You Dip or Chew Tobacco: No; Hx Alcohol Use: No Hx Substance Use: No Preferred Language: Czech Communication Ability: Effective Communication Ability Comment: parents assist w/ medical history and routine Manufact[employer] Service Representative Required: No Beliefs That Will Affect Care: None Current Living Situation: Parent and Family Current Living Situation Comment: mom and dad Feels Safe at Home: Yes Safety Concerns: Feels Safe At This Time Assistive Devices: Glasses Review of Systems Review of Systems: All other findings negative except as noted in HPI. Physical Exam Constitutional: WD/WN, vitals as above Respiratory: normal respiratory effort Cardiovascular: Rate/Rhythm: regular rate and regular rhythm Gastrointestinal (Abdomen): Inspection/Auscultation: normal bowel sounds Percussion/Palpation: + abdomen tender (pain reported) and abdomen soft; no guarding and abdomen not rigid Skin: no rashes, warm and dry Results & Data Vital Signs (Past 12 Hours) Vital Signs Temp Pulse Resp BP Pulse Ox O2 Del Method 05/05/24 07:04 36.6 C 52 L 16 110/77 96 Room Air Laboratory Results 05/05/24 05/04/24 05/04/24 Range/Units 07:34 11:56 11:53 WBC 5.94 5.84 (4.8-10.8) K/ul RBC 4.57 L 5.52 (4.70-6.10) M/uL Hgb 13.4 L 16.0 (14.0-18.0) g/dl Hct 38.8 L 47.1 (42.0-52.0) % MCV 84.9 85.3 (80.0-100.0) fL MCH 29.3 29.0 (25.0-34.0) pg MCHC 34.5 34.0 (32.0-36.0) g/dL RDW Std Deviation 37.9 38.5 (36.4-46.3) fL RDW Coeff of Aman 12.3 12.4 (11.5-14.5) % Plt Count 192 233 (130-400) K/uL MPV 10.1 9.9 (9.4-12.4) fL Immature Gran % (Auto) 0.3 0.2 % Neut % (Auto) 43.7 47.9 % Lymph % (Auto) 42.3 35.8 % Lucas % (Auto) 7.1 6.2 % Eos % (Auto) 5.9 8.7 % Baso % (Auto) 0.7 1.2 % Neut # (Auto) 2.60 2.80 (1.40-6.50) K/uL Lymph # (Auto) 2.51 2.09 (1.20-3.40) K/uL Lucas # (Auto) 0.42 0.36 (0.11-0.59) K/uL Eos # (Auto) 0.35 0.51 H (0.00-0.50) K/uL Baso # (Auto) 0.04 0.07 (0.00-0.20) K/uL Immature Gran # (Auto) 0.02 0.01 (0.01-0.20) K/uL Sodium 132 L 134 L (136-145) mmol/L Potassium 4.1 3.9 (3.5-5.1) mmol/L Chloride 102 99 (98-107) mmol/L Carbon Dioxide 25 28 (21-32) mmol/L Anion Gap 5 7 (3-11) BUN 20 25 H (6-23) mg/dl Creatinine 0.78 0.81 (0.6-1.4) mg/dl Est Cr Clr Drug Dosing 212.6 Not Reportable Est GFR ( Amer) 142.4 140.2 ml/min Est GFR (Non-Af Amer) 122.8 120.9 ml/min BUN/Creatinine Ratio 25.6 H 30.9 H (10-20) Glucose 86 98 (70-99(Fasting)) mg/dl Calcium 8.8 10.0 (8.6-10.3) mg/dl Total Bilirubin 0.7 0.6 (0.2-1.0) mg/dl AST 16 24 (13-39) U/L ALT 22 33 (7-52) U/L Alkaline Phosphatase 124 H 168 H (34-104) U/L Troponin I High Sens 3.0 (0-20) pg/ml C-Reactive Protein 0.87 H (0-0.5) mg/dl Total Protein 6.2 D 8.2 (6.0-8.3) gm/dl Albumin 3.6 4.6 (3.4-5.0) gm/dl Globulin 2.6 3.6 (2.5-4.0) gm/dl Albumin/Globulin Ratio 1.4 1.3 (0.9-2) Lipase 47 86 H (11-82) U/L Urine Color Yellow Urine Appearance Clear (Clear) Urine pH >= 9.0 H (4.5-7.5) Ur Specific [place] 1.017 (1.000-1.030) Urine Protein Negative (Negative) Urine Glucose (UA) Negative (Negative) Urine Ketones Negative (Negative) Urine Blood Negative (Negative) Urine Nitrite Negative (Negative) Urine Bilirubin Negative (Negative) Urine Urobilinogen Negative (Negative) Ur Leukocyte Esterase Negative (Negative) PG Care Time/CCT Total # of Minutes Spent Total Time Spent with Patient: Total time spent is greater than 50% in coordination of care (as documented) at patient's floor/unit and/or counseling patient: Coding Level of Care Code 36139 IN/OBS CONSULT LVL 4,60M Diagnoses Acute pancreatitis K85.90 Acute pancreatitis complication: unspecified Pancreatitis type: unspecified pancreatitis type (1) Acute pancreatitis Acute pancreatitis complication: unspecified Pancreatitis type: unspecified pancreatitis type Qualified Code(s): K85.90 - Acute pancreatitis without necrosis or infection, unspecified
[2024-05-05] MEDS: PANTOprazole 40 MG TAB PO SCH (13:04)
[2024-05-05 14:54] LABS: BUN Creatinine Ratio 30.4 (10-20); Calcium 9.1 mg/dl (8.6-10.3); Creatinine Clr Calc Pharmacy 209.9 ml/min; Est GFR (African American) 141.6 ml/min; Est GFR (Non-African American) 122.2 ml/min; Magnesium 1.7 mg/dl (1.7-2.4); Potassium 3.6 mmol/L (3.5-5.1)
--- NOTE | 2024-05-05 14:54 | Electrocardiogram Report ---
Test Reason : Blood Pressure : / mmHG Vent. Rate : 079 BPM Atrial Rate : 079 BPM P-R Int : 170 ms QRS Dur : 082 ms QT Int : 342 ms P-R-T Axes : 072 036 055 degrees QTc Int : 392 ms Normal sinus rhythm Normal ECG When compared with ECG of 24-APR-2024 08:08, No significant change was found Confirmed by Erik Julian [id number]) on 05/05/2024 2:54:42 PM Referred By: REFERRED SELF Confirmed By:Erik Julian
--- NOTE | 2024-05-05 18:44 | Hospitalist Progress Note ---
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 Of note, patient was recently admitted 04/24-04/26 for acute pancreatitis; this is his third episode of acute pancreatitis and fourth overall admission this year - he was previously admitted back in November 2023 here at [facility] with sepsis of the pancreas and was recently worked up for CFTR 2/2 finding of fluid in his pancreatic ducts/duct narrowing. Patient follows with [facility]ADD[facility], Dr. Cline. Patient was scheduled to see Dr. Cline tomorrow (05/05) according to chart review, but his pain ultimately worsened and the decision was made to come to the ED. Recurrent Acute Pancreatitis Admitting Imaging: * Ultrasound of Pancreas --> "The liver is diffusely homogenous with normal contour and echogenicity. No focal mass lesions are seen. No intrahepatic ductal dilatation is seen. Patient is status post cholecystectomy. The common duct measures 0.4 cm in diameter at the level of the hepatic artery. Visualized portion of the pancreas appears echogenic. No peripancreatic stranding is seen." Patient recently had a CTAP performed 04/24 that revealed the following: "There is mild interstitial and peripancreatic inflammatory stranding, pronounced involving the pancreatic head and uncinate process/pancreaticoduodenal groove. No drainable fluid collections or pancreatic ductal dilation. Findings suggestive of mild interstitial edematous pancreatitis." Plan to NOT repeat CTAP at this time 2/2 recent CTAP on 04/24 and hx of congenital single kidney + potential risk of [place]; could repeat CTAP if symptoms worsen or fail to improve. Admitting Labs: * No evidence of leukocytosis, alk phos mildly elevated at 168. UA negative. Lipase slightly bumped at 86. -Pain control, pt prefers liquid Tylenol (PRN for mild pain) -PRN IV Toradol for moderate-severe pain -Received 1L NSS in the ED -Continue IVF w/ LR 200cc/hr, stop after 2 bags -Routine GI consult placed -Bowel rest, NPO for now. Analgesics and antiemetics prn -Fall precautions 2/2 lightheadedness -Lipid panel 04/25 w/in normal limits 05/05 Seems to be clinically improving Afebrile No leukocytosis Lipase normalized Bilirubin, AST ALT, normal Alk phos trending down GI service on board Clear liquid diet started DC fluids for now in light of sodium level trending down, currently 130 Patient has a history of seizures Epilepsy -Hx of intermittent partial seizures per chart review -Follows w/ [facility] Neurology, no recent medication changes -Will place on seizure precautions and have iv ativan prn if breakthrough seizures -Lamotrigine level 5.6 on 05/01/24 per chart review -Continue [employer] lacosamide, Lamictal, gabapentin 05/05 Management of fluids per above Cystic Fibrosis with CFTR Gene Mutation - ? Likely cause of digestive issues with pancreatic duct narrowing, recurrent pancreatitis ? -Follows w/ Dr. Cline ([facility] GI) -Was supposed to see him tomorrow as outpatient -Hx of recurrent pneumonia as a young child per his mother -Does not currently follow w/ respiratory specialist Absent L Kidney - Congenital H/O SIADH -Chronic, takes Ure-Na; will continue -Na level 134 on admission -Avoid nephrotoxic medications when able 05/05 Sodium level 130 DC LR Continue urea Repeat BMP tomorrow Discussed with plain clothes police officer on-call H/O Autism -Chronic, high-functioning status DVT Prophylaxis: sc lovenox Code Status: FULL CODE PCP: Najma Solis MD Dispo: Transition to home when medically stable plan of care discussed with patient and his father in detail and at length all questions answered they are understanding, agreeable, comfortable with the plan of care Admission and Anticipated Discharge Date Admission Date: May 04, 2024 Subjective Follow-up for recurrent acute pancreatitis, etc. Seen resting in bedside chair, comfortable, not in distress States he feels improved today compared to yesterday Abdominal discomfort around 4 out of 10 No nausea or vomiting No BMs yet No fevers or chills, shortness of breath No chest pain, palpitations, dizziness No other new symptoms Patient's father Cj also at the bedside visiting No other new symptoms Review of Systems Review of Systems: all noted and negative except for above Physical Exam Physical Exam: General- oriented x 3, not in distress, speaks in sentences with no effort or accessory muscle use Eyes- anicteric Neck- no JVD Lungs- clear breath sounds bilaterally, no rales/wheezes Heart- normal rate, regular rhythm; no murmurs Abdomen- normal bowel sounds, nondistended, soft, nontender Extremities- no pretibial edema, no calf tenderness Neuro- alert, oriented x 3; no gross focal neurologic deficits Skin- warm & dry Results & Data Results & Data Vital Signs (Past 12 Hours) Vital Signs Temp Pulse Resp BP Pulse Ox O2 Del Method 05/05/24 14:17 85 16 110/75 98 Room Air 05/05/24 07:15 Room Air 05/05/24 07:04 36.6 C 52 L 16 110/77 96 Room Air all noted and reviewed including below
[2024-05-05] MEDS: MELATONIN 3 MG TAB PO SCH (20:13)
[2024-05-06 07:56] LABS: Albumin Globulin Ratio 1.4 (0.9-2); Albumin Level 3.9 gm/dl (3.4-5.0); BUN Creatinine Ratio 25.7 (10-20); Bilirubin,Total 0.7 mg/dl (0.2-1.0); Calcium 9.2 mg/dl (8.6-10.3); Creatinine Clr Calc Pharmacy 236.9 ml/min; Est GFR (African American) 148.9 ml/min; Est GFR (Non-African American) 128.4 ml/min; Globulin 2.8 gm/dl (2.5-4.0); Magnesium 1.7 mg/dl (1.7-2.4); Potassium 3.9 mmol/L (3.5-5.1); Total Protein 6.7 gm/dl (6.0-8.3)
[2024-05-06] MEDS: ESLICARBAZEPINE ACETATE 800 MG PO SCH (08:02)
[2024-05-06] MEDS ORDERED: Nursing to Pharmacy Communication SCH (08:15)
[2024-05-06] MEDS: LACOSAMIDE 50 MG TABLET PO SCH (08:30)
[2024-05-06] MEDS: lamoTRIgine 100 MG TAB PO SCH (09:31)
--- NOTE | 2024-05-06 14:58 | Ultrasound Report ---
RENAL ULTRASOUND CLINICAL HISTORY: Congenital absence of the left kidney. r/o obstruction. COMPARISON STUDY: CT of the abdomen and pelvis April 24, 2024. TECHNIQUE: Sonography of the kidneys and the urinary bladder was performed. FINDINGS: The right kidney measures 14.9 cm in maximal dimension. There is compensatory hypertrophy a s expected. There is no right hydronephrosis. No right renal mass or calculus is identified. No abnor mality within the left renal fossa is identified. Right ureteral jet was visualized. The bladder is u nremarkable. IMPRESSION: 1. Unremarkable sonographic appearance of the right kidney. No right hydronephrosis. 2. Congenitally absent left kidney. ACT 112: Negative or not required by law. Electronically signed by: Alvaro Vieira M.D. 05/06/2024 2:57 PM
[2024-05-06 15:10] LABS: Appearance Urine Clear (Clear); Bilirubin Urine Negative (Negative); Blood Urine Negative (Negative); Color Urine Yellow; Glucose Urine UA Negative (Negative); Ketones Urine Negative (Negative); Leukocyte Esterase Urine Negative (Negative); Nitrite Urine Negative (Negative); Protein Urine Negative (Negative); Specific Gravity Urine 1.012 (1.000-1.030); Urobilinogen Urine Negative (Negative); pH Urine 8.5 (4.5-7.5)
--- NOTE | 2024-05-06 17:15 | Hospitalist Progress Note ---
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 Of note, patient was recently admitted 04/24-04/26 for acute pancreatitis; this is his third episode of acute pancreatitis and fourth overall admission this year - he was previously admitted back in November 2023 here at [facility] with sepsis of the pancreas and was recently worked up for CFTR 2/2 finding of fluid in his pancreatic ducts/duct narrowing. Patient follows with [facility], Dr. Cline. Patient was scheduled to see Dr. Cline tomorrow (05/05) according to chart review, but his pain ultimately worsened and the decision was made to come to the ED. Recurrent Acute Pancreatitis Admitting Imaging: * Ultrasound of Pancreas --> "The liver is diffusely homogenous with normal contour and echogenicity. No focal mass lesions are seen. No intrahepatic ductal dilatation is seen. Patient is status post cholecystectomy. The common duct measures 0.4 cm in diameter at the level of the hepatic artery. Visualized portion of the pancreas appears echogenic. No peripancreatic stranding is seen." Patient recently had a CTAP performed 04/24 that revealed the following: "There is mild interstitial and peripancreatic inflammatory stranding, pronounced involving the pancreatic head and uncinate process/pancreaticoduodenal groove. No drainable fluid collections or pancreatic ductal dilation. Findings suggestive of mild interstitial edematous pancreatitis." Plan to NOT repeat CTAP at this time 2/2 recent CTAP on 04/24 and hx of congenital single kidney + potential risk of CARLTON; could repeat CTAP if symptoms worsen or fail to improve. Admitting Labs: * No evidence of leukocytosis, alk phos mildly elevated at 168. UA negative. Lipase slightly bumped at 86. -Pain control, pt prefers liquid Tylenol (PRN for mild pain) -PRN IV Toradol for moderate-severe pain -Received 1L NSS in the ED -Continue IVF w/ LR 200cc/hr, stop after 2 bags -Routine GI consult placed -Bowel rest, NPO for now. Analgesics and antiemetics prn -Fall precautions /2 lightheadedness -Lipid panel 04/25 w/in normal limits 05/05 Seems to be clinically improving Afebrile No leukocytosis Lipase normalized Bilirubin, AST ALT, normal Alk phos trending down GI service on board Clear liquid diet started DC fluids for now in light of sodium level trending down, currently 130 Patient has a history of seizures 05/06 Continues to improve clinically Lipase normal Alk phos trending down As per GI, patient will follow-up with Dr. Cline for consideration of sphincterotomy and Creon initiation as an outpatient Advance diet today Monitor closely Epilepsy -Hx of intermittent partial seizures per chart review -Follows w/ [facility] Neurology, no recent medication changes -Will place on seizure precautions and have iv ativan prn if breakthrough seizu res -Lamotrigine level 5.6 on 05/01/24 per chart review -Continue PIG STICKER lacosamide, Lamictal, gabapentin No recurrence Cystic Fibrosis with CFTR Gene Mutation - ? Likely cause of digestive issues with pancreatic duct narrowing, recurrent pancreatitis ? -Follows w/ Dr. Cline ([facility]) -Was supposed to see him tomorrow as outpatient -Hx of recurrent pneumonia as a young child per his mother -Does not currently follow w/ respiratory specialist Absent L Kidney - Congenital H/O SIADH -Chronic, takes Ure-Na; will continue -Na level 134 on admission -Avoid nephrotoxic medications when able 05/05 Sodium level 130 DC LR Continue urea Repeat BMP tomorrow Discussed with tube station attendant on-call 05/06 Sodium 134 Continue urea Monitor BMP tomorrow H/O Autism -Chronic, high-functioning status DVT Prophylaxis: sc lovenox Code Status: FULL CODE PCP: Najma Solis MD Dispo: Transition to home when medically stable plan of care discussed with patient and his father in detail and at length all questions answered they are understanding, agreeable, comfortable with the plan of care Admission and Anticipated Discharge Date Admission Date: May 04, 2024 Subjective Follow-up for recurrent pancreatitis, etc. Seen resting in bed, sitting up, not in distress, comfortable States he feels better today overall Abdominal pain continues to feel improved No nausea No fevers or chills, shortness of breath, chest pain Patient's father at the bedside visiting No other new symptom Review of Systems Review of Systems: all noted and negative except for above Physical Exam Physical Exam: General- oriented x 3, not in distress, speaks in sentences with no effort or accessory muscle use Eyes- anicteric Neck- no JVD Lungs- clear breath sounds bilaterally, no rales/wheezes Heart- normal rate, regular rhythm; no murmurs Abdomen- normal bowel sounds, nondistended, soft, No tenderness Extremities- no pretibial edema, no calf tenderness Neuro- alert, oriented x 3; no gross focal neurologic deficits Skin- warm & dry Results & Data Results & Data Vital Signs (Past 12 Hours) Vital Signs Temp Pulse Resp BP Pulse Ox O2 Del Method 05/06/24 14:55 36.5 C 61 16 127/80 97 Room Air 05/06/24 07:17 36.4 C L 59 L 16 110/72 96 Room Air all noted and reviewed including below
[2024-05-06] MEDS: GABAPENTIN 600 MG TAB PO SCH (20:56)
[2024-05-07 07:22] LABS: Albumin Globulin Ratio 1.3 (0.9-2); Albumin Level 3.7 gm/dl (3.4-5.0); BUN Creatinine Ratio 32.4 (10-20); Bilirubin,Total 0.5 mg/dl (0.2-1.0); Creatinine Clr Calc Pharmacy 233.6 ml/min; Est GFR (Non-African American) 127.7 ml/min; Globulin 2.9 gm/dl (2.5-4.0); Magnesium 1.7 mg/dl (1.7-2.4); Potassium 3.5 mmol/L (3.5-5.1); Total Protein 6.6 gm/dl (6.0-8.3)
[2024-05-07] MEDS: POTASSIUM CHLORIDE CRTAB 20 MEQ TABCR PO SCH (09:45)
--- NOTE | 2024-05-07 10:33 | Nephrology Consultation ---
Date of Consultation May 07, 2024 Assessment & Plan (1) Hyponatremia: Patient with hyponatremia due to SIADH. He takes multiple antiseizure medications which are known to trigger SIADH. Sodium is 132 this morning. His potassium is also on the lower side at 3.5. Will continue urea 15 g twice daily. He is on a fluid restriction of 1.5 L daily. Will supplement his potassium with 40 mEq of KCl daily. Stop tramadol and other NSAIDs. Continue to monitor sodium daily. (2) Epilepsy: Patient with epilepsy and recurrent seizures on multiple antiseizure medications. He is prone to seizures in setting of hyponatremia. Will continue to monitor closely. 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 Patient has had recurrent admissions with acute pancreatitis due to cystic fibrosis. He received IV fluids. Admission sodium was 134. He is urea was increased to 15 mg twice daily. Sodium downtrending to 132 this morning. His potassium was also 3.5. He has been on Toradol for pain. He had a drop event few days ago when his sodium was lower. Father was at the bedside. Allergies Allergy/AdvReac Type Severity Reaction Status Date / Time amoxicillin Allergy Severe Anaphylaxis Verified 04/24/24 11:41 /HIVES clavulanic acid Allergy Severe Anaphylaxis Verified 04/24/24 11:41 [From Augmentin] /HIVES gluten Allergy Severe Gastrointestinal Unverified 04/24/24 11:41 Upset Inhaled Anesthetics (Halogen Allergy Severe Possible Verified 05/04/24 12:20 Based) family history malignant hyperthermia Milk Containing Products Allergy Severe Gastrointestinal Unverified 04/24/24 11:41 (Dairy) Upset Penicillins Allergy Severe Anaphylaxis Verified 04/24/24 11:42 succinylcholine Allergy Severe Possible Verified 05/04/24 12:20 family history malignant hyperthermia Macrolide Antibiotics Allergy Intermediate Hives Verified 04/24/24 11:41 polyethylene glycol 3350 Allergy Intermediate ITCHING Verified 04/24/24 11:41 [From Miralax] Sulfa (Sulfonamide Allergy Intermediate Hives Verified 04/24/24 11:41 Antibiotics) Home Medications Medication Instructions Recorded Confirmed Type gabapentin 600 mg tablet 600 mg PO BID 05/05/22 05/04/24 History lamotrigine 200 mg tablet 200 mg PO BID 05/05/22 05/04/24 History melatonin 10 mg tablet 20 mg PO HS 05/05/22 05/04/24 History omeprazole 20 mg capsule,delayed 20 mg PO HS 03/08/23 05/04/24 History release ibuprofen 200 mg tablet 200 mg PO Q4 PRN Fever Or Pain 07/22/23 05/04/24 History lorazepam 2 mg/mL oral concentrate 2 mg buccal UD PRN seizure>5min or 12/02/23 05/04/24 History 3 seizures in24 hour urea 15 gram oral powder packet 15 g PO BID 30 days #8 ea 12/07/23 05/04/24 Rx (Ure-Na) Acid Relief Chew 0 mg PO DAILY 04/24/24 05/04/24 History diazepam 20 mg/2 spray (10 mg/0.1 10 mg intranasal DAILY PRN 04/24/24 05/04/24 History mL x 2) nasal spray (Valtoco) seizures lasting 3 minutes or more eslicarbazepine 800 mg tablet 800 mg PO QAM 04/24/24 05/04/24 History (Aptiom) folic acid 400 mcg tablet 400 mcg PO QAM 04/24/24 05/04/24 History lacosamide 100 mg tablet 200 mg PO BID 04/24/24 05/04/24 History sennosides 8.6 mg-docusate sodium 2 tab PO BID CONSTIPATION 04/24/24 05/04/24 History 50 mg tablet (Senokot-S) Patient History Medical History History of asthma No inhaler Spina bifida Noted in available [facility] records, not reported during PAT RN phone interview Seasonal allergies Hx of pancreatitis EUS 02/05/23 AT [facility] Seizure disorder Epilepsy/grand mal seizures Follows with [facility] neuro/Dr. Watters Most recent seizure 02/2023- levels being monitored closely by neuro Surgical History History of anesthesia reaction Awareness, "woke up" with recent EUS when tube was being removed Family history of anesthesia complication Patient's brother had foot surgery at [facility], discharged home and developed high fever/stiff joints > sent to ER, given antibiotics, sent home. No admission required. Brother now (unrelated)/unable to obtain further information. Patient's mother denies being told the term malignant hyperthermia and states that further testing/precautions were not recommended after brother's event. 2013 oral surgery [facility] anesthesia records for patient scanned into [employer]- use of desflurane/sux without issue. Hx of colonoscopy History of dental surgery Resin based composite 2 surfaces, posterior (10/21/11): MAC#4, ETT 7.0 at [facility] [place] [facility] (limited anesthesia record scanned in) Removal of impacted tooth (09/26/13): MAC#4, ETT 7.0 at [facility] [place] [facility] (Anesthesia records scanned into [employer]), received desflurane/succinylcholine per anesthesia record. "Anesthesia Complications: none" H/O circumcision Family History Brother History of anesthesia reaction Social History Smoking Status: Never smoker Second Hand Exposure: No; Do You Dip or Chew Tobacco: No; Hx Alcohol Use: No Hx Substance Use: No Preferred Language: Tajik Communication Ability: Effective Communication Ability Comment: parents assist w/ medical history and routine Agricultural Commodities Inspector Required: No Beliefs That Will Affect Care: None Current Living Situation: Parent and Family Current Living Situation Comment: mom and dad Feels Safe at Home: Yes Safety Concerns: Feels Safe At This Time Assistive Devices: Glasses Review of Systems 2 Review of Systems: All other systems were reviewed and negative except as noted in HPI Physical Exam 2 Physical Exam: General exam: Appears comfortable, no acute distress HEENT: Pupils are equal and reactive to light Neck: No JVD, neck is supple trachea is midline Respiratory system: Clear breath sounds bilaterally. Gastrointestinal: Abdomen is soft, non distended, non tender, bowel sounds are present CVS: Regular rate and rhythm. No murmurs, rubs or gallops Musculoskeletal: No joint or muscle tenderness Extremities: Non tender, no edema, peripheral pulses are present Neuro: Oriented, no tremors, no focal neurological deficits Skin: No rashes Results & Data Vital Signs (Past 12 Hours) Vital Signs Temp Pulse Resp BP BP Pulse Ox O2 Del Method 05/07/24 08:08 36.5 C 68 14 105/67 95 Room Air 05/07/24 07:13 36.7 C 69 16 126/76 96 Room Air Laboratory Results 05/07/24 06:06 05/07/24 06:06 Albumin 3.7 (2) Epilepsy Epilepsy type: unspecified
--- NOTE | 2024-05-07 15:14 | Hospitalist Progress Note ---
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 Of note, patient was recently admitted 04/24-04/26 for acute pancreatitis; this is his third episode of acute pancreatitis and fourth overall admission this year - he was previously admitted back in November 2023 here at [facility] with sepsis of the pancreas and was recently worked up for CFTR 2/2 finding of fluid in his pancreatic ducts/duct narrowing. Patient follows with [facility], Dr. Cline. Patient was scheduled to see Dr. Cline tomorrow (05/05) according to chart review, but his pain ultimately worsened and the decision was made to come to the ED. Recurrent Acute Pancreatitis Admitting Imaging: * Ultrasound of Pancreas --> "The liver is diffusely homogenous with normal contour and echogenicity. No focal mass lesions are seen. No intrahepatic ductal dilatation is seen. Patient is status post cholecystectomy. The common duct measures 0.4 cm in diameter at the level of the hepatic artery. Visualized portion of the pancreas appears echogenic. No peripancreatic stranding is seen." Patient recently had a CTAP performed 04/24 that revealed the following: "There is mild interstitial and peripancreatic inflammatory stranding, pronounced involving the pancreatic head and uncinate process/pancreaticoduodenal groove. No drainable fluid collections or pancreatic ductal dilation. Findings suggestive of mild interstitial edematous pancreatitis." Plan to NOT repeat CTAP at this time 2/2 recent CTAP on 04/24 and hx of congenital single kidney + potential risk of CARLTON; could repeat CTAP if symptoms worsen or fail to improve. Admitting Labs: * No evidence of leukocytosis, alk phos mildly elevated at 168. UA negative. Lipase slightly bumped at 86. -Pain control, pt prefers liquid Tylenol (PRN for mild pain) -PRN IV Toradol for moderate-severe pain -Received 1L NSS in the ED -Continue IVF w/ LR 200cc/hr, stop after 2 bags -Routine GI consult placed -Bowel rest, NPO for now. Analgesics and antiemetics prn -Fall precautions 12/10 lightheadedness -Lipid panel 04/25 w/in normal limits 05/05 Seems to be clinically improving Afebrile No leukocytosis Lipase normalized Bilirubin, AST ALT, normal Alk phos trending down GI service on board Clear liquid diet started DC fluids for now in light of sodium level trending down, currently 130 Patient has a history of seizures 05/06 Continues to improve clinically Lipase normal Alk phos trending down As per GI, patient will follow-up with Dr. Cline for consideration of sphincterotomy and Creon initiation as an outpatient Advance diet today Monitor closely 05/07 Clinically continues to improve Diet advanced to soft, tolerating well Outpatient GI follow-up Epilepsy -Hx of intermittent partial seizures per chart review -Follows w/ [facility], no recent medication changes -Will place on seizure precautions and have iv ativan prn if breakthrough seizures -Lamotrigine level 5.6 on 05/01/24 per chart review -Continue KINESEOLOGIST lacosamide, Lamictal, gabapentin No recurrence Cystic Fibrosis with CFTR Gene Mutation - ? Likely cause of digestive issues with pancreatic duct narrowing, recurrent pancreatitis ? -Follows w/ Dr. Cline ([facility]) -Was supposed to see him tomorrow as outpatient -Hx of recurrent pneumonia as a young child per his mother -Does not currently follow w/ respiratory specialist Absent L Kidney - Congenital H/O SIADH -Chronic, takes Ure-Na; will continue -Na level 134 on admission -Avoid nephrotoxic medications when able 05/05 Sodium level 130 DC LR Continue urea Repeat BMP tomorrow Discussed with collar baster jumpbasting on-call 05/06 Sodium 134 Continue urea Monitor BMP tomorrow 05/07 Sodium trended down to 132 Nephrology service consulted Potassium chloride 40 mg added to assist with maintaining normal levels of sodium Continue urea Continue fluid restriction Monitor closely H/O Autism -Chronic, high-functioning status DVT Prophylaxis: sc lovenox Code Status: FULL CODE PCP: Najma Solis MD Dispo: Transition to home when medically stable plan of care discussed with patient and his parents in detail all questions answered they are understanding, agreeable, comfortable with the plan of care Admission and Anticipated Discharge Date Admission Date: May 04, 2024 Subjective Follow-up for acute pancreatitis, recurrent, etc. Seen resting in bed, sitting up, not in distress, comfortable Patient's father at the bedside visiting Patient states he had a very mild epigastric discomfort today, has since resolved Denies nausea or vomiting, tolerating diet well +2-3 loose stools today Nonbloody No other new symptoms Review of Systems Review of Systems: all noted and negative except for above Physical Exam Physical Exam: General- oriented x 3, not in distress, speaks in sentences with no effort or accessory muscle use Eyes- anicteric Neck- no JVD Lungs- clear breath sounds bilaterally, no rales/wheezes Heart- normal rate, regular rhythm; no murmurs Abdomen- normal bowel sounds, nondistended, soft, nontender Extremities- no pretibial edema, no calf tenderness Neuro- alert, oriented x 3; no gross focal neurologic deficits Skin- warm & dry Results & Data Results & Data Vital Signs (Past 12 Hours) Vital Signs Temp Pulse Resp BP BP Pulse Ox O2 Del Method 05/07/24 14:22 36.6 C 72 16 123/82 96 Room Air 05/07/24 08:08 36.5 C 68 14 105/67 95 Room Air 05/07/24 07:13 36.7 C 69 16 126/76 96 Room Air all noted and reviewed including below
[2024-05-08] MEDS: LACOSAMIDE 50 MG TABLET PO SCH (08:06)
[2024-05-08] MEDS: LORazepam 0.5 MG in SYRINGE 0.25 ML IV PRN (08:37)
[2024-05-08 10:19] LABS: Albumin Level 3.9 gm/dl (3.4-5.0); Bilirubin,Total 0.8 mg/dl (0.2-1.0); Calcium 9.1 mg/dl (8.6-10.3); Magnesium 1.6 mg/dl (1.7-2.4); Potassium 3.7 mmol/L (3.5-5.1)
[2024-05-08 10:25] LABS: Albumin Globulin Ratio 1.3 (0.9-2); BUN Creatinine Ratio 19.5 (10-20); Creatinine Clr Calc Pharmacy 202.2 ml/min; Est GFR (African American) 139.5 ml/min; Est GFR (Non-African American) 120.3 ml/min; Total Protein 6.9 gm/dl (6.0-8.3)
--- NOTE | 2024-05-08 10:46 | Nephrology Progress Note ---
Date of Service May 08, 2024 Assessment & Plan (1) Hyponatremia: Plan: Patient with hyponatremia due historically to SIADH from multiple antiseizure medications which are known to trigger SIADH. Sodium is 129 this morning and has been dropping since admission slowly but steadily from admission value of 134. Pt with lower seizure threshold w/ even mild hyponatremia per family. needs further w/u/ investigation of current drivers of low Na >>I/O inaccurate /incomplete since admission>ordered strict I/O and daily STANDING wt -will check orthostatic VS and low threshold for CXR -will check serum osms, urine osms and urine electrolytes then repeat BMP 1600, possibly later depending on intervention -continue urea 15 gm bid; has been on this since admission -for now continue FR 1.5L/day -K 3.7 today > just started daily 40 mEq K po yesterday -cont NSAID avoidance -recommend seizure precautions until sodium stabilizes >care d/w Dr Chaudhry re steps above to investigate causes of worsening hyponatremia and plans to stabilize; we are in agreement studies show pt is not orthostatic, sOsm 269, uOsm 340; Na and Cl urine both 84 >> most c/w ongoing SIADH >increase urea to 30 gm bid >cont FR 1.5 L >start lasix 10 IV mg 2 daily doses given 4 hrs apart > for one dose today >maintain eukalemia >defer to primary to f/u pending repeat bmp; ensure repeat mag today or tomrrow Dr Chaudhry update don above (2) Epilepsy: Plan: Patient with epilepsy and recurrent seizures on multiple antiseizure medications. He is prone to seizures in setting of hyponatremia. Will continue to monitor closely. Continue current antiseizure medications Admission and Anticipated Discharge Date Admission Date: May 04, 2024 Subjective worsening hyponatremia progressive/slow since admissiondenies poor po intake sob n/v malaise ocnfusion gait instability/worse balance, uncontrolle dpain. dad wonders if pt can be eval'd for Cushings. Review of Systems 2 Review of Systems: All systems reviewed & are unremarkable except as noted in Subjective Physical Exam 2 Constitutional: well developed, well nourished, + obese and cooperative; no acute distress Eyes: EOM intact bilaterally ENMT: Ears: no external ear abnormality Nose: no external nose abnormality Mouth: + dry oral mucous membranes Neck: no nuchal rigidity Respiratory: normal respiratory effort (pes cavus) Auscultation: + diminished lung sounds Cardiovascular: RRR, no murmur, no edema Gastrointestinal (Abdomen): Inspection/Auscultation: normal bowel sounds P ercussion/Palpation: abdomen soft; abdomen nontender Musculoskeletal: Extremities: strength 5/5 throughout Skin: no rashes, warm and dry Neurologic: hollis, fluent speech, no tremor Results & Data Vital Signs (Past 12 Hours) Vital Signs Temp Pulse Resp BP Pulse Ox O2 Del Method 05/08/24 07:25 36.5 C 61 16 109/71 96 Room Air Laboratory Results 05/05/24 07:34 05/08/24 07:12 no osms/ urine studies on chart Diagnostic Findings no cxr (2) Epilepsy Epilepsy type: unspecified
[2024-05-08] MEDS: MAGNESIUM SULFATE / D5W 1 GM/100 ML BAG IV SCH (10:48)
[2024-05-08 12:53] LABS: Urine Potassium 14.1 mmol/L
--- NOTE | 2024-05-08 17:00 | Hospitalist Progress Note ---
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 Of note, patient was recently admitted 04/24-04/26 for acute pancreatitis; this is his third episode of acute pancreatitis and fourth overall admission this year - he was previously admitted back in November 2023 here at [facility] with sepsis of the pancreas and was recently worked up for CFTR 2/2 finding of fluid in his pancreatic ducts/duct narrowing. Patient follows with [facility], Dr. Cline. Patient was scheduled to see Dr. Cline tomorrow (05/05) according to chart review, but his pain ultimately worsened and the decision was made to come to the ED. Recurrent Acute Pancreatitis Admitting Imaging: * Ultrasound of Pancreas --> "The liver is diffusely homogenous with normal contour and echogenicity. No focal mass lesions are seen. No intrahepatic ductal dilatation is seen. Patient is status post cholecystectomy. The common duct measures 0.4 cm in diameter at the level of the hepatic artery. Visualized portion of the pancreas appears echogenic. No peripancreatic stranding is seen." Patient recently had a CTAP performed 04/24 that revealed the following: "There is mild interstitial and peripancreatic inflammatory stranding, pronounced involving the pancreatic head and uncinate process/pancreaticoduodenal groove. No drainable fluid collections or pancreatic ductal dilation. Findings suggestive of mild interstitial edematous pancreatitis." Plan to NOT repeat CTAP at this time 2/2 recent CTAP on 04/24 and hx of congenital single kidney + potential risk of CARLTON; could repeat CTAP if symptoms worsen or fail to improve. Admitting Labs: * No evidence of leukocytosis, alk phos mildly elevated at 168. UA negative. Lipase slightly bumped at 86. -Pain control, pt prefers liquid Tylenol (PRN for mild pain) -PRN IV Toradol for moderate-severe pain -Received 1L NSS in the ED -Continue IVF w/ LR 200cc/hr, stop after 2 bags -Routine GI consult placed -Bowel rest, NPO for now. Analgesics and antiemetics prn -Fall precautions /2 lightheadedness -Lipid panel 04/25 w/in normal limits 05/05 Seems to be clinically improving Afebrile No leukocytosis Lipase normalized Bilirubin, AST ALT, normal Alk phos trending down GI service on board Clear liquid diet started DC fluids for now in light of sodium level trending down, currently 130 Patient has a history of seizures 05/06 Continues to improve clinically Lipase normal Alk phos trending down As per GI, patient will follow-up with Dr. Cline for consideration of sphincterotomy and Creon initiation as an outpatient Advance diet today Monitor closely 05/07 Clinically continues to improve Diet advanced to soft, tolerating well Outpatient GI follow-up 05/08 Acute pancreatitis resolved Continue soft diet Epilepsy -Hx of intermittent partial seizures per chart review -Follows w/ [facility], no recent medication changes -Will place on seizure precautions and have iv ativan prn if breakthrough seizures -Lamotrigine level 5.6 on 05/01/24 per chart review -Continue SURVEILLANCE DIRECTOR lacosamide, Lamictal, gabapentin 05/08 Positive recurrence today Likely in the setting of hyponatremia, hypomagnesemia Management of hyponatremia per below Magnesium IV x 2 bags ordered Monitor electrolytes closely Seizure precautions As needed IV Ativan Cystic Fibrosis with CFTR Gene Mutation - ? Likely cause of digestive issues with pancreatic duct narrowing, recurrent pancreatitis ? -Follows w/ Dr. Cline ([facility]) -Was supposed to see him tomorrow as outpatient -Hx of recurrent pneumonia as a young child per his mother -Does not currently follow w/ respiratory specialist Absent L Kidney - Congenital H/O SIADH -Chronic, takes Ure-Na; will continue -Na level 134 on admission -Avoid nephrotoxic medications when able 05/05 Sodium level 130 DC LR Continue urea Repeat BMP tomorrow Discussed with wild life photographer on-call 05/06 Sodium 134 Continue urea Monitor BMP tomorrow 05/07 Sodium trended down to 132 Nephrology service consulted Potassium chloride 40 mg added to assist with maintaining normal levels of sodium Continue urea Continue fluid restriction 05/08 Sodium decreased to 129, 127 Pit Steward consulted Lasix IV 10 mg twice a day Potassium chloride 40 mg 3 times daily Urea increased to 30 g p.o. twice daily Will monitor closely Monitor closely H/O Autism -Chronic, high-functioning status DVT Prophylaxis: sc lovenox Code Status: FULL CODE PCP: Najma Solis MD Dispo: Transition to home when medically stable plan of care discussed with patient and his father in detail all questions answered they are understanding, agreeable, comfortable with the plan of care Admission and Anticipated Discharge Date Admission Date: May 04, 2024 Subjective Follow-up for recurrent pancreatitis, hyponatremia, etc. Seen resting in bed, sitting up, not in distress States abdomen feels better, no pain today No nausea vomiting Tolerating diet Had an episode of drop seizure today witnessed by patient's father at the bedside Was given Ativan IV No recurrence since Review of Systems Review of Systems: all noted and negative except for above Physical Exam Physical Exam: General- oriented x 3, not in distress, speaks in sentences with no effort or accessory muscle use Eyes- anicteric Neck- no JVD Lungs- clear breath sounds bilaterally, No crackles or wheezing Heart- normal rate, regular rhythm; no murmurs Abdomen- normal bowel sounds, nondistended, soft, No tenderness Extremities- no pretibial edema, no calf tenderness Neuro- alert, oriented x 3; no gross focal neurologic deficits Skin- warm & dry Results & Data Results & Data Vital Signs (Past 12 Hours) Vital Signs Temp Pulse Resp BP Pulse Ox O2 Del Method 05/08/24 15:11 36.6 C 72 18 123/81 97 Room Air 05/08/24 07:25 36.5 C 61 16 109/71 96 Room Air all noted and reviewed including below
[2024-05-08 17:07] LABS: Anion Gap 6 (3-11); BUN Creatinine Ratio 25.4 (10-20); Blood Urea Nitrogen 16 mg/dl (6-23); Calcium 8.9 mg/dl (8.6-10.3); Carbon Dioxide 25 mmol/L (21-32); Chloride 96 mmol/L (98-107); Creatinine Clr Calc Pharmacy 263.2 ml/min; Est GFR (African American) > 150.0 ml/min; Est GFR (Non-African American) 134.1 ml/min; Glucose 91 mg/dl (70-99(Fasting)); Potassium 4.1 mmol/L (3.5-5.1); Sodium 127 mmol/L (136-145)
[2024-05-08] MEDS: FUROSEMIDE INJ 20 MG/2 ML VIAL IV ONE (17:37)
[2024-05-08] MEDS: POTASSIUM CHLORIDE CRTAB 20 MEQ TABCR PO SCH (17:37)
[2024-05-08] MEDS ORDERED: LORazepam 2 MG/1 ML VIAL IV PRN (17:53)
[2024-05-08 18:38] LABS: Magnesium 2.1 mg/dl (1.7-2.4)
[2024-05-08] MEDS: UREA (UREA-NA) 15 GM PACK PO SCH (19:59)
[2024-05-08 22:07] LABS: Anion Gap 7 (3-11); BUN Creatinine Ratio 53.1 (10-20); Blood Urea Nitrogen 34 mg/dl (6-23); Calcium 9.4 mg/dl (8.6-10.3); Carbon Dioxide 25 mmol/L (21-32); Chloride 94 mmol/L (98-107); Creatinine Clr Calc Pharmacy 259.1 ml/min; Est GFR (African American) > 150.0 ml/min; Est GFR (Non-African American) 133.2 ml/min; Glucose 143 mg/dl (70-99(Fasting)); Potassium 3.9 mmol/L (3.5-5.1); Sodium 126 mmol/L (136-145)
[2024-05-08 22:11] LABS: Basophils # (auto) 0.05 K/uL (0.00-0.20); Basophils % (auto) 0.8 %; Eosinophils # (auto) 0.29 K/uL (0.00-0.50); Eosinophils % (auto) 4.5 %; Hematocrit (blood only) 42.3 % (42.0-52.0); Hemoglobin 15.1 g/dl (14.0-18.0); Immature Granulocytes # (auto) 0.02 K/uL (0.01-0.20); Immature Granulocytes % (auto) 0.3 %; Lymphocytes # (auto) 1.72 K/uL (1.20-3.40); Mean Corpuscular Hemoglobin 29.5 pg (25.0-34.0); Mean Corpuscular Hgb Conc 35.7 g/dL (32.0-36.0); Mean Corpuscular Volume 82.6 fL (80.0-100.0); Mean Platelet Volume 10.3 fL (9.4-12.4); Monocytes # (auto) 0.49 K/uL (0.11-0.59); Monocytes % (auto) 7.7 %; Neutrophils # (auto) 3.81 K/uL (1.40-6.50); Neutrophils % (auto) 59.7 %; Platelet Count 227 K/uL (130-400); RDW Standard Deviation 36.5 fL (36.4-46.3); Red Blood Count 5.12 M/uL (4.70-6.10); White Blood Count 6.38 K/ul (4.8-10.8)
[2024-05-09 08:29] LABS: Anion Gap 5 (3-11); Bilirubin,Total 0.6 mg/dl (0.2-1.0); Calcium 8.9 mg/dl (8.6-10.3); Carbon Dioxide 26 mmol/L (21-32); Chloride 98 mmol/L (98-107); Magnesium 1.8 mg/dl (1.7-2.4); Potassium 4.4 mmol/L (3.5-5.1); Sodium 129 mmol/L (136-145)
[2024-05-09 08:36] LABS: Alanine Aminotransferase 19 U/L (7-52); Albumin Globulin Ratio 1.3 (0.9-2); Alkaline Phosphatase 139 U/L (34-104); Aspartate Aminotransferase 16 U/L (13-39); BUN Creatinine Ratio 27.3 (10-20); Blood Urea Nitrogen 18 mg/dl (6-23); Est GFR (African American) > 150.0 ml/min; Est GFR (Non-African American) 131.6 ml/min; Glucose 114 mg/dl (70-99(Fasting))
[2024-05-09] MEDS: FUROSEMIDE INJ 20 MG/2 ML VIAL IV SCH (09:04)
--- NOTE | 2024-05-09 11:15 | Nephrology Progress Note ---
Date of Service May 09, 2024 Assessment & Plan (1) Hyponatremia: Plan: Patient with hyponatremia due historically to SIADH from multiple antiseizure medications which are known to trigger SIADH. Sodium is after zechariah 126 last evening up to 129 this morning; through 05/08 PM it had been dropping since admission slowly but steadily to zechariah 126 from admission value of 134. Pt with lower seizure threshold w/ even mild hyponatremia per family. Unremarkable pituitary imaging MRI 12/2023. Unremarkable adrenal imaging CT 12/2023. investigation w/ this drop of low Na c/w SIADH again >cont strict I/O and daily STANDING wt -will check orthostatic VS again today as some lower BP even on low dose diuretic -continue urea 30 gm bid; increased from 15 gm bid on 05/08; try to minimize time on this as does make pt ill -for now continue FR 1.5L/day -on K 40 mEq tid currently >>>plan 1500 repeat BMP and reeval -cont lasix 10 mg IV q 0900 and 1300 pending labs/ for now and monitor BP -cont NSAID avoidance -ensure eukalemia >>part of ensuring eukalemia is maintaining normal serum mag > advised high mag foods to be increased at home after d/c -recommend seizure precautions until sodium stabilizes >spent > 25 min talking to F about causes, course / chronicity of, management strategies for chronic hyponatremia in context of chronic pancreatitis and significant seizure disorder -F very concerned about f/u after d/c on lytes > recommend consideration of 2X weekly tests w/ mobile lab x 2-3 wks until they see [facility] in clinic >care d/w Dr Chaudhry re steps above to cont to stabilize serum chemistries and to continue intensive monitoring; we are in agreement (2) Epilepsy: Plan: Patient with epilepsy and recurrent seizures on multiple antiseizure medications. He is prone to seizures in setting of hyponatremia. Will continue to monitor closely. Continue current antiseizure medications; F plans to discuss seizure med care/choices w/ [facility] at late May visit wrt hyopnatremia among other issues (3) Solitary kidney, congenital: Plan: Noted. no current issues Admission and Anticipated Discharge Date Admission Date: May 04, 2024 Subjective dad reports pt had several drop seizures yest AM; none today; no lightheadedness or dizziness; no n/v, no ches tpain edema or sob Review of Systems 2 Review of Systems: All systems reviewed & are unremarkable except as noted in Subjective Physical Exam 2 Constitutional: well developed, well nourished, + obese and cooperative; no acute distress Eyes: EOM intact bilaterally ENMT: Ears: no external ear abnormality Nose: no external nose abnormality Mouth: + dry oral mucous membranes Neck: no nuchal rigidity Respiratory: normal respiratory effort (pes cavus) Auscultation: + diminished lung sounds Cardiovascular: RRR, no murmur, no edema Gastrointestinal (Abdomen): Inspection/Auscultation: normal bowel sounds P ercussion/Palpation: abdomen soft; abdomen nontender Musculoskeletal: Extremities: strength 5/5 throughout Skin: no rashes, warm and dry Neurologic: hollis, fluent speech, no tremor Psychiatric: Orientation: alert and oriented x 3 Speech: normal rate/rhythm/volume of speech Results & Data Vital Signs (Past 12 Hours) Vital Signs Temp Pulse Resp BP Pulse Ox O2 Del Method 05/09/24 08:00 36.6 C 79 18 115/77 96 Room Air 05/08/24 23:04 36.6 C 18 100/71 97 Room Air Laboratory Results 05/08/24 21:14 05/09/24 07:24 (2) Epilepsy Epilepsy type: unspecified
[2024-05-09 15:25] LABS: Calcium 9.7 mg/dl (8.6-10.3); Creatinine Clr Calc Pharmacy 191.1 ml/min; Est GFR (African American) 136.8 ml/min; Magnesium 1.7 mg/dl (1.7-2.4); Potassium 4.4 mmol/L (3.5-5.1)
[2024-05-10 08:29] LABS: Magnesium 1.7 mg/dl (1.7-2.4)
[2024-05-10 09:27] LABS: BUN Creatinine Ratio 34.2 (10-20); Calcium 9.2 mg/dl (8.6-10.3); Est GFR (African American) 143.9 ml/min; Est GFR (Non-African American) 124.2 ml/min; Potassium 4.4 mmol/L (3.5-5.1)
[2024-05-10] MEDS: LORazepam 0.5 MG in SYRINGE 0.25 ML IV ONE (12:50)
--- NOTE | 2024-05-10 12:55 | Hospitalist Progress Note ---
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 Of note, patient was recently admitted 04/24-04/26 for acute pancreatitis; this is his third episode of acute pancreatitis and fourth overall admission this year - he was previously admitted back in November 2023 here at [facility] with sepsis of the pancreas and was recently worked up for CFTR 2/2 finding of fluid in his pancreatic ducts/duct narrowing. [facility], Dr. Cline. Patient was scheduled to see Dr. Cline tomorrow (05/05) according to chart review, but his pain ultimately worsened and the decision was made to come to the ED. Recurrent Acute Pancreatitis Admitting Imaging: * Ultrasound of Pancreas --> "The liver is diffusely homogenous with normal contour and echogenicity. No focal mass lesions are seen. No intrahepatic ductal dilatation is seen. Patient is status post cholecystectomy. The common duct measures 0.4 cm in diameter at the level of the hepatic artery. Visualized portion of the pancreas appears echogenic. No peripancreatic stranding is seen." Patient recently had a CTAP performed 04/24 that revealed the following: "There is mild interstitial and peripancreatic inflammatory stranding, pronounced involving the pancreatic head and uncinate process/pancreaticoduodenal groove. No drainable fluid collections or pancreatic ductal dilation. Findings suggestive of mild interstitial edematous pancreatitis." Plan to NOT repeat CTAP at this time 2/2 recent CTAP on 04/24 and hx of congenital single kidney + potential risk of CARLTON; could repeat CTAP if symptoms worsen or fail to improve. Admitting Labs: * No evidence of leukocytosis, alk phos mildly elevated at 168. UA negative. Lipase slightly bumped at 86. -Pain control, pt prefers liquid Tylenol (PRN for mild pain) -PRN IV Toradol for moderate-severe pain -Received 1L NSS in the ED -Continue IVF w/ LR 200cc/hr, stop after 2 bags -Routine GI consult placed -Bowel rest, NPO for now. Analgesics and antiemetics prn -Fall precautions 12/10 lightheadedness -Lipid panel 04/25 w/in normal limits 05/05 Seems to be clinically improving Afebrile No leukocytosis Lipase normalized Bilirubin, AST ALT, normal Alk phos trending down GI service on board Clear liquid diet started DC fluids for now in light of sodium level trending down, currently 130 Patient has a history of seizures 05/06 Continues to improve clinically Lipase normal Alk phos trending down As per GI, patient will follow-up with Dr. Cline for consideration of sphincterotomy and Creon initiation as an outpatient Advance diet today Monitor closely 05/07 Clinically continues to improve Diet advanced to soft, tolerating well Outpatient GI follow-up 05/08 Acute pancreatitis resolved Continue soft diet 05/09 acute pancreatitis resolved Epilepsy -Hx of intermittent partial seizures per chart review -Follows w/ [facility] Neurology, no recent medication changes -Will place on seizure precautions and have iv ativan prn if breakthrough seizures -Lamotrigine level 5.6 on 05/01/24 per chart review -Continue MOTOR VEHICLE FIELD REPRESENTATIVE lacosamide, Lamictal, gabapentin 05/08 Positive recurrence today Likely in the setting of hyponatremia, hypomagnesemia Management of hyponatremia per below Magnesium IV x 2 bags ordered 05/09 no recurrence Monitor electrolytes closely Seizure precautions As needed IV Ativan Cystic Fibrosis with CFTR Gene Mutation - ? Likely cause of digestive issues with pancreatic duct narrowing, recurrent pancreatitis ? -Follows w/ Dr. Cline ([facility]) -Was supposed to see him tomorrow as outpatient -Hx of recurrent pneumonia as a young child per his mother -Does not currently follow w/ respiratory specialist Absent L Kidney - Congenital H/O SIADH -Chronic, takes Ure-Na; will continue -Na level 134 on admission -Avoid nephrotoxic medications when able 05/05 Sodium level 130 DC LR Continue urea Repeat BMP tomorrow Discussed with shirt turner on-call 05/06 Sodium 134 Continue urea Monitor BMP tomorrow 05/07 Sodium trended down to 132 Nephrology service consulted Potassium chloride 40 mg added to assist with maintaining normal levels of sodium Continue urea Continue fluid restriction 05/08 Sodium decreased to 129, 127 Mirror Fabrication Supervisor consulted Lasix IV 10 mg twice a day Potassium chloride 40 mg 3 times daily Urea increased to 30 g p.o. twice daily Will monitor closely Monitor closely 05/09 Na 129 continue present management Nephro on board H/O Autism -Chronic, high-functioning status DVT Prophylaxis: sc lovenox Code Status: FULL CODE PCP: Najma Solis MD Dispo: Transition to home when medically stable plan of care discussed with patient and his father in detail all questions answered they are understanding, agreeable, comfortable with the plan of care Admission and Anticipated Discharge Date Admission Date: May 04, 2024 Subjective ff up for acute pancreatiits, hyponatremia, etc seen resting in bed, comfortable states he feels fine overall no abdominal pain, nausea/vomiting no other symptoms Review of Systems Review of Systems: all noted and negative except for above Physical Exam Physical Exam: General- oriented x 3, not in distress, speaks in sentences with no effort or accessory muscle use Eyes- anicteric Neck- no JVD Lungs- clear breath sounds bilaterally, no rales/wheezes Heart- normal rate, regular rhythm; no murmurs Abdomen- normal bowel sounds, nondistended, soft, nontender Extremities- no pretibial edema, no calf tenderness Neuro- alert, oriented x 3; no gross focal neurologic deficits Skin- warm & dry Results & Data Results & Data Vital Signs (Past 12 Hours) Vital Signs Temp Pulse Pulse Resp BP Pulse Ox O2 Del Method 05/10/24 12:16 36.5 C 77 17 137/82 95 Room Air 05/10/24 07:46 36.6 C 76 16 109/71 97 Room Air all noted and reviewed including below
--- NOTE | 2024-05-10 13:21 | Nephrology Progress Note ---
Date of Service May 10, 2024 Assessment & Plan (1) Hyponatremia: Plan: Patient with hyponatremia due historically to SIADH from multiple antiseizure medications which are known to trigger SIADH. Sodium is up to 132 this morning; through 05/08 PM it had been dropping since admission slowly but steadily to zechariah 126 6/30 PM from admission value of 134. Pt with lower seizure threshold w/ even mild hyponatremia or other electrolyte disorders per family. Unremarkable pituitary imaging MRI 12/2023. Unremarkable adrenal imaging CT 12/2023. investigation w/ this drop of low Na c/w SIADH again >cont strict I/O and daily STANDING wt first weight 05/09 at 133.9 standing; 05/10 is 132.4 -continue urea 30 gm bid; increased from 15 gm bid on 05/08; pt tolerating from GI standpoint -for now continue FR 1.5L/day -on K 40 mEq tid currently > continue same for now -cont lasix 10 mg IV q 0900 and 1300 -cont NSAID avoidance -ensure eukalemia >>part of ensuring eukalemia is maintaining normal serum mag > advised high mag foods to be increased at home after d/c -recommend seizure precautions until sodium stabilizes; recommend 3-5 servings/ day of high magnesium foods >> aim for 150 mg total daily magnesium intake >spent > 15 min talking to F about causes, course / chronicity of, management strategies for chronic hyponatremia and need for labs at discharge as well as -F very concerned about f/u after d/c on lytes > recommend consideration of 2X weekly tests w/ mobile lab x 2-3 wks until they see Dr Newman in clinic; recommend also daily standing weight per HF protocol w/ DTP -would not d/c until sNa 135 and stable on 2 checks w/ K, Mag wnl >care d/w Dr Lutz re steps above to cont to stabilize serum chemistries and to continue intensive monitoring, including after d/c; also suggested education about high mag diet and DTP; we are in agreement PRELIMINARY NEPHROLOGY D/C RECS -d/c on K 40 mEq bid and mag 400 mg daily intake -encourage daily prune juice; aim for 2500 mg daily potassium intake per 2000 calories -continue 30 mg bid urea -recommend PCP check bmp and mag q wed/wednesday w/ mobile lab x 2-3 wks until seen by dr Newman in hospital d/c appt and contact [facility] if concerns -d/c on lasix 20 mg two daily doses at least 4 hours or more apart -check bmp, urine / serum osms, urine electrolytes to be ordered by neph nurse and drawn no more than 5 days before neph hospital d/c appt -continue 1.5L FR at d/c -recommend daily standing weight per heart failure protocol(pls educate pt / family on this) -follow diuretic titration protocol>>if > 3 lb gain in 48 hrs or if >5 lb gain in a week, take extra lasix tab 20 mg x 3 days and contact nephro (2) Epilepsy: Plan: Patient with epilepsy and recurrent seizures on multiple antiseizure medications. He is prone to seizures in setting of hyponatremia. Will continue to monitor closely. Continue current antiseizure medications; F plans to discuss seizure med care/choices w/ [facility] at late May visit wrt hyopnatremia among other issues (3) Solitary kidney, congenital: Plan: Noted. no current issues; at risk for CARLTON though w/ diuresis and solitary kidney Admission and Anticipated Discharge Date Admission Date: May 04, 2024 Subjective had an aura this am, needing extra lorazepam. apart from aura, feeling well. no constipation; no light headedness or dizziness, no n/v; not overly thirsty Review of Systems 2 Review of Systems: All systems reviewed & are unremarkable except as noted in Subjective Physical Exam 2 Constitutional: well developed, well nourished, + obese and cooperative; no acute distress Eyes: EOM intact bilaterally ENMT: Ears: no external ear abnormality Nose: no external nose abnormality Mouth: + dry oral mucous membranes Neck: no nuchal rigidity Respiratory: normal respiratory effort (pes cavus) Auscultation: + diminished lung sounds Cardiovascular: RRR, no murmur, no edema Gastrointestinal (Abdomen): Inspection/Auscultation: normal bowel sounds P ercussion/Palpation: abdomen soft; abdomen nontender Musculoskeletal: Extremities: strength 5/5 throughout Skin: no rashes, warm and dry Psychiatric: Orientation: alert and oriented x 3 Speech: normal rate/rhythm/volume of speech Results & Data Vital Signs (Past 12 Hours) Vital Signs Temp Pulse Pulse Resp BP Pulse Ox O2 Del Method 05/10/24 12:16 36.5 C 77 17 137/82 95 Room Air 05/10/24 07:46 36.6 C 76 16 109/71 97 Room Air Laboratory Results 05/08/24 21:14 05/10/24 07:36 (2) Epilepsy Epilepsy type: unspecified
--- NOTE | 2024-05-10 13:32 | Hospitalist Progress Note ---
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 Of note, patient was recently admitted 04/24-04/26 for acute pancreatitis; This is his third episode of acute pancreatitis and fourth overall admission this year - he was previously admitted back in November 2023 here at [facility] with sepsis of the pancreas and was recently worked up for CFTR 2/2 finding of fluid in his pancreatic ducts/duct narrowing. Patient follows with Baldev MADDEN, Dr. Cline. Patient was scheduled to see Dr. Cline (05/05) according to chart review, but his pain ultimately worsened and the decision was made to come to the ED. Recurrent Acute Pancreatitis Admitting Imaging: Ultrasound of Pancreas --> "The liver is diffusely homogenous with normal contour and echogenicity. No focal mass lesions are seen. No intrahepatic ductal dilatation is seen. Patient is status post cholecystectomy. The common duct measures 0.4 cm in diameter at the level of the hepatic artery. Visualized port ion of the pancreas appears echogenic. No peripancreatic stranding is seen." Patient recently had a CTAP performed 04/24 that revealed the following: "There is mild interstitial and peripancreatic inflammatory stranding, pronounced involving the pancreatic head and uncinate process/pancreaticoduodenal groove. No drainable fluid collections or pancreatic ductal dilation. Findings suggestive of mild interstitial edematous pancreatitis." CTAP not repeated this time due to recent CTAP on 04/24 and hx of congenital single kidney + potential risk of CARLTON Admitting Labs: No evidence of leukocytosis, alk phos mildly elevated at 168. UA negative. Lipase slightly bumped at 86. Got IVF Abdominal pain has resolved Lipase normalized GI eval noted Patient to follow with Dr Cline outpatient for consideration of sphincterotomy and Creon initiation as an outpatient Absent L Kidney - Congenital H/O SIADH Hyponatremia -Chronic, takes Ure-Na; will continue -Na level 134 on admission Na trended down to 127 Nephrology on board helping with management of hyponatremia Home Urea increased to 30mg BID Discussed with Social Service Assistant today Currently on IV lasix, po potassium. Started po mag Monitor Na Will follow up with Nephro outpatient PCP to monitor electrolytes outpatient Epilepsy -Hx of intermittent partial seizures per chart review -Follows w/ [facility] Neurology, no recent medication changes -Lamotrigine level 5.6 on 05/01/24 per chart review -Continue COUNTER POCKET TRIMMER lacosamide, Lamictal, gabapentin Seizure precautions Father reports increased seizures with Na <135 and hypomagnesemia Ativan prn seizure Cystic Fibrosis with CFTR Gene Mutation - ? Likely cause of digestive issues with pancreatic duct narrowing, recurrent pancreatitis ? -Follows w/ Dr. Cline ([facility] GI) -Was supposed to see him tomorrow as outpatient -Hx of recurrent pneumonia as a young child per his mother -Does not currently follow w/ respiratory specialist H/O Autism -Chronic, high-functioning status DVT Prophylaxis: sc lovenox Code Status: FULL CODE PCP: Najma Solis MD Dispo: Transition to home when medically stable I spent a total of 50 minutes coordinating, documenting and providing care for this patient excluding time spent in performance of separately billed services Admission and Anticipated Discharge Date Admission Date: May 04, 2024 Subjective Patient seen and examined Father at bedside Patient reported visual aura earlier this morning that is currently improving after getting Ativan. Denied any abd pain, nausea, vomiting Denied any other complaints on ROS Physical Exam Constitutional: + well hydrated; no acute distress Eyes: PERRL, conjunctivae normal, anicteric sclerae ENMT: external ear and nose normal, oropharynx normal Respiratory: normal respiratory effort, lungs clear to auscultation Cardiovascular: Rate/Rhythm: regular rate and regular rhythm Gastrointestinal (Abdomen): normal bowel sounds, soft, nontender, no hepatosplenomegaly Musculoskeletal: no cyanosis or clubbing, extremities motor strength 5/5 Neurologic: PERRL, EOMI, accommodation nl, no face palsy, no dysarthria Psychiatric: A+Ox3, euthymic affect Results & Data Results & Data Vital Signs (Past 12 Hours) Vital Signs Temp Pulse Pulse Resp BP Pulse Ox O2 Del Method 05/10/24 12:16 36.5 C 77 17 137/82 95 Room Air 05/10/24 07:46 36.6 C 76 16 109/71 97 Room Air Laboratory Results Abnormal lab results 05/10/24 Range/Units 07:36 Sodium 132 L (136-145) mmol/L BUN 26 H (6-23) mg/dl BUN/Creatinine Ratio 34.2 H (10-20) Glucose 100 H (70-99(Fasting)) mg/dl
[2024-05-10] MEDS: MAGNESIUM OXIDE 400 MG TAB PO SCH (15:36)
[2024-05-10] MEDS: ACETAMINOPHEN SUSP 325 MG/10.15 ML UDC PO PRN (16:52)
[2024-05-11 06:28] LABS: Hematocrit (blood only) 45.5 % (42.0-52.0); Hemoglobin 15.5 g/dl (14.0-18.0); Mean Corpuscular Hgb Conc 34.1 g/dL (32.0-36.0); Mean Platelet Volume 10.3 fL (9.4-12.4); Platelet Count 256 K/uL (130-400); RDW Coefficient of Variation 12.4 % (11.5-14.5); RDW Standard Deviation 38.6 fL (36.4-46.3); Red Blood Count 5.35 M/uL (4.70-6.10); White Blood Count 6.35 K/ul (4.8-10.8)
[2024-05-11 06:37] LABS: BUN Creatinine Ratio 39.8 (10-20); Calcium 9.7 mg/dl (8.6-10.3); Creatinine Clr Calc Pharmacy 182.6 ml/min; Est GFR (African American) 135.5 ml/min; Est GFR (Non-African American) 116.9 ml/min; Magnesium 1.9 mg/dl (1.7-2.4); Phosphorus 3.6 mg/dl (2.5-4.9); Potassium 4.6 mmol/L (3.5-5.1)
[2024-05-11] MEDS: LORazepam 0.5 MG in SYRINGE 0.25 ML IV STA (11:22)
--- NOTE | 2024-05-11 14:08 | CT Scan Report ---
CT head/brain wo con CLINICAL HISTORY: Rule out stroke or acute abnormalities Technique: Contiguous axial CT images of the head were acquired from the base of the skull to the akash malcolm without intravenous contrast administration. Images were viewed in brain, subdural and bone [facility]. Automated dose lowering techniques and/or adjustment according to patient size were utilized for this exam. Comparison: Comparison is made to CT head 10/20/2023 Findings: The ventricles, basal cisterns, and cerebral sulci are normal. There is no acute intracranial hemorrh age or evidence of acute territorial infarction. Neither mass effect, shift of the midline structures , nor abnormal extra-axial fluid collections are shown. Imaged portions of the paranasal sinuses and mastoid air cells are clear. The orbits appear normal. There are no acute fractures of the calvaria or scalp swelling. Impression: No acute intracranial hemorrhage, no evidence of acute territorial infarction or other acute intracra nial disease process. ACT 112: Negative or not required by law. Electronically signed by: Konstantin Zhang M.D. 05/11/2024 2:07 PM
--- NOTE | 2024-05-11 16:57 | Hospitalist Progress Note ---
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 Of note, patient was recently admitted 04/24-04/26 for acute pancreatitis; This is his third episode of acute pancreatitis and fourth overall admission this year - he was previously admitted back in November 2023 here at [facility] with sepsis of the pancreas and was recently worked up for CFTR 2/2 finding of fluid in his pancreatic ducts/duct narrowing. Patient follows with Baldev MADDEN, Dr. Cline. Patient was scheduled to see Dr. Cline (05/05) according to chart review, but his pain ultimately worsened and the decision was made to come to the ED. Recurrent Acute Pancreatitis Admitting Imaging: Ultrasound of Pancreas --> "The liver is diffusely homogenous with normal contour and echogenicity. No focal mass lesions are seen. No intrahepatic ductal dilatation is seen. Patient is status post cholecystectomy. The common duct measures 0.4 cm in diameter at the level of the hepatic artery. Visualized port ion of the pancreas appears echogenic. No peripancreatic stranding is seen." Patient recently had a CTAP performed 04/24 that revealed the following: "There is mild interstitial and peripancreatic inflammatory stranding, pronounced involving the pancreatic head and uncinate process/pancreaticoduodenal groove. No drainable fluid collections or pancreatic ductal dilation. Findings suggestive of mild interstitial edematous pancreatitis." CTAP not repeated this time due to recent CTAP on 04/24 and hx of congenital single kidney + potential risk of CARLTON Admitting Labs: No evidence of leukocytosis, alk phos mildly elevated at 168. UA negative. Lipase slightly bumped at 86. Got IVF Abdominal pain has resolved Lipase normalized GI eval noted Patient to follow with Dr Cline outpatient for consideration of sphincterotomy and Creon initiation as an outpatient Absent L Kidney - Congenital H/O SIADH Hyponatremia -Chronic, takes Ure-Na; will continue -Na level 134 on admission Na trended down to 127 Nephrology on board helping with management of hyponatremia Home Urea increased to 30mg BID Na improving, up to 134 today Currently on IV lasix, po potassium. Continue po mag Monitor Na Will follow up with Nephro outpatient PCP to monitor electrolytes outpatient Epilepsy -Hx of intermittent partial seizures per chart review -Follows w/ [facility] Neurology, no recent medication changes -Lamotrigine level 5.6 on 05/01/24 per chart review -Continue HR COORDINATOR lacosamide, Lamictal, gabapentin Seizure precautions Father reports increased seizures with Na <135 and hypomagnesemia Ativan prn seizure CT head did not show any acute abnormalities Cystic Fibrosis with CFTR Gene Mutation - ? Likely cause of digestive issues with pancreatic duct narrowing, recurrent pancreatitis ? -Follows w/ Dr. Cline ([facility] GI) -Was supposed to see him tomorrow as outpatient -Hx of recurrent pneumonia as a young child per his mother -Does not currently follow w/ respiratory specialist H/O Autism -Chronic, high-functioning status DVT Prophylaxis: sc lovenox Code Status: FULL CODE PCP: Najma Solis MD Dispo: Transition to home when medically stable I spent a total of 40 minutes coordinating, documenting and providing care for this patient excluding time spent in performance of separately billed services Admission and Anticipated Discharge Date Admission Date: May 04, 2024 Subjective Patient seen and examined Father at bedside Patient also had visual aura this morning and got Ativan Denied any abd pain, nausea, vomiting Denied any other complaints on ROS Physical Exam Constitutional: + well hydrated; no acute distress Eyes: PERRL, conjunctivae normal, anicteric sclerae ENMT: external ear and nose normal, oropharynx normal Respiratory: normal respiratory effort, lungs clear to auscultation Cardiovascular: Rate/Rhythm: regular rate and regular rhythm S1 S2 Gastrointestinal (Abdomen): normal bowel sounds, soft, nontender, no hepatosplenomegaly Musculoskeletal: no cyanosis or clubbing, extremities motor strength 5/5 Neurologic: PERRL, EOMI, accommodation nl, no face palsy, no dysarthria Results & Data Results & Data Vital Signs (Past 12 Hours) Vital Signs Temp Pulse Resp BP Pulse Ox O2 Del Method 05/11/24 14:34 36.4 C L 94 H 16 112/81 97 Room Air 05/11/24 07:11 36.5 C 68 16 118/77 96 Room Air Laboratory Results Abnormal lab results 05/11/24 Range/Units 05:46 Sodium 134 L (136-145) mmol/L BUN 35 H (6-23) mg/dl BUN/Creatinine Ratio 39.8 H (10-20) Glucose 101 H (70-99(Fasting)) mg/dl
[2024-05-12 07:04] LABS: BUN Creatinine Ratio 39.6 (10-20); Calcium 9.7 mg/dl (8.6-10.3); Creatinine Clr Calc Pharmacy 160.4 ml/min; Est GFR (African American) 116.8 ml/min; Est GFR (Non-African American) 100.8 ml/min; Phosphorus 3.8 mg/dl (2.5-4.9); Potassium 4.5 mmol/L (3.5-5.1)
[2024-05-12 07:15] VITALS: BP 94/63; PULSE 78; RESP 17; TEMP 97.9; O2SAT 96
--- NOTE | 2024-05-12 10:56 | Discharge Summary ---
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 History obtained from patient, mother at bedside and associated chart review. Of note, patient was recently admitted 04/24-04/26 for acute pancreatitis; this is his third episode of acute pancreatitis and fourth overall admission this year. He was admitted back in November 2023 here at [facility] with sepsis of the pancreas and was recently worked up for CFTR 2/2 finding of fluid in his pancreatic ducts/duct narrowing. Patient follows with Baldev MADDEN, Dr. Cline, given more recent diagnosis of CFTR gene mutation. Patient seen at bedside with Dr. Rivera. Patient states the pain in his epigastric abdominal region started on Wednesday and has gotten progressively worse; currently reporting 7/10 pain. The pain radiates around his R upper abdominal region and to the middle of his back, which occurred during his last episode of acute pancreatitis as well. He had an episode of dizziness, blurry vision earlier today. He is still complaining of some mild lightheadedness, denies any headaches. No recent falls or seizure activity. Denies any SOB, chest pain or urinary/bowel habit changes. He has been nauseous off/on, but denies any episodes of vomiting. No recent issues with hydration. Notes abdominal pain is worse with eating. No recent fevers, chills. Admission Exam Per Admitting Provider General: Sitting comfortably in bed, not in distress, on room air HEENT: EOMI, SAHARA, MMM Chest: Clear breath sounds bilaterally, no wheezes or crackles CVS: Regular rate and rhythm, normal heart sounds, no murmur Abdomen: Soft, RUQ and epigastric tenderness, not distended, normal bowel sounds Neuro: Awake, alert, oriented, conversing well, non focal Extremities: No edema Principal Diagnosis Acute pancreatitis Hyponatremia Discharge Exam Constitutional + well hydrated; no acute distress Eyes PERRL, conjunctivae normal, anicteric sclerae ENMT external ear and nose normal, oropharynx normal Respiratory normal respiratory effort, lungs clear to auscultation Cardiovascular Rate/Rhythm: regular rate and regular rhythm Gastrointestinal (Abdomen) normal bowel sounds, soft, nontender, no hepatosplenomegaly Musculoskeletal no cyanosis or clubbing, extremities motor strength 5/5 Neurologic PERRL, EOMI, accommodation nl, no face palsy, no dysarthria Psychiatric A+Ox3, euthymic affect Discharge Data Allergies Allergy/AdvReac Type Severity Reaction Status Date / Time amoxicillin Allergy Severe Anaphylaxis Verified 04/24/24 11:41 /HIVES clavulanic acid Allergy Severe Anaphylaxis Verified 04/24/24 11:41 [From Augmentin] /HIVES gluten Allergy Severe Gastrointestinal Unverified 04/24/24 11:41 Upset Inhaled Anesthetics (Halogen Allergy Severe Possible Verified 05/04/24 12:20 Based) family history malignant hyperthermia Milk Containing Products Allergy Severe Gastrointestinal Unverified 04/24/24 11:41 (Dairy) Upset Penicillins Allergy Severe Anaphylaxis Verified 04/24/24 11:42 succinylcholine Allergy Severe Possible Verified 05/04/24 12:20 family history malignant hyperthermia Macrolide Antibiotics Allergy Intermediate Hives Verified 04/24/24 11:41 polyethylene glycol 3350 Allergy Intermediate ITCHING Verified 04/24/24 11:41 [From Miralax] Sulfa (Sulfonamide Allergy Intermediate Hives Verified 04/24/24 11:41 Antibiotics) Consultations 05/04/24 14:29 ED Decision to Admit Stat 05/04/24 17:15 Consult Gastroenterology Routine 05/04/24 17:39 Consult Gastroenterology Routine 05/07/24 07:54 Consult Nephrology Routine Ordered Studies 05/04/24 12:17 US pancreas Stat 05/06/24 13:08 US renal/blad retro comp Routine 05/11/24 12:37 CT head/brain wo con Stat Hospital Course (1) Epigastric abdominal pain: (2) Nausea: Plan 29y/o M with PMHx of SIADH, idiopathic acute pancreatitis, chronic idiopathic constipation, morbid obesity, 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 Of note, patient was recently admitted 04/24-04/26 for acute pancreatitis; This is his third episode of acute pancreatitis and fourth overall admission this year - he was previously admitted back in November 2023 here at [facility] with sepsis of the pancreas and was recently worked up for CFTR 2/2 finding of fluid in his pancreatic ducts/duct narrowing. Patient follows with Baldev MADDEN, Dr. Cline. Patient was scheduled to see Dr. Cline (05/05) according to chart review, but his pain ultimately worsened and the decision was made to come to the ED. Recurrent Acute Pancreatitis Admitting Imaging: Ultrasound of Pancreas --> "The liver is diffusely homogenous with normal contour and echogenicity. No focal mass lesions are seen. No intrahepatic ductal dilatation is seen. Patient is status post cholecystectomy. The common duct measures 0.4 cm in diameter at the level of the hepatic artery. Visualized portion of the pancreas appears echogenic. No peripancreatic stranding is seen." Patient recently had a CTAP performed 04/24 that revealed the following: "There is mild interstitial and peripancreatic inflammatory stranding, pronounced involving the pancreatic head and uncinate process/pancreaticoduodenal groove. No drainable fluid collections or pancreatic ductal dilation. Findings suggestive of mild interstitial edematous pancreatitis." CTAP not repeated this time due to recent CTAP on 04/24 and hx of congenital single kidney + potential risk of CARLTON Admitting Labs: No evidence of leukocytosis, alk phos mildly elevated at 168. UA negative. Lipase slightly bumped at 86. Got IVF Abdominal pain resolved Lipase normalized GI evaluated while inpatient Patient to follow with Dr Cline outpatient for consideration of sphincterotomy and Creon initiation as an outpatient Absent L Kidney - Congenital H/O SIADH Hyponatremia -Chronic, takes Ure-Na; -Na level 134 on admission Na trended down to 127 Patient reported to be sensitive to electrolyte changes as these can trigger his seizures Nephrology was involved in his longterm Urea increased to 30mg BID Hyponatremia improved up to 134 today Discussed with Soubrette today as patient had +orthostatic vitals though asymptomatic Soubrette Dr Pulido gave a dose of sodium tab and recommending continuing po lasix as previously recommended Per Soubrette: DC on Potassium 40 mEq twice a day and Mag 400 mg daily intake DC on Lasix 20mg twice a day at least 4 hours apart Encourage daily prune juice; aim for 2500 mg daily potassium intake per 2000 calories Urea was increased to 30 mg twice a day Recommend Primary Doctor check BMP and Mag every wed/wednesday with mobile lab x 2- 3 wks until seen by Dr Newman in hospital d/c appt and contact [facility] if concerns Nephrology nurse should arrange to check BMP, urine / serum osms, urine electrolytes no more than 5 days before Nephrology hospital d/c appointment Continue 1.5L Fluid restriction per day Recommend daily standing weight per protocol discussed Follow diuretic titration protocol: Iif > 3 lb gain in 48 hrs or if >5 lb gain in a week, take extra lasix tab 20 mg x 3 days and contact Nephrology Epilepsy -Hx of intermittent partial seizures per chart review -Follows w/ [facility], no recent medication changes -Lamotrigine level 5.6 on 05/01/24 per chart review -Continue KEY ACCOUNT EXECUTIVE lacosamide, Lamictal, gabapentin Seizure precautions Father reports increased seizures with Na <135 and hypomagnesemia Ativan prn seizure CT head did not show any acute abnormalities Cystic Fibrosis with CFTR Gene Mutation - ? Likely cause of digestive issues with pancreatic duct narrowing, recurrent pancreatitis ? -Follows w/ Dr. Cline ([facility]) -Hx of recurrent pneumonia as a young child per his mother -Does not currently follow w/ respiratory specialist H/O Autism -Chronic, high-functioning status Total Time Total Time Spent Total Time Spent (In Minutes): 35 Total Time Includes: Examination of the Patient, Discharge Planning, Medication Reconciliation and Communication With Other Providers Discharge Plan Discharge Items Patient Disposition: Home - Self-Care Reason For Visit: AB PAIN Discharge Diagnosis: Acute pancreatitis Hyponatremia Activity: Resume your previous activity Non-emergency contact: Primary Care Provider, Oil Well Logging Engineer, Soubrette and Neurologist Call non-emergency contact if: you have any medication questions and your symptoms worsen Follow-up/Referrals: Morgan Jett PA-C [Physician Airline Mechanic] - 05/15/24 11:00 am Nadege Shelby PA-C [Physician Airline Mechanic] - 06/01/24 1:00 pm Najma Solis MD [Primary Care Provider] - (Date & Time 05/18/2024 9:20 AM Provider Nuria Thompson CRNP Department Family Medicine [facility] ) Diet: Low Fat Fluids: 1500ml (6 cups) Paul Attending Provider Instructions: Mr Swan You came to the hospital complaining of abdominal pain You were managed for the above listed diagnoses. Some medication changes were made as detailed below. Please ensure follow up with your Primary Doctor and Soubrette who will monitor your electrolytes. Please ensure follow up with your Oil Well Logging Engineer Continue to follow up with your Neurologist. It was a pleasure taking care of you. Paul Transportation Planning Engineer Provider Instructions: Soubrette's Recommendations: You are being discharged on Potassium 40 mEq twice a day and Mag 400 mg daily intake You are being discharged on Lasix 20mg twice a day at least 4 hours apart Encourage daily prune juice; aim for 2500 mg daily potassium intake per 2000 calories Your urea was increased to 30 mg twice a day Recommend your Primary Doctor check BMP and Mag every wed/wednesday with mobile lab x 2-3 wks until seen by Dr Newman in hospital d/c appt and contact [facility] if concerns Nephrology nurse should arrange to check BMP, urine / serum osms, urine electrolytes no more than 5 days before Nephrology hospital d/c appointment Continue 1.5L Fluid restriction per day Recommend daily standing weight per protocol discussed Follow diuretic titration protocol: Iif > 3 lb gain in 48 hrs or if >5 lb gain in a week, take extra lasix tab 20 mg x 3 days and contact Nephrology Pending Studies at Discharge: No Stand-Alone Forms: My [facility] [employer], Smoking Cessation Medications and DC Order Prescriptions: New potassium chloride 20 mEq Tablet,Er Particles/Crystals 40 meq PO BID Qty: 120 0RF furosemide [Lasix] 20 mg tablet 20 mg PO BID Qty: 60 0RF magnesium oxide 400 mg (241.3 mg magnesium) Tablet 400 mg PO QAM Qty: 30 0RF Continued gabapentin 600 mg tablet 600 mg PO BID Rx Instructions: takes 0500 & 2100 lamotrigine 200 mg tablet 200 mg PO BID melatonin 10 mg Tablet 20 mg PO HS Rx Instructions: 2 tablet dose ibuprofen 200 mg Tablet 200 mg PO Q4 PRN (Reason: Fever Or Pain) omeprazole 20 mg capsule,delayed release(DR/EC) 20 mg PO HS lorazepam 2 mg/mL concentrate 2 mg buccal UD PRN (Reason: seizure>5min or 3 seizures in24 hour) Acid Relief Chew 0 mg PO DAILY Rx Instructions: Parent unsure of strength, this is an OTC acid relief chew folic acid 400 mcg tablet 400 mcg PO QAM lacosamide 100 mg tablet 200 mg PO BID Aptiom 800 mg tablet 800 mg PO QAM Valtoco 20 mg/2 spray (10mg/0.1mL x2) spray,non-aerosol 10 mg INTRANASAL DAILY PRN (Reason: seizures lasting 3 minutes or more) sennosides-docusate sodium [Senokot-S] 8.6-50 mg tablet 2 tab PO BID Changed Ure-Na 15 gram Powder In Packet 30 g PO BID 30 Days Qty: 30 1RF Discharge Orders: Discharge Order (Routine); Ordered 05/12/24 Ordered By: Kimberly Coto/Other Patient Handouts: Hyponatremia Dc Admission Data Admit Date/Time: 05/04/24 15:11 Attending Provider: Kimberly Lutz I. Admit Provider: Rashawn Rivera Primary Care Provider: Najma Solis Other Providers: Rashawn Rivera; Kyree Celeste Jr; Guero Morin; Eloy Newman; Hamzah Chaudhry Other Interventions: Discharge Summary Assessment (RN) Last Done: 05/12/24 11:42
[2024-05-12] MEDS: SODIUM CHLORIDE 1 GM TABLET PO SCH (12:34)
== END 2024-05-12 14:37 | disposition home or self-care (01) | DRG 439 ==
LOC: ED 11:20 → SUATTDRO 15:11 → EDINP 15:11 → 3N 18:38

== ENCOUNTER 2024-07-30 02:48 | Inpatient (IN) ==
--- NOTE | 2024-07-30 03:00 | Emergency Department Note ---
History of Present Illness General Chief complaint: Abdominal Pain Stated complaint: Epigastric Pain Time Seen by Provider: 07/30/24 02:50 History of Present Illness Maximum Pain Intensity: 10 This is a 29-year-old male presenting to the emergency department via EMS from home for evaluation of epigastric abdominal pain. Patient has had pain for several days, and states this feels similar to when he has had pancreatitis in the past. Patient rates the pain a 10/10. No difficulty going to the bathroom. He is nauseated without vomiting. No fevers or chills. Home Medications Medication Instructions Recorded Confirmed Type gabapentin 600 mg tablet 600 mg PO BID 05/05/22 07/30/24 History lamotrigine 200 mg tablet 200 mg PO BID 05/05/22 07/30/24 History melatonin 10 mg tablet 20 mg PO HS 05/05/22 07/30/24 History omeprazole 20 mg capsule,delayed 20 mg PO HS 03/08/23 07/30/24 History release ibuprofen 200 mg tablet 200 mg PO Q4 PRN Fever Or Pain 07/22/23 07/30/24 History lorazepam 2 mg/mL oral concentrate 2 mg buccal UD PRN seizure>5min or 12/02/23 07/30/24 History 3 seizures in24 hour Acid Relief Chew 0 mg PO DAILY PRN Acid Reflux 04/24/24 07/30/24 History diazepam 20 mg/2 spray (10 mg/0.1 10 mg intranasal DAILY PRN 04/24/24 07/30/24 History mL x 2) nasal spray (Valtoco) seizures lasting 3 minutes or more eslicarbazepine 800 mg tablet 800 mg PO QAM 04/24/24 07/30/24 History (Aptiom) folic acid 400 mcg tablet 400 mcg PO QAM 04/24/24 07/30/24 History lacosamide 100 mg tablet 200 mg PO BID 04/24/24 07/30/24 History sennosides 8.6 mg-docusate sodium 2 tab PO BID CONSTIPATION 04/24/24 07/30/24 History 50 mg tablet (Senokot-S) magnesium oxide 400 mg (241.3 mg 400 mg PO QAM #30 tabs 05/12/24 07/30/24 Rx magnesium) tablet potassium chloride 20 mEq 40 meq (2 x 20 mEq) PO BID #120 05/12/24 07/30/24 Rx tablet,extended release(part/cryst) tabs urea 15 gram oral powder packet 30 g PO BID 30 days #30 ea 05/12/24 07/30/24 Rx (Ure-Na) Allergies Allergy/AdvReac Type Severity Reaction Status Date / Time amoxicillin Allergy Severe Anaphylaxis Verified 04/24/24 11:41 /HIVES clavulanic acid Allergy Severe Anaphylaxis Verified 04/24/24 11:41 [From Augmentin] /HIVES gluten Allergy Severe Gastrointestinal Unverified 04/24/24 11:41 Upset Inhaled Anesthetics (Halogen Allergy Severe Possible Verified 05/04/24 12:20 Based) family history malignant hyperthermia Milk Containing Products Allergy Severe Gastrointestinal Unverified 04/24/24 11:41 (Dairy) Upset Penicillins Allergy Severe Anaphylaxis Verified 04/24/24 11:42 succinylcholine Allergy Severe Possible Verified 05/04/24 12:20 family history malignant hyperthermia Macrolide Antibiotics Allergy Intermediate Hives Verified 04/24/24 11:41 polyethylene glycol 3350 Allergy Intermediate ITCHING Verified 04/24/24 11:41 [From Miralax] Sulfa (Sulfonamide Allergy Intermediate Hives Verified 04/24/24 11:41 Antibiotics) Past Med/Surg History Problem List (Updated 07/30/24 @ 06:48 by Sukhwinder Cat PA-C) Abdominal pain (Acute) Acute pancreatitis (Acute) Elevated BUN (Acute) Epigastric abdominal pain Autism (Acute) Absent kidney, congenital (Chronic) Generalized seizure (Acute) Hyponatremia Epilepsy Cystic fibrosis (Acute) Post-streptococcal glomerulonephritis No pertinent family history Encounter for pre-operative examination Medical History Solitary kidney, congenital Nausea Abdominal pain Acute pancreatitis Acute pancreatitis History of asthma No inhaler Spina bifida Noted in available [facility] records, not reported during PAT RN phone interview Seasonal allergies Hx of pancreatitis EUS 02/05/23 AT [facility] Seizure disorder Epilepsy/grand mal seizures Follows with [facility] Surgical History History of anesthesia reaction Awareness, "woke up" with recent EUS when tube was being removed Family history of anesthesia complication Patient's brother had foot surgery at [facility], discharged home and developed high fever/stiff joints > sent to ER, given antibiotics, sent home. No admission required. Brother now (unrelated)/unable to obtain further information. Patient's mother denies being told the term malignant hyperthermia and states that further testing/precautions were not recommended after brother's event. 2012 oral surgery [facility] anesthesia records for patient scanned into [employer]- use of desflurane/sux without issue. Hx of colonoscopy History of dental surgery Resin based composite 2 surfaces, posterior (10/21/11): MAC#4, ETT 7.0 at [facility] (limited anesthesia record scanned in) Removal of impacted tooth (09/26/13): MAC#4, ETT 7.0 at [facility] (Anesthesia records scanned into [facility]), received desflurane/succinylcholine per anesthesia record. "Anesthesia Complications: none" H/O circumcision Family History Brother History of anesthesia reaction Social History Smoking Status: Never smoker Second Hand Exposure: No; Do You Dip or Chew Tobacco: No; Hx Alcohol Use: No Hx Substance Use: No Preferred Language: Lebanese Communication Ability: Effective Communication Ability Comment: parents assist w/ medical history and routine Weight Control Lecturer Required: No Beliefs That Will Affect Care: None Current Living Situation: Parent and Family Current Living Situation Comment: mom and dad Feels Safe at Home: Yes Assistive Devices: Glasses Review of Systems A total of 10 systems reviewed and were otherwise negative Physical Exam Vital Signs Vital Signs - 24 hr 07/30/24 02:50 07/30/24 02:53 07/30/24 05:00 Temperature 36.7 C Temperature Source Oral Pulse Rate 89 87 Pulse Rate [Apical] 79 Pulse Rhythm [Apical] Regular Pulse Strength [Apical] Normal Respiratory Rate 17 20 Respiratory Effort / Characteristics Non-Labored Spontaneous Non-Labored Spontaneous Respiratory Depth Normal Normal Respiratory Pattern Regular Regular Blood Pressure 129/83 Blood Pressure [Right Arm] 101/64 Blood Pressure Mean 98 Blood Pressure Mean [Right Arm] 76 Blood Pressure Position [Right Arm] Lying Pulse Oximetry 98 95 Oxygen Delivery Method Room Air Room Air Sepsis Recent Fever Within 48 Hours No Sepsis New/Unexplained Change in Mental Status No Sepsis Action Taken by Nursing No Action Required 07/30/24 06:39 Temperature Temperature Source Pulse Rate 80 Pulse Rate [Apical] Pulse Rhythm [Apical] Pulse Strength [Apical] Respiratory Rate Respiratory Effort / Characteristics Respiratory Depth Respiratory Pattern Blood Pressure Blood Pressure [Right Arm] Blood Pressure Mean Blood Pressure Mean [Right Arm] Blood Pressure Position [Right Arm] Pulse Oximetry Oxygen Delivery Method Sepsis Recent Fever Within 48 Hours Sepsis New/Unexplained Change in Mental Status Sepsis Action Taken by Nursing VITALS: Vitals are noted on the nurse's note and reviewed by myself. Vital signs stable. GENERAL: Well-developed, well-nourished, white male, who is in no acute distress and resting comfortably. Patient is cooperative with the examination. HEAD: Normocephalic atraumatic. NECK: Supple without nuchal rigidity. No lymphadenopathy. No thyromegaly. Cervical spine is nontender. HEART: Regular rate and rhythm without murmurs gallops or rubs. LUNGS: Clear to auscultation bilaterally without wheezes, rales or rhonchi. No retractions or accessory muscle use. ABDOMEN: Positive normal bowel sounds x 4. Soft mild tenderness in the epigastric region. MUSCULOSKELETAL: No muscle atrophy, erythema, or edema noted. Full range of motion in all extremities. Course Administered Medications Discontinued Medications Diphenhydramine HCl (Diphenhydramine 50 Mg/Ml Vial) 25 mg IV NOW STA Stop: 07/30/24 03:15 Last Admin: 07/30/24 03:17 Dose: 25 mg Documented By: ANTIONE Sodium Chloride (Nss) 1,000 mls @ 999 mls/hr IV .Q1H1M SATYA Stop: 07/30/24 04:00 Last Infusion: 07/30/24 04:05 Dose: Infused Documented By: Admin: 07/30/24 03:04 Dose: 999 mls/hr Documented By: ANTIONE Acetaminophen (Ofirmev) 1,000 mg in 100 mls @ 400 mls/hr IV NOW STA Stop: 07/30/24 03:26 Last Infusion: 07/30/24 03:41 Dose: Infused Documented By: Admin: 07/30/24 03:18 Dose: 400 mls/hr Documented By: ANTIONE Ketorolac Tromethamine (Ketorolac Tromethamine 15 Mg/Ml Vial) 15 mg IV NOW STA Stop: 07/30/24 05:35 Last Admin: 07/30/24 05:41 Dose: 15 mg Documented By: GUERA Morphine Sulfate (Morphine Sulfate 4 Mg/Ml 1 Ml Carp\\Vial) 4 mg IV NOW STA Stop: 07/30/24 02:56 Last Admin: 07/30/24 03:04 Dose: 4 mg Documented By: ADAN Medical Decision Making Differential Diagnosis Differential diagnosis: Etiologies such as biliary colic, cholecystitis, hepatitis, pancreatitis, cardiac disease, pancreatitis, gastritis, peptic ulcer disease, appendicitis, cystitis, diverticulitis, mesenteric ischemia, inflammatory bowel disease, ileus, bowel obstruction, testicular/adnexal torsion, aortic pathology, shingles, as well as others were considered Laboratory Data 07/30/24 02:56 07/30/24 02:56 Lab Results 07/30/24 Range/Units 02:56 WBC 12.35 H (4.8-10.8) K/ul RBC 5.09 (4.70-6.10) M/uL Hgb 14.9 (14.0-18.0) g/dl Hct 43.1 (42.0-52.0) % MCV 84.7 (80.0-100.0) fL MCH 29.3 (25.0-34.0) pg MCHC 34.6 (32.0-36.0) g/dL RDW Std Deviation 38.5 (36.4-46.3) fL RDW Coeff of Aman 12.6 (11.5-14.5) % Plt Count 191 (130-400) K/uL MPV 9.7 (9.4-12.4) fL Immature Gran % (Auto) 0.3 % Neut % (Auto) 65.9 % Lymph % (Auto) 22.8 % [place] % (Auto) 8.6 % Eos % (Auto) 2.0 % Baso % (Auto) 0.4 % Neut # (Auto) 8.13 H (1.40-6.50) K/uL Lymph # (Auto) 2.82 (1.20-3.40) K/uL [place] # (Auto) 1.06 H (0.11-0.59) K/uL Eos # (Auto) 0.25 (0.00-0.50) K/uL Baso # (Auto) 0.05 (0.00-0.20) K/uL Immature Gran # (Auto) 0.04 (0.01-0.20) K/uL Sodium 132 L (136-145) mmol/L Potassium 4.0 (3.5-5.1) mmol/L Chloride 99 (98-107) mmol/L Carbon Dioxide 26 (21-32) mmol/L Anion Gap 7 (3-11) BUN 27 H (6-23) mg/dl Creatinine 0.79 (0.6-1.4) mg/dl Est Cr Clr Drug Dosing 210.5 ml/min Est GFR ( Amer) 141.6 ml/min Est GFR (Non-Af Amer) 122.2 ml/min BUN/Creatinine Ratio 34.2 H (10-20) Glucose 103 H (70-99(Fasting)) mg/dl Calcium 9.3 (8.6-10.3) mg/dl Total Bilirubin 0.6 (0.2-1.0) mg/dl AST 17 (13-39) U/L ALT 23 (7-52) U/L Alkaline Phosphatase 144 H (34-104) U/L Total Protein 7.4 (6.0-8.3) gm/dl Albumin 4.1 (3.4-5.0) gm/dl Globulin 3.3 (2.5-4.0) gm/dl Albumin/Globulin Ratio 1.2 (0.9-2) Amylase 36 (25-115) U/L Lipase 40 (11-82) U/L Imaging Data Radiologist's Impression: Abdomen/Pelvis CT 07/30/24 02:54 Exam(s): CT ABDOMEN + PELVIS Without Contrast EXAM: CT Abdomen and Pelvis Without Intravenous Contrast CLINICAL HISTORY: Reason for exam: epigastric abd pain, hx pancreatitis. TECHNIQUE: Axial computed tomography images of the abdomen and pelvis without intravenous contrast. CTDI is 28.14 mGy and DLP is 1570.18 mGy-cm. Automated exposure control was utilized for the study. A dose lowering technique was utilized adhering to the principles of ALARA. COMPARISON: CT abdomen pelvis 04/24/2024. FINDINGS: Lung bases: Unremarkable. No mass. No consolidation. ABDOMEN: Liver: Unremarkable. Gallbladder and bile ducts: Cholecystectomy. Pancreas: Edema surrounding the pancreas, consistent with pancreatitis. Note, there is underlying atrophy of the pancreas. No pseudocyst. No ductal dilation. Spleen: Unremarkable. No splenomegaly. Adrenals: Unremarkable. No mass. Kidneys and ureters: Nonvisualized LEFT kidney, correlate for LEFT nephrectomy versus congenital absence. Stomach and bowel: Unremarkable. No obstruction. No mucosal thickening. PELVIS: Appendix: No findings to suggest acute appendicitis. Bladder: Unremarkable. No stones. Reproductive: Unremarkable as visualized. ABDOMEN and PELVIS: Intraperitoneal space: Unremarkable. No free air. No significant fluid collection. Bones/joints: No acute fracture. No dislocation. Soft tissues: Unremarkable. Vasculature: Unremarkable. No abdominal aortic aneurysm. Lymph nodes: Unremarkable. No enlarged lymph nodes. IMPRESSION: 1. Edema surrounding the pancreas, consistent with pancreatitis. Note, there is underlying atrophy of the pancreas. No pseudocyst. 2. Nonvisualized LEFT kidney, correlate for LEFT nephrectomy versus congenital absence. 3. Cholecystectomy. Electronically signed by: Elpidio Davis MD 07/30/24 05:44 AM MDM Narrative Physical exam and history were performed. Nursing notes, EMR, and Medication List were personally reviewed. No social concerns were identified as barriers to patients care. Patient appears to have abdominal pain bringing him to the ER. He has had pancreatitis in the past, and is concerned that he may have this again. IV access was established and labs were obtained. Patient was hydrated normal saline. He was given IV morphine and IV Zofran initially, however he did not feel well after the morphine. He was given additional IV Tylenol. Patient was sent to CT scan for imaging of his abdomen and pelvis. Patient's blood work is as above and was reviewed. He does not have a significant elevated white blood cell count, gross anemia, bandemia, or significant electrolyte imbalance. Amylase and lipase are not diagnostic. CT scan is as above and was reviewed by myself and radiology. Patient appears to have acute pancreatitis based on CT criteria. On reevaluation the patient remains quite uncomfortable, and I will try a small dose of Dilaudid for additional pain control. Patient does not feel well for discharge. Escalation of care is all to be necessary. Case was discussed with the on-call hospitalist team, who agreed to evaluate the patient here in the ER. Please see their dictation for further patient course, plan, and disposition. The chart was completed utilizing [employer] Voice Recognition Software. Grammatical errors, random word insertions, pronoun errors, and incomplete sentences are an occasional consequence of this system due to software limitations, ambient noise, and hardware issues. Any formal questions or concerns about the content, text, or information contained within the body of this dictation should be directly addressed to the provider for clarification. Impression & Plan Acute pancreatitis, Abdominal pain Discharge Plan Visit Data Chief Complaint: Abdominal Pain Stated Complaint: Epigastric Pain ED Provider: Marily Best ED Midlevel Provider: Skuhwinder Cat Discharge Problem: Acute pancreatitis, Abdominal pain Forms Stand Alone Forms: [facility] [place] [employer] Prescriptions Prescriptions: No Action gabapentin 600 mg tablet 600 mg PO BID Rx Instructions: takes 0500 & 2099 lamotrigine 200 mg tablet 200 mg PO BID Rx Instructions: 0900 & 1999 melatonin 10 mg Tablet 20 mg PO HS Rx Instructions: 2 tablet dose ibuprofen 200 mg Tablet 200 mg PO Q4 PRN (Reason: Fever Or Pain) omeprazole 20 mg capsule,delayed release(DR/EC) 20 mg PO HS lorazepam 2 mg/mL concentrate 2 mg buccal UD PRN (Reason: seizure>5min or 3 seizures in24 hour) Acid Relief Chew 0 mg PO DAILY PRN (Reason: Acid Reflux) Rx Instructions: Parent unsure of strength, this is an OTC acid relief chew folic acid 400 mcg tablet 400 mcg PO QAM lacosamide 100 mg tablet 200 mg PO BID Rx Instructions: [id number] Aptiom 800 mg tablet 800 mg PO QAM Valtoco 20 mg/2 spray (10mg/0.1mL x2) spray,non-aerosol 10 mg INTRANASAL DAILY PRN (Reason: seizures lasting 3 minutes or more) sennosides-docusate sodium [Senokot-S] 8.6-50 mg tablet 2 tab PO BID potassium chloride 20 mEq Tablet,Er Particles/Crystals 40 meq PO BID Qty: 120 0RF magnesium oxide 400 mg (241.3 mg magnesium) Tablet 400 mg PO QAM Qty: 30 0RF Ure-Na 15 gram Powder In Packet 30 g PO BID 30 Days Qty: 30 1RF Rx Instructions: 0900 1800 2100 Referrals Referrals: Najma Solis MD [Primary Care Provider] -
[2024-07-30] MEDS: SODIUM CHLORIDE 0.9% 1,000 ML IV SCH (03:04)
[2024-07-30] MEDS: MoRPHine SULFATE 4 MG/ML 1 ML CARP\\VIAL IV STA (03:04)
[2024-07-30] MEDS: diphenhydrAMINE 50 MG/ML VIAL IV STA (03:17)
[2024-07-30] MEDS: ACETAMINOPHEN 1,000 MG/100 ML VIAL IV STA (03:18)
[2024-07-30 03:27] LABS: Basophils # (auto) 0.05 K/uL (0.00-0.20); Basophils % (auto) 0.4 %; Eosinophils # (auto) 0.25 K/uL (0.00-0.50); Hematocrit (blood only) 43.1 % (42.0-52.0); Hemoglobin 14.9 g/dl (14.0-18.0); Immature Granulocytes # (auto) 0.04 K/uL (0.01-0.20); Immature Granulocytes % (auto) 0.3 %; Lymphocytes # (auto) 2.82 K/uL (1.20-3.40); Lymphocytes % (auto) 22.8 %; Mean Corpuscular Hemoglobin 29.3 pg (25.0-34.0); Mean Corpuscular Hgb Conc 34.6 g/dL (32.0-36.0); Mean Corpuscular Volume 84.7 fL (80.0-100.0); Mean Platelet Volume 9.7 fL (9.4-12.4); Monocytes # (auto) 1.06 K/uL (0.11-0.59); Monocytes % (auto) 8.6 %; Neutrophils # (auto) 8.13 K/uL (1.40-6.50); Neutrophils % (auto) 65.9 %; Platelet Count 191 K/uL (130-400); RDW Coefficient of Variation 12.6 % (11.5-14.5); RDW Standard Deviation 38.5 fL (36.4-46.3); Red Blood Count 5.09 M/uL (4.70-6.10); White Blood Count 12.35 K/ul (4.8-10.8)
[2024-07-30 03:32] LABS: Albumin Globulin Ratio 1.2 (0.9-2); Albumin Level 4.1 gm/dl (3.4-5.0); BUN Creatinine Ratio 34.2 (10-20); Bilirubin,Total 0.6 mg/dl (0.2-1.0); Calcium 9.3 mg/dl (8.6-10.3); Creatinine Clr Calc Pharmacy 210.5 ml/min; Est GFR (African American) 141.6 ml/min; Est GFR (Non-African American) 122.2 ml/min; Globulin 3.3 gm/dl (2.5-4.0); Total Protein 7.4 gm/dl (6.0-8.3)
[2024-07-30] MEDS: KETOROLAC TROMETHAMINE 15 MG/ML VIAL IV STA (05:41)
--- NOTE | 2024-07-30 05:44 | CT Scan Report ---
Exam(s): CT ABDOMEN + PELVIS Without Contrast EXAM: CT Abdomen and Pelvis Without Intravenous Contrast CLINICAL HISTORY: Reason for exam: epigastric abd pain, hx pancreatitis. TECHNIQUE: Axial computed tomography images of the abdomen and pelvis without intravenous contrast. CTDI is 28.14 mGy and DLP is 1570.18 mGy-cm. Automated exposure control was utilized for the study. A dose lowering technique was utilized adhering to the principles of ALARA. COMPARISON: CT abdomen pelvis 04/24/2024. FINDINGS: Lung bases: Unremarkable. No mass. No consolidation. ABDOMEN: Liver: Unremarkable. Gallbladder and bile ducts: Cholecystectomy. Pancreas: Edema surrounding the pancreas, consistent with pancreatitis. Note, there is underlying atrophy of the pancreas. No pseudocyst. No ductal dilation. Spleen: Unremarkable. No splenomegaly. Adrenals: Unremarkable. No mass. Kidneys and ureters: Nonvisualized LEFT kidney, correlate for LEFT nephrectomy versus congenital absence. Stomach and bowel: Unremarkable. No obstruction. No mucosal thickening. PELVIS: Appendix: No findings to suggest acute appendicitis. Bladder: Unremarkable. No stones. Reproductive: Unremarkable as visualized. ABDOMEN and PELVIS: Intraperitoneal space: Unremarkable. No free air. No significant fluid collection. Bones/joints: No acute fracture. No dislocation. Soft tissues: Unremarkable. Vasculature: Unremarkable. No abdominal aortic aneurysm. Lymph nodes: Unremarkable. No enlarged lymph nodes. IMPRESSION: 1. Edema surrounding the pancreas, consistent with pancreatitis. Note, there is underlying atrophy of the pancreas. No pseudocyst. 2. Nonvisualized LEFT kidney, correlate for LEFT nephrectomy versus congenital absence. 3. Cholecystectomy. Electronically signed by: Elpidio Davis MD 07/30/24 05:44 AM
--- NOTE | 2024-07-30 06:25 | History & Physical Report ---
Date of Service July 30, 2024 Assessment & Plan (1) Acute pancreatitis: Plan: recurrent pancreatitis History of cystic fibrosis Acute on chronic hyponatremia secondary to illness seizure disorder, baseline frequency of 6-10 episodes per week as per family, [facility] neurology is aware as per father. hx spina bifida/ autism/ solitary kidney Admit to medical telemetry given hyponatremia Careful correction of sodium Bowel rest, IVF, analgesia GI consult Re: Recurrent pancreatitis DVT prophylaxis with Lovenox subcu Full code Patient mother requesting updates from providers. Ms. Pratima Swan, contact #[phone]. Text document was generated using [employer] voice recognition software. It may contain grammatical or spelling errors. Kindly contact undersigned for clarification of any documentation item in question. History of Present Illness Chief Complaint: Abdominal pain Primary Care Provider: Najma Solis MD History obtained from patient, family, and records. Limited history from patient following Morphine administration at the ER. Medical history significant for recurrent pancreatitis, seizure disorder, CFTR gene variant positivity, SIADH, chronic hyponatremia, Klinefelter syndrome, spina bifida, autism, solitary kidney. Last confinement May 2024 for recurrent pancreatitis and hyponatremia. GI recommended follow-up with [facility] specialists for consideration of sphincterotomy and Creon initiation outpatient as per records. 2 days ago, patient complained of stabbing upper abdominal pain associated with nausea symptoms reminiscent of pancreatitis attack. No fatty food intake as per family. Denies headache, chest pain, SOB. Medical History as above Surgical History : Dental surgery, eardrum surgery, cholecystectomy Family History : SLE, DM, autism Personal/Social history : Non-smoker, no EtOH intake, high school graduate Allergies Allergy/AdvReac Type Severity Reaction Status Date / Time amoxicillin Allergy Severe Anaphylaxis Verified 04/24/24 11:41 /HIVES clavulanic acid Allergy Severe Anaphylaxis Verified 04/24/24 11:41 [From Augmentin] /HIVES gluten Allergy Severe Gastrointestinal Unverified 04/24/24 11:41 Upset Inhaled Anesthetics (Halogen Allergy Severe Possible Verified 05/04/24 12:20 Based) family history malignant hyperthermia Milk Containing Products Allergy Severe Gastrointestinal Unverified 04/24/24 11:41 (Dairy) Upset Penicillins Allergy Severe Anaphylaxis Verified 04/24/24 11:42 succinylcholine Allergy Severe Possible Verified 05/04/24 12:20 family history malignant hyperthermia Macrolide Antibiotics Allergy Intermediate Hives Verified 04/24/24 11:41 polyethylene glycol 3350 Allergy Intermediate ITCHING Verified 04/24/24 11:41 [From Miralax] Sulfa (Sulfonamide Allergy Intermediate Hives Verified 04/24/24 11:41 Antibiotics) Home Medications Medication Instructions Recorded Confirmed Type gabapentin 600 mg tablet 600 mg PO BID 05/05/22 07/30/24 History lamotrigine 200 mg tablet 200 mg PO BID 05/05/22 07/30/24 History melatonin 10 mg tablet 20 mg PO HS 05/05/22 07/30/24 History omeprazole 20 mg capsule,delayed 20 mg PO HS 03/08/23 07/30/24 History release ibuprofen 200 mg tablet 200 mg PO Q4 PRN Fever Or Pain 07/22/23 07/30/24 History lorazepam 2 mg/mL oral concentrate 2 mg buccal UD PRN seizure>5min or 12/02/23 07/30/24 History 3 seizures in24 hour Acid Relief Chew 0 mg PO DAILY PRN Acid Reflux 04/24/24 07/30/24 History diazepam 20 mg/2 spray (10 mg/0.1 10 mg intranasal DAILY PRN 04/24/24 07/30/24 History mL x 2) nasal spray (Valtoco) seizures lasting 3 minutes or more eslicarbazepine 800 mg tablet 800 mg PO QAM 04/24/24 07/30/24 History (Aptiom) folic acid 400 mcg tablet 400 mcg PO QAM 04/24/24 07/30/24 History lacosamide 100 mg tablet 200 mg PO BID 04/24/24 07/30/24 History sennosides 8.6 mg-docusate sodium 2 tab PO BID CONSTIPATION 04/24/24 07/30/24 History 50 mg tablet (Senokot-S) magnesium oxide 400 mg (241.3 mg 400 mg PO QAM #30 tabs 05/12/24 07/30/24 Rx magnesium) tablet potassium chloride 20 mEq 40 meq (2 x 20 mEq) PO BID #120 05/12/24 07/30/24 Rx tablet,extended release(part/cryst) tabs urea 15 gram oral powder packet 30 g PO BID 30 days #30 ea 05/12/24 07/30/24 Rx (Ure-Na) Past Med/Surg History Problem List (Updated 07/30/24 @ 06:48 by Sukhwinder Cat PA-C) Abdominal pain (Acute) Acute pancreatitis (Acute) Elevated BUN (Acute) Epigastric abdominal pain Autism (Acute) Absent kidney, congenital (Chronic) Generalized seizure (Acute) Hyponatremia Epilepsy Cystic fibrosis (Acute) Post-streptococcal glomerulonephritis No pertinent family history Encounter for pre-operative examination Medical History Solitary kidney, congenital Nausea Abdominal pain Acute pancreatitis Acute pancreatitis History of asthma No inhaler Spina bifida Noted in available [facility] records, not reported during PAT RN phone interview Seasonal allergies Hx of pancreatitis EUS 02/05/23 AT [facility] Seizure disorder 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 No admission required. Brother now (unrelated)/unable to obtain further information. Patient's mother denies being told the term malignant hyperthermia and states that further testing/precautions were not recommended after brother's event. 2012 oral surgery [facility] anesthesia records for patient scanned into [employer]- use of desflurane/sux without issue. Hx of colonoscopy History of dental surgery Resin based composite 2 surfaces, posterior (10/21/11): [place] [facility] [place] Removal of impacted tooth (09/26/13): MAC[place] [facility] [place] [employer]), received desflurane/succinylcholine per anesthesia record. "Anesthesia Complications: none" H/O circumcision Family History Brother History of anesthesia reaction Social History Smoking Status: Never smoker Second Hand Exposure: No; Do You Dip or Chew Tobacco: No; Hx Alcohol Use: No Hx Substance Use: No Preferred Language: Ukrainian Communication Ability: Effective Communication Ability Comment: parents assist w/ medical history and routine Furniture Painter Required: No Beliefs That Will Affect Care: None Current Living Situation: Parent and Family Current Living Situation Comment: mom and dad Feels Safe at Home: Yes Assistive Devices: Glasses Review of Systems Review of Systems: Could not be reliably obtained secondary to lethargic state Physical Exam Physical Exam: GENERAL: Lethargic, obese, no respiratory distress SKIN: Normal color, warm HEENT: Vale palpebral conjunctivae, no ptosis, dry buccal mucosa NECK : Supple, short neck, no tenderness CHEST : CTA, no tenderness HEART : RRR, no obvious murmurs ABDOMEN: Some distention, minimal epigastric tenderness EXTREMITIES : Minimal LE swelling, no LE tenderness, no other conspicuous deformities noted NEUROLOGIC : Lethargic, no facial asymmetry, no other gross focality Results & Data Results & Data Vital Signs (Past 12 Hours) Vital Signs Temp Pulse Pulse Resp BP BP Pulse Ox 07/30/24 05:00 79 20 101/64 95 07/30/24 02:53 87 07/30/24 02:50 36.7 C 89 17 129/83 98 O2 Del Method 07/30/24 05:00 Room Air 07/30/24 02:53 07/30/24 02:50 Room Air Laboratory Results Laboratory Results WBC 12.35 K/ul (4.8-10.8) H 07/30/24 02:56 RBC 5.09 M/uL (4.70-6.10) 07/30/24 02:56 Hgb 14.9 g/dl (14.0-18.0) 07/30/24 02:56 Hct 43.1 % (42.0-52.0) 07/30/24 02:56 MCV 84.7 fL (80.0-100.0) 07/30/24 02:56 MCH 29.3 pg (25.0-34.0) 07/30/24 02:56 MCHC 34.6 g/dL (32.0-36.0) 07/30/24 02:56 RDW Std Deviation 38.5 fL (36.4-46.3) 07/30/24 02:56 RDW Coeff of Aman 12.6 % (11.5-14.5) 07/30/24 02:56 Plt Count 191 K/uL (130-400) 07/30/24 02:56 MPV 9.7 fL (9.4-12.4) 07/30/24 02:56 Immature Gran % (Auto) 0.3 % 07/30/24 02:56 Neut % (Auto) 65.9 % 07/30/24 02:56 Lymph % (Auto) 22.8 % 07/30/24 02:56 Lynn % (Auto) 8.6 % 07/30/24 02:56 Eos % (Auto) 2.0 % 07/30/24 02:56 Baso % (Auto) 0.4 % 07/30/24 02:56 Neut # (Auto) 8.13 K/uL (1.40-6.50) H 07/30/24 02:56 Lymph # (Auto) 2.82 K/uL (1.20-3.40) 07/30/24 02:56 Lynn # (Auto) 1.06 K/uL (0.11-0.59) H 07/30/24 02:56 Eos # (Auto) 0.25 K/uL (0.00-0.50) 07/30/24 02:56 Baso # (Auto) 0.05 K/uL (0.00-0.20) 07/30/24 02:56 Immature Gran # (Auto) 0.04 K/uL (0.01-0.20) 07/30/24 02:56 Sodium 132 mmol/L (136-145) L 07/30/24 02:56 Potassium 4.0 mmol/L (3.5-5.1) 07/30/24 02:56 Chloride 99 mmol/L (98-107) 07/30/24 02:56 Carbon Dioxide 26 mmol/L (21-32) 07/30/24 02:56 Anion Gap 7 (3-11) 07/30/24 02:56 BUN 27 mg/dl (6-23) H 07/30/24 02:56 Creatinine 0.79 mg/dl (0.6-1.4) 07/30/24 02:56 Est Cr Clr Drug Dosing 210.5 ml/min 07/30/24 02:56 Est GFR ( Amer) 141.6 ml/min 07/30/24 02:56 Est GFR (Non-Af Amer) 122.2 ml/min 07/30/24 02:56 BUN/Creatinine Ratio 34.2 (10-20) H 07/30/24 02:56 Glucose 103 mg/dl (70-99(Fasting)) H 07/30/24 02:56 Calcium 9.3 mg/dl (8.6-10.3) 07/30/24 02:56 Total Bilirubin 0.6 mg/dl (0.2-1.0) 07/30/24 02:56 AST 17 U/L (13-39) 07/30/24 02:56 ALT 23 U/L (7-52) 07/30/24 02:56 Alkaline Phosphatase 144 U/L (34-104) H 07/30/24 02:56 Total Protein 7.4 gm/dl (6.0-8.3) 07/30/24 02:56 Albumin 4.1 gm/dl (3.4-5.0) 07/30/24 02:56 Globulin 3.3 gm/dl (2.5-4.0) 07/30/24 02:56 Albumin/Globulin Ratio 1.2 (0.9-2) 07/30/24 02:56 Amylase 36 U/L (25-115) 07/30/24 02:56 Lipase 40 U/L (11-82) 07/30/24 02:56 Impressions Abdomen/Pelvis CT 07/30/24 02:54 Exam(s): CT ABDOMEN + PELVIS Without Contrast EXAM: CT Abdomen and Pelvis Without Intravenous Contrast CLINICAL HISTORY: Reason for exam: epigastric abd pain, hx pancreatitis. TECHNIQUE: Axial computed tomography images of the abdomen and pelvis without intravenous contrast. CTDI is 28.14 mGy and DLP is 1570.18 mGy-cm. Automated exposure control was utilized for the study. A dose lowering technique was utilized adhering to the principles of ALARA. COMPARISON: CT abdomen pelvis 04/24/2024. FINDINGS: Lung bases: Unremarkable. No mass. No consolidation. ABDOMEN: Liver: Unremarkable. Gallbladder and bile ducts: Cholecystectomy. Pancreas: Edema surrounding the pancreas, consistent with pancreatitis. Note, there is underlying atrophy of the pancreas. No pseudocyst. No ductal dilation. Spleen: Unremarkable. No splenomegaly. Adrenals: Unremarkable. No mass. Kidneys and ureters: Nonvisualized LEFT kidney, correlate for LEFT nephrectomy versus congenital absence. Stomach and bowel: Unremarkable. No obstruction. No mucosal thickening. PELVIS: Appendix: No findings to suggest acute appendicitis. Bladder: Unremarkable. No stones. Reproductive: Unremarkable as visualized. ABDOMEN and PELVIS: Intraperitoneal space: Unremarkable. No free air. No significant fluid collection. Bones/joints: No acute fracture. No dislocation. Soft tissues: Unremarkable. Vasculature: Unremarkable. No abdominal aortic aneurysm. Lymph nodes: Unremarkable. No enlarged lymph nodes. IMPRESSION: 1. Edema surrounding the pancreas, consistent with pancreatitis. Note, there is underlying atrophy of the pancreas. No pseudocyst. 2. Nonvisualized LEFT kidney, correlate for LEFT nephrectomy versus congenital absence. 3. Cholecystectomy. Electronically signed by: Elpidio Davis MD 07/30/24 05:44 AM Diagnostic Findings Chest x-ray as per my interpretation atelectasis
[2024-07-30] MEDS: HYDROmorphone INJ 0.5 MG/0.5 ML SYR IV STA (06:46)
[2024-07-30] MEDS: LACTATED RINGER'S 1,000 ML IV STA (06:46)
[2024-07-30] MEDS ORDERED: oxyCODONE HCL IR 5 MG TAB (IMMEDIATE RELEASE) PO PRN (06:51)
[2024-07-30] MEDS ORDERED: ACETAMINOPHEN 325 MG TAB PO PRN (06:51)
[2024-07-30] MEDS ORDERED: LORazepam 2 MG/1 ML VIAL IV PRN (06:51)
[2024-07-30 07:28] LABS: Thyroid Stimulating Hormone 1.845 uIu/ml (0.300-4.500)
--- NOTE | 2024-07-30 07:34 | XRay Report ---
XR chest 1V portable CLINICAL HISTORY: hyponatremia COMPARISON STUDY: Chest CT December 02, 2023. Chest radiograph June 03, 2024. FINDINGS: Lung volumes are normal. Lungs are clear. No pulmonary nodules are identified although sens itivity is diminished given radiographic technique. There is no pneumothorax or pleural effusion. Car diac size is stable. Mediastinal contours are normal. There is no evidence for pulmonary edema. IMPRESSION: No acute cardiopulmonary findings. ACT 112: Negative or not required by law. Electronically signed by: Alvaro Vieira M.D. 07/30/2024 7:32 AM
[2024-07-30 08:04] LABS: Appearance Urine Clear (Clear); Bacteria Urine Automated None Seen (None Seen); Bilirubin Urine Negative (Negative); Blood Urine Trace (Negative); Cast Urine Automated 0-2 /lpf (0-2); Color Urine Yellow; Epithelial Cell Urine Auto 0-2 /hpf (0-2); Glucose Urine UA Negative (Negative); Ketones Urine Negative (Negative); Leukocyte Esterase Urine Negative (Negative); Nitrite Urine Negative (Negative); Protein Urine Negative (Negative); Specific Gravity Urine 1.023 (1.000-1.030); Urobilinogen Urine Negative (Negative); WBC Urine Automated 0-5 /hpf (0-5)
[2024-07-30] MEDS: FOLIC ACID 400 MCG TAB PO SCH (09:50)
[2024-07-30] MEDS: lamoTRIgine 100 MG TAB PO SCH ×2 (09:50→19:31)
[2024-07-30] MEDS: ACETAMINOPHEN 1,000 MG/100 ML VIAL IV PRN (09:53)
[2024-07-30] MEDS: ENOXAPARIN INJ 40 MG/0.4 ML SYR SQ SCH (10:26)
[2024-07-30] MEDS: GABAPENTIN 600 MG TAB PO SCH ×2 (10:26→22:04)
[2024-07-30] MEDS: LACOSAMIDE 50 MG TABLET PO SCH (10:26)
--- NOTE | 2024-07-30 11:34 | Communication Note ---
Date of Service: July 30, 2024 Patient was seen and examined at bedside. 29-year-old male with PMH of recurrent pancreatitis, seizure disorder, congenital absence of left kidney, CFTR gene variant positivity, SIADH, chronic hyponatremia, Klinefelter syndrome, spina bifida, autism presented with complaint of 2-day of stabbing upper abdominal pain associated with nausea, radiating to back. Of note, per outpatient chart review GI recommended to [place] with [facility] [place] for consideration of sphincterotomy and Creon initiation. He is being managed for the following: Acute on chronic pancreatitis History of recurrent pancreatitis in the setting of Cystic fibrosis Patient presented with acute upper abdominal pain radiating to back, associated with nausea. Patient denies febrile illness. Admitting CTAP suggestive of pancreatitis. Noted cholecystectomy. Continue n.p.o., IV fluids, pain management [pt prefers IV Tylenol], as needed nausea medications GI consult Advance diet if pain improves significantly Patient reports slight improvement in his pain but is still with a lot of pain at bedside exam. Chronic hyponatremia: Baseline sodium level around low 130s, admitting sodium of 132. Continue to monitor. Other chronic medical conditions: Continue with/resume home meds as and when able History of cystic fibrosis Seizure disorder: Baseline frequency of 6-10 episodes per week as per family. [facility] neurology is aware as per patient's father. History of spina bifida/autism/solitary kidney right DVT prophylaxis with Lovenox subcu Full code Patient's father was at bedside who was updated on plan of care today. Patient'd mother Ms. Pratima Swan, contact #[phone]. For detailed information on the patient, refer to today's H&P note. Text document was generated using [employer] voice recognition software. It may contain grammatical or spelling errors. Kindly contact undersigned for clarification of any documentation item in question.
[2024-07-30] MEDS: UREA (UREA-NA) 15 GM PACK PO SCH (11:35)
[2024-07-30] MEDS: LACTATED RINGER'S 1,000 ML IV SCH (12:40)
[2024-07-30] MEDS: MoRPHine SULFATE 4 MG/ML 1 ML CARP\\VIAL IV PRN (13:17)
[2024-07-30] MEDS ORDERED: MoRPHine SULFATE 2 MG/ML CARP IV PRN (17:12)
[2024-07-30] MEDS: MoRPHine SULFATE 2 MG/ML CARP IV PRN (17:20)
[2024-07-30] MEDS: PROMETHAZINE 12.5 MG/50.5 ML BAG IV PRN (19:25)
[2024-07-30] MEDS: MELATONIN 3 MG TAB PO SCH (19:34)
[2024-07-30] MEDS: FLUTICASONE PROPIONATE NA SPR 16 GM BTL NAE SCH (20:55)
[2024-07-30] MEDS: DOCUSATE SODIUM 100 MG CAP PO SCH (20:59)
[2024-07-30] MEDS ORDERED: MELATONIN 3 MG TAB PO SCH (21:00)
[2024-07-30] MEDS ORDERED: PANTOprazole 40 MG TAB PO SCH (21:00)
[2024-07-30] MEDS ORDERED: Nursing to Pharmacy Communication SCH (22:00)
[2024-07-31 08:26] LABS: Basophils # (auto) 0.05 K/uL (0.00-0.20); Basophils % (auto) 0.5 %; Eosinophils # (auto) 0.11 K/uL (0.00-0.50); Eosinophils % (auto) 1.2 %; Hematocrit (blood only) 41.2 % (42.0-52.0); Immature Granulocytes # (auto) 0.02 K/uL (0.01-0.20); Immature Granulocytes % (auto) 0.2 %; Lymphocytes # (auto) 1.97 K/uL (1.20-3.40); Lymphocytes % (auto) 21.3 %; Mean Corpuscular Hemoglobin 28.9 pg (25.0-34.0); Mean Corpuscular Volume 84.9 fL (80.0-100.0); Mean Platelet Volume 9.7 fL (9.4-12.4); Monocytes # (auto) 0.87 K/uL (0.11-0.59); Monocytes % (auto) 9.4 %; Neutrophils # (auto) 6.21 K/uL (1.40-6.50); Neutrophils % (auto) 67.4 %; Platelet Count 170 K/uL (130-400); RDW Coefficient of Variation 12.5 % (11.5-14.5); RDW Standard Deviation 38.4 fL (36.4-46.3); Red Blood Count 4.85 M/uL (4.70-6.10); White Blood Count 9.23 K/ul (4.8-10.8)
[2024-07-31] MEDS: ESLICARBAZEPINE ACETATE 800 MG PO SCH (08:29)
[2024-07-31 08:52] LABS: Albumin Globulin Ratio 1.3 (0.9-2); Albumin Level 3.7 gm/dl (3.4-5.0); BUN Creatinine Ratio 17.1 (10-20); Bilirubin,Total 0.7 mg/dl (0.2-1.0); Calcium 9.2 mg/dl (8.6-10.3); Creatinine Clr Calc Pharmacy 203.3 ml/min; Est GFR (African American) 143.9 ml/min; Est GFR (Non-African American) 124.2 ml/min; Globulin 2.9 gm/dl (2.5-4.0); Total Protein 6.6 gm/dl (6.0-8.3)
[2024-07-31] MEDS ORDERED: ESLICARBAZEPINE ACETATE 800 MG PO SCH (09:00)
[2024-07-31] MEDS: FLUTICASONE PROPIONATE NA SPR 16 GM BTL NAE SCH (10:09)
--- NOTE | 2024-07-31 11:42 | Gastrointestinal Consultation ---
Date of Consultation July 31, 2024 Assessment & Plan (1) Acute pancreatitis: -Pain control per primary team -Aggressive IV fluid hydration advised -NPO for now -Will need outpatient follow-up with [facility] as plans for sphincterotomy are in process -If worsening pain during admission, obtain further pancreatic imaging Supervising Physician Co-Signing Physician Notes I examined the patient and reviewed patient's chart , laboratory data and imaging studies. I agree with with assessment and plan of care as suggested by advanced practice provider History of Present Illness Reason for Consultation: Recurrent pancreatitis Attending Physician: Av Shah MD History of Present Illness Patient is a 29-year-old male with PMH of recurrent pancreatitis, cystic fibrosis, seizure disorder, congenital absence of left kidney, CFTR gene variant positivity, SIADH, chronic hyponatremia, Klinefelter syndrome, spina bifida, autism presented with complaint of 2-day of stabbing upper abdominal pain associated with nausea, radiating to back. Patient notes a history of recurrent pancreatitis.. They note he follows with [facility] MADD[facility] (Dr. Cline) as an outpatient and they are currently moving through the process of scheduling a sphincterotomy. During this admission, his lipase is unremarkable. CT scan indicated edema surrounding the pancreas consistent with pancreatitis. Patient resting in bed at the time of my visit. He notes he is having improvement of his abdominal pain since admission. He is NPO. He denies new symptoms or concerns. WBC count within normal range today (was 12,350 upon presentation). Lipid profile in March 2024 unremarkable. Patient notes no alcohol use. s/p cholecystectomy and no biliary obstruction seen on imaging. No new medications since last episode of pancreatitis. No recent viral illness. Allergies Allergy/AdvReac Type Severity Reaction Status Date / Time amoxicillin Allergy Severe Anaphylaxis Verified 04/24/24 11:41 /HIVES clavulanic acid Allergy Severe Anaphylaxis Verified 04/24/24 11:41 [From Augmentin] /HIVES gluten Allergy Severe Gastrointestinal Unverified 04/24/24 11:41 Upset Inhaled Anesthetics (Halogen Allergy Severe Possible Verified 05/04/24 12:20 Based) family history malignant hyperthermia Milk Containing Products Allergy Severe Gastrointestinal Unverified 04/24/24 11:41 (Dairy) Upset Penicillins Allergy Severe Anaphylaxis Verified 04/24/24 11:42 succinylcholine Allergy Severe Possible Verified 05/04/24 12:20 family history malignant hyperthermia Macrolide Antibiotics Allergy Intermediate Hives Verified 04/24/24 11:41 polyethylene glycol 3350 Allergy Intermediate ITCHING Verified 04/24/24 11:41 [From Miralax] Sulfa (Sulfonamide Allergy Intermediate Hives Verified 04/24/24 11:41 Antibiotics) Home Medications Medication Instructions Recorded Confirmed Type gabapentin 600 mg tablet 600 mg PO BID 05/05/22 07/30/24 History lamotrigine 200 mg tablet 200 mg PO BID 05/05/22 07/30/24 History melatonin 10 mg tablet 20 mg PO HS 05/05/22 07/30/24 History omeprazole 20 mg capsule,delayed 20 mg PO HS 03/08/23 07/30/24 History release ibuprofen 200 mg tablet 200 mg PO Q4 PRN Fever Or Pain 07/22/23 07/30/24 History lorazepam 2 mg/mL oral concentrate 2 mg buccal UD PRN seizure>5min or 12/02/23 07/30/24 History 3 seizures in24 hour Acid Relief Chew 0 mg PO DAILY PRN Acid Reflux 04/24/24 07/30/24 History diazepam 20 mg/2 spray (10 mg/0.1 10 mg intranasal DAILY PRN 04/24/24 07/30/24 History mL x 2) nasal spray (Valtoco) seizures lasting 3 minutes or more eslicarbazepine 800 mg tablet 800 mg PO QAM 04/24/24 07/30/24 History (Aptiom) folic acid 400 mcg tablet 400 mcg PO QAM 04/24/24 07/30/24 History lacosamide 100 mg tablet 200 mg PO BID 04/24/24 07/30/24 History sennosides 8.6 mg-docusate sodium 2 tab PO BID CONSTIPATION 04/24/24 07/30/24 History 50 mg tablet (Senokot-S) magnesium oxide 400 mg (241.3 mg 400 mg PO QAM #30 tabs 05/12/24 07/30/24 Rx magnesium) tablet potassium chloride 20 mEq 40 meq (2 x 20 mEq) PO BID #120 05/12/24 07/30/24 Rx tablet,extended release(part/cryst) tabs urea 15 gram oral powder packet 30 g PO BID 30 days #30 ea 05/12/24 07/30/24 Rx (Ure-Na) fluticasone propionate 50 1 spray intranasal HS 07/30/24 07/30/24 History mcg/actuation nasal spray,suspension Patient History Medical History Solitary kidney, congenital Nausea Abdominal pain Acute pancreatitis Acute pancreatitis History of asthma No inhaler Spina bifida Noted in available [facility] records, not reported during PAT RN phone interview Seasonal allergies Hx of pancreatitis EUS 02/05/23 AT [facility] Seizure disorder 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 No admission required. Brother now (unrelated)/unable to obtain further information. Patient's mother denies being told the term malignant hyperthermia and states that further testing/precautions were not recommended after brother's event. 2012 oral surgery [facility] anesthesia records for patient scanned into [employer]- use of desflurane/sux without issue. Hx of colonoscopy History of dental surgery Resin based composite 2 surfaces, posterior (10/21/11): MAC#4, ETT 7.0 at [facility] [place]limited anesthesia record scanned in) Removal of impacted tooth (09/26/13): MAC#4, ETT 7.0 at [facility] ([facility]esthesia records [facility]), received desflurane/succinylcholine per anesthesia record. "Anesthesia Complications: none" H/O circumcision Family History Brother History of anesthesia reaction Social History Smoking Status: Never smoker Second Hand Exposure: No; Do You Dip or Chew Tobacco: No; Hx Alcohol Use: No Hx Substance Use: No Preferred Language: Armenian Communication Ability: Effective Communication Ability Comment: parents assist w/ medical history and routine Form Carpenter Required: No Beliefs That Will Affect Care: None Current Living Situation: Parent and Family Current Living Situation Comment: mom and dad Feels Safe at Home: Yes Safety Concerns: Feels Safe At This Time Assistive Devices: Bedside Commode Review of Systems Constitutional: no fever and no chills Cardiovascular: no chest pain Gastrointestinal: + abdominal pain and + nausea; no vomiti ng, no change in bowel habits and no diarrhea/loose stools Hematologic / Lymphatic: no unexplained weight loss Physical Exam Constitutional: well developed Respiratory: normal respiratory effort Gastrointestinal (Abdomen): normal bowel sounds, soft, nontender, no hepatosplenomegaly Psychiatric: Orientation: alert and oriented x 3 Results & Data Vital Signs (Past 12 Hours) Vital Signs Temp Pulse Pulse Resp BP Pulse Ox O2 Del Method 07/31/24 07:45 37 C 80 18 112/75 96 Room Air 07/31/24 07:27 87 07/31/24 04:00 36.9 C 79 18 115/70 96 Room Air 07/30/24 23:45 37.8 C H 93 H 18 116/62 94 Room Air 07/30/24 23:38 107 H PG Care Time/CCT Total # of Minutes Spent Total Time Spent with Patient: Total time spent is greater than 50% in coordination of care (as documented) at patient's floor/unit and/or counseling patient: Coding Level of Care Code 97468 IN/OBS CONSULT LVL 4,60M Diagnoses Acute pancreatitis K85.90
--- NOTE | 2024-07-31 14:44 | Hospitalist Progress Note ---
Date of Service July 31, 2024 Assessment & Plan (1) Acute pancreatitis: Plan: 29-year-old male with PMH of recurrent pancreatitis, seizure disorder, congenital absence of left kidney, CFTR gene variant positivity, SIADH, chronic hyponatremia, Klinefelter syndrome, spina bifida, autism presented with complaint of 2-day of stabbing upper abdominal pain associated with nausea, radiating to back. Of note, per outpatient chart review GI recommended to follo [place] [facility] [place] for consideration of sphincterotomy and Creon initiation. He is being managed for the following: Acute on chronic pancreatitis History of recurrent pancreatitis in the setting of Cystic fibrosis Patient presented with acute upper abdominal pain radiating to back, associated with nausea. Patient denies febrile illness. Admitting CTAP suggestive of pancreatitis. Noted cholecystectomy. Continue IV fluids, pain management [pt prefers IV Tylenol], as needed nausea medications ADAT, start w/ clears. GI consult, appreciate recs. Pt reports significant pain improvement. Decreasing pain meds use noted. Chronic hyponatremia: Baseline sodium level around low 130s, admitting sodium of 132. Na 135 today. Continue to monitor. Other chronic medical conditions: Continue with/resume home meds as and when able History of cystic fibrosis Seizure disorder: Baseline frequency of 6-10 episodes per week as per family. [facility] neurology is aware as per patient's father. Pt will possibly benefit from wheelchair upon discharge due to his "drop events" when he has seizures. Patient can't use cane or walker safely due to epilepsy and a wheelchair would improve ADL's within the home. Script needed upon dc is : Standard wheelchair with cushion and foot petals. History of spina bifida/autism/solitary kidney right DVT prophylaxis with Lovenox subcu Full code Patient's father was at bedside who was updated on plan of care today as well. Patient'd mother Ms. Pratima Swan, contact #[phone]. For detailed information on the patient, refer to today's H&P note. Text document was generated using [employer] voice recognition software. It may contain grammatical or spelling errors. Kindly contact undersigned for clarification of any documentation item in question. Admission and Anticipated Discharge Date Admission Date: July 30, 2024 Subjective Patient was seen and examined at bedside. Patient was lying in bed, on room air, NAD, resting comfortably. Patient reports improving abdominal pain, currently rating towards his baseline per patient and patient would like diet be initiated. Will initiate clear liquid diet and if no increase in abdominal pain or worsening, advance to full liquid diet today with a plan for reassessment and possible advancing to soft diet tomorrow. Otherwise patient has no other complaints. Physical Exam Physical Exam: GENERAL: alert, obese, no respiratory distress SKIN: Normal color, warm HEENT: [place] palpebral conjunctivae, no ptosis, moist buccal mucosa NECK : Supple, short neck, no tenderness CHEST : CTA, no tenderness HEART : RRR, no obvious murmurs ABDOMEN: Some distention, minimal epigastric tenderness - improving EXTREMITIES : Minimal LE swelling, no LE tenderness, no other conspicuous deformities noted NEUROLOGIC : alert, no facial asymmetry, no other gross focality Results & Data Results & Data Vital Signs (Past 12 Hours) Vital Signs Temp Pulse Pulse Resp BP Pulse Ox O2 Del Method 07/31/24 14:17 99 H 07/31/24 11:50 37.1 C 91 H 18 124/83 94 Room Air 07/31/24 07:45 37 C 80 18 112/75 96 Room Air 07/31/24 07:27 87 07/31/24 04:00 36.9 C 79 18 115/70 96 Room Air
[2024-07-31] MEDS: PANTOprazole 40 MG TAB PO SCH (15:51)
[2024-08-01 08:20] LABS: Hematocrit (blood only) 39.8 % (42.0-52.0); Hemoglobin 13.8 g/dl (14.0-18.0); Mean Corpuscular Hemoglobin 29.1 pg (25.0-34.0); Mean Corpuscular Hgb Conc 34.7 g/dL (32.0-36.0); Mean Platelet Volume 9.8 fL (9.4-12.4); Platelet Count 175 K/uL (130-400); RDW Coefficient of Variation 12.4 % (11.5-14.5); RDW Standard Deviation 37.7 fL (36.4-46.3); Red Blood Count 4.74 M/uL (4.70-6.10); White Blood Count 6.76 K/ul (4.8-10.8)
[2024-08-01 08:37] LABS: BUN Creatinine Ratio 21.8 (10-20); Calcium 9.3 mg/dl (8.6-10.3); Creatinine Clr Calc Pharmacy 210.4 ml/min; Est GFR (African American) 142.4 ml/min; Est GFR (Non-African American) 122.8 ml/min; Magnesium 1.8 mg/dl (1.7-2.4); Phosphorus 3.5 mg/dl (2.5-4.9); Potassium 3.9 mmol/L (3.5-5.1)
[2024-08-01] MEDS: SENNA 8.6 MG TAB PO SCH (09:30)
[2024-08-01 11:41] VITALS: RESP 18; TEMP 98.2
--- NOTE | 2024-08-01 15:13 | Hospitalist Progress Note ---
Date of Service August 01, 2024 Assessment & Plan (1) Acute pancreatitis: Plan: 29-year-old male with PMH of recurrent pancreatitis, seizure disorder, congenital absence of left kidney, CFTR gene variant positivity, SIADH, chronic hyponatremia, Klinefelter syndrome, spina bifida, autism presented with complaint of 2-day of stabbing upper abdominal pain associated with nausea, radiating to back. Of note, per outpatient chart review GI recommended to follo w-up with [facility] specialist for consideration of sphincterotomy and Creon initiation. He is being managed for the following: Acute on chronic pancreatitis History of recurrent pancreatitis in the setting of Cystic fibrosis Patient presented with acute upper abdominal pain radiating to back, associated with nausea. Patient denies febrile illness. Admitting CTAP suggestive of pancreatitis. Noted cholecystectomy. Patient tolerating full liquid diet, reports pain close to 0, will advance to soft diet. Patient worried about not moving bowels, continue with bowel regimen, x-ray KUB. GI eval, appreciate recs Patient to follow-up with GI upon discharge. Chronic hyponatremia: Baseline sodium level around low 130s, admitting sodium of 132. Na 137 today. Continue to monitor. Other chronic medical conditions: Continue with/resume home meds as and when able History of cystic fibrosis Seizure disorder: Baseline frequency of 6-10 episodes per week as per family. [facility] neurology is aware as per patient's father. Pt will possibly benefit from wheelchair upon discharge due to his "drop events" when he has seizures. Patient can't use cane or walker safely due to epilepsy and a wheelchair would improve ADL's within the home. Script needed upon dc is : Standard wheelchair with cushion and foot petals. Script provided 08/01. History of spina bifida/autism/solitary kidney right DVT prophylaxis with Lovenox subcu Full code Patient's father was at bedside who was updated on plan of care today as well. Patient'd mother Ms. Pratima Swan, contact #[phone]. Text document was generated using [employer] voice recognition software. It may contain grammatical or spelling errors. Kindly contact undersigned for clarification of any documentation item in question. Admission and Anticipated Discharge Date Admission Date: July 30, 2024 Subjective Patient was seen and examined at bedside. Patient was lying in bed, on room air, NAD, resting comfortably. Patient reports improving abdominal pain, currently close to zero/10 per pt, will adv diet to soft. Reports not having proper BM, c/w bowel regimen. Otherwise patient has no other complaints. Physical Exam Physical Exam: GENERAL: alert, obese, no respiratory distress SKIN: Normal color, warm HEENT: [place] palpebral conjunctivae, no ptosis, moist buccal mucosa NECK : Supple, short neck, no tenderness CHEST : CTA, no tenderness HEART : RRR, no obvious murmurs ABDOMEN: Some distention, minimal epigastric tenderness - improved EXTREMITIES : Minimal LE swelling, no LE tenderness, no other conspicuous deformities noted NEUROLOGIC : alert, no facial asymmetry, no other gross focality Results & Data Results & Data Vital Signs (Past 12 Hours) Vital Signs Temp Pulse Pulse Resp BP Pulse Ox O2 Del Method 08/01/24 11:41 36.8 C 90 18 113/75 95 Room Air 08/01/24 07:31 53 L 08/01/24 06:36 36.4 C L 57 L 16 110/74 97 Room Air 08/01/24 03:14 36.4 C L 82 16 96/64 L 96 Room Air
[2024-08-01 15:50] VITALS: BP 117/77; O2SAT 96
--- NOTE | 2024-08-01 17:16 | XRay Report ---
KUB CLINICAL HISTORY: Generalized abdominal pain. FINDINGS: 2 AP supine abdominal radiographs are correlated with abdominal CT dated 07/30/2024. There i s a nonobstructed abdominal bowel gas pattern. No evidence of intraperitoneal free air is seen on the se supine images. Cholecystectomy clips are noted in the right upper quadrant. There are no abnormal abdominal calcifications. The bony structures appear intact. IMPRESSION: No acute abnormality is identified. Electronically signed by: Tony Ramos M.D. 08/01/2024 5:14 PM
[2024-08-01 18:44] VITALS: PULSE 91
--- NOTE | 2024-08-01 18:45 | Discharge Summary ---
Date of Service August 01, 2024 Admission HPI Per Admitting Provider History obtained from patient, family, and records. Limited history from patient following Morphine administration at the ER. Medical history significant for recurrent pancreatitis, seizure disorder, CFTR gene variant positivity, SIADH, chronic hyponatremia, Klinefelter syndrome, spina bifida, autism, solitary kidney. Last confinement May 2024 for recurrent pancreatitis and hyponatremia. GI recommended follow-up with [facility] specialists for consideration of sphincterotomy and Creon initiation outpatient as per records. 2 days ago, patient complained of stabbing upper abdominal pain associated with nausea symptoms reminiscent of pancreatitis attack. No fatty food intake as per family. Denies headache, chest pain, SOB. Medical History as above Surgical History : Dental surgery, eardrum surgery, cholecystectomy Family History : SLE, DM, autism Personal/Social history : Non-smoker, no EtOH intake, high school graduate Admission Exam Per Admitting Provider GENERAL: Lethargic, obese, no respiratory distress SKIN: Normal color, warm HEENT: [place] palpebral conjunctivae, no ptosis, dry buccal mucosa NECK : Supple, short neck, no tenderness CHEST : CTA, no tenderness HEART : RRR, no obvious murmurs ABDOMEN: Some distention, minimal epigastric tenderness EXTREMITIES : Minimal LE swelling, no LE tenderness, no other conspicuous deformities noted NEUROLOGIC : Lethargic, no facial asymmetry, no other gross focality Principal Diagnosis acute on chronic pancreatitis Discharge Exam GENERAL: alert, obese, no respiratory distress SKIN: Normal color, warm HEENT: [place] palpebral conjunctivae, no ptosis, moist buccal mucosa NECK : Supple, short neck, no tenderness CHEST : CTA, no tenderness HEART : RRR, no obvious murmurs ABDOMEN: Some distention, minimal epigastric tenderness - improved EXTREMITIES : Minimal LE swelling, no LE tenderness, no other conspicuous deformities noted NEUROLOGIC : alert, no facial asymmetry, no other gross focality Discharge Data Allergies Allergy/AdvReac Type Severity Reaction Status Date / Time amoxicillin Allergy Severe Anaphylaxis Verified 04/24/24 11:41 /HIVES clavulanic acid Allergy Severe Anaphylaxis Verified 04/24/24 11:41 [From Augmentin] /HIVES gluten Allergy Severe Gastrointestinal Unverified 04/24/24 11:41 Upset Inhaled Anesthetics (Halogen Allergy Severe Possible Verified 05/04/24 12:20 Based) family history malignant hyperthermia Penicillins Allergy Severe Anaphylaxis Verified 04/24/24 11:42 succinylcholine Allergy Severe Possible Verified 05/04/24 12:20 family history malignant hyperthermia Macrolide Antibiotics Allergy Intermediate Hives Verified 04/24/24 11:41 polyethylene glycol 3350 Allergy Intermediate ITCHING Verified 04/24/24 11:41 [From Miralax] Sulfa (Sulfonamide Allergy Intermediate Hives Verified 04/24/24 11:41 Antibiotics) Consultations 07/30/24 06:06 ED Decision to Admit Stat 07/30/24 09:03 Consult Gastroenterology Routine 07/30/24 15:43 Consult Gastroenterology Routine Ordered Studies 07/30/24 02:54 CT abd pelvis wo con Stat Hospital Course (1) Acute pancreatitis: 29-year-old male with PMH of recurrent pancreatitis, seizure disorder, congenital absence of left kidney, CFTR gene variant positivity, SIADH, chronic hyponatremia, Klinefelter syndrome, spina bifida, autism presented with complaint of 2-day of stabbing upper abdominal pain associated with nausea, radiating to back. Of note, per outpatient chart review GI recommended to follow-up with [facility] specialist for consideration of sphincterotomy and Creon initiation. He was managed for the following: Acute on chronic pancreatitis History of recurrent pancreatitis in the setting of Cystic fibrosis Patient presented with acute upper abdominal pain radiating to back, associated with nausea. Patient denies febrile illness. Admitting CTAP suggestive of pancreatitis. Noted cholecystectomy. Patient tolerating full liquid diet, reports pain close to 0, will advance to soft diet. Tolerated soft diet well and reports no pain. Patient worried about not moving bowels, x ray KUB w/ no acute findings, did move bowel later in the day GI eval, appreciate recs Patient to follow-up with GI upon discharge. Chronic hyponatremia: Baseline sodium level around low 130s, admitting sodium of 132. Na 137 today. Continue to monitor. Other chronic medical conditions: Continue with/resume home meds as and when able History of cystic fibrosis Seizure disorder: Baseline frequency of 6-10 episodes per week as per family. [facility] neurology is aware as per patient's father. Pt will possibly benefit from wheelchair upon discharge due to his "drop events" when he has seizures. Patient can't use cane or walker safely due to epilepsy and a wheelchair would improve ADL's within the home. Script needed upon dc is : Standard wheelchair with cushion and foot petals. Script provided 08/01. History of spina bifida/autism/solitary kidney right DVT prophylaxis with Lovenox subcu Full code Patient's father was at bedside who was updated on plan of care today as well. Patient'd mother Ms. Pratima Swan, contact #[phone]. Pt is being discharged to home w/ family support w/ following instructions at the point of discharge: Follow-up with your primary care physician within a week time and likely you will need labs CBC/CMP/magnesium/phosphorus. Follow up with GI physician in 2-4 weeks of dicharge. Take over the counter laxatives and stool softener w/ goal of 1 to 2 bowel movements a day. Take your medications as prescribed. Please make sure that you are able to get your medications today by calling your pharmacy before you leave the hospital so that your treatment continuity is not broken. Text document was generated using [employer] voice recognition software. It may contain grammatical or spelling errors. Kindly contact undersigned for clarification of any documentation item in question. Home Health Attestation I certify that this patient is under my care and that I, or a physicians jessica fuller working with me, had a face to-face encounter that meets the home health [id number] encounter requirements with this patient. The encounter with the patient was in whole, or in part, for the following medical condition, which is the primary reason for home health care (list medical condition): I certify that, based on my findings, the following services are medically necessary home health services: My clinical findings support the need for the above services because: Further, I certify that my clinical findings support that this patient is homebound (i.e. absences from home require considerable and taxing effort and are for medical reasons or congregational services or infrequently or of short duration when for other reasons) because: Certification for Home Health Services: Based on the above findings, I certify that this patient is confined to the home and needs intermittent chcf care, physical therapy and/or speech therapy or continues to need occupational therapy. The patient is under my care, and I have initiated the establishment of the plan of care. This patient will be followed by a physician who will periodically review the plan of care. Total Time Total Time Spent Total Time Spent (In Minutes): 55 Discharge Plan Discharge Items Patient Disposition: Home - Self-Care Reason For Visit: hypoatremia, pancreatitis(private as per [facility]) Discharge Diagnosis: acute on chronic pancreatitis Activity: Resume your previous activity Non-emergency contact: Primary Care Provider Call non-emergency contact if: you have any medication questions, your symptoms worsen and your pain is worsening Follow-up/Referrals: Najma Solis MD [Primary Care Provider] - Diet: Regular Diet Texture: Dental soft (bite-sized) Addtl Attending Provider Instructions: Follow-up with your primary care physician within a week time and likely you will need labs CBC/CMP/magnesium/phosphorus. Follow up with GI physician in 2-4 weeks of dicharge. Take over the counter laxatives and stool softener w/ goal of 1 to 2 bowel movements a day. Take your medications as prescribed. Please make sure that you are able to get your medications today by calling your pharmacy before you leave the hospital so that your treatment continuity is not broken. Pending Studies at Discharge: No Stand-Alone Forms: My [facility] Superprotonic, Smoking Cessation Medications and DC Order Prescriptions: Continued gabapentin 600 mg tablet 600 mg PO BID Rx Instructions: takes 0500 & 2100 lamotrigine 200 mg tablet 200 mg PO BID Rx Instructions: 0900 & 2000 melatonin 10 mg Tablet 20 mg PO HS Rx Instructions: 2 tablet dose ibuprofen 200 mg Tablet 200 mg PO Q4 PRN (Reason: Fever Or Pain) omeprazole 20 mg capsule,delayed release(DR/EC) 20 mg PO HS lorazepam 2 mg/mL concentrate 2 mg buccal UD PRN (Reason: seizure>5min or 3 seizures in24 hour) Acid Relief Chew 0 mg PO DAILY PRN (Reason: Acid Reflux) Rx Instructions: Parent unsure of strength, this is an OTC acid relief chew folic acid 400 mcg tablet 400 mcg PO QAM lacosamide 100 mg tablet 200 mg PO BID Rx Instructions: 0800 2100 Aptiom 800 mg tablet 800 mg PO QAM Valtoco 20 mg/2 spray (10mg/0.1mL x2) spray,non-aerosol 10 mg INTRANASAL DAILY PRN (Reason: seizures lasting 3 minutes or more) sennosides-docusate sodium [Senokot-S] 8.6-50 mg tablet 2 tab PO BID potassium chloride 20 mEq Tablet,Er Particles/Crystals 40 meq PO BID Qty: 120 0RF magnesium oxide 400 mg (241.3 mg magnesium) Tablet 400 mg PO QAM Qty: 30 0RF Ure-Na 15 gram Powder In Packet 30 g PO BID 30 Days Qty: 30 1RF Rx Instructions: 0900 1800 2100 fluticasone propionate 50 mcg/actuation spray,suspension 1 spray INTRANASAL HS Patient Comments: dosing as per px/family Discharge Orders: Discharge Order (Routine); Ordered 08/01/24 Ordered By: Av Shah Admission Data Admit Date/Time: 07/30/24 06:26 Attending Provider: Av Shah Admit Provider: Eddy Torres Primary Care Provider: Najma Solis Other Providers: Kyree Celeste Jr; Eddy Torres; Deric Blanca; Donnie Villa; Tamara Mandujano; Kalyn Melvin; Zhanna Ambriz; Bria Khan; Theresa Cat; Donaldo Orta; Misael Gates; Santiago Farfan; Lele Cline; Waleska Santiago S; Shadia Styles; Flakita Swan; Kianna Browne; Cristine Jimenez; Daniel Valente; Pradeep Castellano; Nae Flood; Guero Morin; Renato Santana; Prasanna Kerr; Kuldip Cisse; Marcie Mazariegos; Bob Merritt I; Liberty Cordero
== END 2024-08-01 19:04 | disposition home or self-care (01) | DRG 439 ==
LOC: ED 02:48 → EDINP 06:26 → 2W 15:42